=== PATIENT | male | born 1955 | race Caucasian/White ===

== ENCOUNTER → 2016-10-25 | Outpatient (CLI) | payer OTHER ==
[~2016-10-25] MED LIST: OPTIRAY 320 IV PRN
--- NOTE | 2016-10-25 09:15 | DIAGNOSTIC IMAGING REPORT ---
CHEST CT WITH CONTRAST CT DOSE: 410.48 mGy.cm HISTORY: Short of breath. COPD, MODERATE TECHNIQUE: Multiaxial CT images of the chest were performed following the intravenous administration of contrast. A dose lowering technique was utilized adhering to the principles of ALARA. COMPARISON: None. FINDINGS: A 5 mm groundglass nodule within the superior segment of the left lower lobe on image 103. A 4 mm nodular density along the left major fissure on image 146. This is likely benign. Mild apical predominant emphysematous changes. The right lung is clear. No pneumothorax. No pleural effusions. The central airways are patent. No suspicious lytic or blastic osseous lesions. No mediastinal or hilar lymphadenopathy. The heart is normal in size. Normal caliber thoracic aorta. The central pulmonary arteries are patent. The visualized liver and spleen are unremarkable. IMPRESSION: 1. Mild emphysema. 2. A 5 mm groundglass nodule within the left lower lobe. Please refer to the chart below for recommended follow-up. Please refer to below summary of Fleischner criteria recommendations for follow-up of incidental CT nodules (Leroy Escalante, Guidelines for management of small pulmonary nodules detected on CT scans: A statement from the Fleischner Society, Radiology 237: [phone].) SOLID NODULES Solitary nodule size: <6 mm * Low risk patients: no follow-up needed * high risk patients: optional CT at 12 months Solitary nodule size: 6-8 mm * Low risk patients: follow-up at 6-12 months, then consider further follow-up at 18-24 months * high risk patients: initial follow-up CT at 6-12 months and then at 18-24 months if no change Solitary nodule size: >8 mm * either low or high risk patients - consider follow-up CT at 3 months, and/or CT-PET, and/or biopsy Multiple nodules size: <6 mm * Low risk patients: no routine follow-up * high risk patients: optional CT at 12 months Multiple nodules size: 6-8 mm * Low risk patients: follow-up at 3-6 months, then consider further follow-up at 18-24 months * high risk patients: follow-up at 3-6 months, then at 18-24 months if no change Multiple nodules size: >8 mm * Low risk patients: follow-up at 3-6 months, then consider further follow-up at 18-24 months * high risk patients: follow-up at 3-6 months, then at 18-24 months if no change Note: newly detected indeterminate nodule in persons 35 years of age or older. * Low risk patients: minimal or absent history of smoking and/or other known risk factors * high risk patients: history of smoking or of other known risk factors (e.g. first degree relative with lung cancer, or exposure to asbestos, radon, uranium) * if a nodule up to 8 mm is partly solid or is ground glass further follow-up is required after 24 months to exclude possible slow growing adenocarcinoma (CALVIN) SUBSOLID NODULES Solitary pure ground-glass nodule * nodule size <6 mm - no CT follow-up required * nodule size >=6 mm - follow-up CT at 6-12 months, then every 2 years until 5 years Solitary part-solid nodule * nodule size <6 mm - no CT follow-up required * nodule size >=6 mm - follow-up CT at 3-6 months. If unchanged, and solid component remains <6 mm, then annual follow-up for 5 years Multiple subsolid nodules * nodule size <6 mm - follow-up CT at 3-6 months, consider further follow-up at 2 and 4 years if stable * nodule size >=6 mm - follow-up CT at 3-6 months, subsequent management based on the most suspicious nodule(s) Electronically signed by: Tan Martínez M.D. 10/25/2016 9:14 AM Dictated Date/Time: 10/25/2016 9:06 AM
== END | disposition home or self-care (01) ==
LOC: C.CTS 08:30
PROVIDERS: ATTEND Physician Assistant
DX: J44.9 Chronic obstructive pulmonary disease, unspecified (principal); R91.1 Solitary pulmonary nodule

== ENCOUNTER → 2017-04-26 | Outpatient (CLI) | payer OTHER ==
--- NOTE | 2017-04-26 10:53 | DIAGNOSTIC IMAGING REPORT ---
CT OF THE CHEST WITH IV CONTRAST CLINICAL HISTORY: Moderate chronic obstructive pulmonary disease. Pulmonary nodule. COMPARISON STUDY: Chest CT October 25, 2016. TECHNIQUE: Following IV administration of 116 mL of Optiray-320, helical axial images of the chest were obtained. Sagittal and coronal reconstructions were viewed as well as maximal intensity projections on an independent 3-D workstation. A dose lowering technique was utilized adhering to the principles of ALARA. CT DOSE: 405.49 mGy.cm FINDINGS: A 5 mm groundglass nodule within the left lower lobe shown on image 83 of 296 is better depicted on prior exam due to motion artifact on this exam. However, this is unchanged. A 6 mm perifissural nodule within the left lower lobe shown on image 119 is unchanged. No new nodules are identified. There is mild bronchial wall thickening and minimal secretions within the airway, including the distal trachea. Mild emphysema is noted. Central airways are patent. There is no pneumothorax or pleural effusion. There is no consolidation to suggest pneumonia. Size of the heart is normal. There is no pericardial effusion. No enlarged axillary, mediastinal or hilar lymph nodes are present. Upper abdomen is unremarkable. IMPRESSION: 1. No change in a 5 mm ground glass nodule within the left lower lobe since CT of October 25, 2016. Please refer to the chart below for recommended follow-up. 2. Mild emphysema. 3. Mild bronchial wall thickening and mild secretions within the airways. Please refer to below summary of Fleischner criteria recommendations for follow-up of incidental CT nodules (Leroy Escalante, Guidelines for management of small pulmonary nodules detected on CT scans: A statement from the Fleischner Society, Radiology 237: [phone].) SOLID NODULES Solitary nodule size: <6 mm * low risk patients: no follow-up needed * high risk patients: optional CT at 12 months Solitary nodule size: 6-8 mm * low risk patients: follow-up at 6-12 months, then consider further follow-up at 18-24 months * high risk patients: initial follow-up CT at 6-12 months and then at 18-24 months if no change Solitary nodule size: >8 mm * either low or high risk patients - consider follow-up CT at 3 months, and/or CT-PET, and/or biopsy Multiple nodules size: <6 mm * low risk patients: no routine follow-up * high risk patients: optional CT at 12 months Multiple nodules size: 6-8 mm * low risk patients: follow-up at 3-6 months, then consider further follow-up at 18-24 months * high risk patients: follow-up at 3-6 months, then at 18-24 months if no change Multiple nodules size: >8 mm * low risk patients: follow-up at 3-6 months, then consider further follow-up at 18-24 months * high risk patients: follow-up at 3-6 months, then at 18-24 months if no change Note: newly detected indeterminate nodule in persons 35 years of age or older. * low risk patients: minimal or absent history of smoking and/or other known risk factors * high risk patients: history of smoking or of other known risk factors (e.g. first degree relative with lung cancer, or exposure to asbestos, radon, uranium) * if a nodule up to 8 mm is partly solid or is ground glass further follow-up is required after 24 months to exclude possible slow growing adenocarcinoma (CALVIN) SUBSOLID NODULES Solitary pure ground-glass nodule * nodule size <6 mm - no CT follow-up required * nodule size >=6 mm - follow-up CT at 6-12 months, then every 2 years until 5 years Solitary part-solid nodule * nodule size <6 mm - no CT follow-up required * nodule size >=6 mm - follow-up CT at 3-6 months. If unchanged, and solid component remains <6 mm, then annual follow-up for 5 years Multiple subsolid nodules * nodule size <6 mm - follow-up CT at 3-6 months, consider further follow-up at 2 and 4 years if stable * nodule size >=6 mm - follow-up CT at 3-6 months, subsequent management based on the most suspicious nodule(s) Electronically signed by: Mesfin Dutton M.D. 04/26/2017 10:51 AM Dictated Date/Time: 04/26/2017 10:16 AM
== END | disposition home or self-care (01) ==
LOC: C.CTS 08:31
PROVIDERS: ATTEND Physician Assistant
DX: R91.1 Solitary pulmonary nodule (principal); J44.9 Chronic obstructive pulmonary disease, unspecified

== ENCOUNTER 2017-05-21 12:08 | Emergency (ER) | payer OTHER ==
[~2017-05-21] VITALS: Ht 175.3 cm; Wt 83.6 kg
[2017-05-21 12:10] VITALS: TEMP 36.3; Ht 175.3 cm; Wt 83.6 kg
[2017-05-21] MEDS ORDERED: XYLOCAINE 1%/SOD BICARB 20 ML VIAL INFIL ONE (13:15)
[2017-05-21] MEDS ORDERED: CEFAZOLIN SOD 1 GM VIAL IV ONE (13:15)
[2017-05-21] MEDS ORDERED: DIPHTHERIA/TETANUS/PERTUSSIS 0.5 ML SYR/VIAL IM. ONE (13:15)
[2017-05-21 13:25] LABS: HEMATOCRIT 41.4 % (42-52); HEMOGLOBIN 14.5 g/dL (14.0-18.0); MEAN CELL VOLUME 93.7 fL (80-100); MEAN CORPUSCULAR HEMOGLOBIN 32.8 pg (25-34); MEAN PLATELET VOLUME 9.7 fL (7.4-10.4); PLATELET COUNT 191 K/uL (130-400); RED CELL DISTRIBUTION WIDTH SD 44.5 fL (36.4-46.3); WHITE BLOOD COUNT 9.39 K/uL (4.8-10.8)
[2017-05-21] MEDS ORDERED: CEFAZOLIN IV 3,000 MG in SYRINGE 0 ML IV SCH (13:30)
[2017-05-21 13:47] LABS: CALCIUM 8.8 mg/dl (8.5-10.1); CREATININE 0.83 mg/dl (0.60-1.40); POTASSIUM 4.5 mmol/L (3.5-5.1)
[2017-05-21] MEDS ORDERED: ASPI-232 PO (14:12)
[2017-05-21] MEDS ORDERED: PARO1TAB27 PO (14:12)
[2017-05-21] MEDS ORDERED: PRAV80TA PO (14:12)
[2017-05-21] MEDS ORDERED: LISI-789 PO (14:12)
[2017-05-21] MEDS ORDERED: ASPI81CH2 PO (14:12)
[2017-05-21] MEDS ORDERED: FLUT1INH7 INH (14:12)
[2017-05-21] MEDS ORDERED: BUSP-8 PO (14:12)
[2017-05-21] MEDS ORDERED: HYDR25CA PO (14:12)
[2017-05-21] MEDS ORDERED: MELO-84 PO (14:12)
[2017-05-21] MEDS ORDERED: METF-384 PO (14:12)
[2017-05-21] MEDS ORDERED: DIVA500T59 PO (14:12)
[2017-05-21] MEDS ORDERED: LINA1TAB PO (14:12)
[2017-05-21] MEDS ORDERED: RISP2TAB22 PO (14:12)
[2017-05-21] MEDS ORDERED: EMPA1TAB3 PO (14:12)
[2017-05-21] MEDS ORDERED: CEPH500C PO (14:37)
--- NOTE | 2017-05-21 14:38 | EMERGENCY ROOM VISIT NOTE ---
History Report prepared by Dahlia: Alec Chavez Under the Supervision of: Dr. Minesh Rogel D.O. First contact with patient: 12:52 Chief Complaint: INFECTION Stated Complaint: INFECTED RIGHT HAND Nursing Triage Summary: Patient had hang nail on end of right middle finger. Pulled the Hang nail off on Monday. Since that time finger has been painful and redness going down the finger. No drainage noted. Finger warm to touch. Patient type 2 DM. History of Present Illness The patient is a 61 year old male with a history of diabetes who presents to the Emergency Room with complaints of a worsening right hand infection that started 2 days ago. He states that he pulled a hang nail on the end of his right middle finger off 2 days ago, and ever since then, the finger and now the surrounding area on his hand has looked more infected, with redness, sensitivity , and pain. The patient notes that there is some pus. He states that he has not had a tetanus shot "in a while". He adds that he takes 3 medications for his diabetes, including Metformin. He says that his blood sugars were pretty good today (around 118). Source of History: patient Onset: 2 days ago Position: finger(s) (right middle finger) Symptom Intensity: infection moving up hand Quality: other (redness) Timing: worsening Note: Associated symptoms: Right middle finger sensitivity and pain. Review of Systems See HPI for pertinent positives & negatives. A total of 10 systems reviewed and were otherwise negative. Past Medical & Surgical Medical Problems: (1) Diabetes Family History No pertinent family history Social History Smoking Status: Current Every Day Smoker Drug Use: none Marital Status: single Occupation Status: disabled Current/Historical Medications Scheduled Aspirin (Aspir-81), 1 TAB PO DAILY Aspirin (Aspirin), 1 TAB PO DAILY Buspirone Hcl (Buspirone Hcl), 10 MG PO TID Cephalexin Monohydrate (Keflex), 500 MG PO QID Divalproex Sodium (Depakote), 1 TAB PO BID Empagliflozin (Jardiance), 25 MG PO DAILY Fluticasone Furoate-Vilanterol (Breo Ellipta 200-25 Mcg/INH), 1 PUFF INH DAILY Linagliptin (Tradjenta), 1 TAB PO DAILY Lisinopril (Zestril), 2.5 MG PO DAILY Meloxicam (Mobic), 15 MG PO DAILY Metformin Hcl (Glucophage), 1,000 MG PO BIDM Pravastatin Sodium (Pravachol), 1 TAB PO DAILY Risperidone (Risperdal), 2 MG PO DAILY Scheduled PRN Hydroxyzine Pamoate (Vistaril), 1 CAP PO TID PRN for Anxiety Miscellaneous Medications Paroxetine (Paxil), 30 MG PO Physical Exam Vital Signs Date Time Temp Pulse Resp B/P (MAP) Pulse Ox O2 Delivery O2 Flow Rate FiO2 05/21/17 12:10 36.3 84 20 138/77 97 Room Air Physical Exam CONSTITUTIONAL/VITAL SIGNS: Reviewed / noted above. GENERAL: Non-toxic in appearance. INTEGUMENTARY: Erythema to the right middle finger and dorsal right hand overlying the 3rd metatarsal region. Paronychia of the radial right distal finger. HEAD: Normocephalic. EYES: without scleral icterus or trauma. ENT/OROPHARYNX: clear and moist. LYMPHADENOPATHY/NECK: Is supple without lymphadenopathy or meningismus. RESPIRATORY: Lungs clear and equal. CARDIOVASCULAR: Regular rate and rhythm. GI/ABDOMEN: Soft and nontender. No organomegaly or pulsatile mass. No rebound or guarding. Normal bowel sounds. EXTREMITIES: Warm and well perfused. BACK: No CVA tenderness. NEUROLOGICAL: Intact without focal deficits. PSYCHIATRIC: normal affect. MUSCULOSKELETAL: Normally developed with good muscle tone. Medical Decision & Procedures Laboratory Results 05/21/17 13:18 05/21/17 13:18 Test 05/21/17 13:18 Red Blood Count 4.42 M/uL (4.7-6.1) Mean Corpuscular Volume 93.7 fL (80-100) Mean Corpuscular Hemoglobin 32.8 pg (25-34) Mean Corpuscular Hemoglobin Concent 35.0 g/dl (32-36) RDW Standard Deviation 44.5 fL (36.4-46.3) RDW Coefficient of Variation 13.0 % (11.5-14.5) Mean Platelet Volume 9.7 fL (7.4-10.4) Anion Gap 10.0 mmol/L (3-11) Est Creatinine Clear Calc Drug Dose 94.7 ml/min Estimated GFR () 110.8 Estimated GFR (Non- 95.6 BUN/Creatinine Ratio 31.4 (10-20) Calcium Level 8.8 mg/dl (8.5-10.1) Laboratory results as stated above per my review. Medications Administered Medications (Trade) Dose Ordered Sig/Chrissie Route Start Time Stop Time Status Last Admin Dose Admin Diphtheria/ Pertussis/Tetanus Vacc (Adacel Inj) 0.5 ml ONCE ONCE IM. 05/21/17 13:15 05/21/17 13:16 DC 05/21/17 13:44 0.5 ML Lidocaine HCl (Buffered Lidocaine 1% Inj) 20 ml NOW ONCE INFIL 05/21/17 13:15 05/21/17 13:16 DC 05/21/17 13:44 20 ML Cefazolin Sodium 3000 mg/Syringe 22.5 ml @ 4.5 mls/min 1330 IV 05/21/17 13:30 05/21/17 14:00 DC 05/21/17 13:44 4.5 MLS/MIN Procedure Paronychia drainage: After 2% lidocaine was used to anesthetize the finger with a digital block, a 18-gauge needle was used to push back the radial aspect of the skin overlying the nail on the right middle finger to a point where purulent drainage was obtained. The finger was massaged and all of the purulent drainage was removed. ED Course 1258: Previous medical records were reviewed. The patient was evaluated in room C9. A complete history and physical examination was performed. 1315: Ordered Buffered Lidocaine 1% Inj 20 ml INFIL, Adacel Inj 0.5 ml IM. 1430: On reevaluation, the patient is resting comfortably. I discussed the results and findings with the patient. He verbalized agreement of the treatment plan. He was discharged home. Medical Decision Differential diagnosis: Etiologies such as cellulitis, abscess, MRSA infection, DVT, necrotizing fasciitis, dermatitis, drug eruption, as well as others were entertained.. This is a 61-year-old male who presents to the ED with a chief complaint of a right hand infection. The patient states that he bit his fingernail on his right middle finger a few days ago and developed an infection there. For this reason came to the emergency department today. He reports a history of diabetes. The patient reports increasing discomfort and swelling in his right distal finger as well as some redness of the dorsal aspect of his right hand. His exam as noted above. His exam findings are consistent with paronychia as well as some cellulitis of the right middle finger and dorsal right hand. He was given IV Ancef and his blood work was performed. He has some mild hyperglycemia with a glucose of 153. He is taking oral medication for this. The patient's CBC was normal. The apparently he was drained. There was a small amount of pus that was removed from the radial aspect of the right index finger distally. This was removed from the area of the nail. A small portion of the skin was pushed back from the nail to allow this to heal. The patient was felt to be stable for discharge. Medication Reconcilliation Current Medication List: was personally reviewed by me Blood Pressure Screening Patient's blood pressure: Elevated blood pressure Blood pressure disposition: Elevated BP felt to be situational Impression Primary Impression: Paronychia Additional Impression: Cellulitis of hand Scribe Attestation The scribe's documentation has been prepared under my direction and personally reviewed by me in its entirety. I confirm that the note above accurately reflects all work, treatment, procedures, and medical decision making performed by me. Departure Information Dispostion Home / Self-Care Prescriptions Cephalexin Monohydrate (Keflex) 500 Mg Cap 500 MG PO QID, #40 CAP Prov: Minesh Rogel D.O. 05/21/17 Referrals Isaias Medina M.D. (MEDICAL) (PCP) Patient Instructions Cellulitis Dc, [facility] Additional Instructions Keflex as prescribed. Follow-up with your doctor this week for recheck. Return for any worsening or new symptoms. Problem Qualifiers
[2017-05-21 15:10] VITALS: BP 136/78; PULSE 76; O2SAT 94
== END 2017-05-21 15:13 | disposition home or self-care (01) ==
LOC: C.EDB 12:10 → C.EDC 15:13
DX: L03.011 Cellulitis of right finger (principal); L03.113 Cellulitis of right upper limb; E11.9 Type 2 diabetes mellitus without complications; Z79.82 Long term (current) use of aspirin; Z79.84 Long term (current) use of oral hypoglycemic drugs; Z23 Encounter for immunization

== ENCOUNTER → 2017-11-06 | Outpatient (CLI) | payer OTHER ==
[~2017-11-06] MED LIST changes: +ASPI-232 PO; +ASPI81CH2 PO; +BUSP-8 PO; +CEPH500C PO; +DIVA500T59 PO; +EMPA1TAB3 PO; +FLUT1INH7 INH; +HYDR25CA PO; +LINA1TAB PO; +LISI-789 PO; +MELO-84 PO; +METF-384 PO; -OPTIRAY 320 IV PRN; +PARO1TAB27 PO; +PRAV80TA PO; +RISP2TAB22 PO
--- NOTE | 2017-11-06 10:06 | DIAGNOSTIC IMAGING REPORT ---
(CHEST) THORAX WITHOUT CT DOSE: 371.64 mGy.cm HISTORY: Nodule R91.1 Pulmonary nodule TECHNIQUE: Multiaxial CT images of the chest were performed without contrast. A dose lowering technique was utilized adhering to the principles of ALARA. COMPARISON: None. FINDINGS: The lungs are clear. The mediastinal vascular structures are within normal limits. No mediastinal or hilar lymphadenopathy. No pleural effusion or pneumothorax. Limited views of the upper abdomen demonstrate a normal liver and spleen.. 5 mm nodule immediately adjacent to the left major fissure is unchanged. There are no new or interval findings. There are no focal infiltrative changes. IMPRESSION: 5 mm nodule left midlung considered unchanged compared to several prior studies. No new or additional findings. 1 year follow-up is recommended. The above report was generated using voice recognition software. It may contain grammatical, syntax or spelling errors. Electronically signed by: Cm Cortes M.D. 11/06/2017 10:04 AM Dictated Date/Time: 11/06/2017 10:02 AM
== END | disposition home or self-care (01) ==
LOC: C.CTS 09:27
PROVIDERS: ATTEND Physician Assistant
DX: R91.1 Solitary pulmonary nodule (principal)

== ENCOUNTER 2022-05-08 03:00 | Inpatient (IN) ==
--- NOTE | 2022-05-08 03:29 | Emergency Department Note ---
History of Present Illness General Chief complaint: Back Injury/Pain Stated complaint: back pain Time Seen by Provider: 05/08/22 03:08 History of Present Illness Maximum Pain Intensity: 8 66-year-old male presents emergency department had a twist and fall 2 days ago states he called EMS tonight because he could not get out of bed. Patient complains of low states that he has had a wet cough and has a history of COPD. Patient denies bowel or bladder dysfunction. Patient tried to get up this evening and just had generalized weakness and was able to do so. There were no other complaints from the patient at this time Home Medications Medication Instructions Recorded Confirmed Type aspirin 81 mg tablet,delayed 81 mg PO DAILY 04/13/22 04/13/22 History release atorvastatin 80 mg tablet 80 mg PO DAILY 04/13/22 04/13/22 History buspirone 10 mg tablet 10 mg PO BID 04/13/22 04/13/22 History cyclobenzaprine 10 mg tablet 5 - 10 mg PO TID PRN .muscle spasms 04/13/22 04/13/22 History divalproex 500 mg tablet,delayed 500 mg PO BID 04/13/22 04/13/22 History release (Depakote) empagliflozin 25 mg tablet 25 mg PO DAILY 04/13/22 04/13/22 History (Jardiance) fluticasone fur. 200 mcg-umeclid 1 inh inhalation DAILY 04/13/22 04/13/22 History 62.5 mcg-vilant 25 mcg inhalat.powder (Trelegy Ellipta) hydroxyzine HCl 25 mg tablet 25 mg PO TID PRN Anxiety 04/13/22 04/13/22 History lisinopril 2.5 mg tablet 2.5 mg PO DAILY 04/13/22 04/13/22 History meclizine 12.5 mg tablet 12.5 mg PO TID PRN dizziness #20 04/13/22 Rx tabs meloxicam 15 mg tablet 15 mg PO DAILY 04/13/22 04/13/22 History metformin 1,000 mg tablet 1,000 mg PO BID 04/13/22 04/13/22 History paroxetine HCl 30 mg tablet (Paxil) 30 mg PO BID 04/13/22 04/13/22 History risperidone 2 mg tablet 0 mg PO HS 01/18/23 01/18/23 History semaglutide 1 mg/dose (4 mg/3 mL) 1 mg subcut WK 04/13/22 04/13/22 History subcutaneous pen injector (Ozempic) Allergies Allergy/AdvReac Type Severity Reaction Status Date / Time No Known Allergies Allergy Verified 04/13/22 21:22 Past Med/Surg History Medical History Anxiety Bipolar 1 disorder Chronic pain syndrome COPD, moderate Current tobacco use Depression Depression with anxiety Diabetes DM type 2, goal HbA1c < 7% Dyslipidemia, goal LDL below 70 Essential hypertension with goal blood pressure less than 150/90 Former smoker Paranoia Paronychia Primary osteoarthritis involving multiple joints Pulmonary nodule Surgical History History of appendectomy History of hemorrhoidectomy History of umbilical hernia repair Family History Other Family history non-contributory Social History Smoking Status: Current every day smoker Tobacco Type: Cigarettes Cigarettes Per Day: 20; Second Hand Exposure: No; Preferred Language: Mongolian Feels Safe at Home: Yes Review of Systems A total of 10 systems reviewed and were otherwise negative Respiratory: + cough Cardiovascular: no chest pain Genitourinary (Male): + flank pain Musculoskeletal: + back pain Physical Exam Vital Signs Vital Signs - 24 hr 05/08/22 03:05 05/08/22 03:18 05/08/22 03:30 Temperature 36.9 C Temperature Source Oral Pulse Rate 93 H 91 H Pulse Rate [Right Finger] 93 H Pulse Rhythm [Right Finger] Regular Respiratory Rate 20 22 18 Respiratory Depth Normal Normal Blood Pressure 135/68 Blood Pressure Mean 90 Pulse Oximetry 92 94 92 Oxygen Delivery Method Room Air Room Air Room Air Sepsis Recent Fever Within 48 Hours No Sepsis New/Unexplained Change in Mental Status N/A Sepsis Action Taken by Nursing No Action Required GENERAL: Patient is awake alert in no acute distress patient is resting comfortably and showing no signs of anxiety EYES: The conjunctivae are clear. The pupils are round and reactive. EARS, NOSE, MOUTH AND THROAT: The nose is without any evidence of any deformity. Mucous membranes are moist. Tongue is midline. NECK: The neck is nontender and supple. RESPIRATORY: Normal respiratory effort is noted there is no evidence of wheezing rhonchi or rales CARDIOVASCULAR: Regular rate and rhythm noted there no murmurs rubs or gallops normal S1 normal S2. Patient's chest wall is nontender GASTROINTESTINAL: The abdomen is soft. Abdomen is nontender. PELVIS: The Pelvis is stable. No tenderness to palpation is noted. BACK: No midline tenderness or or step-off noted range of motion in flexion extension as well as rotation no signs of muscle spasm noted; patient has no midline tenderness in the lumbar region there are no obvious step-offs MUSCULOSKELETAL/EXTREMITIES: There is no evidence of gross deformity full range of motion is noted in the hips and shoulders. Patient has bilateral lower extremity pitting edema SKIN: There is no obvious evidence of any rash. There are no petechiae, pallor or cyanosis noted. NEUROLOGIC: Patient is awake alert and oriented x3 strength is symmetric Course Reevaluation(s) Reevaluation #1: Patient is resting in no distress on repeat examination. Patient is able to move his legs without any difficulty. Patient is generally weak. Time: 04:25 Consultations Consultation #1: [facility], COVID, COPD Time: 04:26 Medical Decision Making Medical Records Attestation: I reviewed the patient's medical records. Home Medications Current Medication List: was personally reviewed by me Laboratory Data Attestation: I reviewed the patient's lab results. Patient is COVID-positive 05/08/22 03:22 05/08/22 03:22 Lab Results 05/08/22 05/08/22 05/08/22 Range/Units 03:22 03:22 03:22 WBC 6.34 (4.8-10.8) K/ul RBC 4.15 L (4.70-6.10) M/uL Hgb 13.4 L (14.0-18.0) g/dl Hct 39.6 L (42.0-52.0) % MCV 95.4 (80.0-100.0) fL MCH 32.3 (25.0-34.0) pg MCHC 33.8 (32.0-36.0) g/dL RDW Std Deviation 46.4 H (36.4-46.3) fL RDW Coeff of Keila 13.2 (11.5-14.5) % Plt Count 157 (130-400) K/uL MPV 10.2 (9.4-12.4) fL Immature Gran % (Auto) 0.2 % Neut % (Auto) 78.6 % Lymph % (Auto) 10.9 % Hudspeth % (Auto) 9.8 % Eos % (Auto) 0.2 % Baso % (Auto) 0.3 % Neut # (Auto) 4.99 (1.40-6.50) K/uL Lymph # (Auto) 0.69 L (1.2-3.4) K/uL Hudspeth # (Auto) 0.62 H (0.11-0.59) K/uL Eos # (Auto) 0.01 (0-0.50) K/uL Baso # (Auto) 0.02 (0-0.2) K/uL Immature Gran # (Auto) 0.01 (0.01-0.20) K/uL PT 10.7 (9.0-12.0) Seconds INR 1.0 (0.9-1.1) APTT 26.9 (21.0-31.0) Seconds PTT Ratio 1.0 Sodium 137 (136-145) mmol/L Potassium 4.3 (3.5-5.1) mmol/L Chloride 104 (98-107) mmol/L Carbon Dioxide 26 (21-32) mmol/L Anion Gap 7 (3-11) BUN 15 (6-23) mg/dl Creatinine 1.10 (0.6-1.4) mg/dl Est Cr Clr Drug Dosing 67.0 ml/min Est GFR ( Amer) 81.2 ml/min Est GFR (Non-Af Amer) 70.1 ml/min BUN/Creatinine Ratio 13.6 (10-20) Glucose 155 H (70-99(Fasting)) mg/dl Calcium 9.1 (8.5-10.1) mg/dl Total Bilirubin 0.3 (0.2-1.0) mg/dl AST 14 (13-39) U/L ALT 11 (7-52) U/L Alkaline Phosphatase 78 (34-104) U/L Troponin I High Sens 15.0 (0-20) pg/ml Total Protein 6.8 (6.0-8.3) gm/dl Albumin 3.9 (3.4-5.0) gm/dl Globulin 2.9 (2.5-4.0) gm/dl Albumin/Globulin Ratio 1.3 (0.9-2) SARS-CoV-2, RNA, NAAT (NEGATIVE) 05/08/22 Range/Units 03:22 WBC (4.8-10.8) K/ul RBC (4.70-6.10) M/uL Hgb (14.0-18.0) g/dl Hct (42.0-52.0) % MCV (80.0-100.0) fL MCH (25.0-34.0) pg MCHC (32.0-36.0) g/dL RDW Std Deviation (36.4-46.3) fL RDW Coeff of Keila (11.5-14.5) % Plt Count (130-400) K/uL MPV (9.4-12.4) fL Immature Gran % (Auto) % Neut % (Auto) % Lymph % (Auto) % Hudspeth % (Auto) % Eos % (Auto) % Baso % (Auto) % Neut # (Auto) (1.40-6.50) K/uL Lymph # (Auto) (1.2-3.4) K/uL [place]speth # (Auto) (0.11-0.59) K/uL Eos # (Auto) (0-0.50) K/uL Baso # (Auto) (0-0.2) K/uL Immature Gran # (Auto) (0.01-0.20) K/uL PT (9.0-12.0) Seconds INR (0.9-1.1) APTT (21.0-31.0) Seconds PTT Ratio Sodium (136-145) mmol/L Potassium (3.5-5.1) mmol/L Chloride (98-107) mmol/L Carbon Dioxide (21-32) mmol/L Anion Gap (3-11) BUN (6-23) mg/dl Creatinine (0.6-1.4) mg/dl Est Cr Clr Drug Dosing ml/min Est GFR ( Amer) ml/min Est GFR (Non-Af Amer) ml/min BUN/Creatinine Ratio (10-20) Glucose (70-99(Fasting)) mg/dl Calcium (8.5-10.1) mg/dl Total Bilirubin (0.2-1.0) mg/dl AST (13-39) U/L ALT (7-52) U/L Alkaline Phosphatase (34-104) U/L Troponin I High Sens (0-20) pg/ml Total Protein (6.0-8.3) gm/dl Albumin (3.4-5.0) gm/dl Globulin (2.5-4.0) gm/dl Albumin/Globulin Ratio (0.9-2) SARS-CoV-2, RNA, NAAT POSITIVE A* (NEGATIVE) Imaging Data Attestation: I personally reviewed and interpreted this imaging study as follows: My Impression: Chest x-ray interpreted by me COPD changes ECG Data Attestation: I personally reviewed and interpreted this ECG as follows: Additional Comments: EKG interpreted by me sinus rhythm rate of [address] segment elevation or depression normal axis incomplete left bundle branch block is present MDM Narrative Medical decision making differential diagnosis includes musculoskeletal back spasm sprain strain contusion fracture weakness metabolic derangement dehydration electrolyte abnormality conditioning COPD exacerbation Plan is to check labs, EKG, x-rays EMS medical records for this patient's history were provided to me and reviewed Nursing notes were reviewed by me and appreciated Patient is COVID-positive patient is generally weak, [facility] high risk for falls and deterioration due to generalized weakness with COVID Impression & Plan Weakness, COVID, Lumbar back sprain Discharge Plan Visit Data Chief Complaint: Back Injury/Pain Stated Complaint: back pain ED Provider: Greg Nicole Discharge Problem: Weakness, COVID, Lumbar back sprain Patient Disposition: Admitted As Inpatient Forms Stand Alone Forms: [facility] Prescriptions Prescriptions: No Action cyclobenzaprine 10 mg Tablet 5 - 10 mg PO TID PRN (Reason: .muscle spasms) Rx Instructions: Am, noon, pm prn atorvastatin 80 mg Tablet 80 mg PO DAILY meloxicam [Mobic] 15 mg Tablet 15 mg PO DAILY divalproex [Depakote] 500 mg Tablet,Delayed Release (Dr/Ec) 500 mg PO BID aspirin [Aspir-Low] 81 mg Tablet,Delayed Release (Dr/Ec) 81 mg PO DAILY risperidone 2 mg Tablet 0 mg PO HS paroxetine HCl [Paxil] 30 mg Tablet 30 mg PO BID metformin 1,000 mg Tablet 1,000 mg PO BID buspirone [BuSpar] 10 mg Tablet 10 mg PO BID hydroxyzine HCl 25 mg Tablet 25 mg PO TID PRN (Reason: Anxiety) lisinopril 2.5 mg Tablet 2.5 mg PO DAILY Jardiance 25 mg Tablet 25 mg PO DAILY Trelegy Ellipta 200-62.5-25 mcg Blister With Device 1 inh INHALATION DAILY Ozempic 1 mg/dose (4 mg/3 mL) Pen Injector 1 mg SUBCUT WK meclizine 12.5 mg tablet 12.5 mg PO TID PRN (Reason: dizziness) Qty: 20 0RF Referrals Referrals: Cm Roberto MD [Primary Care Provider] -
[2022-05-08 03:36] LABS: Basophils # (auto) 0.02 K/uL (0-0.2); Basophils % (auto) 0.3 %; Eosinophils # (auto) 0.01 K/uL (0-0.50); Eosinophils % (auto) 0.2 %; Hematocrit (blood only) 39.6 % (42.0-52.0); Hemoglobin 13.4 g/dl (14.0-18.0); Immature Granulocytes # (auto) 0.01 K/uL (0.01-0.20); Immature Granulocytes % (auto) 0.2 %; Lymphocytes # (auto) 0.69 K/uL (1.2-3.4); Lymphocytes % (auto) 10.9 %; Mean Corpuscular Hemoglobin 32.3 pg (25.0-34.0); Mean Corpuscular Hgb Conc 33.8 g/dL (32.0-36.0); Mean Corpuscular Volume 95.4 fL (80.0-100.0); Mean Platelet Volume 10.2 fL (9.4-12.4); Monocytes # (auto) 0.62 K/uL (0.11-0.59); Monocytes % (auto) 9.8 %; Neutrophils # (auto) 4.99 K/uL (1.40-6.50); Neutrophils % (auto) 78.6 %; Platelet Count 157 K/uL (130-400); RDW Coefficient of Variation 13.2 % (11.5-14.5); RDW Standard Deviation 46.4 fL (36.4-46.3); Red Blood Count 4.15 M/uL (4.70-6.10); White Blood Count 6.34 K/ul (4.8-10.8)
[2022-05-08 04:07] LABS: Albumin Globulin Ratio 1.3 (0.9-2); Albumin Level 3.9 gm/dl (3.4-5.0); BUN Creatinine Ratio 13.6 (10-20); Bilirubin,Total 0.3 mg/dl (0.2-1.0); Calcium 9.1 mg/dl (8.5-10.1); Est GFR (African American) 81.2 ml/min; Est GFR (Non-African American) 70.1 ml/min; Globulin 2.9 gm/dl (2.5-4.0); Potassium 4.3 mmol/L (3.5-5.1); Total Protein 6.8 gm/dl (6.0-8.3)
[2022-05-08 04:22] LABS: Partial Thromboplastin Time 26.9 Seconds (21.0-31.0); Prothrombin Time 10.7 Seconds (9.0-12.0)
[2022-05-08] MEDS ORDERED: SODIUM CHLORIDE 0.9% 1000ML 1,000 ML IV STA (04:23)
[2022-05-08 04:32] LABS: Magnesium 1.8 mg/dl (1.7-2.4)
--- NOTE | 2022-05-08 04:53 | History & Physical Report ---
Date of Service May 08, 2022 Assessment & Plan (1) Weakness: Plan: Secondary to COVID-19 illness Patient with chronic COPD symptoms. Patient nontoxic. Back pain post fall from 2 days ago hypertension, stable DM 2 on oral medications, well-controlled as of recent hemoglobin A1c of 6.6 last February 2022 anxiety/mood disorder, at baseline chronic anemia, hemoglobin at baseline past tobacco abuse GMF Supportive management for COVID-19 illness. Analgesia PT OT eval Basal bolus insulin, ISS BG goal 1 10-1 40, carb count coverage DVT prophylaxis. Lovenox subcu DNR as per patient's prior directives. Patient requests for family to be given periodic updates. Mr. Guero Gomez (son), contact number [phone]. Ms. Cecilia Aaron (former girlfriend), contact #[phone]. Text document was generated using [employer] voice recognition software. It may contain grammatical or spelling errors. Kindly contact undersigned for clarification of any documentation item in question. History of Present Illness Chief Complaint: Back pain, unable to get up Primary Care Provider: Cm Roberto MD History obtained from patient, family, and records. Medical history significant for hypertension, hyperlipidemia, COPD, DM 2 on oral medications, anxiety/mood disorder, chronic back pain status post surgery, chronic anemia (baseline hemoglobin of 13 ), past tobacco abuse. Patient twisted his back and fell 2 days ago from generalized weakness. No syncope, no head trauma, no chest pain. No unusual shortness of breath or cough symptoms. Not sure about sick contacts. Patient has received COVID-19 vaccination. Worsening of chronic back pain without radiation to legs. No incontinence symptoms. Patient needed help from neighbors getting up. Patient brought to ER for evaluation because of increased weakness. Medical History as above Surgical History : Appendectomy, umbilical hernia repair, back surgery Family History : Heart disease Personal/Social history : Past tobacco abuse, occasional EtOH intake, lives alone with former girlfriend acting as caregiver Allergies Allergy/AdvReac Type Severity Reaction Status Date / Time No Known Allergies Allergy Verified 04/13/22 21:22 Home Medications Medication Instructions Recorded Confirmed Type aspirin 81 mg tablet,delayed 81 mg PO DAILY 04/13/22 05/08/22 History release atorvastatin 80 mg tablet 80 mg PO DAILY 04/13/22 05/08/22 History buspirone 10 mg tablet 10 mg PO BID 04/13/22 05/08/22 History cyclobenzaprine 10 mg tablet 5 - 10 mg PO TID PRN .muscle spasms 04/13/22 05/08/22 History divalproex 500 mg tablet,delayed 500 mg PO BID 04/13/22 05/08/22 History release (Depakote) empagliflozin 25 mg tablet 25 mg PO DAILY 04/13/22 05/08/22 History (Jardiance) fluticasone fur. 200 mcg-umeclid 1 inh inhalation DAILY 04/13/22 05/08/22 History 62.5 mcg-vilant 25 mcg inhalat.powder (Trelegy Ellipta) hydroxyzine HCl 25 mg tablet 25 mg PO TID PRN Anxiety 04/13/22 05/08/22 History lisinopril 2.5 mg tablet 2.5 mg PO DAILY 04/13/22 05/08/22 History meloxicam 15 mg tablet 15 mg PO DAILY 04/13/22 05/08/22 History metformin 1,000 mg tablet 1,000 mg PO BID 04/13/22 05/08/22 History paroxetine HCl 30 mg tablet (Paxil) 30 mg PO BID 04/13/22 05/08/22 History risperidone 2 mg tablet 2 mg PO HS 04/13/22 05/08/22 History semaglutide 1 mg/dose (4 mg/3 mL) 1 mg subcut WK 04/13/22 05/08/22 History subcutaneous pen injector (Ozempic) Past Med/Surg History Medical History Anxiety Bipolar 1 disorder Chronic pain syndrome COPD, moderate Current tobacco use Depression Depression with anxiety Diabetes DM type 2, goal HbA1c < 7% Dyslipidemia, goal LDL below 70 Essential hypertension with goal blood pressure less than 150/90 Former smoker Paranoia Paronychia Primary osteoarthritis involving multiple joints Pulmonary nodule Surgical History History of appendectomy History of hemorrhoidectomy History of umbilical hernia repair Family History Other Family history non-contributory Social History Smoking Status: Current every day smoker Tobacco Type: Cigarettes Cigarettes Per Day: 20; Second Hand Exposure: No; Preferred Language: Kazakh Feels Safe at Home: Yes Review of Systems Review of Systems: As per HPI, all other systems reviewed and negative Physical Exam Physical Exam: GENERAL: Slightly uncomfortable, pleasant, no respiratory distress SKIN: Pallor, warm HEENT: Alopecia, pale palpebral conjunctivae, no ptosis, dry buccal mucosa NECK : Supple, no tenderness CHEST : Decreased breath sounds, occasional expiratory wheezes, no tenderness HEART : RRR, no obvious murmurs ABDOMEN: Some distention, nontender BACK : Low back tenderness with limited straight leg raise test EXTREMITIES : No LE swelling/tenderness, no other conspicuous deformities noted NEUROLOGIC : Coherent, no facial asymmetry, no other gross focality Results & Data Results & Data ([facility]) Vital Signs (Past 12 Hours) Vital Signs Temp Pulse Pulse Resp BP Pulse Ox O2 Del Method 05/08/22 04:32 86 25 H 108/52 L 95 05/08/22 04:01 88 20 123/46 L 93 05/08/22 03:30 91 H 18 92 Room Air 05/08/22 03:18 93 H 22 94 Room Air 05/08/22 03:05 36.9 C 93 H 20 135/68 92 Room Air Laboratory Results Laboratory Results WBC 6.34 K/ul (4.8-10.8) 05/08/22 03:22 RBC 4.15 M/uL (4.70-6.10) L 05/08/22 03:22 Hgb 13.4 g/dl (14.0-18.0) L 05/08/22 03:22 Hct 39.6 % (42.0-52.0) L 05/08/22 03:22 MCV 95.4 fL (80.0-100.0) 05/08/22 03:22 MCH 32.3 pg (25.0-34.0) 05/08/22 03:22 MCHC 33.8 g/dL (32.0-36.0) 05/08/22 03:22 RDW Std Deviation 46.4 fL (36.4-46.3) H 05/08/22 03:22 RDW Coeff of Keila 13.2 % (11.5-14.5) 05/08/22 03:22 Plt Count 157 K/uL (130-400) 05/08/22 03:22 MPV 10.2 fL (9.4-12.4) 05/08/22 03:22 Immature Gran % (Auto) 0.2 % 05/08/22 03:22 Neut % (Auto) 78.6 % 05/08/22 03:22 Lymph % (Auto) 10.9 % 05/08/22 03:22 Castro % (Auto) 9.8 % 05/08/22 03:22 Eos % (Auto) 0.2 % 05/08/22 03:22 Baso % (Auto) 0.3 % 05/08/22 03:22 Neut # (Auto) 4.99 K/uL (1.40-6.50) 05/08/22 03:22 Lymph # (Auto) 0.69 K/uL (1.2-3.4) L 05/08/22 03:22 Castro # (Auto) 0.62 K/uL (0.11-0.59) H 05/08/22 03:22 Eos # (Auto) 0.01 K/uL (0-0.50) 05/08/22 03:22 Baso # (Auto) 0.02 K/uL (0-0.2) 05/08/22 03:22 Immature Gran # (Auto) 0.01 K/uL (0.01-0.20) 05/08/22 03:22 PT 10.7 Seconds (9.0-12.0) 05/08/22 03:22 INR 1.0 (0.9-1.1) 05/08/22 03:22 APTT 26.9 Seconds (21.0-31.0) 05/08/22 03:22 PTT Ratio 1.0 05/08/22 03:22 Sodium 137 mmol/L (136-145) 05/08/22 03:22 Potassium 4.3 mmol/L (3.5-5.1) 05/08/22 03:22 Chloride 104 mmol/L (98-107) 05/08/22 03:22 Carbon Dioxide 26 mmol/L (21-32) 05/08/22 03:22 Anion Gap 7 (3-11) 05/08/22 03:22 BUN 15 mg/dl (6-23) 05/08/22 03:22 Creatinine 1.10 mg/dl (0.6-1.4) 05/08/22 03:22 Est Cr Clr Drug Dosing 67.0 ml/min 05/08/22 03:22 Est GFR ( Amer) 81.2 ml/min 05/08/22 03:22 Est GFR (Non-Af Amer) 70.1 ml/min 05/08/22 03:22 BUN/Creatinine Ratio 13.6 (10-20) 05/08/22 03:22 Glucose 155 mg/dl (70-99(Fasting)) H 05/08/22 03:22 Calcium 9.1 mg/dl (8.5-10.1) 05/08/22 03:22 Magnesium 1.8 mg/dl (1.7-2.4) 05/08/22 03:22 Total Bilirubin 0.3 mg/dl (0.2-1.0) 05/08/22 03:22 AST 14 U/L (13-39) 05/08/22 03:22 ALT 11 U/L (7-52) 05/08/22 03:22 Alkaline Phosphatase 78 U/L (34-104) 05/08/22 03:22 Total Creatine Kinase 43 U/L (30-223) 05/08/22 03:22 Troponin I High Sens 15.0 pg/ml (0-20) 05/08/22 03:22 Total Protein 6.8 gm/dl (6.0-8.3) 05/08/22 03:22 Albumin 3.9 gm/dl (3.4-5.0) 05/08/22 03:22 Globulin 2.9 gm/dl (2.5-4.0) 05/08/22 03:22 Albumin/Globulin Ratio 1.3 (0.9-2) 05/08/22 03:22 SARS-CoV-2, RNA, NAAT POSITIVE (NEGATIVE) A* 05/08/22 03:22 Diagnostic Findings Lumbar spine x-ray read pending Chest x-ray as per my interpretation hyperinflation EKG as per my interpretation : Rate 100, NSR, normal axis, no ischemia, PVCs
[2022-05-08] MEDS ORDERED: LEVALBUTEROL TARTRATE 15 GM HFA.AER.AD INH STA (04:56)
--- NOTE | 2022-05-08 07:04 | XRay Report ---
XR chest 1V portable HISTORY: Chest pain, nonspecific COMPARISON: Chest 04/13/2022. FINDINGS: No pneumothorax. No pleural effusions. The lungs are clear. The heart is normal in size. Em physema again noted. IMPRESSION: Emphysema. Otherwise, no acute process within the chest. ACT 112: Negative or not required by law. Electronically signed by: Tan Martínez M.D. 05/08/2022 7:03 AM
--- NOTE | 2022-05-08 07:15 | XRay Report ---
LUMBAR SPINE 5 VIEWS HISTORY: Low back pain COMPARISON: None. FINDINGS: There is no fracture. No subluxation. The visualized sacrum appears intact. Mild disc spac e narrowing at L5-S1. Mild facet degenerative changes within the lower lumbar spine. IMPRESSION: No fracture or subluxation within the lumbar spine. ACT 112: Negative or not required by law. Electronically signed by: Tan Martínez M.D. 05/08/2022 7:14 AM
[2022-05-08] MEDS ORDERED: GLUCOSE 40% GEL 15 GM TUBE PO PRN (10:25)
[2022-05-08] MEDS ORDERED: PROMETHAZINE HCL 12.5 MG in SODIUM CHLORIDE 0.9% 50 ML IV PRN (10:25)
[2022-05-08] MEDS ORDERED: ACETAMINOPHEN 325 MG TAB PO PRN (10:25)
[2022-05-08] MEDS ORDERED: DEXTROSE 50% 50 ML SYRINGE IV PRN (10:25)
[2022-05-08] MEDS ORDERED: hydrOXYzine HCl 25 MG TAB PO PRN (10:25)
[2022-05-08] MEDS ORDERED: LANTUS PER UNIT CHARGE SQ SCH (10:25)
[2022-05-08] MEDS ORDERED: CARBOHYDRATES FOR HYPOGLYCEMIA PO PRN (10:25)
[2022-05-08] MEDS ORDERED: GLUCOSE 10 TAB/TUBE PO PRN (10:25)
[2022-05-08] MEDS ORDERED: oxyCODONE HCL IR 5 MG TAB (IMMEDIATE RELEASE) PO PRN (10:25)
[2022-05-08] MEDS ORDERED: CYCLOBENZAPRINE HCL 5 MG TAB PO PRN (10:25)
[2022-05-08] MEDS ORDERED: GLUCAGON FOR INJ 1 MG VIAL SQ PRN (10:25)
[2022-05-08] MEDS: DIVALPROEX DELAY RELEASE 500 MG TAB PO SCH ×2 (11:39→21:23)
[2022-05-08] MEDS: busPIRone 5 MG TAB PO SCH ×2 (11:39→21:22)
[2022-05-08] MEDS: lisinopril 2.5 MG TAB PO SCH (11:39)
[2022-05-08] MEDS: PARoxetine HCL 10 MG TAB PO SCH ×2 (11:40→21:24)
[2022-05-08] MEDS: FLUTICASONE FUROATE 100MCG 14 PUFFS/INHALER INH SCH (11:40)
[2022-05-08] MEDS: MELOXICAM 7.5 MG TAB PO SCH (11:40)
[2022-05-08] MEDS: UMECLIDINIUM/VILANTEROL 62.5/25MCG 7 PUFFS/INHALER INH SCH (11:40)
[2022-05-08] MEDS: ATORVASTATIN 40 MG TAB PO SCH (11:40)
[2022-05-08] MEDS: ENOXAPARIN INJ 40 MG/0.4 ML SYR SQ SCH (11:41)
[2022-05-08] MEDS: INSULIN ASPART PER UNIT SC SCH ×3 (12:53→21:24)
--- NOTE | 2022-05-08 14:25 | Hospitalist Progress Note ---
Date of Service May 08, 2022 Assessment & Plan (1) Weakness: Plan: Secondary to COVID-19 illness Patient with chronic COPD symptoms. No indication for covid treatment. Back pain post fall from 2 days ago-likely a sprain, CT lumbar spine without evidence of fracture. As this was an unwitnessed fall and he is having intermittent confusion per nurses, will obtain head CT and c-cpine CT to ensure no fracture from trauma. Will cont with scheduled tylenol and Mobic daily. Will use diazepam PRN severe spasms. PT/OT evaluations. hypertension, stable DM 2 on oral medications, well-controlled as of recent hemoglobin A1c of 6.6 last February 2022 anxiety/mood disorder, at baseline chronic anemia, hemoglobin at baseline past tobacco abuse Lovenox for DVT prophylaxis DNR/DNI Dispo-uncertain at this time. Lanie Alejandro DO [facility] Hospitalist (2) COVID: (3) Lumbar back sprain: (4) Current smoker: (5) Bipolar 1 disorder: (6) DM type 2, goal HbA1c < 7%: Plan: A1C ordered. BSG trending down. Pt typically on metformin at home. Will stop glargine, and allow correction factor novolog only as needed. Stop carb coverage for now to avoid hypoglycemia. (7) Depression with anxiety: Admission and Anticipated Discharge Date Admission Date: May 08, 2022 Subjective Mr. Santos is a 66-year-old man who presented for acute back pain and inability to ambulate. He reports a fall 2 days ago while trying to step into his pants. He felt his back twisted at that time and had pain. He was able to ambulate after that but subsequently went to bed on night 2 and was not able to move secondary to pain and swelling. He reports using Advil at home which helped. He reports being unable to get out of bed at this time but is able to move his legs without much difficulty. He does have some tenderness to his lower back more so on the left than the right. He denies any other neurologic issues at this time. He has a history of chronic incontinence and was appearing confused when he arrived onto the floor this afternoon. A condom cath was sam lied for incontinence. Review of Systems Review of Systems: All systems reviewed negative except as indicated above. Physical Exam Physical Exam: CONSTITUTIONAL: WNWD, vitals as above, generally well- appearing, NAD, lying supine and able to move around the bed with ease. EYES: normal conjunctivae, no scleral icterus ENT: external ear and nose normal, MMM NECK: trachea midline RESPIRATORY: clear to auscultation bilaterally, no crackles, rales or wheezes, normal respiratory effort CARDIOVASCULAR: regular rate and rhythm, S1 and 2 heard without murmurs, gallops or rubs, no JVD, no peripheral edema CHEST: inspection of chest was normal GASTROINTESTINAL: soft, nontender, ND, no guarding MUSCULOSKELETAL: strength 5/5 throughout, head is normocephalic and atraumatic, L>R lower back parapinal tenderness to palpation. SKIN: warm and dry NEUROLOGIC: CN 2-12 grossly intact, no sensory deficit, normal cognition, normal speech, no tremor, 2+patellar DTRs bilaterally. PSYCHIATRIC: alert cooperative and oriented to person, place and time. Euthymic mood, makes good eye contact, language grossly intact, recent and remote memory grossly intact. Results & Data Results & Data ([facility]) Vital Signs (Past 12 Hours) Vital Signs Temp Pulse Pulse Resp BP BP BP 05/08/22 13:43 05/08/22 12:35 36.4 C L 100 H 18 176/83 H 05/08/22 12:02 91 H 18 158/95 H 05/08/22 11:00 36.8 C 91 H 19 05/08/22 09:40 20 05/08/22 09:30 83 24 144/73 H 05/08/22 09:31 36.5 C 05/08/22 09:00 86 21 166/90 H 05/08/22 08:30 85 24 144/67 H 05/08/22 08:14 84 28 H 145/69 H 05/08/22 07:30 101 H 21 162/116 H 05/08/22 07:00 81 23 152/83 H 05/08/22 07:00 99 H 20 152/83 H 05/08/22 06:30 86 20 149/105 H 05/08/22 05:31 87 20 131/59 L 05/08/22 05:18 90 22 05/08/22 05:01 96 H 20 151/91 H 05/08/22 04:32 86 25 H 108/52 L 05/08/22 04:01 88 20 123/46 L 05/08/22 03:30 91 H 18 05/08/22 03:18 93 H 22 05/08/22 03:05 36.9 C 93 H 20 135/68 Pulse Ox O2 Del Method 05/08/22 13:43 Room Air 05/08/22 12:35 93 Room Air 05/08/22 12:02 96 Room Air 05/08/22 11:00 97 Room Air 05/08/22 09:40 94 Room Air 05/08/22 09:30 94 Room Air 05/08/22 09:31 05/08/22 09:00 93 Room Air 05/08/22 08:30 95 Room Air 05/08/22 08:14 94 Room Air 05/08/22 07:30 92 Room Air 05/08/22 07:00 93 Room Air 05/08/22 07:00 95 Room Air 05/08/22 06:30 95 05/08/22 05:31 95 05/08/22 05:18 95 Room Air 05/08/22 05:01 95 05/08/22 04:32 95 05/08/22 04:01 93 05/08/22 03:30 92 Room Air 05/08/22 03:18 94 Room Air 05/08/22 03:05 92 Room Air Laboratory Results Short CBC 05/08/22 Range/Units 03:22 WBC 6.34 (4.8-10.8) K/ul Hgb 13.4 L (14.0-18.0) g/dl Hct 39.6 L (42.0-52.0) % Plt Count 157 (130-400) K/uL BMP 05/08/22 03:22 Sodium 137 Potassium 4.3 Chloride 104 Carbon Dioxide 26 BUN 15 Creatinine 1.10 Glucose 155 H Calcium 9.1 Cardiac Enzymes 05/08/22 Range/Units 03:22 Total Creatine Kinase 43 (30-223) U/L Liver Function 05/08/22 Range/Units 03:22 Total Bilirubin 0.3 (0.2-1.0) mg/dl AST 14 (13-39) U/L ALT 11 (7-52) U/L Alkaline Phosphatase 78 (34-104) U/L Albumin 3.9 (3.4-5.0) gm/dl Diagnostic Findings Chest X-Ray 05/08/22 03:18 XR chest 1V portable HISTORY: Chest pain, nonspecific COMPARISON: Chest 04/13/2022. FINDINGS: No pneumothorax. No pleural effusions. The lungs are clear. The heart is normal in size. Emphysema again noted. IMPRESSION: Emphysema. Otherwise, no acute process within the chest. ACT 112: Negative or not required by law. Electronically signed by: Tan Martínez M.D. 05/08/2022 7:03 AM Lumbar Spine X-Ray 05/08/22 03:18 LUMBAR SPINE 5 VIEWS HISTORY: Low back pain COMPARISON: None. FINDINGS: There is no fracture. No subluxation. The visualized sacrum appears intact. Mild disc space narrowing at L5-S1. Mild facet degenerative changes within the lower lumbar spine. IMPRESSION: No fracture or subluxation within the lumbar spine. ACT 112: Negative or not required by law. Electronically signed by: Tan Martínez M.D. 05/08/2022 7:14 AM Medications Administered Current Inpatient Medications Acetaminophen (Acetaminophen 325 Mg Tab) 650 mg PO Q4H PRN PRN Reason: pain/fever Stop: 06/07/22 10:24 Atorvastatin Calcium (Atorvastatin 40 Mg Tab) 80 mg PO DAILY BOB Stop: 06/07/22 10:24 Last Admin: 05/08/22 11:40 Dose: 80 mg Buspirone HCl (Buspirone 5 Mg Tab) 10 mg PO BID BOB Stop: 06/07/22 10:24 Last Admin: 05/08/22 11:39 Dose: 10 mg Cyclobenzaprine HCl (Cyclobenzaprine Hcl 5 Mg Tab) 5 mg PO TID PRN PRN Reason: .muscle spasms Stop: 06/07/22 10:24 Dextrose (Dextrose 50% 50 Ml Syringe) 25 - 50 ml IV UD PRN; Protocol PRN Reason: Hypoglycemia Protocol Stop: 06/07/22 10:24 Divalproex Sodium (Divalproex Delay Release 500 Mg Tab) 500 mg PO BID BOB Stop: 06/07/22 10:24 Last Admin: 05/08/22 11:39 Dose: 500 mg Enoxaparin Sodium (Enoxaparin Inj 40 Mg/0.4 Ml Syr) 40 mg SQ QAM BOB Stop: 06/07/22 10:59 Last Admin: 05/08/22 11:41 Dose: 40 mg Fluticasone Furoate (Fluticasone Furoate 100mcg 14 Puffs/Inhaler) 1 puffs INH DAILY BOB Stop: 06/07/22 10:59 Last Admin: 05/08/22 11:40 Dose: 1 puffs Glucagon (Glucagon For Inj 1 Mg Vial) 1 mg SQ UD PRN; Protocol PRN Reason: Hypoglycemia Protocol Stop: 06/07/22 10:24 Glucose (Glucose 40% Gel 15 Gm Tube) 15 - 30 gm PO UD PRN; Protocol PRN Reason: Hypoglycemia Protocol Stop: 06/07/22 10:24 Glucose (Glucose 10 Tab/Tube) 4 - 8 tab PO UD PRN; Protocol PRN Reason: Hypoglycemia Treatment Stop: 06/07/22 10:24 Hydroxyzine HCl (Hydroxyzine Hcl 25 Mg Tab) 25 mg PO TID PRN PRN Reason: Anxiety Stop: 06/07/22 10:24 Sodium Chloride (Nss 1000ml) 1,000 mls @ 60 mls/hr IV .[id number] STA Stop: 05/08/22 21:02 Last Admin: 05/08/22 04:32 Dose: 60 mls/hr Promethazine HCl 12.5 mg/ (Sodium Chloride) 50.5 mls @ 202 mls/hr IV Q6H PRN PRN Reason: Nausea And Vomiting Stop: 06/07/22 10:24 Insulin Aspart (Insulin Aspart Per Unit) 0 units SC ACHS BOB Stop: 06/07/22 10:24 Last Admin: 05/08/22 12:53 Dose: Not Given Insulin Glargine (Lantus Per Unit Charge) 5 units SQ DAILY BOB Stop: 06/07/22 10:24 Last Admin: 05/08/22 12:56 Dose: 5 units Lisinopril (Lisinopril 2.5 Mg Tab) 2.5 mg PO DAILY BOB Stop: 06/07/22 10:24 Last Admin: 05/08/22 11:39 Dose: 2.5 mg Meloxicam (Meloxicam 7.5 Mg Tab) 15 mg PO DAILY BOB Stop: 06/07/22 10:24 Last Admin: 05/08/22 11:40 Dose: 15 mg Miscellaneous (Carbohydrates For Hypoglycemia ) 15 - 30 gm PO UD PRN PRN Reason: Hypoglycemia Protocol Stop: 06/07/22 10:24 Oxycodone HCl (Oxycodone Hcl Ir 5 Mg Tab (Immediate Release)) 5 mg PO Q4H PRN PRN Reason: Pain Stop: 05/22/22 10:24 Paroxetine HCl (Paroxetine Hcl 10 Mg Tab) 30 mg PO BID BOB Stop: 06/07/22 10:59 Last Admin: 05/08/22 11:40 Dose: 30 mg Risperidone (Risperidone 2 Mg Tablet) 2 mg PO HS BOB Stop: 06/07/22 20:59 Umeclidinium/Vilanterol (Umeclidinium/Vilanterol 62.5/25mcg 7 Puffs/Inhaler) 1 puffs INH DAILY BOB Stop: 06/07/22 10:59 Last Admin: 05/08/22 11:40 Dose: 1 puffs
[2022-05-08] MEDS ORDERED: diazePAM 2 MG TABLET PO PRN (17:40)
[2022-05-08] MEDS: ACETAMINOPHEN 500 MG TAB PO SCH (18:21)
[2022-05-08] MEDS: risperiDONE 2 MG TABLET PO SCH (21:25)
[2022-05-09] MEDS: ACETAMINOPHEN 500 MG TAB PO SCH ×3 (02:23→18:22)
--- NOTE | 2022-05-09 06:05 | Electrocardiogram Report ---
Test Reason : Blood Pressure : / mmHG Vent. Rate : 100 BPM Atrial Rate : 100 BPM P-R Int : 154 ms QRS Dur : 098 ms QT Int : 362 ms P-R-T Axes : 078 050 044 degrees QTc Int : 466 ms Poor data quality, interpretation may be adversely affected Sinus rhythm with frequent , and consecutive Premature ventricular complexes Abnormal ECG When compared with ECG of 13-APR-2022 19:11, Questionable change in QRS axis Confirmed by Nato Cano ([id number]) on 05/09/2022 6:05:12 AM Referred By: REFERRED SELF Confirmed By:Nato Cano
[2022-05-09 06:38] LABS: Basophils # (auto) 0.02 K/uL (0-0.2); Basophils % (auto) 0.4 %; Hematocrit (blood only) 36.2 % (42.0-52.0); Hemoglobin 12.2 g/dl (14.0-18.0); Immature Granulocytes # (auto) 0.01 K/uL (0.01-0.20); Immature Granulocytes % (auto) 0.2 %; Lymphocytes # (auto) 1.21 K/uL (1.2-3.4); Lymphocytes % (auto) 21.9 %; Mean Corpuscular Hemoglobin 31.9 pg (25.0-34.0); Mean Corpuscular Hgb Conc 33.7 g/dL (32.0-36.0); Mean Corpuscular Volume 94.8 fL (80.0-100.0); Mean Platelet Volume 10.2 fL (9.4-12.4); Monocytes # (auto) 0.37 K/uL (0.11-0.59); Monocytes % (auto) 6.7 %; Neutrophils # (auto) 3.91 K/uL (1.40-6.50); Neutrophils % (auto) 70.8 %; Platelet Count 143 K/uL (130-400); RDW Coefficient of Variation 13.2 % (11.5-14.5); RDW Standard Deviation 46.3 fL (36.4-46.3); Red Blood Count 3.82 M/uL (4.70-6.10); White Blood Count 5.52 K/ul (4.8-10.8)
[2022-05-09 06:55] LABS: BUN Creatinine Ratio 12.3 (10-20); Calcium 8.4 mg/dl (8.5-10.1); Creatinine Clr Calc Pharmacy 69.5 ml/min; Est GFR (African American) 84.9 ml/min; Est GFR (Non-African American) 73.3 ml/min; Potassium 4.5 mmol/L (3.5-5.1)
--- NOTE | 2022-05-09 07:01 | CT Scan Report ---
CT cervical spine wo con CT DOSE: 1302.03 mGy.cm CLINICAL HISTORY: 66 years-old Male with h/o unwitnessed fall. Acute neck pain status post fall COMPARISON: Head CT of same day, CTA neck 04/13/2022 TECHNIQUE: Multiple axial CT images of the cervical spine were obtained without contrast. A dose low ering technique was utilized adhering to the principles of ALARA. FINDINGS: Multilevel degenerative changes. Unchanged mild chronic appearing C7 wedge deformity. No ac jitendra fracture or subluxation identified. The cervical soft tissues appear unremarkable. Partially imaged with moderate mucosal thickening of t he right sphenoid sinus. The visualized lung apices appear clear. IMPRESSION: No acute fracture or subluxation. ACT 112: Negative or not required by law. The above report was generated using voice recognition software. It may contain grammatical, syntax o r spelling errors. Electronically signed by: Shashi Avitia M.D. 05/09/2022 6:59 AM
--- NOTE | 2022-05-09 07:28 | CT Scan Report ---
CT head/brain wo con CLINICAL HISTORY: h/o fall unwitnessed, intermittent confusion Technique: Contiguous axial CT images of the head were acquired from the base of the skull to the bernarda aide without intravenous contrast administration. Images were viewed in brain, subdural and bone windo ws. Automated dose lowering techniques and/or adjustment according to patient size were utilized for this exam. Comparison: Comparison is made to CTA head and neck 04/13/2022 Findings: Areas of decreased attenuation are present in the periventricular and subcortical white matter bilate rally consistent with small vessel ischemic disease. Generalized cerebral atrophy with commensurate e nlargement of the ventricles, sulci, and cisterns is also present. There is no acute intracranial hem orrhage or evidence of acute territorial infarction. No shift of the midline structures, mass effect, or extra-axial abnormalities are shown. Atherosclerotic calcifications are present in the intracran ial segments of the internal carotid arteries. Sinus disease is seen most prominently in the ethmoid and sphenoid sinuses. The orbits appear normal. There are no acute fractures of the calvaria or scalp swelling. Impression: No acute intracranial hemorrhage, no evidence of acute territorial infarction or other acute intracra nial disease process. ACT 112: Negative or not required by law. Electronically signed by: Rayo Bergeron M.D. 05/09/2022 7:25 AM
[2022-05-09 07:37] LABS: Estimated Average Glucose 154 mg/dl
[2022-05-09] MEDS: INSULIN ASPART PER UNIT SC SCH ×4 (08:57→20:54)
[2022-05-09] MEDS: ENOXAPARIN INJ 40 MG/0.4 ML SYR SQ SCH (09:24)
[2022-05-09] MEDS: busPIRone 5 MG TAB PO SCH ×2 (09:26→20:43)
[2022-05-09] MEDS: DIVALPROEX DELAY RELEASE 500 MG TAB PO SCH ×2 (09:26→20:42)
[2022-05-09] MEDS: UMECLIDINIUM/VILANTEROL 62.5/25MCG 7 PUFFS/INHALER INH SCH (09:26)
[2022-05-09] MEDS: ATORVASTATIN 40 MG TAB PO SCH (09:26)
[2022-05-09] MEDS: lisinopril 2.5 MG TAB PO SCH (09:26)
[2022-05-09] MEDS: MELOXICAM 7.5 MG TAB PO SCH (09:26)
[2022-05-09] MEDS: FLUTICASONE FUROATE 100MCG 14 PUFFS/INHALER INH SCH (09:27)
[2022-05-09] MEDS: PARoxetine HCL 10 MG TAB PO SCH ×2 (09:27→20:44)
[2022-05-09] MEDS: DOCUSATE SODIUM 100 MG CAP PO SCH ×2 (09:50→20:45)
[2022-05-09] MEDS: POLYETHYLENE (MIRALAX) 17 GM PACK PO SCH (09:50)
--- NOTE | 2022-05-09 15:00 | Hospitalist Progress Note ---
Date of Service May 09, 2022 Assessment & Plan (1) Weakness: (2) COVID: (3) Lumbar back sprain: (4) Current smoker: (5) Bipolar 1 disorder: (6) Depression with anxiety: (7) Hypertension: (8) DM type 2, goal HbA1c < 7%: Plan: Generalized weakness, ambulatory dysfunction Lumbar back sprain Secondary to COVID-19 illness Back pain post fall from 2 days ago-likely a sprain, CT lumbar spine without evidence of fracture. Head CT negative for acute intracranial findings Pain controlled with scheduled Tylenol and daily meloxicam. Patient has not required PRN oxycodone, Flexeril, diazepam. PT/OT recommending rehab COVID-19 Patient with chronic COPD symptoms No indication for COVID-19 directed therapies at this time Hypertension BP controlled, continue lisinopril DM Type 2 On oral medications, well-controlled as of recent hemoglobin A1c of 6.6 last February 2022 NovoLog with correction factor only, blood sugars controlled Bipolar disorder Anxiety/Mood disorder Stable, continue home meds DVT PROPHYLAXIS SQ Lovenox Dispo -PT/OT recommending rehab, case management following Admission and Anticipated Discharge Date Admission Date: May 08, 2022 Supervising Physician Co-Signing Physician Notes I have seen and examined the patient and have discussed the case with the provider above. I agree with the assessment and plan as stated. 66 yo M admitted for fall with lower back pain and difficulty moving. Working with PT. Reports no pain today. He is eating dinner at this time. No distress. Sitting up in bed and easily leans forward in sitting position. Abdomen benign. Lungs clear to auscultation. No TTP on the lower back. Reviewed CT head and CT c spine after fall which are unremarkable. cont efforts for placement into rehab. Appreciate case management assistance with the case, including coordination with family to understand accurately the resources available to him in the home. Javon, DO Subjective Follow-up for generalized weakness, back pain, COVID-19. Patient seen and examined. Reports back pain is improving. Offers no other complaints at this time. Denies chest pain or shortness of breath. Minimal cough. Reports a good appetite, no abdominal pain or nausea. Review of Systems Review of Systems: ROS per HPI, all other systems reviewed and negative Physical Exam Constitutional: WD/WN, vitals as above no acute distress Respiratory: normal respiratory effort, lungs clear to auscultation Cardiovascular: Rate/Rhythm: regular rate and regular rhythm Vessels: normal peripheral pulses Extremities: no edema Gastrointestinal (Abdomen): Percussion/Palpation: abdomen soft; abdomen nontender Musculoskeletal: paraspinal tenderness over lumbar spine Skin: no rashes, warm and dry Neurologic: no focal motor deficits Psychiatric: A+Ox3, euthymic affect Results & Data Results & Data ([facility]) Vital Signs (Past 12 Hours) Vital Signs Temp Pulse Resp BP Pulse Ox Pulse Ox O2 Del Method 05/09/22 12:20 Room Air 05/09/22 12:10 94 05/09/22 08:09 36.5 C 71 18 132/78 94 Room Air O2 Flow Rate 05/09/22 12:20 05/09/22 12:10 0 05/09/22 08:09 Laboratory Results Short CBC 05/09/22 Range/Units 06:17 WBC 5.52 (4.8-10.8) K/ul Hgb 12.2 L (14.0-18.0) g/dl Hct 36.2 L (42.0-52.0) % Plt Count 143 (130-400) K/uL BMP 05/09/22 06:17 Sodium 139 Potassium 4.5 Chloride 105 Carbon Dioxide 31 BUN 13 Creatinine 1.06 Glucose 110 H Calcium 8.4 L
[2022-05-09] MEDS: risperiDONE 2 MG TABLET PO SCH (20:44)
[2022-05-10] MEDS: ACETAMINOPHEN 500 MG TAB PO SCH ×3 (01:41→18:29)
[2022-05-10] MEDS: ATORVASTATIN 40 MG TAB PO SCH (08:38)
[2022-05-10] MEDS: busPIRone 5 MG TAB PO SCH ×2 (08:38→20:19)
[2022-05-10] MEDS: DIVALPROEX DELAY RELEASE 500 MG TAB PO SCH ×2 (08:39→20:20)
[2022-05-10] MEDS: DOCUSATE SODIUM 100 MG CAP PO SCH ×2 (08:39→20:21)
[2022-05-10] MEDS: ENOXAPARIN INJ 40 MG/0.4 ML SYR SQ SCH (08:39)
[2022-05-10] MEDS: UMECLIDINIUM/VILANTEROL 62.5/25MCG 7 PUFFS/INHALER INH SCH (08:39)
[2022-05-10] MEDS: lisinopril 2.5 MG TAB PO SCH (08:40)
[2022-05-10] MEDS: FLUTICASONE FUROATE 100MCG 14 PUFFS/INHALER INH SCH (08:40)
[2022-05-10] MEDS: PARoxetine HCL 10 MG TAB PO SCH ×2 (08:41→20:21)
[2022-05-10] MEDS: POLYETHYLENE (MIRALAX) 17 GM PACK PO SCH (08:41)
[2022-05-10] MEDS: MELOXICAM 7.5 MG TAB PO SCH (08:41)
[2022-05-10] MEDS: INSULIN ASPART PER UNIT SC SCH ×4 (09:27→21:13)
--- NOTE | 2022-05-10 12:06 | Hospitalist Progress Note ---
Date of Service May 10, 2022 Assessment & Plan (1) Weakness: (2) COVID: (3) Lumbar back sprain: (4) Current smoker: (5) Bipolar 1 disorder: (6) Depression with anxiety: (7) Hypertension: (8) DM type 2, goal HbA1c < 7%: Plan: Generalized weakness, ambulatory dysfunction Lumbar back sprain Secondary to COVID-19 illness Back pain post fall from 2 days prior to admission-likely a sprain, CT lumbar spine without evidence of fracture. Head CT negative for acute intracranial findings Pain controlled with scheduled Tylenol and daily meloxicam. Patient has not required PRN oxycodone, Flexeril, diazepam. PT/OT recommending rehab, awaiting placement, CM following COVID-19 Patient with chronic COPD symptoms No indication for COVID-19 directed therapies at this time Hypertension BP controlled, continue lisinopril DM Type 2 hgb a1c 7.0 On oral medications, holding while hospitalized NovoLog with correction factor only, blood sugars at goal Bipolar disorder Anxiety/Mood disorder Stable, continue home meds DVT PROPHYLAXIS SQ Lovenox Dispo - awaiting placement for rehab, CM following Admission and Anticipated Discharge Date Admission Date: May 08, 2022 Supervising Physician Co-Signing Physician Notes I have seen and examined the patient and have discussed the case with the provider above. I agree with the assessment and plan as stated. 66 yo M admitted for difficulty moving around after a lumbar back sprain from fall at home. He has been pain free for 48 hours and there has been no confusion. He still requires ques to move around and at times appears overwhelmed. I spoke with his son today outside of the patient's room and explained all the studies and assessments to date as well as future directions for care. All questions were answered to his satisfaction. The patient is in NAD today and denies any issues. He is having more difficulty today turning over in the bed and more reported pain with bending his left knee. SLR test bilaterally is negative and there is no gross focal neurologic deficit present. Cont current treatment plan as outlined above. Javon, DO Subjective Follow up for ambulatory dysfunction, back pain, COVID-19. Patient seen and examined. Reports back pain continues to improve. Denies chest pain and shortness of breath. No abdominal pain or nausea. Awaiting placement. Review of Systems Review of Systems: ROS per HPI, all other systems reviewed and negative Physical Exam Constitutional: WD/WN, vitals as above no acute distress Respiratory: normal respiratory effort, lungs clear to auscultation Cardiovascular: Rate/Rhythm: regular rate and regular rhythm Vessels: normal peripheral pulses Extremities: no edema Gastrointestinal (Abdomen): Percussion/Palpation: abdomen soft; abdomen nontender Skin: no rashes, warm and dry Neurologic: no focal motor deficits Psychiatric: A+Ox3, euthymic affect Results & Data Results & Data ([facility]) Vital Signs (Past 12 Hours) Vital Signs Temp Pulse Resp BP Pulse Ox O2 Del Method 05/10/22 08:24 36.6 C 74 18 155/80 H 94 Room Air Medications Administered Current Inpatient Medications Acetaminophen (Acetaminophen 500 Mg Tab) 1,000 mg PO Q8H [facility] Stop: 06/07/22 17:59 Last Admin: 05/10/22 18:29 Dose: 1,000 mg Atorvastatin Calcium (Atorvastatin 40 Mg Tab) 80 mg PO DAILY BOB Stop: 06/07/22 10:24 Last Admin: 05/10/22 08:38 Dose: 80 mg Buspirone HCl (Buspirone 5 Mg Tab) 10 mg PO BID [facility] Stop: 06/07/22 10:24 Last Admin: 05/10/22 08:38 Dose: 10 mg Cyclobenzaprine HCl (Cyclobenzaprine Hcl 5 Mg Tab) 5 mg PO TID PRN PRN Reason: .muscle spasms Stop: 06/07/22 10:24 Dextrose (Dextrose 50% 50 Ml Syringe) 25 - 50 ml IV UD PRN; Protocol PRN Reason: Hypoglycemia Protocol Stop: 06/07/22 10:24 Diazepam (Diazepam 2 Mg Tablet) 2 mg PO Q8H PRN PRN Reason: back spasms Stop: 06/07/22 17:39 Divalproex Sodium (Divalproex Delay Release 500 Mg Tab) 500 mg PO BID [facility] Stop: 06/07/22 10:24 Last Admin: 05/10/22 08:39 Dose: 500 mg Docusate Sodium (Docusate Sodium 100 Mg Cap) 100 mg PO BID [facility] Stop: 06/08/22 09:14 Last Admin: 05/10/22 08:39 Dose: 100 mg Enoxaparin Sodium (Enoxaparin Inj 40 Mg/0.4 Ml Syr) 40 mg SQ QAM [facility] Stop: 06/07/22 10:59 Last Admin: 05/10/22 08:39 Dose: 40 mg Fluticasone Furoate (Fluticasone Furoate 100mcg 14 Puffs/Inhaler) 1 puffs INH DAILY BOB Stop: 06/07/22 10:59 Last Admin: 05/10/22 08:40 Dose: 1 puffs Glucagon (Glucagon For Inj 1 Mg Vial) 1 mg SQ UD PRN; Protocol PRN Reason: Hypoglycemia Protocol Stop: 06/07/22 10:24 Glucose (Glucose 40% Gel 15 Gm Tube) 15 - 30 gm PO UD PRN; Protocol PRN Reason: Hypoglycemia Protocol Stop: 06/07/22 10:24 Glucose (Glucose 10 Tab/Tube) 4 - 8 tab PO UD PRN; Protocol PRN Reason: Hypoglycemia Treatment Stop: 06/07/22 10:24 Hydroxyzine HCl (Hydroxyzine Hcl 25 Mg Tab) 25 mg PO TID PRN PRN Reason: Anxiety Stop: 06/07/22 10:24 Promethazine HCl 12.5 mg/ (Sodium Chloride) 50.5 mls @ 202 mls/hr IV Q6H PRN PRN Reason: Nausea And Vomiting Stop: 06/07/22 10:24 Insulin Aspart (Insulin Aspart Per Unit) 0 units SC ACHS BOB Stop: 06/07/22 10:24 Last Admin: 05/10/22 17:59 Dose: Not Given Lisinopril (Lisinopril 2.5 Mg Tab) 2.5 mg PO DAILY OBB Stop: 06/07/22 10:24 Last Admin: 05/10/22 08:40 Dose: 2.5 mg Meloxicam (Meloxicam 7.5 Mg Tab) 15 mg PO DAILY BOB Stop: 06/07/22 10:24 Last Admin: 05/10/22 08:41 Dose: 15 mg Miscellaneous (Carbohydrates For Hypoglycemia ) 15 - 30 gm PO UD PRN PRN Reason: Hypoglycemia Protocol Stop: 06/07/22 10:24 Oxycodone HCl (Oxycodone Hcl Ir 5 Mg Tab (Immediate Release)) 5 mg PO Q4H PRN PRN Reason: Pain Stop: 05/22/22 10:24 Paroxetine HCl (Paroxetine Hcl 10 Mg Tab) 30 mg PO BID BOB Stop: 06/07/22 10:59 Last Admin: 05/10/22 08:41 Dose: 30 mg Polyethylene Glycol (Polyethylene (Miralax) 17 Gm Pack) 17 gm PO DAILY BOB Stop: 06/08/22 09:14 Last Admin: 05/10/22 08:41 Dose: 17 gm Risperidone (Risperidone 2 Mg Tablet) 2 mg PO HS BOB Stop: 06/07/22 20:59 Last Admin: 05/09/22 20:44 Dose: 2 mg Umeclidinium/Vilanterol (Umeclidinium/Vilanterol 62.5/25mcg 7 Puffs/Inhaler) 1 puffs INH DAILY BOB Stop: 06/07/22 10:59 Last Admin: 05/10/22 08:39 Dose: 1 puffs
[2022-05-10] MEDS: risperiDONE 2 MG TABLET PO SCH (20:22)
[2022-05-11] MEDS: ACETAMINOPHEN 500 MG TAB PO SCH ×3 (01:39→17:29)
[2022-05-11 02:07] LABS: Appearance Urine Clear (Clear); Bilirubin Urine Negative (Negative); Blood Urine Negative (Negative); Color Urine Yellow; Glucose Urine UA Trace (Negative); Ketones Urine Trace (Negative); Leukocyte Esterase Urine Negative (Negative); Nitrite Urine Negative (Negative); Protein Urine Negative (Negative); Specific Gravity Urine 1.011 (1.000-1.030); Urobilinogen Urine Negative (Negative)
[2022-05-11] MEDS: MELOXICAM 7.5 MG TAB PO SCH (09:00)
[2022-05-11] MEDS: busPIRone 5 MG TAB PO SCH ×2 (09:00→20:17)
[2022-05-11] MEDS: ENOXAPARIN INJ 40 MG/0.4 ML SYR SQ SCH (09:00)
[2022-05-11] MEDS: PARoxetine HCL 10 MG TAB PO SCH ×2 (09:00→20:20)
[2022-05-11] MEDS: lisinopril 2.5 MG TAB PO SCH (09:00)
[2022-05-11] MEDS: DIVALPROEX DELAY RELEASE 500 MG TAB PO SCH ×2 (09:00→20:18)
[2022-05-11] MEDS: DOCUSATE SODIUM 100 MG CAP PO SCH ×2 (09:00→20:19)
[2022-05-11] MEDS: UMECLIDINIUM/VILANTEROL 62.5/25MCG 7 PUFFS/INHALER INH SCH (09:00)
[2022-05-11] MEDS: ATORVASTATIN 40 MG TAB PO SCH (09:00)
[2022-05-11] MEDS: FLUTICASONE FUROATE 100MCG 14 PUFFS/INHALER INH SCH (09:00)
[2022-05-11] MEDS: POLYETHYLENE (MIRALAX) 17 GM PACK PO SCH (09:01)
[2022-05-11] MEDS: INSULIN ASPART PER UNIT SC SCH ×4 (09:02→20:38)
--- NOTE | 2022-05-11 13:29 | Hospitalist Progress Note ---
Date of Service May 11, 2022 Assessment & Plan (1) Weakness: (2) COVID: (3) Lumbar back sprain: (4) Current smoker: (5) Bipolar 1 disorder: (6) Depression with anxiety: (7) Hypertension: (8) DM type 2, goal HbA1c < 7%: Plan: Generalized weakness, ambulatory dysfunction Lumbar back sprain Secondary to COVID-19 illness Back pain post fall from 2 days prior to admission-likely a sprain, CT lumbar spine without evidence of fracture. Head CT negative for acute intracranial findings Pain controlled with scheduled Tylenol and daily meloxicam. Patient has not required PRN oxycodone, Flexeril, diazepam. PT/OT recommending rehab, awaiting placement, CM following. Auth for [facility] pending. COVID-19 Patient with chronic COPD symptoms No indication for COVID-19 directed therapies at this time Hypertension BP controlled, continue lisinopril DM Type 2 hgb a1c 7.0 On oral medications, holding while hospitalized NovoLog with correction factor only, blood sugars at goal Bipolar disorder Anxiety/Mood disorder Stable, continue home meds DVT PROPHYLAXIS SQ Lovenox Dispo - Auth for [facility] pending. Admission and Anticipated Discharge Date Admission Date: May 08, 2022 Supervising Physician Co-Signing Physician Notes Pt seen and examined by me, care coordinated w/ Goyo LOBO, please refer to her note above for further detail. Patient admitted with back sprain, found to be COVID-positive. Currently breathing comfortably on room air. He is alert oriented answering questions appropriately. Denies any chest pain palpitations or shortness of breath. On lung exam, minimal rhonchi noted, no wheezing. Heart sounds regular. Abdomen soft nontender nondistended. No lower extremity edema noted. Skin warm dry. Encouraged to use parameter. Patient not using any pain meds. Continue to monitor, plan to discharge to rehab. MD Kaelyn Subjective Follow up for ambulatory dysfunction, back pain, COVID-19. Patient seen and examined. Reports minimal back pain. No chest pain, shortness of breath, cough. Reports a fair appetite. No abdominal pain or nausea. Awaiting placement Review of Systems Review of Systems: ROS per HPI, all other systems reviewed and negative Physical Exam Constitutional: WD/WN, vitals as above Respiratory: normal respiratory effort, lungs clear to auscultation Cardiovascular: Rate/Rhythm: regular rate and regular rhythm Vessels: normal peripheral pulses Extremities: no edema Gastrointestinal (Abdomen): Percussion/Palpation: abdomen soft; abdomen nontender Skin: no rashes, warm and dry Neurologic: no focal motor deficits Psychiatric: A+Ox3, euthymic affect Results & Data Results & Data ([facility]) Vital Signs (Past 12 Hours) Vital Signs Temp Pulse Resp BP Pulse Ox O2 Del Method 05/11/22 10:18 Room Air 05/11/22 08:24 36.4 C L 70 16 156/94 H 94 Room Air Medications Administered Current Inpatient Medications Acetaminophen (Acetaminophen 500 Mg Tab) 1,000 mg PO Q8H BOB Stop: 06/07/22 17:59 Last Admin: 05/11/22 17:29 Dose: 1,000 mg Atorvastatin Calcium (Atorvastatin 40 Mg Tab) 80 mg PO DAILY [facility]OB Stop: 06/07/22 10:24 Last Admin: 05/11/22 09:00 Dose: 80 mg Buspirone HCl (Buspirone 5 Mg Tab) 10 mg PO BID BOB Stop: 06/07/22 10:24 Last Admin: 05/11/22 09:00 Dose: 10 mg Cyclobenzaprine HCl (Cyclobenzaprine Hcl 5 Mg Tab) 5 mg PO TID PRN PRN Reason: .muscle spasms Stop: 06/07/22 10:24 Dextrose (Dextrose 50% 50 Ml Syringe) 25 - 50 ml IV UD PRN; Protocol PRN Reason: Hypoglycemia Protocol Stop: 06/07/22 10:24 Diazepam (Diazepam 2 Mg Tablet) 2 mg PO Q8H PRN PRN Reason: back spasms Stop: 06/07/22 17:39 Divalproex Sodium (Divalproex Delay Release 500 Mg Tab) 500 mg PO BID BOB Stop: 06/07/22 10:24 Last Admin: 05/11/22 09:00 Dose: 500 mg Docusate Sodium (Docusate Sodium 100 Mg Cap) 100 mg PO BID BOB Stop: 06/08/22 09:14 Last Admin: 05/11/22 09:00 Dose: Not Given Enoxaparin Sodium (Enoxaparin Inj 40 Mg/0.4 Ml Syr) 40 mg SQ QAM BOB Stop: 06/07/22 10:59 Last Admin: 05/11/22 09:00 Dose: 40 mg Fluticasone Furoate (Fluticasone Furoate 100mcg 14 Puffs/Inhaler) 1 puffs INH DAILY BOB Stop: 06/07/22 10:59 Last Admin: 05/11/22 09:00 Dose: 1 puffs Glucagon (Glucagon For Inj 1 Mg Vial) 1 mg SQ UD PRN; Protocol PRN Reason: Hypoglycemia Protocol Stop: 06/07/22 10:24 Glucose (Glucose 40% Gel 15 Gm Tube) 15 - 30 gm PO UD PRN; Protocol PRN Reason: Hypoglycemia Protocol Stop: 06/07/22 10:24 Glucose (Glucose 10 Tab/Tube) 4 - 8 tab PO UD PRN; Protocol PRN Reason: Hypoglycemia Treatment Stop: 06/07/22 10:24 Hydroxyzine HCl (Hydroxyzine Hcl 25 Mg Tab) 25 mg PO TID PRN PRN Reason: Anxiety Stop: 06/07/22 10:24 Promethazine HCl 12.5 mg/ (Sodium Chloride) 50.5 mls @ 202 mls/hr IV Q6H PRN PRN Reason: Nausea And Vomiting Stop: 06/07/22 10:24 Insulin Aspart (Insulin Aspart Per Unit) 0 units SC ACHS BOB Stop: 06/07/22 10:24 Last Admin: 05/11/22 17:22 Dose: 1 units Lisinopril (Lisinopril 2.5 Mg Tab) 2.5 mg PO DAILY BOB Stop: 06/07/22 10:24 Last Admin: 05/11/22 09:00 Dose: 2.5 mg Meloxicam (Meloxicam 7.5 Mg Tab) 15 mg PO DAILY BOB Stop: 06/07/22 10:24 Last Admin: 05/11/22 09:00 Dose: 15 mg Miscellaneous (Carbohydrates For Hypoglycemia ) 15 - 30 gm PO UD PRN PRN Reason: Hypoglycemia Protocol Stop: 06/07/22 10:24 Oxycodone HCl (Oxycodone Hcl Ir 5 Mg Tab (Immediate Release)) 5 mg PO Q4H PRN PRN Reason: Pain Stop: 05/22/22 10:24 Paroxetine HCl (Paroxetine Hcl 10 Mg Tab) 30 mg PO BID BOB Stop: 06/07/22 10:59 Last Admin: 05/11/22 09:00 Dose: 30 mg Polyethylene Glycol (Polyethylene (Miralax) 17 Gm Pack) 17 gm PO DAILY BOB Stop: 06/08/22 09:14 Last Admin: 05/11/22 09:01 Dose: Not Given Risperidone (Risperidone 2 Mg Tablet) 2 mg PO HS [facility] Stop: 06/07/22 20:59 Last Admin: 05/10/22 20:22 Dose: 2 mg Umeclidinium/Vilanterol (Umeclidinium/Vilanterol 62.5/25mcg 7 Puffs/Inhaler) 1 puffs INH DAILY [facility]OB Stop: 06/07/22 10:59 Last Admin: 05/11/22 09:00 Dose: 1 puffs
[2022-05-11] MEDS: risperiDONE 2 MG TABLET PO SCH (20:21)
[2022-05-12] MEDS: ACETAMINOPHEN 500 MG TAB PO SCH ×3 (02:04→18:29)
[2022-05-12 07:47] LABS: Hematocrit (blood only) 34.2 % (42.0-52.0); Hemoglobin 11.8 g/dl (14.0-18.0); Mean Corpuscular Hemoglobin 32.3 pg (25.0-34.0); Mean Corpuscular Hgb Conc 34.5 g/dL (32.0-36.0); Mean Corpuscular Volume 93.7 fL (80.0-100.0); Mean Platelet Volume 10.6 fL (9.4-12.4); Platelet Count 139 K/uL (130-400); RDW Coefficient of Variation 13.1 % (11.5-14.5); RDW Standard Deviation 45.1 fL (36.4-46.3); Red Blood Count 3.65 M/uL (4.70-6.10); White Blood Count 4.86 K/ul (4.8-10.8)
[2022-05-12 07:50] LABS: BUN Creatinine Ratio 21.1 (10-20); Calcium 8.6 mg/dl (8.5-10.1); Creatinine Clr Calc Pharmacy 67.6 ml/min; Est GFR (African American) 82.1 ml/min; Est GFR (Non-African American) 70.9 ml/min; Magnesium 1.8 mg/dl (1.7-2.4); Phosphorus 2.6 mg/dl (2.5-4.9); Potassium 3.8 mmol/L (3.5-5.1)
[2022-05-12] MEDS: INSULIN ASPART PER UNIT SC SCH ×4 (08:21→21:55)
[2022-05-12] MEDS: MELOXICAM 7.5 MG TAB PO SCH (08:38)
[2022-05-12] MEDS: PARoxetine HCL 10 MG TAB PO SCH ×2 (08:38→21:14)
[2022-05-12] MEDS: lisinopril 2.5 MG TAB PO SCH (08:39)
[2022-05-12] MEDS: FLUTICASONE FUROATE 100MCG 14 PUFFS/INHALER INH SCH (08:39)
[2022-05-12] MEDS: busPIRone 5 MG TAB PO SCH ×2 (08:39→21:12)
[2022-05-12] MEDS: DIVALPROEX DELAY RELEASE 500 MG TAB PO SCH ×2 (08:39→21:13)
[2022-05-12] MEDS: ENOXAPARIN INJ 40 MG/0.4 ML SYR SQ SCH (08:39)
[2022-05-12] MEDS: DOCUSATE SODIUM 100 MG CAP PO SCH ×2 (08:40→21:13)
[2022-05-12] MEDS: UMECLIDINIUM/VILANTEROL 62.5/25MCG 7 PUFFS/INHALER INH SCH (08:40)
[2022-05-12] MEDS: POLYETHYLENE (MIRALAX) 17 GM PACK PO SCH (08:40)
[2022-05-12] MEDS: ATORVASTATIN 40 MG TAB PO SCH (11:12)
--- NOTE | 2022-05-12 16:33 | Hospitalist Progress Note ---
Date of Service May 12, 2022 Assessment & Plan (1) Weakness: (2) COVID: (3) Lumbar back sprain: (4) Current smoker: (5) Bipolar 1 disorder: (6) Depression with anxiety: (7) Hypertension: (8) DM type 2, goal HbA1c < 7%: Plan: Generalized weakness, ambulatory dysfunction Lumbar back sprain Secondary to COVID-19 illness Back pain post fall from 2 days prior to admission-likely a sprain, CT lumbar spine without evidence of fracture. Head CT negative for acute intracranial findings Pain controlled with scheduled Tylenol and daily meloxicam. Patient has not required PRN oxycodone, Flexeril, diazepam. PT/OT recommending rehab, awaiting placement, CM following. Auth for [facility] pending. COVID-19 Patient with chronic COPD symptoms No indication for COVID-19 directed therapies at this time Cough medicine PRN Hypertension BP controlled, continue lisinopril DM Type 2 hgb a1c 7.0 On oral medications, holding while hospitalized NovoLog with correction factor only, blood sugars at goal Bipolar disorder Anxiety/Mood disorder Stable, continue home meds Chronic gait disturbance, concern for confusion Family expressed concern for confusion during admission. Patient A&O x4 for me at bedside today. On admission, patient had head CT without acute intracranial abnormalities. Had a urinalysis yesterday that was within normal limits. Per chart review, patient was to be evaluated by neurology in September 2021 due to concern for gait disturbance but did not go to appointment. No clear indication for inpatient neurological evaluation at this time as patient is A&O x4, but encourage outpatient follow-up for ongoing issues with tremor, gait disturbance and family's concern for possible underlying Parkinson's. DVT PROPHYLAXIS SQ Lovenox Dispo - Auth for [facility] pending. A total of 40 minutes were spent with greater than 50% of that time face to face with the patient, personally reviewing all current laboratories, imaging studies, past medication reconciliation, outpatient chart review, and discussion with specialists to collaborate care for the patient with attending and utilization of translation services. Please see attending documentation for corrections and/or additions. Admission and Anticipated Discharge Date Admission Date: May 08, 2022 Supervising Physician Co-Signing Physician Notes Pt seen and examined by me, care coordinated w/ Pratik Briones PA-C, please refer to her note above for further detail. Patient admitted with back sprain, found to be COVID-positive. Currently breathing comfortably on room air. He is alert oriented answering questions appropriately. Specifically he can tell me his name, his son's name, where he is, appropriate year. Denies any chest pain palpitations or shortness of breath. On lung exam, minimal rhonchi noted, no wheezing. Heart sounds regular. Abdomen soft nontender nondistended. No lower extremity edema noted. Skin warm dry. Reports back pain is controlled. Discussed smoking cessation, and patient determined to quit smoking. Offered nicotine patch. Also updated patient's son in person, in the hospital. Patient's son mentioned outpatient neurology appointment, will double check on that and if needed would ask for referral. MD Kaelyn Subjective Seen in follow up for ambulatory dysfunction, back pain, COVID-19 in 300-1. Feeling better today with minimal back pain. Cough is unchanged. Denies any chest pain, shortness of breath, fever, chills, nausea, vomiting, abdominal pain, dysuria, diarrhea or constipation. group supervisor yard /friend at bedside as well. States that his ambulatory baseline waxes and wanes and is always somewhat tremulous and with a shuffling gait. Unclear whether or not patient has had a formal Parkinson's diagnosis in the past. Also feels that patient is more confused than he is at baseline. Review of Systems Review of Systems: ROS per HPI, all other systems reviewed and negative Physical Exam Physical Exam: Gen: WD/WN, NAD, sitting up in bed, A&Ox4 HEENT: Normocephalic, atraumatic, conjunctivae moist, sclerae anicteric, mucous membranes moist Lung: Clear to Auscultation bilaterally except for scattered rhonchi. No increased work of breathing. Heart: Regular rate, regular rhythm, no murmurs, rubs, or gallops Abdomen: Soft, NT, ND +BS x 4 Extremities: no edema Skin: Warm, no rash Results & Data Results & Data ([facility]) Vital Signs (Past 12 Hours) Vital Signs Temp Pulse Resp BP Pulse Ox O2 Del Method 05/12/22 14:34 36.4 C L 69 16 125/81 94 Room Air 05/12/22 08:00 Room Air 05/12/22 07:57 36.7 C 67 16 126/80 94 Room Air Laboratory Results Short CBC 05/12/22 Range/Units 07:16 WBC 4.86 (4.8-10.8) K/ul Hgb 11.8 L (14.0-18.0) g/dl Hct 34.2 L (42.0-52.0) % Plt Count 139 (130-400) K/uL BMP 05/12/22 07:16 Sodium 136 Potassium 3.8 Chloride 103 Carbon Dioxide 27 BUN 23 Creatinine 1.09 Glucose 135 H Calcium 8.6 Diagnostic Findings Chest X-Ray 05/08/22 03:18 XR chest 1V portable HISTORY: Chest pain, nonspecific COMPARISON: Chest 04/13/2022. FINDINGS: No pneumothorax. No pleural effusions. The lungs are clear. The heart is normal in size. Emphysema again noted. IMPRESSION: Emphysema. Otherwise, no acute process within the chest. ACT 112: Negative or not required by law. Electronically signed by: Tan Martínez M.D. 05/08/2022 7:03 AM Lumbar Spine X-Ray 05/08/22 03:18 LUMBAR SPINE 5 VIEWS HISTORY: Low back pain COMPARISON: None. FINDINGS: There is no fracture. No subluxation. The visualized sacrum appears intact. Mild disc space narrowing at L5-S1. Mild facet degenerative changes within the lower lumbar spine. IMPRESSION: No fracture or subluxation within the lumbar spine. ACT 112: Negative or not required by law. Electronically signed by: Tan Martínez M.D. 05/08/2022 7:[address] 05/08/22 17:36 CT cervical spine wo con CT DOSE: 1302.03 mGy.cm CLINICAL HISTORY: 66 years-old Male with h/o unwitnessed fall. Acute neck pain status post fall COMPARISON: Head CT of same day, CTA neck 04/13/2022 TECHNIQUE: Multiple axial CT images of the cervical spine were obtained without contrast. A dose lowering technique was utilized adhering to the principles of ALARA. FINDINGS: Multilevel degenerative changes. Unchanged mild chronic appearing C7 wedge deformity. No acute fracture or subluxation identified. The cervical soft tissues appear unremarkable. Partially imaged with moderate mucosal thickening of the right sphenoid sinus. The visualized lung apices appear clear. IMPRESSION: No acute fracture or subluxation. ACT 112: Negative or not required by law. The above report was generated using voice recognition software. It may contain grammatical, syntax or spelling errors. Electronically signed by: Shashi Avitia M.D. 05/09/2022 6:[address] 05/08/22 17:36 CT head/brain wo con CLINICAL HISTORY: h/o fall unwitnessed, intermittent confusion Technique: Contiguous axial CT images of the head were acquired from the base of the skull to the vertex without intravenous contrast administration. Images were viewed in brain, subdural and bone windows. Automated dose lowering techniques and/or adjustment according to patient size were utilized for this exam. Comparison: Comparison is made to CTA head and neck 04/13/2022 Findings: Areas of decreased attenuation are present in the periventricular and subcortical white matter bilaterally consistent with small vessel ischemic disease. Generalized cerebral atrophy with commensurate enlargement of the ventricles, sulci, and cisterns is also present. There is no acute intracranial hemorrhage or evidence of acute territorial infarction. No shift of the midline structures, mass effect, or extra-axial abnormalities are shown. Atherosclerotic calcifications are present in the intracranial segments of the internal carotid arteries. Sinus disease is seen most prominently in the ethmoid and sphenoid sinuses. The orbits appear normal. There are no acute fractures of the calvaria or scalp swelling. Impression: No acute intracranial hemorrhage, no evidence of acute territorial infarction or other acute intracranial disease process. ACT 112: Negative or not required by law. Electronically signed by: Rayo Bergeron M.D. 05/09/2022 7:25 AM
[2022-05-12] MEDS ORDERED: BENZONATATE 100 MG CAPSULE PO PRN (20:39)
[2022-05-12] MEDS: NICOTINE 7 MG/24 HR TDSY TD SCH (21:11)
[2022-05-12] MEDS: risperiDONE 2 MG TABLET PO SCH (21:14)
[2022-05-13] MEDS: ACETAMINOPHEN 500 MG TAB PO SCH ×3 (02:04→17:51)
[2022-05-13 06:35] LABS: Hematocrit (blood only) 35.5 % (42.0-52.0); Mean Corpuscular Hemoglobin 31.7 pg (25.0-34.0); Mean Corpuscular Hgb Conc 33.8 g/dL (32.0-36.0); Mean Corpuscular Volume 93.7 fL (80.0-100.0); Mean Platelet Volume 10.7 fL (9.4-12.4); Platelet Count 164 K/uL (130-400); RDW Coefficient of Variation 12.7 % (11.5-14.5); RDW Standard Deviation 43.7 fL (36.4-46.3); Red Blood Count 3.79 M/uL (4.70-6.10)
[2022-05-13 06:44] LABS: BUN Creatinine Ratio 24.7 (10-20); Calcium 8.9 mg/dl (8.5-10.1); Creatinine Clr Calc Pharmacy 75.9 ml/min; Est GFR (African American) 94.6 ml/min; Est GFR (Non-African American) 81.6 ml/min; Phosphorus 3.2 mg/dl (2.5-4.9); Potassium 3.6 mmol/L (3.5-5.1)
[2022-05-13] MEDS: ATORVASTATIN 40 MG TAB PO SCH (08:18)
[2022-05-13] MEDS: DOCUSATE SODIUM 100 MG CAP PO SCH ×2 (08:18→21:14)
[2022-05-13] MEDS: lisinopril 2.5 MG TAB PO SCH (08:18)
[2022-05-13] MEDS: DIVALPROEX DELAY RELEASE 500 MG TAB PO SCH ×2 (08:19→21:13)
[2022-05-13] MEDS: PARoxetine HCL 10 MG TAB PO SCH ×2 (08:19→21:13)
[2022-05-13] MEDS: FLUTICASONE FUROATE 100MCG 14 PUFFS/INHALER INH SCH (08:20)
[2022-05-13] MEDS: POLYETHYLENE (MIRALAX) 17 GM PACK PO SCH (08:20)
[2022-05-13] MEDS: UMECLIDINIUM/VILANTEROL 62.5/25MCG 7 PUFFS/INHALER INH SCH (08:20)
[2022-05-13] MEDS: busPIRone 5 MG TAB PO SCH ×2 (08:20→21:09)
[2022-05-13] MEDS: MELOXICAM 7.5 MG TAB PO SCH (08:20)
[2022-05-13] MEDS: NICOTINE 7 MG/24 HR TDSY TD SCH (08:20)
[2022-05-13] MEDS: ENOXAPARIN INJ 40 MG/0.4 ML SYR SQ SCH (08:21)
--- NOTE | 2022-05-13 08:29 | Hospitalist Progress Note ---
Date of Service May 13, 2022 Assessment & Plan (1) Weakness: (2) COVID: (3) Lumbar back sprain: (4) Current smoker: (5) Bipolar 1 disorder: (6) Depression with anxiety: (7) Hypertension: (8) DM type 2, goal HbA1c < 7%: Plan: Generalized weakness, ambulatory dysfunction Lumbar back sprain Secondary to COVID-19 illness Back pain post fall from 2 days prior to admission-likely a sprain, CT lumbar spine without evidence of fracture. Head CT negative for acute intracranial findings Pain controlled with scheduled Tylenol and daily meloxicam. Patient has not required PRN oxycodone, Flexeril, diazepam. PT/OT recommending rehab, awaiting placement, CM following. Auth for [facility] pending. COVID-19 Patient with chronic COPD symptoms No indication for COVID-19 directed therapies at this time Cough medicine PRN + Tobacco user - declines nicotine patch and determined to quit smoking Hypertension BP controlled, continue lisinopril DM Type 2 hgb a1c 7.0 On oral medications, holding while hospitalized NovoLog with correction factor only, blood sugars at goal Bipolar disorder Anxiety/Mood disorder Stable, continue home meds Chronic gait disturbance, concern for confusion Family expressed concern for confusion during admission. Patient A&O x4 On admission, patient had head CT without acute intracranial abnormalities. UA - normal Per chart review, patient was to be evaluated by neurology in September 2021 due to concern for gait disturbance /tremor but appointment was canceled. Encouraged outpatient follow-up and evaluation for ongoing issues with tremor, gait disturbance and family's concern for possible underlying Parkinson's. DVT PROPHYLAXIS SQ Lovenox Dispo - Auth for [facility] pending. Admission and Anticipated Discharge Date Admission Date: May 08, 2022 Subjective Pt seen in follow up for ambulatory dysfunction, back pain, + COVID-19 Sitting up in chair, in NAD Denies any chest pain, shortness of breath, fever, chills, nausea, vomiting, abdominal pain, dysuria, diarrhea or constipation. Reports cough is better and is determined to quit smoking. Offered nicotine patch and pt declined. Reports back pain is about 30% better since he came in. Awaiting placement. Review of Systems Review of Systems: All systems reviewed & are unremarkable except as noted in Subjective Physical Exam Physical Exam: GENERAL: elderly M pleasant, in no r espiratory distres s HEENT: NC/AT, E NICK. Alopecia NEC K : Supple CHEST : CTAB HEART : RR R, no obvious murm urs ABDOMEN: soft , nontender, + bow el sounds EXTREMI TIES : No LE swell ing/tenderness, mo ves extremities S KIN: Pallor, warm, dry NEUROLOGIC : awake alert and o riented, answering questions appropr iately and followi ng simple commands , no facial asymme try, speech fluent , moves extremitie s Results & Data Results & Data ([facility]) Vital Signs (Past 12 Hours) Vital Signs Temp Pulse Resp BP Pulse Ox O2 Del Method 05/12/22 21:10 Room Air 05/12/22 21:08 36.4 C L 65 16 129/71 95 Room Air Laboratory Results 05/13/22 05/13/22 05/13/22 Range/Units 08:16 05:25 05:25 WBC 3.60 L (4.8-10.8) K/ul RBC 3.79 L (4.70-6.10) M/uL Hgb 12.0 L (14.0-18.0) g/dl Hct 35.5 L (42.0-52.0) % MCV 93.7 (80.0-100.0) fL MCH 31.7 (25.0-34.0) pg MCHC 33.8 (32.0-36.0) g/dL RDW Std Deviation 43.7 (36.4-46.3) fL RDW Coeff of Keila 12.7 (11.5-14.5) % Plt Count 164 (130-400) K/uL MPV 10.7 (9.4-12.4) fL Sodium 138 (136-145) mmol/L Potassium 3.6 (3.5-5.1) mmol/L Chloride 105 (98-107) mmol/L Carbon Dioxide 27 (21-32) mmol/L Anion Gap 6 (3-11) BUN 24 H (6-23) mg/dl Creatinine 0.97 (0.6-1.4) mg/dl Est Cr Clr Drug Dosing 75.9 ml/min Est GFR ( Amer) 94.6 ml/min Est GFR (Non-Af Amer) 81.6 ml/min BUN/Creatinine Ratio 24.7 H (10-20) Glucose 129 H (70-99(Fasting)) mg/dl POC Glucose 146 H (70-99) mg/dl Calcium 8.9 (8.5-10.1) mg/dl Phosphorus 3.2 (2.5-4.9) mg/dl Magnesium 2.0 (1.7-2.4) mg/dl Stl C. diff Tox B Gene (Neg) 05/12/22 05/12/22 05/12/22 Range/Units 21:22 17:04 13:10 WBC (4.8-10.8) K/ul RBC (4.70-6.10) M/uL Hgb (14.0-18.0) g/dl Hct (42.0-52.0) % MCV (80.0-100.0) fL MCH (25.0-34.0) pg MCHC (32.0-36.0) g/dL RDW Std Deviation (36.4-46.3) fL RDW Coeff of Keila (11.5-14.5) % Plt Count (130-400) K/uL MPV (9.4-12.4) fL Sodium (136-145) mmol/L Potassium (3.5-5.1) mmol/L Chloride (98-107) mmol/L Carbon Dioxide (21-32) mmol/L Anion Gap (3-11) BUN (6-23) mg/dl Creatinine (0.6-1.4) mg/dl Est Cr Clr Drug Dosing ml/min Est GFR ( Amer) ml/min Est GFR (Non-Af Amer) ml/min BUN/Creatinine Ratio (10-20) Glucose (70-99(Fasting)) mg/dl POC Glucose 160 H 127 H (70-99) mg/dl Calcium (8.5-10.1) mg/dl Phosphorus (2.5-4.9) mg/dl Magnesium (1.7-2.4) mg/dl Stl C. diff Tox B Gene Negative Cdiff Gene (Neg) 05/12/22 Range/Units 12:12 WBC (4.8-10.8) K/ul RBC (4.70-6.10) M/uL Hgb (14.0-18.0) g/dl Hct (42.0-52.0) % MCV (80.0-100.0) fL MCH (25.0-34.0) pg MCHC (32.0-36.0) g/dL RDW Std Deviation (36.4-46.3) fL RDW Coeff of Keila (11.5-14.5) % Plt Count (130-400) K/uL MPV (9.4-12.4) fL Sodium (136-145) mmol/L Potassium (3.5-5.1) mmol/L Chloride (98-107) mmol/L Carbon Dioxide (21-32) mmol/L Anion Gap (3-11) BUN (6-23) mg/dl Creatinine (0.6-1.4) mg/dl Est Cr Clr Drug Dosing ml/min Est GFR ( Amer) ml/min Est GFR (Non-Af Amer) ml/min BUN/Creatinine Ratio (10-20) Glucose (70-99(Fasting)) mg/dl POC Glucose 154 H (70-99) mg/dl Calcium (8.5-10.1) mg/dl Phosphorus (2.5-4.9) mg/dl Magnesium (1.7-2.4) mg/dl Stl C. diff Tox B Gene (Neg) Medications Administered Current Inpatient Medications Acetaminophen (Acetaminophen 500 Mg Tab) 1,000 mg PO Q8H COUNTS INCLUDE 234 BEDS AT THE [facility] Stop: 06/07/22 17:59 Last Admin: 05/13/22 02:04 Dose: 1,000 mg Atorvastatin Calcium (Atorvastatin 40 Mg Tab) 80 mg PO DAILY BOB Stop: 06/07/22 10:24 Last Admin: 05/13/22 08:18 Dose: 80 mg Benzonatate (Benzonatate 100 Mg Capsule) 200 mg PO TID PRN PRN Reason: Cough Stop: 06/11/22 20:38 Last Admin: 05/12/22 21:15 Dose: 200 mg Buspirone HCl (Buspirone 5 Mg Tab) 10 mg PO BID [facility] Stop: 06/07/22 10:24 Last Admin: 05/13/22 08:20 Dose: 10 mg Cyclobenzaprine HCl (Cyclobenzaprine Hcl 5 Mg Tab) 5 mg PO TID PRN PRN Reason: .muscle spasms Stop: 06/07/22 10:24 Dextrose (Dextrose 50% 50 Ml Syringe) 25 - 50 ml IV UD PRN; Protocol PRN Reason: Hypoglycemia Protocol Stop: 06/07/22 10:24 Diazepam (Diazepam 2 Mg Tablet) 2 mg PO Q8H PRN PRN Reason: back spasms Stop: 06/07/22 17:39 Divalproex Sodium (Divalproex Delay Release 500 Mg Tab) 500 mg PO BID [facility]OB Stop: 06/07/22 10:24 Last Admin: 05/13/22 08:19 Dose: 500 mg Docusate Sodium (Docusate Sodium 100 Mg Cap) 100 mg PO BID [facility]OB Stop: 06/08/22 09:14 Last Admin: 05/13/22 08:18 Dose: Not Given Enoxaparin Sodium (Enoxaparin Inj 40 Mg/0.4 Ml Syr) 40 mg SQ QAM COUNTS INCLUDE 234 BEDS AT THE [facility] Stop: 06/07/22 10:59 Last Admin: 05/13/22 08:21 Dose: 40 mg Fluticasone Furoate (Fluticasone Furoate 100mcg 14 Puffs/Inhaler) 1 puffs INH DAILY COUNTS INCLUDE 234 BEDS AT THE [facility] Stop: 06/07/22 10:59 Last Admin: 05/13/22 08:20 Dose: 1 puffs Glucagon (Glucagon For Inj 1 Mg Vial) 1 mg SQ UD PRN; Protocol PRN Reason: Hypoglycemia Protocol Stop: 06/07/22 10:24 Glucose (Glucose 40% Gel 15 Gm Tube) 15 - 30 gm PO UD PRN; Protocol PRN Reason: Hypoglycemia Protocol Stop: 06/07/22 10:24 Glucose (Glucose 10 Tab/Tube) 4 - 8 tab PO UD PRN; Protocol PRN Reason: Hypoglycemia Treatment Stop: 06/07/22 10:24 Hydroxyzine HCl (Hydroxyzine Hcl 25 Mg Tab) 25 mg PO TID PRN PRN Reason: Anxiety Stop: 06/07/22 10:24 Promethazine HCl 12.5 mg/ (Sodium Chloride) 50.5 mls @ 202 mls/hr IV Q6H PRN PRN Reason: Nausea And Vomiting Stop: 06/07/22 10:24 Insulin Aspart (Insulin Aspart Per Unit) 0 units SC ACHS COUNTS INCLUDE 234 BEDS AT THE [facility] Stop: 06/07/22 10:24 Last Admin: 05/12/22 21:55 Dose: 1 units Lisinopril (Lisinopril 2.5 Mg Tab) 2.5 mg PO DAILY COUNTS INCLUDE 234 BEDS AT THE [facility] Stop: 06/07/22 10:24 Last Admin: 05/13/22 08:18 Dose: 2.5 mg Meloxicam (Meloxicam 7.5 Mg Tab) 15 mg PO DAILY [facility] Stop: 06/07/22 10:24 Last Admin: 05/13/22 08:20 Dose: 15 mg Miscellaneous (Carbohydrates For Hypoglycemia ) 15 - 30 gm PO UD PRN PRN Reason: Hypoglycemia Protocol Stop: 06/07/22 10:24 Miscellaneous (Remove Nicoderm Patch) 1 each N/A DAILY@0859 BOB Stop: 06/12/22 08:58 Last Admin: 05/13/22 08:17 Dose: 1 each Nicotine (Nicotine 7 Mg/24 Hr Tdsy) 7 mg TD QAM [facility] Stop: 06/11/22 18:59 Last Admin: 05/13/22 08:20 Dose: Not Given Oxycodone HCl (Oxycodone Hcl Ir 5 Mg Tab (Immediate Release)) 5 mg PO Q4H PRN PRN Reason: Pain Stop: 05/22/22 10:24 Last Admin: 05/11/22 20:39 Dose: 5 mg Paroxetine HCl (Paroxetine Hcl 10 Mg Tab) 30 mg PO BID [facility] Stop: 06/07/22 10:59 Last Admin: 05/13/22 08:19 Dose: 30 mg Polyethylene Glycol (Polyethylene (Miralax) 17 Gm Pack) 17 gm PO DAILY [facility] Stop: 06/08/22 09:14 Last Admin: 05/13/22 08:20 Dose: Not Given Risperidone (Risperidone 2 Mg Tablet) 2 mg PO HS [facility] Stop: 06/07/22 20:59 Last Admin: 05/12/22 21:14 Dose: 2 mg Umeclidinium/Vilanterol (Umeclidinium/Vilanterol 62.5/25mcg 7 Puffs/Inhaler) 1 puffs INH DAILY [facility] Stop: 06/07/22 10:59 Last Admin: 05/13/22 08:20 Dose: 1 puffs
[2022-05-13] MEDS: INSULIN ASPART PER UNIT SC SCH ×4 (08:34→21:10)
[2022-05-13] MEDS: risperiDONE 2 MG TABLET PO SCH (21:14)
[2022-05-14] MEDS: ACETAMINOPHEN 500 MG TAB PO SCH ×3 (02:02→17:38)
[2022-05-14] MEDS: INSULIN ASPART PER UNIT SC SCH ×4 (08:22→21:14)
[2022-05-14] MEDS: DOCUSATE SODIUM 100 MG CAP PO SCH (08:34)
[2022-05-14] MEDS: ATORVASTATIN 40 MG TAB PO SCH (08:34)
[2022-05-14] MEDS: lisinopril 2.5 MG TAB PO SCH (08:35)
[2022-05-14] MEDS: MELOXICAM 7.5 MG TAB PO SCH (08:35)
[2022-05-14] MEDS: busPIRone 5 MG TAB PO SCH ×2 (08:35→21:14)
[2022-05-14] MEDS: PARoxetine HCL 10 MG TAB PO SCH ×2 (08:35→21:13)
[2022-05-14] MEDS: FLUTICASONE FUROATE 100MCG 14 PUFFS/INHALER INH SCH (08:36)
[2022-05-14] MEDS: POLYETHYLENE (MIRALAX) 17 GM PACK PO SCH (08:36)
[2022-05-14] MEDS: NICOTINE 7 MG/24 HR TDSY TD SCH (08:36)
[2022-05-14] MEDS: DIVALPROEX DELAY RELEASE 500 MG TAB PO SCH ×2 (08:36→21:15)
[2022-05-14] MEDS: UMECLIDINIUM/VILANTEROL 62.5/25MCG 7 PUFFS/INHALER INH SCH (08:36)
[2022-05-14] MEDS: ENOXAPARIN INJ 40 MG/0.4 ML SYR SQ SCH (08:36)
--- NOTE | 2022-05-14 15:29 | Hospitalist Progress Note ---
Date of Service May 14, 2022 Assessment & Plan (1) Weakness: (2) COVID: (3) Lumbar back sprain: (4) Current smoker: (5) Bipolar 1 disorder: (6) Depression with anxiety: (7) Hypertension: (8) DM type 2, goal HbA1c < 7%: Plan: Generalized weakness, ambulatory dysfunction Lumbar back sprain Secondary to COVID-19 illness Back pain post fall from 2 days prior to admission-likely a sprain, CT lumbar spine without evidence of fracture. Head CT negative for acute intracranial findings Pain controlled with scheduled Tylenol and daily meloxicam. Patient has not required PRN oxycodone, Flexeril, diazepam. PT/OT recommending rehab, awaiting placement, CM following. Rehab auth declined, plan for snf. COVID-19 Patient with chronic COPD symptoms No indication for COVID-19 directed therapies at this time Cough medicine PRN + Tobacco user - declines nicotine patch and determined to quit smoking Hypertension BP controlled, continue lisinopril DM Type 2 hgb a1c 7.0 On oral medications, holding while hospitalized NovoLog with correction factor only, blood sugars at goal Bipolar disorder Anxiety/Mood disorder Stable, continue home meds Chronic gait disturbance, concern for confusion Family expressed concern for confusion during admission. Patient A&O x4 On admission, patient had head CT without acute intracranial abnormalities. UA - normal Per chart review, patient was to be evaluated by neurology in September 2021 due to concern for gait disturbance /tremor but appointment was canceled. Encouraged outpatient follow-up and evaluation for ongoing issues with tremor, gait disturbance and family's concern for possible underlying Parkinson's. DVT PROPHYLAXIS SQ Lovenox Dispo - plan for [facility] next week Admission and Anticipated Discharge Date Admission Date: May 08, 2022 Subjective Pt seen in follow up for ambulatory dysfunction, back pain, + COVID-19 Laying in bed in NAD Denies any chest pain, shortness of breath, fever, chills, nausea, vomiting, abdominal pain, dysuria, diarrhea or constipation. Reports cough is better and is determined to quit smoking. Offered nicotine patch and pt declined. Reports back pain is about 30% better since he came in. Discussed with RN and the pt , will try heating pad for back pain. Pt is not inclined to take pain medications. Awaiting placement for rehab/snf Review of Systems Review of Systems: All systems reviewed & are unremarkable except as noted in Subjective Physical Exam Physical Exam: GENERAL: elderly M pleasant, in no r espiratory distres s HEENT: NC/AT, E NICK. Alopecia NEC K : Supple CHEST : CTAB HEART : RR R, no obvious murm urs ABDOMEN: soft , nontender, + bow el sounds EXTREMI TIES : No LE swell ing/tenderness, mo ves extremities S KIN: Pallor, warm, dry NEUROLOGIC : awake alert and o riented, answering questions appropr iately and followi ng simple commands , no facial asymme try, speech fluent , moves extremitie s Results & Data Results & Data ([facility]) Vital Signs (Past 12 Hours) Vital Signs Temp Pulse Resp BP Pulse Ox O2 Del Method 05/14/22 08:00 Room Air 05/14/22 08:11 36.5 C 63 18 132/82 95 Room Air Medications Administered Current Inpatient Medications Acetaminophen (Acetaminophen 500 Mg Tab) 1,000 mg PO Q8H [facility] Stop: 06/07/22 17:59 Last Admin: 05/14/22 09:38 Dose: 1,000 mg Atorvastatin Calcium (Atorvastatin 40 Mg Tab) 80 mg PO DAILY [facility] Stop: 06/07/22 10:24 Last Admin: 05/14/22 08:34 Dose: 80 mg Benzonatate (Benzonatate 100 Mg Capsule) 200 mg PO TID PRN PRN Reason: Cough Stop: 06/11/22 20:38 Last Admin: 05/12/22 21:15 Dose: 200 mg Buspirone HCl (Buspirone 5 Mg Tab) 10 mg PO BID [facility] Stop: 06/07/22 10:24 Last Admin: 05/14/22 08:35 Dose: 10 mg Cyclobenzaprine HCl (Cyclobenzaprine Hcl 5 Mg Tab) 5 mg PO TID PRN PRN Reason: .muscle spasms Stop: 06/07/22 10:24 Dextrose (Dextrose 50% 50 Ml Syringe) 25 - 50 ml IV UD PRN; Protocol PRN Reason: Hypoglycemia Protocol Stop: 06/07/22 10:24 Diazepam (Diazepam 2 Mg Tablet) 2 mg PO Q8H PRN PRN Reason: back spasms Stop: 06/07/22 17:39 Divalproex Sodium (Divalproex Delay Release 500 Mg Tab) 500 mg PO BID [facility] Stop: 06/07/22 10:24 Last Admin: 02/18/23 08:36 Dose: 500 mg Enoxaparin Sodium (Enoxaparin Inj 40 Mg/0.4 Ml Syr) 40 mg SQ QAM [facility] Stop: 06/07/22 10:59 Last Admin: 05/14/22 08:36 Dose: 40 mg Fluticasone Furoate (Fluticasone Furoate 100mcg 14 Puffs/Inhaler) 1 puffs INH DAILY [facility] Stop: 06/07/22 10:59 Last Admin: 05/14/22 08:36 Dose: 1 puffs Glucagon (Glucagon For Inj 1 Mg Vial) 1 mg SQ UD PRN; Protocol PRN Reason: Hypoglycemia Protocol Stop: 06/07/22 10:24 Glucose (Glucose 40% Gel 15 Gm Tube) 15 - 30 gm PO UD PRN; Protocol PRN Reason: Hypoglycemia Protocol Stop: 06/07/22 10:24 Glucose (Glucose 10 Tab/Tube) 4 - 8 tab PO UD PRN; Protocol PRN Reason: Hypoglycemia Treatment Stop: 06/07/22 10:24 Hydroxyzine HCl (Hydroxyzine Hcl 25 Mg Tab) 25 mg PO TID PRN PRN Reason: Anxiety Stop: 06/07/22 10:24 Promethazine HCl 12.5 mg/ (Sodium Chloride) 50.5 mls @ 202 mls/hr IV Q6H PRN PRN Reason: Nausea And Vomiting Stop: 06/07/22 10:24 Insulin Aspart (Insulin Aspart Per Unit) 0 units SC ACHS [facility] Stop: 06/07/22 10:24 Last Admin: 05/14/22 12:25 Dose: 1 units Lisinopril (Lisinopril 2.5 Mg Tab) 2.5 mg PO DAILY [facility] Stop: 06/07/22 10:24 Last Admin: 05/14/22 08:35 Dose: 2.5 mg Meloxicam (Meloxicam 7.5 Mg Tab) 15 mg PO DAILY [facility] Stop: 06/07/22 10:24 Last Admin: 05/14/22 08:35 Dose: 15 mg Miscellaneous (Carbohydrates For Hypoglycemia ) 15 - 30 gm PO UD PRN PRN Reason: Hypoglycemia Protocol Stop: 06/07/22 10:24 Miscellaneous (Remove Nicoderm Patch) 1 each N/A DAILY@0859 [facility] Stop: 06/12/22 08:58 Last Admin: 05/14/22 08:34 Dose: Not Given Nicotine (Nicotine 7 Mg/24 Hr Tdsy) 7 mg TD QAM [facility] Stop: 06/11/22 18:59 Last Admin: 05/14/22 08:36 Dose: Not Given Oxycodone HCl (Oxycodone Hcl Ir 5 Mg Tab (Immediate Release)) 5 mg PO Q4H PRN PRN Reason: Pain Stop: 05/22/22 10:24 Last Admin: 05/11/22 20:39 Dose: 5 mg Paroxetine HCl (Paroxetine Hcl 10 Mg Tab) 30 mg PO BID [facility] Stop: 06/07/22 10:59 Last Admin: 05/14/22 08:35 Dose: 30 mg Polyethylene Glycol (Polyethylene (Miralax) 17 Gm Pack) 17 gm PO DAILY [facility] Stop: 06/08/22 09:14 Last Admin: 05/14/22 08:36 Dose: Not Given Risperidone (Risperidone 2 Mg Tablet) 2 mg PO HS [facility] Stop: 06/07/22 20:59 Last Admin: 05/13/22 21:14 Dose: 2 mg Umeclidinium/Vilanterol (Umeclidinium/Vilanterol 62.5/25mcg 7 Puffs/Inhaler) 1 puffs INH DAILY [facility] Stop: 06/07/22 10:59 Last Admin: 05/14/22 08:36 Dose: 1 puffs
[2022-05-14] MEDS: risperiDONE 2 MG TABLET PO SCH (21:14)
[2022-05-15] MEDS: ACETAMINOPHEN 500 MG TAB PO SCH ×3 (01:02→17:41)
[2022-05-15] MEDS: INSULIN ASPART PER UNIT SC SCH ×4 (08:22→21:19)
[2022-05-15] MEDS: PARoxetine HCL 10 MG TAB PO SCH ×2 (08:30→21:25)
[2022-05-15] MEDS: DIVALPROEX DELAY RELEASE 500 MG TAB PO SCH ×2 (08:30→21:25)
[2022-05-15] MEDS: busPIRone 5 MG TAB PO SCH ×2 (08:30→21:25)
[2022-05-15] MEDS: MELOXICAM 7.5 MG TAB PO SCH (08:30)
[2022-05-15] MEDS: ATORVASTATIN 40 MG TAB PO SCH (08:30)
[2022-05-15] MEDS: UMECLIDINIUM/VILANTEROL 62.5/25MCG 7 PUFFS/INHALER INH SCH (08:32)
[2022-05-15] MEDS: FLUTICASONE FUROATE 100MCG 14 PUFFS/INHALER INH SCH (08:32)
[2022-05-15] MEDS: lisinopril 2.5 MG TAB PO SCH (08:32)
[2022-05-15] MEDS: NICOTINE 7 MG/24 HR TDSY TD SCH (08:32)
[2022-05-15] MEDS: ENOXAPARIN INJ 40 MG/0.4 ML SYR SQ SCH (08:32)
--- NOTE | 2022-05-15 14:52 | Hospitalist Progress Note ---
Date of Service May 15, 2022 Assessment & Plan (1) Weakness: (2) COVID: (3) Lumbar back sprain: (4) Current smoker: (5) Bipolar 1 disorder: (6) Depression with anxiety: (7) Hypertension: (8) DM type 2, goal HbA1c < 7%: Plan: Generalized weakness, ambulatory dysfunction Lumbar back sprain Secondary to COVID-19 illness Back pain post fall from 2 days prior to admission-likely a sprain, CT lumbar spine without evidence of fracture. Head CT negative for acute intracranial findings Pain controlled with scheduled Tylenol and daily meloxicam. Patient has not required PRN oxycodone, Flexeril, diazepam. Feels improvement with heating pad. PT/OT recommending rehab, awaiting placement, CM following. Rehab auth declined, plan for snf. COVID-19 Patient with chronic COPD symptoms No indication for COVID-19 directed therapies at this time Cough medicine PRN + Tobacco user - declines nicotine patch and determined to quit smoking Hypertension BP controlled, continue lisinopril DM Type 2 hgb a1c 7.0 On oral medications, holding while hospitalized NovoLog with correction factor only, blood sugars at goal Bipolar disorder Anxiety/Mood disorder Stable, continue home meds Chronic gait disturbance, concern for confusion Family expressed concern for confusion during admission. Patient A&O x4 On admission, patient had head CT without acute intracranial abnormalities. UA - normal Per chart review, patient was to be evaluated by neurology in September 2021 due to concern for gait disturbance /tremor but appointment was canceled. Encouraged outpatient follow-up and evaluation for ongoing issues with tremor, gait disturbance and family's concern for possible underlying Parkinson's. DVT PROPHYLAXIS SQ Lovenox Dispo - plan for [facility] next week Admission and Anticipated Discharge Date Admission Date: May 08, 2022 Subjective Pt seen in follow up for ambulatory dysfunction, back pain, + COVID-19 Applied heating pad yesterday, and patient reports great improvement, feels more comfortable Currently sitting up in bed in NAD Denies any chest pain, shortness of breath, fever, chills, nausea, vomiting, abdominal pain, dysuria, diarrhea or constipation. Reports cough is better and he is not interested in nicotine patch. Awaiting placement for rehab/snf Review of Systems Review of Systems: All systems reviewed & are unremarkable except as noted in Subjective Physical Exam Physical Exam: GENERAL: elderly M pleasant, in no r espiratory distres s HEENT: NC/AT, E NICK. Alopecia NEC K : Supple CHEST : CTAB HEART : RR R, no obvious murm urs ABDOMEN: soft , nontender, + bow el sounds EXTREMI TIES : No LE swell ing/tenderness, mo ves extremities S KIN: Pallor, warm, dry NEUROLOGIC : awake alert and o riented, answering questions appropr iately and followi ng simple commands , no facial asymme try, speech fluent , moves extremitie s Results & Data Results & Data ([facility]) Vital Signs (Past 12 Hours) Vital Signs Temp Pulse Resp BP Pulse Ox O2 Del Method 05/15/22 08:20 36.5 C 66 16 136/74 94 Room Air 05/15/22 07:30 Room Air Medications Administered Current Inpatient Medications Acetaminophen (Acetaminophen 500 Mg Tab) 1,000 mg PO Q8H [facility] Stop: 06/07/22 17:59 Last Admin: 05/15/22 09:44 Dose: 1,000 mg Atorvastatin Calcium (Atorvastatin 40 Mg Tab) 80 mg PO DAILY [facility] Stop: 06/07/22 10:24 Last Admin: 05/15/22 08:30 Dose: 80 mg Benzonatate (Benzonatate 100 Mg Capsule) 200 mg PO TID PRN PRN Reason: Cough Stop: 06/11/22 20:38 Last Admin: 05/12/22 21:15 Dose: 200 mg Buspirone HCl (Buspirone 5 Mg Tab) 10 mg PO BID [facility] Stop: 06/07/22 10:24 Last Admin: 05/15/22 08:30 Dose: 10 mg Cyclobenzaprine HCl (Cyclobenzaprine Hcl 5 Mg Tab) 5 mg PO TID PRN PRN Reason: .muscle spasms Stop: 06/07/22 10:24 Dextrose (Dextrose 50% 50 Ml Syringe) 25 - 50 ml IV UD PRN; Protocol PRN Reason: Hypoglycemia Protocol Stop: 06/07/22 10:24 Diazepam (Diazepam 2 Mg Tablet) 2 mg PO Q8H PRN PRN Reason: back spasms Stop: 06/07/22 17:39 Divalproex Sodium (Divalproex Delay Release 500 Mg Tab) 500 mg PO BID [facility] Stop: 06/07/22 10:24 Last Admin: 05/15/22 08:30 Dose: 500 mg Enoxaparin Sodium (Enoxaparin Inj 40 Mg/0.4 Ml Syr) 40 mg SQ QAM [facility] Stop: 06/07/22 10:59 Last Admin: 05/15/22 08:32 Dose: 40 mg Fluticasone Furoate (Fluticasone Furoate 100mcg 14 Puffs/Inhaler) 1 puffs INH DAILY [facility] Stop: 06/07/22 10:59 Last Admin: 05/15/22 08:32 Dose: 1 puffs Glucagon (Glucagon For Inj 1 Mg Vial) 1 mg SQ UD PRN; Protocol PRN Reason: Hypoglycemia Protocol Stop: 06/07/22 10:24 Glucose (Glucose 40% Gel 15 Gm Tube) 15 - 30 gm PO UD PRN; Protocol PRN Reason: Hypoglycemia Protocol Stop: 06/07/22 10:24 Glucose (Glucose 10 Tab/Tube) 4 - 8 tab PO UD PRN; Protocol PRN Reason: Hypoglycemia Treatment Stop: 06/07/22 10:24 Hydroxyzine HCl (Hydroxyzine Hcl 25 Mg Tab) 25 mg PO TID PRN PRN Reason: Anxiety Stop: 06/07/22 10:24 Promethazine HCl 12.5 mg/ (Sodium Chloride) 50.5 mls @ 202 mls/hr IV Q6H PRN PRN Reason: Nausea And Vomiting Stop: 06/07/22 10:24 Insulin Aspart (Insulin Aspart Per Unit) 0 units SC ACHS [facility] Stop: 06/07/22 10:24 Last Admin: 05/15/22 12:46 Dose: 1 units Lisinopril (Lisinopril 2.5 Mg Tab) 2.5 mg PO DAILY [facility] Stop: 06/07/22 10:24 Last Admin: 05/15/22 08:32 Dose: 2.5 mg Meloxicam (Meloxicam 7.5 Mg Tab) 15 mg PO DAILY [facility] Stop: 06/07/22 10:24 Last Admin: 05/15/22 08:30 Dose: 15 mg Miscellaneous (Carbohydrates For Hypoglycemia ) 15 - 30 gm PO UD PRN PRN Reason: Hypoglycemia Protocol Stop: 06/07/22 10:24 Miscellaneous (Remove Nicoderm Patch) 1 each N/A DAILY@0859 [facility] Stop: 06/12/22 08:58 Last Admin: 05/15/22 08:31 Dose: Not Given Nicotine (Nicotine 7 Mg/24 Hr Tdsy) 7 mg TD QAM [facility] Stop: 06/11/22 18:59 Last Admin: 05/15/22 08:32 Dose: Not Given Oxycodone HCl (Oxycodone Hcl Ir 5 Mg Tab (Immediate Release)) 5 mg PO Q4H PRN PRN Reason: Pain Stop: 05/22/22 10:24 Last Admin: 05/11/22 20:39 Dose: 5 mg Paroxetine HCl (Paroxetine Hcl 10 Mg Tab) 30 mg PO BID [facility] Stop: 06/07/22 10:59 Last Admin: 05/15/22 08:30 Dose: 30 mg Polyethylene Glycol (Polyethylene (Miralax) 17 Gm Pack) 17 gm PO DAILY [facility] Stop: 06/08/22 09:14 Last Admin: 05/14/22 08:36 Dose: Not Given Risperidone (Risperidone 2 Mg Tablet) 2 mg PO HS [facility] Stop: 06/07/22 20:59 Last Admin: 05/14/22 21:14 Dose: 2 mg Umeclidinium/Vilanterol (Umeclidinium/Vilanterol 62.5/25mcg 7 Puffs/Inhaler) 1 puffs INH DAILY [facility] Stop: 06/07/22 10:59 Last Admin: 05/15/22 08:32 Dose: 1 puffs
[2022-05-15] MEDS: risperiDONE 2 MG TABLET PO SCH (21:25)
[2022-05-16] MEDS: ACETAMINOPHEN 500 MG TAB PO SCH ×3 (01:40→17:44)
[2022-05-16] MEDS: DIVALPROEX DELAY RELEASE 500 MG TAB PO SCH ×2 (09:06→21:39)
[2022-05-16] MEDS: ENOXAPARIN INJ 40 MG/0.4 ML SYR SQ SCH (09:06)
[2022-05-16] MEDS: busPIRone 5 MG TAB PO SCH ×2 (09:07→21:39)
[2022-05-16] MEDS: PARoxetine HCL 10 MG TAB PO SCH ×2 (09:07→21:39)
[2022-05-16] MEDS: MELOXICAM 7.5 MG TAB PO SCH (09:07)
[2022-05-16] MEDS: lisinopril 2.5 MG TAB PO SCH (09:08)
[2022-05-16] MEDS: ATORVASTATIN 40 MG TAB PO SCH (09:08)
[2022-05-16] MEDS: NICOTINE 7 MG/24 HR TDSY TD SCH (09:09)
[2022-05-16] MEDS: UMECLIDINIUM/VILANTEROL 62.5/25MCG 7 PUFFS/INHALER INH SCH (09:09)
[2022-05-16] MEDS: FLUTICASONE FUROATE 100MCG 14 PUFFS/INHALER INH SCH (09:09)
[2022-05-16] MEDS: INSULIN ASPART PER UNIT SC SCH ×4 (09:17→21:20)
--- NOTE | 2022-05-16 18:33 | Hospitalist Progress Note ---
Date of Service May 16, 2022 Assessment & Plan (1) Weakness: (2) COVID: (3) Lumbar back sprain: (4) Current smoker: (5) Bipolar 1 disorder: (6) Depression with anxiety: (7) Hypertension: (8) DM type 2, goal HbA1c < 7%: Plan: Generalized weakness, ambulatory dysfunction Lumbar back sprain Secondary to COVID-19 illness Back pain post fall from 2 days prior to admission-likely a sprain, CT lumbar spine without evidence of fracture. Head CT negative for acute intracranial findings Pain controlled with scheduled Tylenol and daily meloxicam. Patient has not required PRN oxycodone, Flexeril, diazepam. Feels improvement with heating pad. PT/OT recommending rehab, awaiting placement, CM following. Rehab auth declined, plan for snf. COVID-19 Patient with chronic COPD symptoms No indication for COVID-19 directed therapies at this time Cough medicine PRN + Tobacco user - declines nicotine patch and determined to quit smoking Hypertension BP controlled, continue lisinopril DM Type 2 hgb a1c 7.0 On oral medications, holding while hospitalized NovoLog with correction factor only, blood sugars at goal Bipolar disorder Anxiety/Mood disorder Stable, continue home meds Chronic gait disturbance, concern for confusion Family expressed concern for confusion during admission. Patient A&O x4 On admission, patient had head CT without acute intracranial abnormalities. UA - normal Per chart review, patient was to be evaluated by neurology in September 2021 due to concern for gait disturbance /tremor but appointment was canceled. Encouraged outpatient follow-up and evaluation for ongoing issues with tremor, gait disturbance and family's concern for possible underlying Parkinson's. DVT PROPHYLAXIS SQ Lovenox Dispo - plan for snf Admission and Anticipated Discharge Date Admission Date: May 08, 2022 Subjective Pt seen in follow up for ambulatory dysfunction, back pain, + COVID-19 Currently pt is standing up and exercising. Working with PT. Denies any chest pain, shortness of breath, fever, chills, nausea, vomiting, abdominal pain, dysuria, diarrhea or constipation. Reports feeling better overall Awaiting placement for snf Review of Systems Review of Systems: All systems reviewed & are unremarkable except as noted in Subjective Physical Exam Physical Exam: GENERAL: elderly M pleasant, in no r espiratory distres s HEENT: NC/AT, E NICK. Alopecia NEC K : Supple CHEST : CTAB HEART : RR R, no obvious murm urs ABDOMEN: soft , nontender, + bow el sounds EXTREMI TIES : No LE swell ing/tenderness, mo ves extremities S KIN: Pallor, warm, dry NEUROLOGIC : awake alert and o riented, answering questions appropr iately and followi ng simple commands , no facial asymme try, speech fluent , moves extremitie s Results & Data Results & Data ([facility]) Vital Signs (Past 12 Hours) Vital Signs Temp Pulse Resp BP BP Pulse Ox O2 Del Method 05/16/22 14:57 36.6 C 62 16 121/76 94 Room Air 05/16/22 08:11 36.5 C 61 18 152/97 H 94 Room Air 05/16/22 07:58 Room Air Medications Administered Current Inpatient Medications Acetaminophen (Acetaminophen 500 Mg Tab) 1,000 mg PO Q8H [facility] Stop: 06/07/22 17:59 Last Admin: 05/16/22 17:44 Dose: 1,000 mg Atorvastatin Calcium (Atorvastatin 40 Mg Tab) 80 mg PO DAILY [facility] Stop: 06/07/22 10:24 Last Admin: 05/16/22 09:08 Dose: 80 mg Benzonatate (Benzonatate 100 Mg Capsule) 200 mg PO TID PRN PRN Reason: Cough Stop: 06/11/22 20:38 Last Admin: 05/12/22 21:15 Dose: 200 mg Buspirone HCl (Buspirone 5 Mg Tab) 10 mg PO BID [facility] Stop: 06/07/22 10:24 Last Admin: 05/16/22 09:07 Dose: 10 mg Cyclobenzaprine HCl (Cyclobenzaprine Hcl 5 Mg Tab) 5 mg PO TID PRN PRN Reason: .muscle spasms Stop: 06/07/22 10:24 Dextrose (Dextrose 50% 50 Ml Syringe) 25 - 50 ml IV UD PRN; Protocol PRN Reason: Hypoglycemia Protocol Stop: 06/07/22 10:24 Diazepam (Diazepam 2 Mg Tablet) 2 mg PO Q8H PRN PRN Reason: back spasms Stop: 06/07/22 17:39 Divalproex Sodium (Divalproex Delay Release 500 Mg Tab) 500 mg PO BID [facility] Stop: 06/07/22 10:24 Last Admin: 05/16/22 09:06 Dose: 500 mg Enoxaparin Sodium (Enoxaparin Inj 40 Mg/0.4 Ml Syr) 40 mg SQ QAM [facility] Stop: 06/07/22 10:59 Last Admin: 05/16/22 09:06 Dose: 40 mg Fluticasone Furoate (Fluticasone Furoate 100mcg 14 Puffs/Inhaler) 1 puffs INH DAILY [facility] Stop: 06/07/22 10:59 Last Admin: 05/16/22 09:09 Dose: 1 puffs Glucagon (Glucagon For Inj 1 Mg Vial) 1 mg SQ UD PRN; Protocol PRN Reason: Hypoglycemia Protocol Stop: 06/07/22 10:24 Glucose (Glucose 40% Gel 15 Gm Tube) 15 - 30 gm PO UD PRN; Protocol PRN Reason: Hypoglycemia Protocol Stop: 06/07/22 10:24 Glucose (Glucose 10 Tab/Tube) 4 - 8 tab PO UD PRN; Protocol PRN Reason: Hypoglycemia Treatment Stop: 06/07/22 10:24 Hydroxyzine HCl (Hydroxyzine Hcl 25 Mg Tab) 25 mg PO TID PRN PRN Reason: Anxiety Stop: 06/07/22 10:24 Promethazine HCl 12.5 mg/ (Sodium Chloride) 50.5 mls @ 202 mls/hr IV Q6H PRN PRN Reason: Nausea And Vomiting Stop: 06/07/22 10:24 Insulin Aspart (Insulin Aspart Per Unit) 0 units SC ACHS [facility] Stop: 06/07/22 10:24 Last Admin: 05/16/22 17:43 Dose: 1 units Lisinopril (Lisinopril 2.5 Mg Tab) 2.5 mg PO DAILY [facility] Stop: 06/07/22 10:24 Last Admin: 05/16/22 09:08 Dose: 2.5 mg Meloxicam (Meloxicam 7.5 Mg Tab) 15 mg PO DAILY [facility] Stop: 06/07/22 10:24 Last Admin: 05/16/22 09:07 Dose: 15 mg Miscellaneous (Carbohydrates For Hypoglycemia ) 15 - 30 gm PO UD PRN PRN Reason: Hypoglycemia Protocol Stop: 06/07/22 10:24 Miscellaneous (Remove Nicoderm Patch) 1 each N/A DAILY@0859 [facility] Stop: 06/12/22 08:58 Last Admin: 05/16/22 09:05 Dose: Not Given Nicotine (Nicotine 7 Mg/24 Hr Tdsy) 7 mg TD QAM [facility] Stop: 06/11/22 18:59 Last Admin: 05/16/22 09:09 Dose: Not Given Oxycodone HCl (Oxycodone Hcl Ir 5 Mg Tab (Immediate Release)) 5 mg PO Q4H PRN PRN Reason: Pain Stop: 05/22/22 10:24 Last Admin: 05/11/22 20:39 Dose: 5 mg Paroxetine HCl (Paroxetine Hcl 10 Mg Tab) 30 mg PO BID [facility] Stop: 06/07/22 10:59 Last Admin: 05/16/22 09:07 Dose: 30 mg Polyethylene Glycol (Polyethylene (Miralax) 17 Gm Pack) 17 gm PO DAILY [facility] Stop: 06/08/22 09:14 Last Admin: 05/14/22 08:36 Dose: Not Given Risperidone (Risperidone 2 Mg Tablet) 2 mg PO HS [facility] Stop: 06/07/22 20:59 Last Admin: 05/15/22 21:25 Dose: 2 mg Umeclidinium/Vilanterol (Umeclidinium/Vilanterol 62.5/25mcg 7 Puffs/Inhaler) 1 puffs INH DAILY [facility] Stop: 06/07/22 10:59 Last Admin: 05/16/22 09:09 Dose: 1 puffs
[2022-05-16] MEDS: risperiDONE 2 MG TABLET PO SCH (21:40)
[2022-05-17] MEDS: ACETAMINOPHEN 500 MG TAB PO SCH ×2 (01:01→09:12)
[2022-05-17] MEDS: INSULIN ASPART PER UNIT SC SCH ×2 (08:31→12:30)
[2022-05-17] MEDS: NICOTINE 7 MG/24 HR TDSY TD SCH (08:33)
[2022-05-17] MEDS: UMECLIDINIUM/VILANTEROL 62.5/25MCG 7 PUFFS/INHALER INH SCH (08:33)
[2022-05-17] MEDS: FLUTICASONE FUROATE 100MCG 14 PUFFS/INHALER INH SCH (08:33)
[2022-05-17] MEDS: PARoxetine HCL 10 MG TAB PO SCH (08:34)
[2022-05-17] MEDS: busPIRone 5 MG TAB PO SCH (08:37)
[2022-05-17] MEDS: ATORVASTATIN 40 MG TAB PO SCH (08:37)
[2022-05-17] MEDS: MELOXICAM 7.5 MG TAB PO SCH (08:37)
[2022-05-17] MEDS: lisinopril 2.5 MG TAB PO SCH (08:38)
[2022-05-17] MEDS: DIVALPROEX DELAY RELEASE 500 MG TAB PO SCH (08:38)
[2022-05-17] MEDS: ENOXAPARIN INJ 40 MG/0.4 ML SYR SQ SCH (08:38)
--- NOTE | 2022-05-17 13:05 | Discharge Summary ---
Date of Service May 17, 2022 Admission HPI Per Admitting Provider History obtained from patient, family, and records. Medical history significant for hypertension, hyperlipidemia, COPD, DM 2 on oral medications, anxiety/mood disorder, chronic back pain status post surgery, chronic anemia (baseline hemoglobin of 13 ), past tobacco abuse. Patient twisted his back and fell 2 days ago from generalized weakness. No syncope, no head trauma, no chest pain. No unusual shortness of breath or cough symptoms. Not sure about sick contacts. Patient has received COVID-19 vaccination. Worsening of chronic back pain without radiation to legs. No incontinence symptoms. Patient needed help from neighbors getting up. Patient brought to ER for evaluation because of increased weakness. Medical History as above Surgical History : Appendectomy, umbilical hernia repair, back surgery Family History : Heart disease Personal/Social history : Past tobacco abuse, occasional EtOH intake, lives alone with former girlfriend acting as caregiver Admission Exam Per Admitting Provider GENERAL: Slightly uncomfortable, pleasant, no respiratory distress SKIN: Pallor, warm HEENT: Alopecia, pale palpebral conjunctivae, no ptosis, dry buccal mucosa NECK : Supple, no tenderness CHEST : Decreased breath sounds, occasional expiratory wheezes, no tenderness HEART : RRR, no obvious murmurs ABDOMEN: Some distention, nontender BACK : Low back tenderness with limited straight leg raise test EXTREMITIES : No LE swelling/tenderness, no other conspicuous deformities noted NEUROLOGIC : Coherent, no facial asymmetry, no other gross focality Principal Diagnosis Ambulatory dysfunction + covid 19 positive back pain/ back sprain Discharge Exam GENERAL: elderly M pleasant, in no respiratory distress HEENT: NC/AT, EOMI. Alopecia NECK : Supple CHEST : CTAB HEART : RRR, no obvious murmurs ABDOMEN: soft, nontender, + bowel sounds EXTREMITIES : No LE swelling/tenderness, moves extremities SKIN: Pallor, warm, dry NEUROLOGIC : awake alert and oriented, answering questions appropriately and following simple commands, no facial asymmetry, speech fluent, moves extremities Discharge Data Allergies Allergy/AdvReac Type Severity Reaction Status Date / Time No Known Allergies Allergy Verified 04/13/22 21:22 Consultations 05/08/22 04:14 ED Decision to Admit Stat Ordered Studies 05/08/22 17:36 CT cervical spine wo con Routine FINDINGS: Multilevel degenerative changes. Unchanged mild chronic appearing C7 wedge deformity. No acute fracture or subluxation identified. The cervical soft tissues appear unremarkable. Partially imaged with moderate mucosal thickening of the right sphenoid sinus. The visualized lung apices appear clear. IMPRESSION: No acute fracture or subluxation. CT head/brain wo con Routine Findings: Areas of decreased attenuation are present in the periventricular and subcortical white matter bilaterally consistent with small vessel ischemic disease. Generalized cerebral atrophy with commensurate enlargement of the ventricles, sulci, and cisterns is also present. There is no acute intracranial hemorrhage or evidence of acute territorial infarction. No shift of the midline structures, mass effect, or extra-axial abnormalities are shown. Atherosclerotic calcifications are present in the intracranial segments of the internal carotid arteries. Sinus disease is seen most prominently in the ethmoid and sphenoid sinuses. The orbits appear normal. There are no acute fractures of the calvaria or scalp swelling. Impression: No acute intracranial hemorrhage, no evidence of acute territorial infarction or other acute intracranial disease process. Hospital Course (1) Weakness: (2) COVID: (3) Lumbar back sprain: (4) Current smoker: (5) Bipolar 1 disorder: (6) Depression with anxiety: (7) Hypertension: (8) DM type 2, goal HbA1c < 7%: Generalized weakness, ambulatory dysfunction Lumbar back sprain Secondary to COVID-19 illness Back pain post fall from 2 days prior to admission-likely a sprain, CT lumbar spine without evidence of fracture. Head CT negative for acute intracranial findings Pain controlled with scheduled Tylenol and daily meloxicam. Patient has not required PRN oxycodone, Flexeril, diazepam. Feels improvement with heating pad. PT/OT recommending rehab, awaiting placement, CM following. Rehab auth declined, plan for snf. COVID-19 Patient with chronic COPD symptoms No indication for COVID-19 directed therapies at this time Cough medicine PRN + Tobacco user - declines nicotine patch and determined to quit smoking Hypertension BP controlled, continue lisinopril DM Type 2 hgb a1c 7.0 On oral medications, holding while hospitalized NovoLog with correction factor only, blood sugars at goal Bipolar disorder Anxiety/Mood disorder Stable, continue home meds Chronic gait disturbance, concern for confusion Family expressed concern for confusion during admission. Patient A&O x4 On admission, patient had head CT without acute intracranial abnormalities. UA - normal Per chart review, patient was to be evaluated by neurology in September 2021 due to concern for gait disturbance /tremor but appointment was canceled. Encouraged outpatient follow-up and evaluation for ongoing issues with tremor, gait disturbance and family's concern for possible underlying Parkinson's. The appointment scheduled with [facility] neurology, on June 08. Total Time Total Time Spent Total Time Spent (In Minutes): 40 Discharge Plan Discharge Items Patient Disposition: Transfer [facility] Reason For Visit: back pain,COVID Discharge Diagnosis: Ambulatory dysfunction + covid 19 positive back pain/ back sprain Activity: Per Instructions section Non-emergency contact: Primary Care Provider Call non-emergency contact if: you have any medication questions and your symptoms worsen Follow-up/Referrals: Amelia Weinstein PA-C [Physician [employer]] - (Date & Time 06/08/2022 11:20 AM Provider Amelia Weinstein PA-C Department Neurology [facility] ) Cm Roberto MD [Primary Care Provider] - Diet: Regular Addtl Attending Provider Instructions: Follow-up with primary care physician within 1 to 2 weeks. For back pain, continue using Tylenol, meloxicam, heating pad. Recommend outpatient neurology follow-up. Neurology visit was scheduled for you for June 08. Pending Studies at Discharge: No Stand-Alone Forms: My [facility] [place] [employer] Skilled Items Patient informed of condition?: Yes DNR: Yes Discharge Level of Care: Skilled Communicable Disease: Yes Discharge Prognosis: Stable Lines: None Urinary Catheter: No Medications and DC Order Prescriptions: New acetaminophen [Tylenol Extra Strength] 500 mg Tablet 1,000 mg PO Q8H 3 Days Qty: 18 0RF Continued cyclobenzaprine 10 mg Tablet 5 - 10 mg PO TID PRN (Reason: .muscle spasms) Rx Instructions: Am, noon, pm prn atorvastatin 80 mg Tablet 80 mg PO DAILY meloxicam 15 mg Tablet 15 mg PO DAILY divalproex [Depakote] 500 mg Tablet,Delayed Release (Dr/Ec) 500 mg PO BID aspirin 81 mg Tablet,Delayed Release (Dr/Ec) 81 mg PO DAILY risperidone 2 mg Tablet 2 mg PO HS paroxetine HCl [Paxil] 30 mg Tablet 30 mg PO BID metformin 1,000 mg Tablet 1,000 mg PO BID buspirone 10 mg Tablet 10 mg PO BID hydroxyzine HCl 25 mg Tablet 25 mg PO TID PRN (Reason: Anxiety) lisinopril 2.5 mg Tablet 2.5 mg PO DAILY Jardiance 25 mg Tablet 25 mg PO DAILY Trelegy Ellipta 200-62.5-25 mcg Blister With Device 1 inh INHALATION DAILY Ozempic 1 mg/dose (4 mg/3 mL) Pen Injector 1 mg SUBCUT WK Discharge Orders: Discharge Order (Routine); Ordered 05/17/22 Ordered By: Mat Mercado/Other Patient Handouts: Managing Type 2 Diabetes Admission Data Admit Date/Time: 05/08/22 04:58 Attending Provider: Mat Art Admit Provider: Juancho Young Primary Care Provider: Cm Roberto Other Providers: Juancho Young ; [facility] ; [place] ; Lanie Alejandro ; Polina Briones Other Interventions: Discharge Summary Assessment (RN) Last Done: 05/17/22 11:16
== END 2022-05-17 16:04 | DRG 551 ==
LOC: ED 03:00 → EDINP 04:58 → SUATTDRO 04:58 → 3E 10:24

== ENCOUNTER 2022-08-24 17:59 | Inpatient (IN) ==
[2022-08-24 18:32] LABS: Basophils # (auto) 0.02 K/uL (0-0.2); Basophils % (auto) 0.3 %; Eosinophils # (auto) 0.08 K/uL (0-0.50); Eosinophils % (auto) 1.3 %; Hematocrit (blood only) 34.2 % (42.0-52.0); Hemoglobin 11.6 g/dl (14.0-18.0); Immature Granulocytes # (auto) 0.01 K/uL (0.01-0.20); Immature Granulocytes % (auto) 0.2 %; Lymphocytes # (auto) 1.76 K/uL (1.2-3.4); Lymphocytes % (auto) 28.2 %; Mean Corpuscular Hemoglobin 32.7 pg (25.0-34.0); Mean Corpuscular Hgb Conc 33.9 g/dL (32.0-36.0); Mean Corpuscular Volume 96.3 fL (80.0-100.0); Mean Platelet Volume 10.8 fL (9.4-12.4); Monocytes # (auto) 0.38 K/uL (0.11-0.59); Monocytes % (auto) 6.1 %; Neutrophils # (auto) 3.99 K/uL (1.40-6.50); Neutrophils % (auto) 63.9 %; Platelet Count 151 K/uL (130-400); RDW Standard Deviation 46.4 fL (36.4-46.3); Red Blood Count 3.55 M/uL (4.70-6.10); White Blood Count 6.24 K/ul (4.8-10.8)
[2022-08-24 18:42] LABS: Alanine Aminotransferase 5 U/L (7-52); Albumin Globulin Ratio 1.1 (0.9-2); Albumin Level 3.1 gm/dl (3.4-5.0); Alkaline Phosphatase 69 U/L (34-104); Anion Gap 8 (3-11); Aspartate Aminotransferase 8 U/L (13-39); Bilirubin,Total 0.3 mg/dl (0.2-1.0); Blood Urea Nitrogen 11 mg/dl (6-23); Calcium 8.8 mg/dl (8.6-10.3); Carbon Dioxide 27 mmol/L (21-32); Chloride 104 mmol/L (98-107); Est GFR (African American) 91.1 ml/min; Est GFR (Non-African American) 78.6 ml/min; Globulin 2.8 gm/dl (2.5-4.0); Glucose 163 mg/dl (70-99(Fasting)); Magnesium 1.6 mg/dl (1.7-2.4); Potassium 2.9 mmol/L (3.5-5.1); Sodium 139 mmol/L (136-145); Total Protein 5.9 gm/dl (6.0-8.3)
[2022-08-24 18:48] LABS: Troponin I High Sensitivity 13.1 pg/ml (0-20)
[2022-08-24 18:51] LABS: Partial Thromboplastin Ratio 0.8; Partial Thromboplastin Time 23.9 Seconds (21.0-31.0); Prothrombin Time 11.1 Seconds (9.0-12.0)
--- NOTE | 2022-08-24 19:21 | Emergency Department Note ---
Impression & Plan Weakness, Anemia, Dehydration, Electrolyte abnormality ED Provider Note NAME: PARAMJIT MELARA AGE: 66 SEX: M : 1955 ARRIVES VIA: Walk-In INFORMANT: Patient, ED PROVIDER(S): Andrew Barrios MD CHIEF COMPLAINT: Weakness MEDICAL DECISION MAKING: Patient presented due to concern for worsening weakness. Given the patient's inability to care and desire for rehab patient did have an IV established and blood was obtained. IV fluids given. The patient's blood work shows a normal white count mild anemia hemoglobin of 11 with a normal platelet count. Kidney function is grossly unremarkable. Patient does have mild hypokalemia at 2.9. Mild hypomagnesemia at 1.6. These were ordered for replacement. TSH is normal. COVID-negative. Speak with the case worker stated they would not be able to place the patient today. I did speak the on-call hospitalist service and the patient was admitted by Dr. Young. Prior /Outside records reviewed: Did review discharge summary from Dr. Art which is the patient has no history of hypertension hyperlipidemia COPD type 2 diabetes anxiety mood disorder chronic back pain and chronic anemia. Patient was admitted for COVID-19 and generalized weakness and associated ambulatory dysfunction at that time. Differential diagnosis: Infection, dehydration, metabolic abnormality, hypo/hyperglycemia, electrolyte disturbance, anemia, hypoxia, cardiac sources, intracerebral event, toxicologic, neurologic, as well as other pathologies. Diagnostics, as interpreted by me: ECG: Normal sinus rhythm, rate of 67, normal intervals, normal axis possible T wave version V2 no obvious ST elevations. Cardiac monitoring: An order was placed for continuous cardiac monitoring. The monitor shows a rate of 69 with sinus rhythm. Patient was placed on pulse oximetry Medical decision rules: none Imaging studies: See below HPI: Patient presents due to concern for worsening weakness. The patient does live by himself and the son noted that the patient has had significant diffic ulty with just getting up from a sitting position to the restroom to where he has had bouts of incontinence. The patient knows that he does need to use the restroom but is too weak and is unable to quickly moved to the restroom. Patient denies any chest pains or shortness of breath no nausea vomiting. Does believe that his appetite is okay with some believes maybe it is decreasing the may have had some associated weight loss. No reported recent falls or trauma. Patient does have some occasional dizziness. Patient does use a cane and a walker. PAST MEDICAL HISTORY: See Below PAST SURGICAL HISTORY: See Below SOCIAL HISTORY: See Below HOME MEDICATIONS: See Below ALLERGIES: See Below VITALS: See Below PHYSICAL EXAMINATION: GENERAL: NAD, wearing a mask, non-toxic. EYE EXAM: Normal conjunctiva. PERRL, no anisocoria and EOM's grossly intact w/o pain. NECK: Supple, no nuchal rigidity, no adenopathy, non-tender. No signs of meningismus. FROM of the neck with good chin to chest and neck extension. No stridor. LUNGS: Clear to auscultation. Normal chest wall mechanics. HEART: NSR, no MRG. ABDOMEN: Abdomen soft, non-tender, no masses, no rebound or guarding. BACK: No CVA TTP. SKIN: No rashes and no bruising. UPPER EXTREMITIES: Upper extremities are grossly normal. LOWER EXTREMITIES: Grossly normal, no edema. NEURO EXAM: A&O x3, cranial nerves II-XII grossly intact, normal speech, moves all 4 extremities. Past Med/Surg History Medical History Anxiety Bipolar 1 disorder Chronic pain syndrome COPD, moderate Current tobacco use Depression Depression with anxiety Diabetes DM type 2, goal HbA1c < 7% Dyslipidemia, goal LDL below 70 Essential hypertension with goal blood pressure less than 150/90 Former smoker Paranoia Paronychia Primary osteoarthritis involving multiple joints Pulmonary nodule Surgical History History of appendectomy History of hemorrhoidectomy History of umbilical hernia repair Family History Other Family history non-contributory Social History Smoking Status: Former smoker Tobacco Type: Cigarettes Cigarettes Per Day: 20; Second Hand Exposure: No; Do You Dip or Chew Tobacco: No; Hx Alcohol Use: No Hx Substance Use: No Preferred Language: Croatian Communication Ability: Effective Material Preparation Worker Required: No Beliefs That Will Affect Care: None Current Living Situation: Alone Current Living Situation Comment: lives alone - friend Cecilia helps Feels Safe at Home: Yes Safety Concerns: Feels Safe At This Time Assistive Devices: Cane and Walker Allergies Allergies Allergy/AdvReac Type Severity Reaction Status Date / Time No Known Allergies Allergy Verified 04/13/22 21:22 Home Meds Home Medications Medication Instructions Recorded Confirmed aspirin 81 mg tablet,delayed 81 mg PO DAILY 04/13/22 08/24/22 release atorvastatin 80 mg tablet 80 mg PO DAILY 04/13/22 08/24/22 buspirone 10 mg tablet 10 mg PO BID 04/13/22 08/24/22 cyclobenzaprine 10 mg tablet 5 - 10 mg PO TID PRN .muscle spasms 04/13/22 08/24/22 divalproex 500 mg tablet,delayed 500 mg PO BID 04/13/22 08/24/22 release (Depakote) empagliflozin 25 mg tablet 25 mg PO DAILY 04/13/22 08/24/22 (Jardiance) fluticasone fur. 200 mcg-umeclid 1 inh inhalation DAILY 04/13/22 08/24/22 62.5 mcg-vilant 25 mcg inhalat.powder (Trelegy Ellipta) lisinopril 2.5 mg tablet 2.5 mg PO DAILY 04/13/22 08/24/22 paroxetine HCl 30 mg tablet (Paxil) 30 mg PO BID 04/13/22 08/24/22 risperidone 2 mg tablet 2 mg PO HS 04/13/22 08/24/22 metformin 500 mg tablet,extended 500 mg PO BIDM 08/24/22 08/24/22 release 24 hr Results & Data (ED) Vital Signs Vital Signs - 24 hr 08/24/22 23:55 08/25/22 03:00 08/25/22 07:57 Temperature 36.4 C L 36.3 C L 36.4 C L Temperature Source Oral Oral Oral Pulse Rate [Apical] 72 60 62 Respiratory Rate 18 16 18 Blood Pressure [Right Arm] 174/75 H 151/87 H 155/73 H Blood Pressure Mean [Right Arm] 108 108 100 Blood Pressure Position [Right Arm] Lying Lying Pulse Oximetry 99 95 94 Oxygen Delivery Method Room Air Room Air Room Air 08/25/22 11:55 08/25/22 16:05 Temperature 36.3 C L 36.6 C Temperature Source Oral Axillary Pulse Rate [Apical] 66 66 Respiratory Rate 20 18 Blood Pressure [Right Arm] 144/83 H 146/95 H Blood Pressure Mean [Right Arm] 103 112 Blood Pressure Position [Right Arm] Lying Lying Pulse Oximetry 94 95 Oxygen Delivery Method Room Air Room Air Home Medications Current Medication List: was personally reviewed by me Laboratory Data Attestation: I reviewed the patient's lab results. 08/24/22 18:08 08/24/22 18:08 Lab Results 08/24/22 08/24/22 08/24/22 Range/Units 18:04 18:08 18:08 WBC 6.24 (4.8-10.8) K/ul RBC 3.55 L (4.70-6.10) M/uL Hgb 11.6 L (14.0-18.0) g/dl Hct 34.2 L (42.0-52.0) % MCV 96.3 (80.0-100.0) fL MCH 32.7 (25.0-34.0) pg MCHC 33.9 (32.0-36.0) g/dL RDW Std Deviation 46.4 H (36.4-46.3) fL RDW Coeff of Keila 13.0 (11.5-14.5) % Plt Count 151 (130-400) K/uL MPV 10.8 (9.4-12.4) fL Immature Gran % (Auto) 0.2 % Neut % (Auto) 63.9 % Lymph % (Auto) 28.2 % [place] % (Auto) 6.1 % Eos % (Auto) 1.3 % Baso % (Auto) 0.3 % Neut # (Auto) 3.99 (1.40-6.50) K/uL Lymph # (Auto) 1.76 (1.2-3.4) K/uL [place] # (Auto) 0.38 (0.11-0.59) K/uL Eos # (Auto) 0.08 (0-0.50) K/uL Baso # (Auto) 0.02 (0-0.2) K/uL Immature Gran # (Auto) 0.01 (0.01-0.20) K/uL PT 11.1 (9.0-12.0) Seconds INR 1.0 (0.9-1.1) APTT 23.9 (21.0-31.0) Seconds PTT Ratio 0.8 Sodium (136-145) mmol/L Potassium (3.5-5.1) mmol/L Chloride (98-107) mmol/L Carbon Dioxide (21-32) mmol/L Anion Gap (3-11) BUN (6-23) mg/dl Creatinine (0.6-1.4) mg/dl Est Cr Clr Drug Dosing Est GFR ( Amer) ml/min Est GFR (Non-Af Amer) ml/min BUN/Creatinine Ratio (10-20) Glucose (70-99(Fasting)) mg/dl POC Glucose 162 H (70-99) mg/dl Calcium (8.6-10.3) mg/dl Magnesium (1.7-2.4) mg/dl Total Bilirubin (0.2-1.0) mg/dl AST (13-39) U/L ALT (7-52) U/L Alkaline Phosphatase (34-104) U/L Troponin I High Sens (0-20) pg/ml Total Protein (6.0-8.3) gm/dl Albumin (3.4-5.0) gm/dl Globulin (2.5-4.0) gm/dl Albumin/Globulin Ratio (0.9-2) TSH (0.300-4.500) uIu/ml Urine Color Urine Appearance (Clear) Urine pH (4.5-7.5) Ur Specific [place] (1.000-1.030) Urine Protein (Negative) Urine Glucose (UA) (Negative) Urine Ketones (Negative) Urine Blood (Negative) Urine Nitrite (Negative) Urine Bilirubin (Negative) Urine Urobilinogen (Negative) Ur Leukocyte Esterase (Negative) Valproic Acid (50-100) mcg/ml SARS-CoV-2, RNA, NAAT (NEGATIVE) 08/24/22 08/24/22 08/24/22 Range/Units 18:08 18:08 20:00 WBC (4.8-10.8) K/ul RBC (4.70-6.10) M/uL Hgb (14.0-18.0) g/dl Hct (42.0-52.0) % MCV (80.0-100.0) fL MCH (25.0-34.0) pg MCHC (32.0-36.0) g/dL RDW Std Deviation (36.4-46.3) fL RDW Coeff of Keila (11.5-14.5) % Plt Count (130-400) K/uL MPV (9.4-12.4) fL Immature Gran % (Auto) % Neut % (Auto) % Lymph % (Auto) % [place] % (Auto) % Eos % (Auto) % Baso % (Auto) % Neut # (Auto) (1.40-6.50) K/uL Lymph # (Auto) (1.2-3.4) K/uL [place] # (Auto) (0.11-0.59) K/uL Eos # (Auto) (0-0.50) K/uL Baso # (Auto) (0-0.2) K/uL Immature Gran # (Auto) (0.01-0.20) K/uL PT (9.0-12.0) Seconds INR (0.9-1.1) APTT (21.0-31.0) Seconds PTT Ratio Sodium 139 (136-145) mmol/L Potassium 2.9 L (3.5-5.1) mmol/L Chloride 104 (98-107) mmol/L Carbon Dioxide 27 (21-32) mmol/L Anion Gap 8 (3-11) BUN 11 (6-23) mg/dl Creatinine 1.00 (0.6-1.4) mg/dl Est Cr Clr Drug Dosing Not Reportable Est GFR ( Amer) 91.1 ml/min Est GFR (Non-Af Amer) 78.6 ml/min BUN/Creatinine Ratio 11.0 (10-20) Glucose 163 H (70-99(Fasting)) mg/dl POC Glucose (70-99) mg/dl Calcium 8.8 (8.6-10.3) mg/dl Magnesium 1.6 L (1.7-2.4) mg/dl Total Bilirubin 0.3 (0.2-1.0) mg/dl AST 8 L (13-39) U/L ALT 5 L (7-52) U/L Alkaline Phosphatase 69 (34-104) U/L Troponin I High Sens 13.1 (0-20) pg/ml Total Protein 5.9 L (6.0-8.3) gm/dl Albumin 3.1 L (3.4-5.0) gm/dl Globulin 2.8 (2.5-4.0) gm/dl Albumin/Globulin Ratio 1.1 (0.9-2) TSH 1.062 (0.300-4.500) uIu/ml Urine Color Urine Appearance (Clear) Urine pH (4.5-7.5) Ur Specific [place] (1.000-1.030) Urine Protein (Negative) Urine Glucose (UA) (Negative) Urine Ketones (Negative) Urine Blood (Negative) Urine Nitrite (Negative) Urine Bilirubin (Negative) Urine Urobilinogen (Negative) Ur Leukocyte Esterase (Negative) Valproic Acid (50-100) mcg/ml SARS-CoV-2, RNA, NAAT NEGATIVE (NEGATIVE) 08/24/22 08/25/22 08/25/22 Range/Units 21:00 00:14 00:31 WBC (4.8-10.8) K/ul RBC (4.70-6.10) M/uL Hgb (14.0-18.0) g/dl Hct (42.0-52.0) % MCV (80.0-100.0) fL MCH (25.0-34.0) pg MCHC (32.0-36.0) g/dL RDW Std Deviation (36.4-46.3) fL RDW Coeff of Keila (11.5-14.5) % Plt Count (130-400) K/uL MPV (9.4-12.4) fL Immature Gran % (Auto) % Neut % (Auto) % Lymph % (Auto) % [place] % (Auto) % Eos % (Auto) % Baso % (Auto) % Neut # (Auto) (1.40-6.50) K/uL Lymph # (Auto) (1.2-3.4) K/uL [place] # (Auto) (0.11-0.59) K/uL Eos # (Auto) (0-0.50) K/uL Baso # (Auto) (0-0.2) K/uL Immature Gran # (Auto) (0.01-0.20) K/uL PT (9.0-12.0) Seconds INR (0.9-1.1) APTT (21.0-31.0) Seconds PTT Ratio Sodium (136-145) mmol/L Potassium (3.5-5.1) mmol/L Chloride (98-107) mmol/L Carbon Dioxide (21-32) mmol/L Anion Gap (3-11) BUN (6-23) mg/dl Creatinine (0.6-1.4) mg/dl Est Cr Clr Drug Dosing Est GFR ( Amer) ml/min Est GFR (Non-Af Amer) ml/min BUN/Creatinine Ratio (10-20) Glucose (70-99(Fasting)) mg/dl POC Glucose 136 H (70-99) mg/dl Calcium (8.6-10.3) mg/dl Magnesium (1.7-2.4) mg/dl Total Bilirubin (0.2-1.0) mg/dl AST (13-39) U/L ALT (7-52) U/L Alkaline Phosphatase (34-104) U/L Troponin I High Sens (0-20) pg/ml Total Protein (6.0-8.3) gm/dl Albumin (3.4-5.0) gm/dl Globulin (2.5-4.0) gm/dl Albumin/Globulin Ratio (0.9-2) TSH (0.300-4.500) uIu/ml Urine Color Yellow Urine Appearance Clear (Clear) Urine pH 6.5 (4.5-7.5) Ur Specific [place] 1.015 (1.000-1.030) Urine Protein Negative (Negative) Urine Glucose (UA) 2+ H (Negative) Urine Ketones Negative (Negative) Urine Blood Negative (Negative) Urine Nitrite Negative (Negative) Urine Bilirubin Negative (Negative) Urine Urobilinogen Negative (Negative) Ur Leukocyte Esterase Negative (Negative) Valproic Acid 130 H (50-100) mcg/ml SARS-CoV-2, RNA, NAAT (NEGATIVE) 08/25/22 08/25/22 08/25/22 Range/Units 05:42 05:42 05:42 WBC 5.20 (4.8-10.8) K/ul RBC 3.51 L (4.70-6.10) M/uL Hgb 11.3 L (14.0-18.0) g/dl Hct 33.9 L (42.0-52.0) % MCV 96.6 (80.0-100.0) fL MCH 32.2 (25.0-34.0) pg MCHC 33.3 (32.0-36.0) g/dL RDW Std Deviation 46.2 (36.4-46.3) fL RDW Coeff of Keila 13.0 (11.5-14.5) % Plt Count 134 (130-400) K/uL MPV 10.4 (9.4-12.4) fL Immature Gran % (Auto) 0.2 % Neut % (Auto) 55.8 % Lymph % (Auto) 35.6 % [place] % (Auto) 6.9 % Eos % (Auto) 1.3 % Baso % (Auto) 0.2 % Neut # (Auto) 2.90 (1.40-6.50) K/uL Lymph # (Auto) 1.85 (1.2-3.4) K/uL [place] # (Auto) 0.36 (0.11-0.59) K/uL Eos # (Auto) 0.07 (0-0.50) K/uL Baso # (Auto) 0.01 (0-0.2) K/uL Immature Gran # (Auto) 0.01 (0.01-0.20) K/uL PT (9.0-12.0) Seconds INR (0.9-1.1) APTT (21.0-31.0) Seconds PTT Ratio Sodium 143 (136-145) mmol/L Potassium 2.9 L (3.5-5.1) mmol/L Chloride 107 (98-107) mmol/L Carbon Dioxide 29 (21-32) mmol/L Anion Gap 7 (3-11) BUN 12 (6-23) mg/dl Creatinine 0.90 (0.6-1.4) mg/dl Est Cr Clr Drug Dosing 83.7 Est GFR ( Amer) 103.5 ml/min Est GFR (Non-Af Amer) 89.3 ml/min BUN/Creatinine Ratio 13.3 (10-20) Glucose 98 (70-99(Fasting)) mg/dl POC Glucose (70-99) mg/dl Calcium 8.5 L (8.6-10.3) mg/dl Magnesium 1.7 (1.7-2.4) mg/dl Total Bilirubin (0.2-1.0) mg/dl AST (13-39) U/L ALT (7-52) U/L Alkaline Phosphatase (34-104) U/L Troponin I High Sens (0-20) pg/ml Total Protein (6.0-8.3) gm/dl Albumin (3.4-5.0) gm/dl Globulin (2.5-4.0) gm/dl Albumin/Globulin Ratio (0.9-2) TSH (0.300-4.500) uIu/ml Urine Color Urine Appearance (Clear) Urine pH (4.5-7.5) Ur Specific [place] (1.000-1.030) Urine Protein (Negative) Urine Glucose (UA) (Negative) Urine Ketones (Negative) Urine Blood (Negative) Urine Nitrite (Negative) Urine Bilirubin (Negative) Urine Urobilinogen (Negative) Ur Leukocyte Esterase (Negative) Valproic Acid 113 H (50-100) mcg/ml SARS-CoV-2, RNA, NAAT (NEGATIVE) 08/25/22 08/25/22 Range/Units 07:43 11:16 WBC (4.8-10.8) K/ul RBC (4.70-6.10) M/uL Hgb (14.0-18.0) g/dl Hct (42.0-52.0) % MCV (80.0-100.0) fL MCH (25.0-34.0) pg MCHC (32.0-36.0) g/dL RDW Std Deviation (36.4-46.3) fL RDW Coeff of Keila (11.5-14.5) % Plt Count (130-400) K/uL MPV (9.4-12.4) fL Immature Gran % (Auto) % Neut % (Auto) % Lymph % (Auto) % [place] % (Auto) % Eos % (Auto) % Baso % (Auto) % Neut # (Auto) (1.40-6.50) K/uL Lymph # (Auto) (1.2-3.4) K/uL [place] # (Auto) (0.11-0.59) K/uL Eos # (Auto) (0-0.50) K/uL Baso # (Auto) (0-0.2) K/uL Immature Gran # (Auto) (0.01-0.20) K/uL PT (9.0-12.0) Seconds INR (0.9-1.1) APTT (21.0-31.0) Seconds PTT Ratio Sodium (136-145) mmol/L Potassium (3.5-5.1) mmol/L Chloride (98-107) mmol/L Carbon Dioxide (21-32) mmol/L Anion Gap (3-11) BUN (6-23) mg/dl Creatinine (0.6-1.4) mg/dl Est Cr Clr Drug Dosing Est GFR ( Amer) ml/min Est GFR (Non-Af Amer) ml/min BUN/Creatinine Ratio (10-20) Glucose (70-99(Fasting)) mg/dl POC Glucose 107 H 154 H (70-99) mg/dl Calcium (8.6-10.3) mg/dl Magnesium (1.7-2.4) mg/dl Total Bilirubin (0.2-1.0) mg/dl AST (13-39) U/L ALT (7-52) U/L Alkaline Phosphatase (34-104) U/L Troponin I High Sens (0-20) pg/ml Total Protein (6.0-8.3) gm/dl Albumin (3.4-5.0) gm/dl Globulin (2.5-4.0) gm/dl Albumin/Globulin Ratio (0.9-2) TSH (0.300-4.500) uIu/ml Urine Color Urine Appearance (Clear) Urine pH (4.5-7.5) Ur Specific [place] (1.000-1.030) Urine Protein (Negative) Urine Glucose (UA) (Negative) Urine Ketones (Negative) Urine Blood (Negative) Urine Nitrite (Negative) Urine Bilirubin (Negative) Urine Urobilinogen (Negative) Ur Leukocyte Esterase (Negative) Valproic Acid (50-100) mcg/ml SARS-CoV-2, RNA, NAAT (NEGATIVE) Administered Medications Aspirin (Aspirin 81 Mg Ectab) 81 mg PO DAILY BOB Stop: 09/24/22 08:59 Last Admin: 08/25/22 08:56 Dose: 81 mg Documented By: BART Atorvastatin Calcium (Atorvastatin 40 Mg Tab) 80 mg PO DAILY [facility] Stop: 09/24/22 08:59 Last Admin: 08/25/22 08:57 Dose: 80 mg Documented By: BART Buspirone HCl (Buspirone 5 Mg Tab) 10 mg PO BID BOB Stop: 09/23/22 23:52 Last Admin: 08/25/22 20:43 Dose: 10 mg Documented By: Admin: 08/25/22 08:56 Dose: 10 mg Documented By: Admin: 08/25/22 00:38 Dose: 10 mg Documented By: RENETTA Enoxaparin Sodium (Enoxaparin Inj 30 Mg/0.3 Ml Syr) 30 mg SQ QAM BOB Stop: 09/24/22 08:59 Last Admin: 08/25/22 08:58 Dose: 30 mg Documented By: BART Fluticasone Furoate (Fluticasone Furoate 200mcg 14 Puffs/Inhaler) 1 puffs INH DAILY [facility]OB Stop: 09/24/22 08:59 Last Admin: 08/25/22 08:58 Dose: 1 puffs Documented By: BART Insulin Aspart (Insulin Aspart Per Unit Charge) 0 units SC ACHS BOB Stop: 09/23/22 23:52 Last Admin: 08/25/22 20:45 Dose: 3 units Documented By: RENETTA Co-signed By: ALEXANDR Admin: 08/25/22 17:13 Dose: Not Given Documented By: Admin: 08/25/22 12:25 Dose: 4 units Documented By: BART Co-signed By: MARTHA Admin: 08/25/22 08:54 Dose: 2 units Documented By: BART Co-signed By: SANAZ Admin: 08/25/22 00:34 Dose: Not Given Documented By: RENETTA Insulin Glargine (Lantus Per Unit Charge) 5 units SQ DAILY [facility] Stop: 09/24/22 08:59 Last Admin: 08/25/22 08:54 Dose: 5 units Documented By: BART Co-signed By: SANAZ Lisinopril (Lisinopril 5 Mg Tab) 5 mg PO DAILY BOB Stop: 09/24/22 08:59 Last Admin: 08/25/22 08:57 Dose: 5 mg Documented By: BART Paroxetine HCl (Paroxetine Hcl 20 Mg Tab) 30 mg PO BID BOB Stop: 09/24/22 08:59 Last Admin: 08/25/22 20:42 Dose: 30 mg Documented By: Admin: 08/25/22 08:57 Dose: 30 mg Documented By: BART Potassium Chloride (Potassium Chloride Crtab 20 Meq Tabcr) 40 meq PO BID BOB Stop: 08/27/22 08:59 Last Admin: 08/25/22 20:42 Dose: 40 meq Documented By: Admin: 08/25/22 08:55 Dose: 40 meq Documented By: BART Risperidone (Risperidone 2 Mg Tablet) 2 mg PO HS BOB Stop: 09/23/22 23:52 Last Admin: 08/25/22 20:42 Dose: 2 mg Documented By: Admin: 08/25/22 00:38 Dose: 2 mg Documented By: RENETTA Umeclidinium/Vilanterol (Umeclidinium/Vilanterol 62.5/25mcg 7 Puffs/Inhaler) 1 puffs INH DAILY [facility]OB Stop: 09/24/22 08:59 Last Admin: 08/25/22 08:58 Dose: 1 puffs Documented By: BART Discontinued Medications Potassium Chloride/Sodium Chloride (Normal Saline W/20 Meq Kcl) 20 meq in 1,000 mls @ 50 mls/hr IV .Q20H ONE; Protocol Stop: 08/25/22 16:01 Last Infusion: 08/25/22 17:00 Dose: 0 mls/hr Documented By: Admin: 08/24/22 22:51 Dose: 50 mls/hr Documented By: LINCOLN Magnesium Sulfate/Dextrose (Magnesium Sulfate / D5w) 1 gm in 100 mls @ 50 mls/hr IV ONE ONE Stop: 08/25/22 10:17 Last Infusion: 08/25/22 11:04 Dose: 0 mls/hr Documented By: Admin: 08/25/22 08:55 Dose: 50 mls/hr Documented By: BART Potassium Chloride (K Dao / Wtr) 10 meq in 100 mls @ 100 mls/hr IV Q1H BOB Stop: 08/25/22 10:29 Last Infusion: 08/25/22 11:28 Dose: 0 mls/hr Documented By: Admin: 08/25/22 10:29 Dose: 100 mls/hr Documented By: Infusion: 08/25/22 09:55 Dose: 100 mls/hr Documented By: Admin: 08/25/22 08:55 Dose: 100 mls/hr Documented By: BART Lisinopril (Lisinopril 2.5 Mg Tab) 2.5 mg PO ONE ONE Stop: 08/24/22 20:01 Last Admin: 08/24/22 20:41 Dose: 2.5 mg Documented By: LINCOLN Magnesium Oxide (Magnesium Oxide 400 Mg Tab) 800 mg PO NOW STA Stop: 08/24/22 19:23 Last Admin: 08/24/22 19:32 Dose: 800 mg Documented By: LINCOLN Miscellaneous (Pending Order) 1 each N/A TODAY@1030 ONE Stop: 08/25/22 10:31 Last Admin: 08/25/22 12:17 Dose: 1 each Documented By: Admin: 08/25/22 11:49 Dose: 1 each Documented By: BART Potassium Chloride (Potassium Chloride Crtab 20 Meq Tabcr) 40 meq PO NOW STA Stop: 08/24/22 19:23 Last Admin: 08/24/22 19:32 Dose: 40 meq Documented By: LINCOLN Discharge Plan Visit Data Chief Complaint: Weakness Stated Complaint: WEAKNESS ED Provider: Andrew Barrios Discharge Problem: Weakness, Anemia, Dehydration, Electrolyte abnormality Patient Disposition: Admitted As Inpatient Discharge Instructions Interventions: ED Discharge Assessment Last Done: 08/24/22 23:10
[2022-08-24] MEDS ORDERED: MAGNESIUM OXIDE 400 MG TAB PO STA (19:22)
[2022-08-24] MEDS ORDERED: POTASSIUM CHLORIDE CRTAB 20 MEQ TABCR PO STA (19:22)
[2022-08-24] MEDS ORDERED: lisinopril 2.5 MG TAB PO ONE (20:00)
[2022-08-24] MEDS ORDERED: NSS + 20MEQ KCL 20 MEQ/1,000 ML BAG IV ONE (20:02)
--- NOTE | 2022-08-24 20:06 | History & Physical Report ---
Date of Service August 24, 2022 Assessment & Plan (1) Weakness: (2) Ambulatory dysfunction: (3) Hypokalemia: (4) Diarrhea: (5) Hypomagnesemia: (6) DM type 2, goal HbA1c < 7%: (7) Hypertension: (8) Dyslipidemia, goal LDL below 70: (9) Depression with anxiety: (10) Bipolar 1 disorder: (11) COPD, moderate: (12) Anemia: Plan: Assessment and plan per Dr Young. See addendum. History of Present Illness Chief Complaint: Weakness Primary Care Provider: Cm Roberto MD Patient is 66-year-old male with PMH HTN, HLD DM II, anxiety, depression, bipolar disorder, COPD, presented to ER with complaint of weakness x 1 week. Patient with history of hospitalization 04/2022 for weakness and was COVID-p ositive. He states he went to rehab at [facility] and felt like he was regaining his strength. Patient states for the past week he has had increased weakness. He feels generally weak. States has some dizziness with walking. He describes the dizziness as feeling off balance and leaning to the left. He has been using cane and walker. Denies any falls. He has been too weak to complete his ADLs including bathing/showering. He states that he had been having decreased appetite with decreased oral intake. Also reports has been having at least 3 episodes of loose watery stools daily. Patient reports has fecal incontinence. He states that he has been having urinary incontinence for the past month. Saw PCP on 08/03/2022. His metformin was decreased from 1000 mg twice daily to 500 mg twice daily in regards to the loose stools. He states that he discontinued Ozempic on 08/04/2022. Since discontinuing Ozempic he feels his appetite has increased. Patient states he drinks 64 ounces of Pepsi daily. Drinks very minimal water. He also reports has had nonproductive cough for the past 4 weeks. States 2 weeks ago had some rhinorrhea which resolved. Patient's son states last week had noted bilateral lower extremity edema. States used compression hose and elevated legs with resolution. Denies dysuria, hematuria, abdominal pain. Denies fever/chills, diaphoresis, N/V, melena, hematochezia MONTERROSO, syncope, vision changes, neck pain, CP, SOB, palpitations, sore throat, choking, otalgia, paresthesias, rashes. Allergies Allergy/AdvReac Type Severity Reaction Status Date / Time No Known Allergies Allergy Verified 04/13/22 21:22 Home Medications Medication Instructions Recorded Confirmed Type aspirin 81 mg tablet,delayed 81 mg PO DAILY 04/13/22 08/24/22 History release atorvastatin 80 mg tablet 80 mg PO DAILY 04/13/22 08/24/22 History buspirone 10 mg tablet 10 mg PO BID 04/13/22 08/24/22 History cyclobenzaprine 10 mg tablet 5 - 10 mg PO TID PRN .muscle spasms 04/13/22 08/24/22 History divalproex 500 mg tablet,delayed 500 mg PO BID 04/13/22 08/24/22 History release (Depakote) empagliflozin 25 mg tablet 25 mg PO DAILY 04/13/22 08/24/22 History (Jardiance) fluticasone fur. 200 mcg-umeclid 1 inh inhalation DAILY 04/13/22 08/24/22 History 62.5 mcg-vilant 25 mcg inhalat.powder (Trelegy Ellipta) lisinopril 2.5 mg tablet 2.5 mg PO DAILY 04/13/22 08/24/22 History paroxetine HCl 30 mg tablet (Paxil) 30 mg PO BID 04/13/22 08/24/22 History risperidone 2 mg tablet 2 mg PO HS 04/13/22 08/24/22 History metformin 500 mg tablet,extended 500 mg PO BIDM 08/24/22 08/24/22 History release 24 hr Past Med/Surg History Medical History Anxiety Bipolar 1 disorder Chronic pain syndrome COPD, moderate Current tobacco use Depression Depression with anxiety Diabetes DM type 2, goal HbA1c < 7% Dyslipidemia, goal LDL below 70 Essential hypertension with goal blood pressure less than 150/90 Former smoker Paranoia Paronychia Primary osteoarthritis involving multiple joints Pulmonary nodule Surgical History History of appendectomy History of hemorrhoidectomy History of umbilical hernia repair Family History Other Family history non-contributory Social History Smoking Status: Former smoker Tobacco Type: Cigarettes Cigarettes Per Day: 20; Second Hand Exposure: No; Do You Dip or Chew Tobacco: No; Hx Alcohol Use: No Hx Substance Use: No Preferred Language: Swedish Communication Ability: Effective Child Care Coordinator Required: No Beliefs That Will Affect Care: None Current Living Situation: Alone Current Living Situation Comment: lives alone - friend Cecilia briseno Feels Safe at Home: Yes Safety Concerns: Feels Safe At This Time Assistive Devices: Cane and Walker Review of Systems Review of Systems: All systems reviewed & are unremarkable except as noted in HPI & below Physical Exam Physical Exam: General: no distress, WDWN, chronic ill-appearing elderly male Head: normocephalic, atraumatic Eyes: PERRL, EOM's intact, conjunctiva non-injected, anicteric ENT: normal inspection external ears, nose, mucous membranes dry Neck: supple, trachea midline Lungs: clear, no respiratory distress, no wheezing/rhonchi/rales CV: RRR, no murmur, no pretibial edema Abd: normal BS, soft, non-tender Ext: no cyanosis, no calf tenderness Neuro: A&O x 3, + diffuse weakness, no other focal deficits noted, normal affect Skin: warm, dry Results & Data Results & Data Vital Signs (Past 12 Hours) Vital Signs Temp Pulse Pulse Resp BP BP Pulse Ox 08/24/22 19:35 73 08/24/22 19:39 70 18 167/104 H 97 08/24/22 18:01 36.8 C 69 22 149/89 H 95 O2 Del Method 08/24/22 19:35 08/24/22 19:39 Room Air 08/24/22 18:01 Room Air Laboratory Results Short CBC 08/24/22 Range/Units 18:08 WBC 6.24 (4.8-10.8) K/ul Hgb 11.6 L (14.0-18.0) g/dl Hct 34.2 L (42.0-52.0) % Plt Count 151 (130-400) K/uL BMP 08/24/22 18:08 Sodium 139 Potassium 2.9 L Chloride 104 Carbon Dioxide 27 BUN 11 Creatinine 1.00 Glucose 163 H Calcium 8.8 Liver Function 08/24/22 Range/Units 18:08 Total Bilirubin 0.3 (0.2-1.0) mg/dl AST 8 L (13-39) U/L ALT 5 L (7-52) U/L Alkaline Phosphatase 69 (34-104) U/L Albumin 3.1 L (3.4-5.0) gm/dl Supervising Physician Co-Signing Physician Notes IM ATTENDING : Patient seen and examined. History obtained from patient, family, and records. Preceding documentation by Ms. Mima Esquivel PA-C reviewed. FINAL ASSESSMENT AND PLAN as follows : Hypertensive urgency Generalized weakness, deconditioning secondary to diarrheal illness rule out C. difficile Supratherapeutic valproic acid level History COPD, lung status at baseline DM 2 on oral medications, well-controlled as of outpatient hemoglobin A1c of 6.5 last this month History mild hyperprolactinemia likely secondary to neuropsychotropic medications anxiety/mood disorder, at baseline chronic anemia, hemoglobin at baseline Chronic tremors, outpatient work-up negative for Parkinson disease as per family Hypokalemia secondary to diarrheal illness past tobacco abuse Medical telemetry Titrate lisinopril Stool C. difficile Hold Depakote for now, recheck level in a.m. Replace electrolytes Basal bolus insulin, ISS BG goal 1 10-1 40, carb count coverage PT OT eval DVT prophylaxis. Lovenox subcu DNR as per patient's prior directives. Patient family requesting for periodic updates. Mr. Guero Gomez (son), contact number [phone]. Ms. Cecilia Aaron (former girlfriend), contact #[phone]. Text document was generated using [employer] voice recognition software. It may contain grammatical or spelling errors. Kindly contact undersigned for clarification of any documentation item in question.
[2022-08-24 21:42] LABS: Appearance Urine Clear (Clear); Bilirubin Urine Negative (Negative); Blood Urine Negative (Negative); Color Urine Yellow; Glucose Urine UA 2+ (Negative); Ketones Urine Negative (Negative); Leukocyte Esterase Urine Negative (Negative); Nitrite Urine Negative (Negative); Protein Urine Negative (Negative); Specific Gravity Urine 1.015 (1.000-1.030); Urobilinogen Urine Negative (Negative); pH Urine 6.5 (4.5-7.5)
[2022-08-24] MEDS ORDERED: CARBOHYDRATES FOR HYPOGLYCEMIA PO PRN (23:53)
[2022-08-24] MEDS ORDERED: PROMETHAZINE HCL 6.25 MG in SODIUM CHLORIDE 0.9% 50 ML IV PRN (23:53)
[2022-08-24] MEDS ORDERED: ACETAMINOPHEN 325 MG TAB PO PRN (23:53)
[2022-08-24] MEDS ORDERED: DEXTROSE 50% 50 ML SYRINGE IV PRN (23:53)
[2022-08-24] MEDS ORDERED: GLUCOSE 40% GEL 15 GM TUBE PO PRN (23:53)
[2022-08-24] MEDS ORDERED: GLUCAGON FOR INJ 1 MG VIAL SQ PRN (23:53)
[2022-08-24] MEDS ORDERED: GLUCOSE 10 TAB/TUBE PO PRN (23:53)
[2022-08-25] MEDS: INSULIN ASPART PER UNIT CHARGE SC SCH ×5 (00:34→20:45)
[2022-08-25] MEDS: busPIRone 5 MG TAB PO SCH ×3 (00:38→20:43)
[2022-08-25] MEDS: risperiDONE 2 MG TABLET PO SCH ×2 (00:38→20:42)
[2022-08-25 02:04] LABS: Adenovirus F 40/41 PCR Not Detected (NotDetected); Astrovirus PCR Not Detected (NotDetected); Campylobacter PCR Not Detected (NotDetected); Cryptosporidium PCR Not Detected (NotDetected); Cyclospora cayetanensis PCR Not Detected (NotDetected); Entamoeba histolytica PCR Not Detected (NotDetected); Enteroaggregative E.coli(EAEC) Not Detected (NotDetected); Enteropathogenic E.coli (EPEC) Not Detected (NotDetected); Enterotoxigenic E.coli (ETEC) Not Detected (NotDetected); Giardia lamblia PCR Not Detected (NotDetected); Norovirus GI/GII PCR Not Detected (NotDetected); Plesiomonas shigelloides PCR Not Detected (NotDetected); Rotavirus A PCR Not Detected (NotDetected); Salmonella PCR Not Detected (NotDetected); Sapovirus PCR Not Detected (NotDetected); Shiga-like Toxin E.coli (STEC) Not Detected (NotDetected); Shigella/Enteroinvasive E.coli Not Detected (NotDetected); Vibrio cholerae PCR Not Detected (NotDetected); Vibrio species PCR Not Detected (NotDetected); Yersinia enterocolitica PCR Not Detected (NotDetected)
[2022-08-25 06:50] LABS: Basophils # (auto) 0.01 K/uL (0-0.2); Basophils % (auto) 0.2 %; Eosinophils # (auto) 0.07 K/uL (0-0.50); Eosinophils % (auto) 1.3 %; Hematocrit (blood only) 33.9 % (42.0-52.0); Hemoglobin 11.3 g/dl (14.0-18.0); Immature Granulocytes # (auto) 0.01 K/uL (0.01-0.20); Immature Granulocytes % (auto) 0.2 %; Lymphocytes # (auto) 1.85 K/uL (1.2-3.4); Lymphocytes % (auto) 35.6 %; Mean Corpuscular Hemoglobin 32.2 pg (25.0-34.0); Mean Corpuscular Hgb Conc 33.3 g/dL (32.0-36.0); Mean Corpuscular Volume 96.6 fL (80.0-100.0); Mean Platelet Volume 10.4 fL (9.4-12.4); Monocytes # (auto) 0.36 K/uL (0.11-0.59); Monocytes % (auto) 6.9 %; Neutrophils % (auto) 55.8 %; Platelet Count 134 K/uL (130-400); RDW Standard Deviation 46.2 fL (36.4-46.3); Red Blood Count 3.51 M/uL (4.70-6.10)
[2022-08-25 06:54] LABS: BUN Creatinine Ratio 13.3 (10-20); Calcium 8.5 mg/dl (8.6-10.3); Creatinine Clr Calc Pharmacy 83.7 ml/min; Est GFR (African American) 103.5 ml/min; Est GFR (Non-African American) 89.3 ml/min; Magnesium 1.7 mg/dl (1.7-2.4); Potassium 2.9 mmol/L (3.5-5.1)
--- NOTE | 2022-08-25 07:13 | XRay Report ---
SINGLE VIEW CHEST CLINICAL HISTORY: Lower extremity edema FINDINGS: An AP, portable, upright chest radiograph is compared to study dated 05/08/2022 and correlat ed with chest CT dated 05/20/2022. The examination is degraded by portable technique and patient rotat ion. The cardiomediastinal silhouette is top normal for projection noting atherosclerotic calcificat ion of the thoracic aorta. Emphysema and chronic interstitial thickening is somewhat previous. There is mild bibasilar scarring/atelectasis. No airspace consolidation or large pleural effusion is identi fied. No pneumothorax is seen. The skeletal structures are osteopenic. The bony thorax is grossly int act. IMPRESSION: Emphysematous change with no acute cardiopulmonary abnormality. ACT 112: Negative or not required by law. Electronically signed by: Allen Chavez M.D. 08/25/2022 7:12 AM
[2022-08-25] MEDS ORDERED: MAGNESIUM SULFATE / D5W 1 GM/100 ML BAG IV ONE (08:18)
--- NOTE | 2022-08-25 08:48 | Electrocardiogram Report ---
Test Reason : Blood Pressure : / mmHG Vent. Rate : 067 BPM Atrial Rate : 067 BPM P-R Int : 130 ms QRS Dur : 102 ms QT Int : 404 ms P-R-T Axes : -25 -35 022 degrees QTc Int : 426 ms Normal sinus rhythm Left axis deviation Abnormal ECG When compared with ECG of 08-MAY-2022 03:11, Premature ventricular complexes are no longer Present Vent. rate has decreased BY 33 BPM Confirmed by Dayo Cruz ([id number]) on 08/25/2022 8:47:41 AM Referred By: REFERRED SELF Confirmed By:Dayo Cruz
[2022-08-25] MEDS: LANTUS PER UNIT CHARGE SQ SCH (08:54)
[2022-08-25] MEDS: POTASSIUM CHLORIDE CRTAB 20 MEQ TABCR PO SCH ×2 (08:55→20:42)
[2022-08-25] MEDS: POTASSIUM CHLORIDE / WTR 10 MEQ/100 ML PLCT IV SCH ×2 (08:55→10:29)
[2022-08-25] MEDS: ASPIRIN 81 MG ECTAB PO SCH (08:56)
[2022-08-25] MEDS: lisinopril 5 MG TAB PO SCH (08:57)
[2022-08-25] MEDS: ATORVASTATIN 40 MG TAB PO SCH (08:57)
[2022-08-25] MEDS: PARoxetine HCL 20 MG TAB PO SCH ×2 (08:57→20:42)
[2022-08-25] MEDS: ENOXAPARIN INJ 30 MG/0.3 ML SYR SQ SCH (08:58)
[2022-08-25] MEDS: UMECLIDINIUM/VILANTEROL 62.5/25MCG 7 PUFFS/INHALER INH SCH (08:58)
[2022-08-25] MEDS: FLUTICASONE FUROATE 200MCG 14 PUFFS/INHALER INH SCH (08:58)
[2022-08-25] MEDS ORDERED: DIVALPROEX DELAY RELEASE 500 MG TAB PO SCH (09:00)
[2022-08-25] MEDS ORDERED: NON-FORMULARY MEDICATION (Fluticasone-Umeclidin-Vilanter [Trelegy Ellipta] 200-62.5-25 mcg INH SCH (09:00)
--- NOTE | 2022-08-25 14:04 | Hospitalist Progress Note ---
Date of Service August 25, 2022 Assessment & Plan (1) Weakness: (2) Ambulatory dysfunction: (3) Hypokalemia: (4) Diarrhea: (5) Hypomagnesemia: (6) DM type 2, goal HbA1c < 7%: (7) Hypertension: (8) Dyslipidemia, goal LDL below 70: (9) Depression with anxiety: (10) Bipolar 1 disorder: (11) COPD, moderate: (12) Anemia: Plan: Assessment and plan per Dr Young. See addendum. Plan Hypertensive urgency Likely situational BP better today Increase lisinopril to 5 mg daily Monitor BP Generalized weakness Deconditioning secondary to diarrheal illness and comorbidities Ongoing diarrhea Stool C. difficile negative, stool PCR negative Outpatient metformin could have contributed as well Metformin on hold Continue gentle IV fluids Monitor volume status PT OT Fall precautions Supratherapeutic valproic acid level Was previously on 1000 mg twice daily. Currently on 500 mg twice daily. Valproic acid 13>113 Divalproex on hold Discussed with neurologist utilization coordinator Dr. Portillo: Can restart once levels normalized No plan to recheck levels once normalized unless patient have symptoms like tremor, altered mental status, gait difficulty vertigo/nystagmus Check ammonia level as increased ammonia level can have similar symptoms Will recheck valproic acid levels and ammonia level tomorrow Hypokalemia Hypomagnesemia Secondary to GI losses Replete electrolytes as needed COPD No signs of exacerbation Continue home inhalers DM II Hold oral medications HbA1C 6.5 recently Continue insulin per protocol Monitor BGs H/O mild hyperprolactinemia likely secondary to neuropsychotropic medications As per records Anxiety/mood disorder Mood at baseline Continue home medications Chronic anemia Hb at baseline Chronic tremors/Gait Issues Outpatient work-up negative for Parkinson disease as per family ? Secondary to Depakote Past tobacco abuse Monitor DVT Px: Lovenox SQ Code Status DNI/DNR Admission and Anticipated Discharge Date Admission Date: August 24, 2022 Subjective Patient is seen and examined at bedside Continues to have diarrhea Also reports generalized weakness Denies any nausea, vomiting, abdominal pain, chest pain, dyspnea No other complaints Review of Systems Review of Systems: All systems reviewed & are unremarkable except as noted in Subjective Physical Exam Physical Exam: Physical Exam: Vitals signs as noted above General Appearance:Moderately built and nourished, Chronic ill appearing, no apparent distress Head: normocephalic, Atraumatic Eyes: normal inspection, EOMI Neck: supple, Trachea midline Respiratory/Chest: Normal breath sounds, CTA, No accessory muscle use Cardiovascular: S1, S2, No murmur Abdomen/GI:Soft, Non tender, Bowel sounds present Extremities/Musculoskeletal:normal inspection, no edema Neurologic/Psych:AAOX3, grossly no focal neurological deficits Skin: normal color, warm Results & Data Results & Data Vital Signs (Past 12 Hours) Vital Signs Temp Pulse Resp BP Pulse Ox O2 Del Method 08/25/22 11:55 36.3 C L 66 20 144/83 H 94 Room Air 08/25/22 07:57 36.4 C L 62 18 155/73 H 94 Room Air 08/25/22 03:00 36.3 C L 60 16 151/87 H 95 Room Air Laboratory Results Short CBC 08/24/22 08/25/22 Range/Units 18:08 05:42 WBC 6.24 5.20 (4.8-10.8) K/ul Hgb 11.6 L 11.3 L (14.0-18.0) g/dl Hct 34.2 L 33.9 L (42.0-52.0) % Plt Count 151 134 (130-400) K/uL BMP 08/24/22 08/25/22 18:08 05:42 Sodium 139 143 Potassium 2.9 L 2.9 L Chloride 104 107 Carbon Dioxide 27 29 BUN 11 12 Creatinine 1.00 0.90 Glucose 163 H 98 Calcium 8.8 8.5 L Liver Function 08/24/22 Range/Units 18:08 Total Bilirubin 0.3 (0.2-1.0) mg/dl AST 8 L (13-39) U/L ALT 5 L (7-52) U/L Alkaline Phosphatase 69 (34-104) U/L Albumin 3.1 L (3.4-5.0) gm/dl Urine 08/24/22 Range/Units 21:00 Urine Color Yellow Urine Appearance Clear (Clear) Urine pH 6.5 (4.5-7.5) Ur Specific [place] 1.015 (1.000-1.030) Urine Protein Negative (Negative) Urine Glucose (UA) 2+ H (Negative)
[2022-08-26 05:57] LABS: BUN Creatinine Ratio 17.2 (10-20); Calcium 8.5 mg/dl (8.6-10.3); Creatinine Clr Calc Pharmacy 81.7 ml/min; Est GFR (African American) 99.5 ml/min; Est GFR (Non-African American) 85.8 ml/min; Magnesium 1.8 mg/dl (1.7-2.4); Potassium 3.8 mmol/L (3.5-5.1)
[2022-08-26] MEDS: busPIRone 5 MG TAB PO SCH ×2 (08:22→20:02)
[2022-08-26] MEDS: PARoxetine HCL 20 MG TAB PO SCH ×2 (08:22→20:02)
[2022-08-26] MEDS: POTASSIUM CHLORIDE CRTAB 20 MEQ TABCR PO SCH (08:23)
[2022-08-26] MEDS: ATORVASTATIN 40 MG TAB PO SCH (08:23)
[2022-08-26] MEDS: ASPIRIN 81 MG ECTAB PO SCH (08:23)
[2022-08-26] MEDS: lisinopril 5 MG TAB PO SCH (08:23)
[2022-08-26] MEDS: ENOXAPARIN INJ 30 MG/0.3 ML SYR SQ SCH (08:24)
[2022-08-26] MEDS: FLUTICASONE FUROATE 200MCG 14 PUFFS/INHALER INH SCH (08:24)
[2022-08-26] MEDS: UMECLIDINIUM/VILANTEROL 62.5/25MCG 7 PUFFS/INHALER INH SCH (08:25)
[2022-08-26] MEDS: LANTUS PER UNIT CHARGE SQ SCH (09:01)
[2022-08-26] MEDS: INSULIN ASPART PER UNIT CHARGE SC SCH ×4 (09:02→20:32)
[2022-08-26] MEDS: DIVALPROEX EXTENDED RELEASE 500 MG TAB PO SCH ×2 (11:19→20:02)
--- NOTE | 2022-08-26 15:45 | Hospitalist Progress Note ---
Date of Service August 26, 2022 Assessment & Plan (1) Weakness: (2) Ambulatory dysfunction: (3) Hypokalemia: (4) Diarrhea: (5) Hypomagnesemia: (6) DM type 2, goal HbA1c < 7%: (7) Hypertension: (8) Dyslipidemia, goal LDL below 70: (9) Depression with anxiety: (10) Bipolar 1 disorder: (11) COPD, moderate: (12) Anemia: Plan: Assessment and plan per Dr Young. See addendum. Plan Hypertensive urgency Likely situational Increase lisinopril to 5 mg daily BP Variable Will consider to increase lisinopril to 10 mg tomorrow if BP remains elevated Generalized weakness Deconditioning secondary to diarrheal illness and comorbidities Diarrhea Likely viral gastroenteritis, ? Secondary to Depakote, Metformin Stool C. difficile negative, stool PCR negative Metformin on hold Continue gentle IV fluids as needed Monitor volume status PT OT Fall precautions Check TSH, B12 Supratherapeutic valproic acid level Was previously on 1000 mg twice daily. Currently on 500 mg twice daily. Valproic acid 130>113>>60 No typical signs of Depakote toxicity Discussed with neurologist radioisotope production operator Dr. Portillo: Can restart once levels normalized No plan to recheck levels once normalized unless patient have symptoms like tremor, altered mental status, gait difficulty vertigo/nystagmus Check ammonia level as increased ammonia level can have similar symptoms Normal ammonia level Restarted Divalproex 500 mg twice daily Hypokalemia Hypomagnesemia Secondary to GI losses Replete electrolytes as needed COPD No signs of exacerbation Continue home inhalers DM II Hold oral medications HbA1C 6.5 recently Continue insulin per protocol Monitor BGs H/O mild hyperprolactinemia likely secondary to neuropsychotropic medications As per records Anxiety/mood disorder Mood at baseline Continue home medications Chronic anemia Hb at baseline Chronic tremors/Gait Issues Outpatient work-up negative for Parkinson disease as per family ? Secondary to Depakote Past tobacco abuse Monitor DVT Px: Lovenox SQ Code Status DNI/DNR Disposition PT OT prior to discharge Admission and Anticipated Discharge Date Admission Date: August 25, 2022 Subjective Patient is seen and examined at bedside States feeling significantly weak attributing to ambulatory dysfunction No diarrhea today Reports chronic tremor No other complaints Denies any nausea, vomiting, abdominal pain, chest pain, dyspnea Review of Systems Review of Systems: All systems reviewed & are unremarkable except as noted in Subjective Physical Exam Physical Exam: Physical Exam: Vitals signs as noted above General Appearance:Moderately built and nourished, Chronic ill appearing, no apparent distress Head: normocephalic, Atraumatic Eyes: normal inspection, EOMI Neck: supple, Trachea midline Respiratory/Chest: Normal breath sounds, CTA, No accessory muscle use Cardiovascular: S1, S2, No murmur Abdomen/GI:Soft, Non tender, Bowel sounds present Extremities/Musculoskeletal:normal inspection, no edema Neurologic/Psych:AAOX3, grossly no focal neurological deficits, +Chronic resting tremor Skin: normal color, warm Results & Data Results & Data Vital Signs (Past 12 Hours) Vital Signs Temp Pulse Pulse Resp BP Pulse Ox O2 Del Method 08/26/22 15:27 36.6 C 64 18 142/94 H 94 Room Air 08/26/22 14:25 69 08/26/22 11:56 36.4 C L 68 20 119/81 95 Room Air 08/26/22 07:00 67 08/26/22 07:30 Room Air 08/26/22 07:37 35.0 C L 67 20 169/92 H 93 Room Air Laboratory Results [facility] 08/26/22 04:37 Sodium 140 Potassium 3.8 D Chloride 109 H Carbon Dioxide 26 BUN 16 Creatinine 0.93 Glucose 99 Calcium 8.5 L
[2022-08-26] MEDS: risperiDONE 2 MG TABLET PO SCH (20:02)
[2022-08-26] MEDS ORDERED: lisinopril 5 MG TAB PO ONE (22:59)
[2022-08-27 04:45] LABS: Hematocrit (blood only) 32.8 % (42.0-52.0); Mean Corpuscular Hemoglobin 32.4 pg (25.0-34.0); Mean Corpuscular Hgb Conc 33.5 g/dL (32.0-36.0); Mean Corpuscular Volume 96.5 fL (80.0-100.0); Mean Platelet Volume 10.7 fL (9.4-12.4); Platelet Count 125 K/uL (130-400); RDW Coefficient of Variation 13.2 % (11.5-14.5); White Blood Count 5.94 K/ul (4.8-10.8)
[2022-08-27 04:59] LABS: BUN Creatinine Ratio 16.2 (10-20); Calcium 8.7 mg/dl (8.6-10.3); Creatinine Clr Calc Pharmacy 76.7 ml/min; Est GFR (African American) 92.2 ml/min; Est GFR (Non-African American) 79.6 ml/min; Magnesium 1.7 mg/dl (1.7-2.4); Potassium 4.3 mmol/L (3.5-5.1)
[2022-08-27] MEDS: busPIRone 5 MG TAB PO SCH ×2 (07:57→20:23)
[2022-08-27] MEDS: ATORVASTATIN 40 MG TAB PO SCH (07:57)
[2022-08-27] MEDS: PARoxetine HCL 20 MG TAB PO SCH ×2 (07:57→20:22)
[2022-08-27] MEDS: POTASSIUM CHLORIDE CRTAB 20 MEQ TABCR PO SCH (07:57)
[2022-08-27] MEDS: lisinopril 10 MG TAB PO SCH (07:58)
[2022-08-27] MEDS: DIVALPROEX EXTENDED RELEASE 500 MG TAB PO SCH ×2 (07:58→20:23)
[2022-08-27] MEDS: FLUTICASONE FUROATE 200MCG 14 PUFFS/INHALER INH SCH (07:59)
[2022-08-27] MEDS: UMECLIDINIUM/VILANTEROL 62.5/25MCG 7 PUFFS/INHALER INH SCH (07:59)
[2022-08-27] MEDS: LANTUS PER UNIT CHARGE SQ SCH (08:57)
[2022-08-27] MEDS: INSULIN ASPART PER UNIT CHARGE SC SCH ×4 (08:57→20:19)
[2022-08-27] MEDS: ENOXAPARIN INJ 30 MG/0.3 ML SYR SQ SCH (10:54)
[2022-08-27] MEDS: ASPIRIN 81 MG ECTAB PO SCH (10:54)
--- NOTE | 2022-08-27 15:33 | Hospitalist Progress Note ---
Date of Service August 27, 2022 Assessment & Plan (1) Weakness: (2) Ambulatory dysfunction: (3) Hypokalemia: (4) Diarrhea: (5) Hypomagnesemia: (6) DM type 2, goal HbA1c < 7%: (7) Hypertension: (8) Dyslipidemia, goal LDL below 70: (9) Depression with anxiety: (10) Bipolar 1 disorder: (11) COPD, moderate: (12) Anemia: Plan: Assessment and plan per Dr Young. See addendum. Plan Hypertensive urgency Likely situational Increase lisinopril to 10 mg daily BP Monitor Generalized weakness Deconditioning secondary to diarrheal illness and comorbidities Diarrhea Likely viral gastroenteritis, ? Secondary to Depakote, Metformin Stool C. difficile negative, stool PCR negative Metformin on hold Normal TSH, B12 Continue gentle IV fluids as needed Monitor volume status PT OT: Recommends SNF Fall precautions Plan to discharge to rehab facility when accepted Supratherapeutic valproic acid level Was previously on 1000 mg twice daily. Currently on 500 mg twice daily. Valproic acid 130>113>>60 No typical signs of Depakote toxicity Discussed with neurologist general road production manager Dr. Portillo: Can restart once levels normalized No plan to recheck levels once normalized unless patient have symptoms like tremor, altered mental status, gait difficulty vertigo/nystagmus Check ammonia level as increased ammonia level can have similar symptoms Normal ammonia level Restarted Divalproex 500 mg twice daily on 08/26/22 Hypokalemia Hypomagnesemia Secondary to GI losses Replete electrolytes as needed COPD No signs of exacerbation Continue home inhalers DM II Hold oral medications HbA1C 6.5 recently Continue insulin per protocol Monitor BGs H/O mild hyperprolactinemia likely secondary to neuropsychotropic medications As per records Anxiety/mood disorder Mood at baseline Continue home medications Chronic anemia Hb at baseline Chronic tremors/Gait Issues Outpatient work-up negative for Parkinson disease as per family ? Secondary to Depakote Past tobacco abuse Monitor DVT Px: Lovenox SQ Code Status DNI/DNR Disposition SNF Case management to help with discharge planning Admission and Anticipated Discharge Date Admission Date: August 25, 2022 Subjective Patient is seen and examined at bedside Subjectively feels weakness is better today Reports being able to ambulate help of walker No new complaints Denies any nausea, vomiting, abdominal pain, chest pain, dyspnea Review of Systems Review of Systems: All systems reviewed & are unremarkable except as noted in Subjective Physical Exam Physical Exam: Physical Exam: Vitals signs as noted above General Appearance:Moderately built and nourished, Chronic ill appearing, no apparent distress Head: normocephalic, Atraumatic Eyes: normal inspection, EOMI Neck: supple, Trachea midline Respiratory/Chest: Normal breath sounds, CTA, No accessory muscle use Cardiovascular: S1, S2, No murmur Abdomen/GI:Soft, Non tender, Bowel sounds present Extremities/Musculoskeletal:normal inspection, no edema Neurologic/Psych:AAOX3, grossly no focal neurological deficits, +Chronic resting tremor Skin: normal color, warm Results & Data Results & Data Vital Signs (Past 12 Hours) Vital Signs Temp Pulse Pulse Resp BP Pulse Ox O2 Del Method 08/27/22 12:11 36.3 C L 65 20 141/85 H 94 Room Air 08/27/22 08:00 63 08/27/22 07:47 36.6 C 66 18 145/84 H 95 Room Air Laboratory Results Short CBC 08/27/22 Range/Units 04:15 WBC 5.94 (4.8-10.8) K/ul Hgb 11.0 L (14.0-18.0) g/dl Hct 32.8 L (42.0-52.0) % Plt Count 125 L (130-400) K/uL BMP 08/27/22 04:15 Sodium 140 Potassium 4.3 Chloride 110 H Carbon Dioxide 25 BUN 16 Creatinine 0.99 Glucose 106 H Calcium 8.7
[2022-08-27] MEDS: risperiDONE 2 MG TABLET PO SCH (20:22)
[2022-08-28 05:43] LABS: BUN Creatinine Ratio 15.7 (10-20); Calcium 8.5 mg/dl (8.6-10.3); Creatinine Clr Calc Pharmacy 76.1 ml/min; Est GFR (Non-African American) 76.8 ml/min; Magnesium 1.7 mg/dl (1.7-2.4); Potassium 4.2 mmol/L (3.5-5.1)
[2022-08-28] MEDS: busPIRone 5 MG TAB PO SCH ×2 (08:42→20:21)
[2022-08-28] MEDS: DIVALPROEX EXTENDED RELEASE 500 MG TAB PO SCH ×2 (08:42→20:20)
[2022-08-28] MEDS: PARoxetine HCL 20 MG TAB PO SCH ×2 (08:42→20:20)
[2022-08-28] MEDS: ATORVASTATIN 40 MG TAB PO SCH (08:42)
[2022-08-28] MEDS: ASPIRIN 81 MG ECTAB PO SCH (08:42)
[2022-08-28] MEDS: POTASSIUM CHLORIDE CRTAB 20 MEQ TABCR PO SCH (08:42)
[2022-08-28] MEDS: ENOXAPARIN INJ 40 MG/0.4 ML SYR SQ SCH (08:43)
[2022-08-28] MEDS: FLUTICASONE FUROATE 200MCG 14 PUFFS/INHALER INH SCH (08:43)
[2022-08-28] MEDS: lisinopril 10 MG TAB PO SCH (08:43)
[2022-08-28] MEDS: UMECLIDINIUM/VILANTEROL 62.5/25MCG 7 PUFFS/INHALER INH SCH (08:43)
[2022-08-28] MEDS: INSULIN ASPART PER UNIT CHARGE SC SCH ×4 (08:49→20:23)
[2022-08-28] MEDS: LANTUS PER UNIT CHARGE SQ SCH (08:49)
--- NOTE | 2022-08-28 15:39 | Hospitalist Progress Note ---
Date of Service August 28, 2022 Assessment & Plan (1) Weakness: (2) Ambulatory dysfunction: (3) Hypokalemia: (4) Diarrhea: (5) Hypomagnesemia: (6) DM type 2, goal HbA1c < 7%: (7) Hypertension: (8) Dyslipidemia, goal LDL below 70: (9) Depression with anxiety: (10) Bipolar 1 disorder: (11) COPD, moderate: (12) Anemia: Plan: Assessment and plan per Dr Young. See addendum. Plan Hypertensive urgency Likely situational Increase lisinopril to 10 mg daily BP Better, Monitor and adjust meds as needed Generalized weakness Deconditioning secondary to diarrheal illness and comorbidities Diarrhea Likely viral gastroenteritis, ? Secondary to Depakote, Metformin Stool C. difficile negative, stool PCR negative Metformin on hold Normal TSH, B12 Continue gentle IV fluids as needed Monitor volume status PT OT: Recommends SNF Fall precautions Plan to discharge to rehab facility when accepted Supratherapeutic valproic acid level Was previously on 1000 mg twice daily. Currently on 500 mg twice daily. Valproic acid 130>113>>60 No typical signs of Depakote toxicity Discussed with neurologist artist relationship manager Dr. Portillo: Can restart once levels normalized No plan to recheck levels once normalized unless patient have symptoms like tremor, altered mental status, gait difficulty vertigo/nystagmus Check ammonia level as increased ammonia level can have similar symptoms Normal ammonia level Restarted Divalproex 500 mg twice daily on 08/26/22 Hypokalemia Hypomagnesemia Secondary to GI losses Replete electrolytes as needed COPD No signs of exacerbation Continue home inhalers DM II Hold oral medications HbA1C 6.5 recently Continue insulin per protocol Monitor BGs H/O mild hyperprolactinemia likely secondary to neuropsychotropic medications As per records Anxiety/mood disorder Mood at baseline Continue home medications Chronic anemia Hb at baseline Chronic tremors/Gait Issues Outpatient work-up negative for Parkinson disease as per family ? Secondary to Depakote Past tobacco abuse Monitor DVT Px: Lovenox SQ Code Status DNI/DNR Disposition SNF when accepted Case management to help with discharge planning Admission and Anticipated Discharge Date Admission Date: August 25, 2022 Subjective Patient is seen and examined at bedside No new complaints Waiting for rehab placement Weakness continues to improve Denies any nausea, vomiting, abdominal pain, chest pain, dyspnea Review of Systems Review of Systems: All systems reviewed & are unremarkable except as noted in Subjective Physical Exam Physical Exam: Physical Exam: Vitals signs as noted above General Appearance:Moderately built and nourished, Chronic ill appearing, no apparent distress Head: normocephalic, Atraumatic Eyes: normal inspection, EOMI Neck: supple, Trachea midline Respiratory/Chest: Normal breath sounds, CTA, No accessory muscle use Cardiovascular: S1, S2, No murmur Abdomen/GI:Soft, Non tender, Bowel sounds present Extremities/Musculoskeletal:normal inspection, no edema Neurologic/Psych:AAOX3, grossly no focal neurological deficits, +Chronic resting tremor Skin: normal color, warm Results & Data Results & Data Vital Signs (Past 12 Hours) Vital Signs Temp Pulse Pulse Pulse Resp BP Pulse Ox 08/28/22 12:03 36.4 C L 68 16 108/74 95 08/28/22 11:40 65 08/28/22 11:40 08/28/22 07:48 36.6 C 64 18 128/78 93 08/28/22 04:22 36.7 C 73 20 140/81 95 O2 Del Method 08/28/22 12:03 Room Air 08/28/22 11:40 08/28/22 11:40 Room Air 08/28/22 07:48 Room Air 08/28/22 04:22 Room Air Laboratory Results BMP 08/28/22 04:55 Sodium 138 Potassium 4.2 Chloride 109 H Carbon Dioxide 25 BUN 16 Creatinine 1.02 Glucose 137 H Calcium 8.5 L
[2022-08-28] MEDS: risperiDONE 2 MG TABLET PO SCH (20:21)
[2022-08-29 06:07] LABS: Hematocrit (blood only) 35.4 % (42.0-52.0); Hemoglobin 11.9 g/dl (14.0-18.0); Mean Corpuscular Hemoglobin 32.8 pg (25.0-34.0); Mean Corpuscular Hgb Conc 33.6 g/dL (32.0-36.0); Mean Corpuscular Volume 97.5 fL (80.0-100.0); Mean Platelet Volume 10.7 fL (9.4-12.4); Platelet Count 148 K/uL (130-400); RDW Coefficient of Variation 13.3 % (11.5-14.5); RDW Standard Deviation 47.9 fL (36.4-46.3); Red Blood Count 3.63 M/uL (4.70-6.10); White Blood Count 7.14 K/ul (4.8-10.8)
[2022-08-29] MEDS: ASPIRIN 81 MG ECTAB PO SCH (07:54)
[2022-08-29] MEDS: PARoxetine HCL 20 MG TAB PO SCH ×2 (07:54→21:00)
[2022-08-29] MEDS: ATORVASTATIN 40 MG TAB PO SCH (07:54)
[2022-08-29] MEDS: lisinopril 10 MG TAB PO SCH (07:55)
[2022-08-29] MEDS: busPIRone 5 MG TAB PO SCH ×2 (07:55→21:00)
[2022-08-29] MEDS: ENOXAPARIN INJ 40 MG/0.4 ML SYR SQ SCH (07:55)
[2022-08-29] MEDS: DIVALPROEX EXTENDED RELEASE 500 MG TAB PO SCH ×2 (07:55→21:00)
[2022-08-29] MEDS: UMECLIDINIUM/VILANTEROL 62.5/25MCG 7 PUFFS/INHALER INH SCH (07:56)
[2022-08-29] MEDS: FLUTICASONE FUROATE 200MCG 14 PUFFS/INHALER INH SCH (07:56)
[2022-08-29] MEDS: INSULIN ASPART PER UNIT CHARGE SC SCH ×4 (08:29→21:02)
[2022-08-29] MEDS: LANTUS PER UNIT CHARGE SQ SCH (08:30)
--- NOTE | 2022-08-29 17:27 | Hospitalist Progress Note ---
Date of Service August 29, 2022 Assessment & Plan (1) Weakness: (2) Ambulatory dysfunction: (3) Hypokalemia: (4) Diarrhea: (5) Hypomagnesemia: (6) DM type 2, goal HbA1c < 7%: (7) Hypertension: (8) Dyslipidemia, goal LDL below 70: (9) Depression with anxiety: (10) Bipolar 1 disorder: (11) COPD, moderate: (12) Anemia: Plan: Assessment and plan per Dr Young. See addendum. Plan Hypertensive urgency Likely situational BP low today Hold lisinopril Monitor BP Generalized weakness Deconditioning secondary to diarrheal illness and comorbidities Diarrhea Likely viral gastroenteritis, ? Secondary to Depakote, Metformin Stool C. difficile negative, stool PCR negative Metformin on hold Normal TSH, B12 Continue gentle IV fluids as needed Monitor volume status PT OT: Recommends SNF Fall precautions Plan to discharge to rehab facility as able Recurrence of diarrhea--recheck stool for C. difficile We will discuss with neurology regarding possible alternatives to Depakote likely contributing to diarrhea Supratherapeutic valproic acid level Was previously on 1000 mg twice daily. Currently on 500 mg twice daily. Valproic acid 130>113>>73 No typical signs of Depakote toxicity Discussed with neurologist production intern Dr. Portillo: Can restart once levels normalized No plan to recheck levels once normalized unless patient have symptoms like tremor, altered mental status, gait difficulty vertigo/nystagmus Check ammonia level as increased ammonia level can have similar symptoms Normal ammonia level Restarted Divalproex 500 mg twice daily on 08/26/22 Hypokalemia Hypomagnesemia Secondary to GI losses Replete electrolytes as needed COPD No signs of exacerbation Continue home inhalers DM II Hold oral medications HbA1C 6.5 recently Continue insulin per protocol Monitor BGs H/O mild hyperprolactinemia likely secondary to neuropsychotropic medications As per records Anxiety/mood disorder Mood at baseline Continue home medications Chronic anemia Hb at baseline Chronic tremors/Gait Issues Outpatient work-up negative for Parkinson disease as per family ? Secondary to Depakote Past tobacco abuse Monitor DVT Px: Lovenox SQ Code Status DNI/DNR Disposition SNF as able Case management to help with discharge planning Admission and Anticipated Discharge Date Admission Date: August 25, 2022 Subjective Patient is seen and examined at bedside Reports having diarrhea overnight Also reports balance issues, trauma Denies any nausea, vomiting, abdominal pain, chest pain, dyspnea Review of Systems Review of Systems: All systems reviewed & are unremarkable except as noted in Subjective Physical Exam Physical Exam: Physical Exam: Vitals signs as noted above General Appearance:Moderately built and nourished, Chronic ill appearing, no apparent distress Head: normocephalic, Atraumatic Eyes: normal inspection, EOMI Neck: supple, Trachea midline Respiratory/Chest: Normal breath sounds, CTA, No accessory muscle use Cardiovascular: S1, S2, No murmur Abdomen/GI:Soft, Non tender, Bowel sounds present Extremities/Musculoskeletal:normal inspection, no edema Neurologic/Psych:AAOX3, grossly no focal neurological deficits, +Chronic resting tremor Skin: normal color, warm Results & Data Results & Data Vital Signs (Past 12 Hours) Vital Signs Temp Pulse Pulse Resp BP Pulse Ox O2 Del Method 08/29/22 15:31 85 08/29/22 15:06 36.9 C 73 19 104/68 95 Room Air 08/29/22 11:13 36.8 C 80 20 131/76 96 Room Air 08/29/22 08:00 81 08/29/22 08:00 Room Air 08/29/22 07:30 36.4 C L 60 18 139/79 95 Room Air Laboratory Results Short CBC 08/29/22 Range/Units 05:33 WBC 7.14 (4.8-10.8) K/ul Hgb 11.9 L (14.0-18.0) g/dl Hct 35.4 L (42.0-52.0) % Plt Count 148 (130-400) K/uL
[2022-08-29] MEDS: SODIUM CHLORIDE 0.9% 1000ML 1,000 ML IV SCH (17:49)
[2022-08-29] MEDS: risperiDONE 2 MG TABLET PO SCH (21:01)
[2022-08-30] MEDS: SODIUM CHLORIDE 0.9% 1000ML 1,000 ML IV SCH (05:49)
[2022-08-30] MEDS: INSULIN ASPART PER UNIT CHARGE SC SCH ×4 (08:51→20:58)
[2022-08-30] MEDS: LANTUS PER UNIT CHARGE SQ SCH (08:51)
[2022-08-30] MEDS: ASPIRIN 81 MG ECTAB PO SCH (08:52)
[2022-08-30] MEDS: FLUTICASONE FUROATE 200MCG 14 PUFFS/INHALER INH SCH (08:52)
[2022-08-30] MEDS: UMECLIDINIUM/VILANTEROL 62.5/25MCG 7 PUFFS/INHALER INH SCH (08:52)
[2022-08-30] MEDS: ATORVASTATIN 40 MG TAB PO SCH (08:53)
[2022-08-30] MEDS: PARoxetine HCL 20 MG TAB PO SCH ×2 (08:53→20:59)
[2022-08-30] MEDS: busPIRone 5 MG TAB PO SCH ×2 (08:53→20:59)
[2022-08-30] MEDS: DIVALPROEX EXTENDED RELEASE 500 MG TAB PO SCH ×2 (08:53→21:00)
[2022-08-30] MEDS: ENOXAPARIN INJ 40 MG/0.4 ML SYR SQ SCH (08:54)
--- NOTE | 2022-08-30 10:56 | CT Scan Report ---
CT head/brain wo con CLINICAL HISTORY: 66 years-old Male with ? Facial droop. Acute stroke like symptoms TECHNIQUE: Multiple axial CT images of the head were obtained without contrast. A dose lowering tech nique was utilized adhering to the principles of ALARA. CT DOSE: 625.80 mGy.cm COMPARISON: 05/08/2022 FINDINGS: No acute intracranial hemorrhage, midline shift, intracranial mass, hydrocephalus, territorial ischem ia or abnormal extra-axial collection. Involutional changes with chronic microvascular ischemic disea se. Chronic left cerebellar lacunar infarct. The calvarium is intact. The paranasal sinuses, mastoid air cells, and middle ear cavities are clear . IMPRESSION: No acute intracranial abnormality. ACT 112: Negative or not required by law. The above report was generated using voice recognition software. It may contain grammatical, syntax o r spelling errors. Electronically signed by: Shashi Avitia M.D. 08/30/2022 10:53 AM
[2022-08-30 11:47] LABS: BUN Creatinine Ratio 16.4 (10-20); Calcium 9.1 mg/dl (8.6-10.3); Creatinine Clr Calc Pharmacy 62.9 ml/min; Est GFR (African American) 76.2 ml/min; Est GFR (Non-African American) 65.7 ml/min; Potassium 4.2 mmol/L (3.5-5.1)
--- NOTE | 2022-08-30 16:08 | Hospitalist Progress Note ---
Date of Service August 30, 2022 Assessment & Plan (1) Weakness: (2) Ambulatory dysfunction: (3) Hypokalemia: (4) Diarrhea: (5) Hypomagnesemia: (6) DM type 2, goal HbA1c < 7%: (7) Hypertension: (8) Dyslipidemia, goal LDL below 70: (9) Depression with anxiety: (10) Bipolar 1 disorder: (11) COPD, moderate: (12) Anemia: Plan: Assessment and plan per Dr Young. See addendum. Plan Hypertensive urgency Likely situational BP low today Hold lisinopril Monitor BP Diarrhea/Tremor Likely secondary to Depakote Metformin likely contributing to diarrhea as well Patient takes Depakote for bipolar disorder Consulted psychiatry for input Stool studies negative for infectious cause Generalized weakness Deconditioning secondary to diarrheal illness and comorbidities Diarrhea Likely viral gastroenteritis, ? Secondary to Depakote, Metformin Stool C. difficile negative, stool PCR negative Metformin on hold Normal TSH, B12 Continue gentle IV fluids as needed Monitor volume status PT OT: Recommends SNF Fall precautions Plan to discharge to rehab facility as able Supratherapeutic valproic acid level Was previously on 1000 mg twice daily. Currently on 500 mg twice daily. Valproic acid 130>113>>73 No typical signs of Depakote toxicity Discussed with neurologist litigation docket manager Dr. Portillo: Can restart once levels normalized No plan to recheck levels once normalized unless patient have symptoms like tremor, altered mental status, gait difficulty vertigo/nystagmus Check ammonia level as increased ammonia level can have similar symptoms Normal ammonia level Restarted Divalproex 500 mg twice daily on 08/26/22 But given divalproex given side effects, consulted psychiatry for further input Hypokalemia Hypomagnesemia Secondary to GI losses Replete electrolytes as needed COPD No signs of exacerbation Continue home inhalers DM II Hold oral medications HbA1C 6.5 recently Continue insulin per protocol Monitor BGs H/O mild hyperprolactinemia likely secondary to neuropsychotropic medications As per records Anxiety/mood disorder Mood at baseline Continue home medications Chronic anemia Hb at baseline Chronic tremors/Gait Issues Outpatient work-up negative for Parkinson disease as per family ? Secondary to Depakote Past tobacco abuse Monitor DVT Px: Lovenox SQ Code Status DNI/DNR Disposition SNF as able Case management to help with discharge planning Admission and Anticipated Discharge Date Admission Date: August 25, 2022 Subjective Patient is seen and examined at bedside 3 loose bowel movements yesterday No diarrhea today States having generalized weakness Discussed with patient's son over the phone Also discussed with psychiatry Denies any nausea, vomiting, abdominal pain, chest pain, dyspnea Review of Systems Review of Systems: All systems reviewed & are unremarkable except as noted in Subjective Physical Exam Physical Exam: Physical Exam: Vitals signs as noted above General Appearance:Moderately built and nourished, Chronic ill appearing, no apparent distress Head: normocephalic, Atraumatic Eyes: normal inspection, EOMI Neck: supple, Trachea midline Respiratory/Chest: Normal breath sounds, CTA, No accessory muscle use Cardiovascular: S1, S2, No murmur Abdomen/GI:Soft, Non tender, Bowel sounds present Extremities/Musculoskeletal:normal inspection, no edema Neurologic/Psych:AAOX3, grossly no focal neurological deficits, +Chronic resting tremor Skin: normal color, warm Results & Data Results & Data Vital Signs (Past 12 Hours) Vital Signs Temp Pulse Pulse Resp BP Pulse Ox O2 Del Method 08/30/22 15:36 36.7 C 74 18 108/66 96 Room Air 08/30/22 12:15 36.6 C 61 19 114/71 95 Room Air 08/30/22 08:00 60 08/30/22 07:18 36.6 C 64 18 130/73 92 Room Air Laboratory Results [facility] 08/30/22 11:10 Sodium 137 Potassium 4.2 Chloride 108 H Carbon Dioxide 23 BUN 19 Creatinine 1.16 Glucose 188 H Calcium 9.1
--- NOTE | 2022-08-30 17:40 | Psychiatric Consultation ---
Date of Consultation August 30, 2022 Impression / Recommendations Impression 66 y/o M with history of bipolar disorder and recent weakness and falls who is in multiple medications. The valproate level of 73 ug/mL is a bit below the target range when used for bipolar disorder of 80-120 ug/mL. (1) Bipolar 1 disorder: Plan I see no good reason to adjust the divalproex in pursuit of a "more therapeutic" blood level. Suggest stopping buspirone to reduce overall medication load. Either stop cycolobenzaprine or encourage infrequent use. Consider alternatives to meloxicam, or at least trying to get pt to use it less frequently. Continue paroxetine and risperidone unchanged. Spoke with pt and son at some length about complementary pain-management modalities including acupuncture. Psych History Identifying Data PARAMJIT MELARA is a 66-year-old M with a history of bipolar disorder, admitted on 08/24/2022 for progressive weakness. Consult is by the hospitalist service for "bipolar". Chief Complaint "I think I'm getting a little better". History of Present Illness Pleasant 66 y/o man seen in the company of his son. Pt reports he's been being treated for bipolar disorder "since '" and "couldn't begin to tell you" what treatments he's tried over the years. In looking through his records available in various portals (with the help of his son) it doesn't appear that he's on any new psychiatric medications or that any doses have been changed much recently. Pt appears to have been having several falls per day over the past couple of months and has been increasingly weak and unable to meet his daily care needs. Very recently he's been having diarrhea. Pt reports that his mood has been "fine" apart from "some understandable frustration" with his weakness and mobility limitations. Of note is that shortly after admission his valproate level was excessive but has now dropped to 73 ug/mL. I reviewed pt's meds with him and his son at length. He's on buspirone at a low dose that seems unlikely to be of benefit and has been taking cyclobenzaprine and meloxicam twice a day every day. Other psychiatric medications besides buspirone and the previously-mentioned divalproex include paroxetine and risperidone, both at reasonable-seeming doses. Past Psychiatric History Current Psychiatric Diagnosis: bipolar i disorder Previous Psych Admissions: reports 2 previous admissions, most recently ca. 10 yr ago Allergies Allergy/AdvReac Type Severity Reaction Status Date / Time No Known Allergies Allergy Verified 04/13/22 21:22 Home Medications Medication Instructions Recorded Confirmed Type aspirin 81 mg tablet,delayed 81 mg PO DAILY 04/13/22 08/24/22 History release atorvastatin 80 mg tablet 80 mg PO DAILY 04/13/22 08/24/22 History buspirone 10 mg tablet 10 mg PO BID 04/13/22 08/24/22 History cyclobenzaprine 10 mg tablet 5 - 10 mg PO TID PRN .muscle spasms 04/13/22 08/24/22 History divalproex 500 mg tablet,delayed 500 mg PO BID 04/13/22 08/24/22 History release (Depakote) empagliflozin 25 mg tablet 25 mg PO DAILY 04/13/22 08/24/22 History (Jardiance) fluticasone fur. 200 mcg-umeclid 1 inh inhalation DAILY 04/13/22 08/24/22 History 62.5 mcg-vilant 25 mcg inhalat.powder (Trelegy Ellipta) lisinopril 2.5 mg tablet 2.5 mg PO DAILY 04/13/22 08/24/22 History paroxetine HCl 30 mg tablet (Paxil) 30 mg PO BID 04/13/22 08/24/22 History risperidone 2 mg tablet 2 mg PO HS 04/13/22 08/24/22 History metformin 500 mg tablet,extended 500 mg PO BIDM 08/24/22 08/24/22 History release 24 hr Patient History Medical History Anxiety Bipolar 1 disorder Chronic pain syndrome COPD, moderate Current tobacco use Depression Depression with anxiety Diabetes DM type 2, goal HbA1c < 7% Dyslipidemia, goal LDL below 70 Essential hypertension with goal blood pressure less than 150/90 Former smoker Paranoia Paronychia Primary osteoarthritis involving multiple joints Pulmonary nodule Surgical History History of appendectomy History of hemorrhoidectomy History of umbilical hernia repair Family History Other Family history non-contributory Social History Smoking Status: Former smoker Tobacco Type: Cigarettes Cigarettes Per Day: 20; Second Hand Exposure: No; Do You Dip or Chew Tobacco: No; Hx Alcohol Use: No Hx Substance Use: No Preferred Language: Portuguese Communication Ability: Effective Correctional Maintenance Technician Required: No Beliefs That Will Affect Care: None Current Living Situation: Alone Current Living Situation Comment: lives alone - friend Cecilia helps Feels Safe at Home: Yes Safety Concerns: Feels Safe At This Time Assistive Devices: Cane and Walker Physical Exam Psychiatric: Orientation: alert, oriented to person, oriented to place, oriented to time and cooperative Apperance: appropriately dressed and appropriately groomed Eye Contact: good eye contact Motor Behavior: no abnormal motor movements gait not observed Speech: normal rate/rhythm/volume of speech Affect: + constricted affect Mood: + dysphoric mood Thought Process: goal directed thought process, linear/logical thought process and clear/coherent thought process Thought Content: reality based without delusions Suicidal Thoughts: denies suicidal thoughts, denies suicidal plan and denies suicidal intent Homicidal Thoughts: denies homicidal thoughts Hallucinations: no auditory hallucinations and no visual hallucinations Cognition: recent memory grossly intact, remote memory grossly intact, attention grossly intact and language grossly intact Estimated Intelligence: average estimated intelligence Insight: good insight Judgment: good judgement Vital Signs (Past 24 Hours): Last Vital Signs Temp 36.7 C 08/30/22 15:36 Pulse 74 08/30/22 15:36 Resp 18 08/30/22 15:36 BP 108/66 08/30/22 15:36 Pulse Ox 96 08/30/22 15:36 O2 Del Method Room Air 08/30/22 15:36 Exam Statement: I've reviewed the ED note and hospitalist's H&P Review of Systems Psychiatric: + abnormal sleep pattern (middle insomnia after ca. 4 hr) and + change in appetite (variable) Results & Data (PSY) Medications Administered Aspirin (Aspirin 81 Mg Ectab) 81 mg PO DAILY BOB Stop: 09/24/22 08:59 Last Admin: 08/30/22 08:52 Dose: 81 mg Documented By: Admin: 08/29/22 07:54 Dose: 81 mg Documented By: Admin: 08/28/22 08:42 Dose: 81 mg Documented By: Admin: 08/27/22 10:54 Dose: 81 mg Documented By: Admin: 08/26/22 08:23 Dose: 81 mg Documented By: Admin: 08/25/22 08:56 Dose: 81 mg Documented By: BART Atorvastatin Calcium (Atorvastatin 40 Mg Tab) 80 mg PO DAILY BOB Stop: 09/24/22 08:59 Last Admin: 08/30/22 08:53 Dose: 80 mg Documented By: Admin: 08/29/22 07:54 Dose: 80 mg Documented By: Admin: 08/28/22 08:42 Dose: 80 mg Documented By: Admin: 08/27/22 07:57 Dose: 80 mg Documented By: Admin: 08/26/22 08:23 Dose: 80 mg Documented By: Admin: 08/25/22 08:57 Dose: 80 mg Documented By: BART Buspirone HCl (Buspirone 5 Mg Tab) 10 mg PO BID BOB Stop: 09/23/22 23:52 Last Admin: 08/30/22 08:53 Dose: 10 mg Documented By: Admin: 08/29/22 21:00 Dose: 10 mg Documented By: Admin: 08/29/22 07:55 Dose: 10 mg Documented By: Admin: 08/28/22 20:21 Dose: Not Given Documented By: Admin: 08/28/22 08:42 Dose: 10 mg Documented By: Admin: 08/27/22 20:23 Dose: 10 mg Documented By: Admin: 08/27/22 07:57 Dose: 10 mg Documented By: Admin: 08/26/22 20:02 Dose: 10 mg Documented By: Admin: 08/26/22 08:22 Dose: 10 mg Documented By: Admin: 08/25/22 20:43 Dose: 10 mg Documented By: Admin: 08/25/22 08:56 Dose: 10 mg Documented By: Admin: 08/25/22 00:38 Dose: 10 mg Documented By: RENETTA Divalproex Sodium (Divalproex Extended Release 500 Mg Tab) 500 mg PO BID BOB Stop: 09/25/22 09:29 Last Admin: 08/30/22 08:53 Dose: 500 mg Documented By: Admin: 08/29/22 21:00 Dose: 500 mg Documented By: Admin: 08/29/22 07:55 Dose: 500 mg Documented By: Admin: 08/28/22 20:20 Dose: 500 mg Documented By: Admin: 08/28/22 08:42 Dose: 500 mg Documented By: Admin: 08/27/22 20:23 Dose: 500 mg Documented By: Admin: 08/27/22 07:58 Dose: 500 mg Documented By: Admin: 08/26/22 20:02 Dose: 500 mg Documented By: Admin: 08/26/22 11:19 Dose: 500 mg Documented By: BHAVIN Enoxaparin Sodium (Enoxaparin Inj 40 Mg/0.4 Ml Syr) 40 mg SQ QAM BOB Stop: 09/27/22 08:59 Last Admin: 08/30/22 08:54 Dose: 40 mg Documented By: Admin: 08/29/22 07:55 Dose: 40 mg Documented By: Admin: 08/28/22 08:43 Dose: 40 mg Documented By: GABRIELLA Fluticasone Furoate (Fluticasone Furoate 200mcg 14 Puffs/Inhaler) 1 puffs INH DAILY BOB Stop: 09/24/22 08:59 Last Admin: 08/30/22 08:52 Dose: 1 puffs Documented By: Admin: 08/29/22 07:56 Dose: 1 puffs Documented By: Admin: 08/28/22 08:43 Dose: 1 puffs Documented By: Admin: 08/27/22 07:59 Dose: 1 puffs Documented By: Admin: 08/26/22 08:24 Dose: 1 puffs Documented By: Admin: 08/25/22 08:58 Dose: 1 puffs Documented By: BART Sodium Chloride (Nss 1000ml) 1,000 mls @ 80 mls/hr IV .[id number] BOB Stop: 08/30/22 18:29 Last Admin: 08/30/22 05:49 Dose: 80 mls/hr Documented By: Infusion: 08/30/22 05:49 Dose: 80 mls/hr Documented By: Admin: 08/29/22 17:49 Dose: 80 mls/hr Documented By: YAHIR Insulin Aspart (Insulin Aspart Per Unit Charge) 0 units SC ACHS BOB Stop: 09/23/22 23:52 Last Admin: 08/30/22 12:26 Dose: 5 units Documented By: YAHIR Co-signed By: SAROJ Admin: 08/30/22 08:51 Dose: 4 units Documented By: YAHIR Co-signed By: SAROJ Admin: 08/29/22 21:02 Dose: Not Given Documented By: Admin: 08/29/22 17:19 Dose: 7 units Documented By: YAHIR Co-signed By: SAROJ Admin: 08/29/22 12:10 Dose: 3 units Documented By: YAHIR Co-signed By: SAROJ Admin: 08/29/22 08:29 Dose: 4 units Documented By: YAHIR Co-signed By: SAROJ Admin: 08/28/22 20:23 Dose: 5 units Documented By: AMANDA Co-signed By: ALEXANDR Admin: 08/28/22 17:00 Dose: Not Given Documented By: Admin: 08/28/22 12:41 Dose: 5 units Documented By: GABRIELLA Co-signed By: SANZA Admin: 08/28/22 08:49 Dose: 4 units Documented By: GABRIELLA Co-signed By: SAROJ Admin: 08/27/22 20:19 Dose: 1,000 units Documented By: AMANDA Co-signed By: LEO Admin: 08/27/22 17:10 Dose: 6 units Documented By: CRISTINA Co-signed By: KIKO Admin: 08/27/22 12:19 Dose: 3 units Documented By: CRISTINA Co-signed By: KIKO Admin: 08/27/22 08:57 Dose: 2 units Documented By: CRISTINA Co-signed By: KIKO Admin: 08/26/22 20:32 Dose: Not Given Documented By: AMBrayden Admin: 08/26/22 17:50 Dose: 5 units Documented By: BHAVIN Co-signed By: TOM Admin: 08/26/22 12:57 Dose: 3 units Documented By: BHAVIN Co-signed By: ARNAUD Admin: 08/26/22 09:02 Dose: 3 units Documented By: BHAVIN Co-signed By: TOM Admin: 08/25/22 20:45 Dose: 3 units Documented By: RENETTA Co-signed By: ALEXANDR Admin: 08/25/22 17:13 Dose: Not Given Documented By: Admin: 08/25/22 12:25 Dose: 4 units Documented By: BART Co-signed By: MARTHA Admin: 08/25/22 08:54 Dose: 2 units Documented By: BART Co-signed By: SANAZ Admin: 08/25/22 00:34 Dose: Not Given Documented By: RENETTA Insulin Glargine (Lantus Per Unit Charge) 5 units SQ DAILY BOB Stop: 09/24/22 08:59 Last Admin: 08/30/22 08:51 Dose: 5 units Documented By: AYHIR Co-signed By: SAROJ Admin: 08/29/22 08:30 Dose: 5 units Documented By: YAHIR Co-signed By: SAROJ Admin: 08/28/22 08:49 Dose: 5 units Documented By: GABRIELLA Co-signed By: SAROJ Admin: 08/27/22 08:57 Dose: 5 units Documented By: CRISTINA Co-signed By: KIKO Admin: 08/26/22 09:01 Dose: 5 units Documented By: BHAVIN Co-signed By: TOM Admin: 08/25/22 08:54 Dose: 5 units Documented By: BART Co-signed By: SANAZ Lisinopril (Lisinopril 10 Mg Tab) 10 mg PO DAILY BOB Stop: 09/26/22 08:59 Last Admin: 08/29/22 07:55 Dose: 10 mg Documented By: Admin: 08/28/22 08:43 Dose: 10 mg Documented By: Admin: 08/27/22 07:58 Dose: 10 mg Documented By: CRISTINA Paroxetine HCl (Paroxetine Hcl 20 Mg Tab) 30 mg PO BID BOB Stop: 09/24/22 08:59 Last Admin: 08/30/22 08:53 Dose: 30 mg Documented By: Admin: 08/29/22 21:00 Dose: 30 mg Documented By: Admin: 08/29/22 07:54 Dose: 30 mg Documented By: Admin: 08/28/22 20:20 Dose: 30 mg Documented By: Admin: 08/28/22 08:42 Dose: 30 mg Documented By: Admin: 08/27/22 20:22 Dose: 30 mg Documented By: Admin: 08/27/22 07:57 Dose: 30 mg Documented By: Admin: 08/26/22 20:02 Dose: 30 mg Documented By: Admin: 08/26/22 08:22 Dose: 30 mg Documented By: Admin: 08/25/22 20:42 Dose: 30 mg Documented By: Admin: 08/25/22 08:57 Dose: 30 mg Documented By: BART Risperidone (Risperidone 2 Mg Tablet) 2 mg PO HS BOB Stop: 09/23/22 23:52 Last Admin: 08/29/22 21:01 Dose: 2 mg Documented By: Admin: 08/28/22 20:21 Dose: 2 mg Documented By: Admin: 08/27/22 20:22 Dose: 2 mg Documented By: Admin: 08/26/22 20:02 Dose: 2 mg Documented By: Admin: 08/25/22 20:42 Dose: 2 mg Documented By: Admin: 08/25/22 00:38 Dose: 2 mg Documented By: RENETTA Umeclidinium/Vilanterol (Umeclidinium/Vilanterol 62.5/25mcg 7 Puffs/Inhaler) 1 puffs INH DAILY BOB Stop: 09/24/22 08:59 Last Admin: 08/30/22 08:52 Dose: 1 puffs Documented By: Admin: 08/29/22 07:56 Dose: 1 puffs Documented By: Admin: 08/28/22 08:43 Dose: 1 puffs Documented By: Admin: 08/27/22 07:59 Dose: 1 puffs Documented By: Admin: 08/26/22 08:25 Dose: 1 puffs Documented By: Admin: 08/25/22 08:58 Dose: 1 puffs Documented By: BART Coding Level of Care Code 14058 IN/OBS CONSULT LVL 5,80M Diagnoses Bipolar 1 disorder F31.9 Time Spent (min) 84
[2022-08-30] MEDS: risperiDONE 2 MG TABLET PO SCH (20:59)
[2022-08-31 06:15] LABS: Hematocrit (blood only) 31.7 % (42.0-52.0); Hemoglobin 10.4 g/dl (14.0-18.0); Mean Corpuscular Hemoglobin 32.7 pg (25.0-34.0); Mean Corpuscular Hgb Conc 32.8 g/dL (32.0-36.0); Mean Corpuscular Volume 99.7 fL (80.0-100.0); Mean Platelet Volume 10.7 fL (9.4-12.4); Platelet Count 163 K/uL (130-400); RDW Coefficient of Variation 13.1 % (11.5-14.5); RDW Standard Deviation 47.2 fL (36.4-46.3); Red Blood Count 3.18 M/uL (4.70-6.10); White Blood Count 5.84 K/ul (4.8-10.8)
[2022-08-31 06:34] LABS: BUN Creatinine Ratio 21.1 (10-20); Calcium 8.6 mg/dl (8.6-10.3); Creatinine Clr Calc Pharmacy 60.9 ml/min; Est GFR (Non-African American) 61.2 ml/min; Magnesium 1.8 mg/dl (1.7-2.4); Potassium 4.7 mmol/L (3.5-5.1)
[2022-08-31] MEDS: INSULIN ASPART PER UNIT CHARGE SC SCH ×4 (08:58→20:50)
[2022-08-31] MEDS: LANTUS PER UNIT CHARGE SQ SCH (09:01)
[2022-08-31] MEDS: ENOXAPARIN INJ 40 MG/0.4 ML SYR SQ SCH (09:02)
[2022-08-31] MEDS: PARoxetine HCL 20 MG TAB PO SCH ×2 (09:02→20:51)
[2022-08-31] MEDS: ASPIRIN 81 MG ECTAB PO SCH (09:02)
[2022-08-31] MEDS: ATORVASTATIN 40 MG TAB PO SCH (09:02)
[2022-08-31] MEDS: UMECLIDINIUM/VILANTEROL 62.5/25MCG 7 PUFFS/INHALER INH SCH (09:03)
[2022-08-31] MEDS: DIVALPROEX EXTENDED RELEASE 500 MG TAB PO SCH ×2 (09:03→20:52)
[2022-08-31] MEDS: busPIRone 5 MG TAB PO SCH (09:03)
[2022-08-31] MEDS: FLUTICASONE FUROATE 200MCG 14 PUFFS/INHALER INH SCH (09:03)
--- NOTE | 2022-08-31 16:13 | Hospitalist Progress Note ---
Date of Service August 31, 2022 Assessment & Plan (1) Weakness: (2) Ambulatory dysfunction: (3) Hypokalemia: (4) Diarrhea: (5) Hypomagnesemia: (6) DM type 2, goal HbA1c < 7%: (7) Hypertension: (8) Dyslipidemia, goal LDL below 70: (9) Depression with anxiety: (10) Bipolar 1 disorder: (11) COPD, moderate: (12) Anemia: Plan: Assessment and plan per Dr Young. See addendum. Plan Hypertensive urgency Likely situational BP noted to be low following admission Hold lisinopril Has been stable as of 08/31/2022 at 118/76 Tremor Chronic tremors/Gait Issues Outpatient work-up negative for Parkinson disease as per family Likely secondary to Depakote and the Depakote doses have been decreased Patient takes Depakote for bipolar disorder Appreciate psychiatric input and recommendation: Buspirone has been discontinued and the patient is not getting any more meloxicam. We will continue paroxetine and risperidone as per psychiatrist Depakote is likely not the cause for the tremor Tremors have been improving Diarrhea Metformin likely contributing to diarrhea as well Diarrhea Likely viral gastroenteritis, ? Secondary to Depakote, Metformin Stool C. difficile negative, stool PCR negative Metformin on hold Generalized weakness Deconditioning secondary to diarrheal illness and comorbidities Normal TSH, B12 Continue gentle IV fluids as needed Monitor volume status PT OT: Recommends SNF Fall precautions Plan to discharge to rehab facility as able Supratherapeutic valproic acid level Was previously on 1000 mg twice daily. Currently on 500 mg twice daily. Valproic acid 130>113>>73 No typical signs of Depakote toxicity Discussed with neurologist animal taxonomist Dr. Portillo: Can restart once levels normalized No plan to recheck levels once normalized unless patient have symptoms like tremor, altered mental status, gait difficulty vertigo/nystagmus Check ammonia level as increased ammonia level can have similar symptoms Normal ammonia level Restarted Divalproex 500 mg twice daily on 08/26/22 Appreciate psychiatric input and valproic acid is not considered to be the cause for tremors since the dose has been decreased Hypokalemia Hypomagnesemia Secondary to GI losses Replete electrolytes as needed After lites have been normalized COPD No signs of exacerbation Continue home inhalers DM II Hold oral medications HbA1C 6.5 recently Continue insulin per protocol Monitor BGs H/O mild hyperprolactinemia likely secondary to neuropsychotropic medications As per records Anxiety/mood disorder Mood at baseline Continue home medications Chronic anemia Hb at baseline Past tobacco abuse Monitor DVT Px: Lovenox SQ Code Status DNI/DNR Disposition SNF as able Case management to help with discharge planning Admission and Anticipated Discharge Date Admission Date: August 25, 2022 Subjective 08/31/2022 The patient was seen and examined in telemetry unit He has been feeling much better Tremors has been reasonably controlled and he is getting physical therapy Denies any significant symptoms Review of Systems Review of Systems: All systems reviewed and are unremarkable except as noted below Physical Exam Physical Exam: Sitting on a chair without any acute distress Constitutional: + ill appearing and average body habitus Eyes: PERRL, conjunctivae normal, anicteric sclerae ENMT: external ear and nose normal, oropharynx normal Neck: trachea midline, no thyromegaly Respiratory: no respiratory distress Auscultation: lungs clear to auscultation bilaterally Cardiovascular: Rate/Rhythm: regular rate and regular rhythm; not tachycardic Heart Sounds: normal S1 and normal S2; no murmur Extremities: no edema Gastrointestinal (Abdomen): Inspection/Auscultation: normal bowel sounds; abdomen not distended Percussion/Palpation: abdomen soft; abdomen nontender Musculoskeletal: No acute arthritis involving any of the joint Neurologic: normal touch/pain/proprioception and moves all extremities; no focal motor deficits Lymphatic: no cervical or axillary lymphadenopathy Results & Data Results & Data Vital Signs (Past 12 Hours) Vital Signs Temp Pulse Pulse Resp BP Pulse Ox O2 Del Method 08/31/22 15:50 76 08/31/22 12:10 36.8 C 63 18 118/76 93 Room Air 08/31/22 08:16 36.5 C 63 20 131/88 94 Room Air 08/31/22 07:22 61 08/31/22 05:25 36.8 C 66 18 176/89 H 95 Room Air Laboratory Results Short CBC 08/31/22 Range/Units 05:39 WBC 5.84 (4.8-10.8) K/ul Hgb 10.4 L (14.0-18.0) g/dl Hct 31.7 L (42.0-52.0) % Plt Count 163 (130-400) K/uL BMP 08/31/22 05:39 Sodium 141 Potassium 4.7 Chloride 111 H Carbon Dioxide 26 BUN 26 H Creatinine 1.23 Glucose 124 H Calcium 8.6 Medications Administered Current Inpatient Medications Acetaminophen (Acetaminophen 325 Mg Tab) 650 mg PO Q4H PRN PRN Reason: Pain or Fever Stop: 09/23/22 23:52 Aspirin (Aspirin 81 Mg Ectab) 81 mg PO DAILY [facility] Stop: 09/24/22 08:59 Last Admin: 08/31/22 09:02 Dose: 81 mg Atorvastatin Calcium (Atorvastatin 40 Mg Tab) 80 mg PO DAILY [facility] Stop: 09/24/22 08:59 Last Admin: 08/31/22 09:02 Dose: 80 mg Buspirone HCl (Buspirone 5 Mg Tab) 10 mg PO BID [facility] Stop: 09/23/22 23:52 Last Admin: 08/31/22 09:03 Dose: 10 mg Dextrose (Dextrose 50% 50 Ml Syringe) 25 - 50 ml IV UD PRN; Protocol PRN Reason: Hypoglycemia Protocol Stop: 09/23/22 23:52 Divalproex Sodium (Divalproex Extended Release 500 Mg Tab) 500 mg PO BID [facility] Stop: 09/25/22 09:29 Last Admin: 08/31/22 09:03 Dose: 500 mg Enoxaparin Sodium (Enoxaparin Inj 40 Mg/0.4 Ml Syr) 40 mg SQ QAM [facility] Stop: 09/27/22 08:59 Last Admin: 08/31/22 09:02 Dose: 40 mg Fluticasone Furoate (Fluticasone Furoate 200mcg 14 Puffs/Inhaler) 1 puffs INH DAILY [facility] Stop: 09/24/22 08:59 Last Admin: 08/31/22 09:03 Dose: 1 puffs Glucagon (Glucagon For Inj 1 Mg Vial) 1 mg SQ UD PRN; Protocol PRN Reason: Hypoglycemia Protocol Stop: 09/23/22 23:52 Glucose (Glucose 10 Tab/Tube) 4 - 8 tab PO UD PRN; Protocol PRN Reason: Hypoglycemia Treatment Stop: 09/23/22 23:52 Glucose (Glucose 40% Gel 15 Gm Tube) 15 - 30 gm PO UD PRN; Protocol PRN Reason: Hypoglycemia Protocol Stop: 09/23/22 23:52 Promethazine HCl 6.25 mg/ (Sodium Chloride) 50.25 mls @ 201 mls/hr IV Q6H PRN PRN Reason: Nausea And Vomiting Stop: 09/23/22 23:52 Insulin Aspart (Insulin Aspart Per Unit Charge) 0 units SC ACHS [facility] Stop: 09/23/22 23:52 Last Admin: 08/31/22 12:27 Dose: 2 units Insulin Glargine (Lantus Per Unit Charge) 5 units SQ DAILY [facility] Stop: 09/24/22 08:59 Last Admin: 08/31/22 09:01 Dose: 5 units Lisinopril (Lisinopril 10 Mg Tab) 10 mg PO DAILY [facility] Stop: 09/26/22 08:59 Last Admin: 08/29/22 07:55 Dose: 10 mg Miscellaneous (Carbohydrates For Hypoglycemia ) 15 - 30 gm PO UD PRN PRN Reason: Hypoglycemia Protocol Stop: 09/23/22 23:52 Paroxetine HCl (Paroxetine Hcl 20 Mg Tab) 30 mg PO BID [facility] Stop: 09/24/22 08:59 Last Admin: 08/31/22 09:02 Dose: 30 mg Risperidone (Risperidone 2 Mg Tablet) 2 mg PO HS [facility] Stop: 09/23/22 23:52 Last Admin: 08/30/22 20:59 Dose: 2 mg Umeclidinium/Vilanterol (Umeclidinium/Vilanterol 62.5/25mcg 7 Puffs/Inhaler) 1 puffs INH DAILY [facility] Stop: 09/24/22 08:59 Last Admin: 08/31/22 09:03 Dose: 1 puffs
[2022-08-31] MEDS: risperiDONE 2 MG TABLET PO SCH (20:51)
[2022-09-01] MEDS: LANTUS PER UNIT CHARGE SQ SCH (08:15)
[2022-09-01] MEDS: ENOXAPARIN INJ 40 MG/0.4 ML SYR SQ SCH (08:16)
[2022-09-01] MEDS: PARoxetine HCL 20 MG TAB PO SCH ×2 (08:16→20:51)
[2022-09-01] MEDS: INSULIN ASPART PER UNIT CHARGE SC SCH ×4 (08:16→21:03)
[2022-09-01] MEDS: DIVALPROEX EXTENDED RELEASE 500 MG TAB PO SCH ×2 (08:16→20:52)
[2022-09-01] MEDS: UMECLIDINIUM/VILANTEROL 62.5/25MCG 7 PUFFS/INHALER INH SCH (08:17)
[2022-09-01] MEDS: ASPIRIN 81 MG ECTAB PO SCH (08:17)
[2022-09-01] MEDS: FLUTICASONE FUROATE 200MCG 14 PUFFS/INHALER INH SCH (08:17)
[2022-09-01] MEDS: ATORVASTATIN 40 MG TAB PO SCH (08:17)
[2022-09-01] MEDS ORDERED: POLYETHYLENE (MIRALAX) 17 GM PACK PO SCH (14:45)
--- NOTE | 2022-09-01 16:24 | Hospitalist Progress Note ---
Date of Service September 01, 2022 Assessment & Plan (1) Weakness: (2) Ambulatory dysfunction: (3) Hypokalemia: (4) Diarrhea: (5) Hypomagnesemia: (6) DM type 2, goal HbA1c < 7%: (7) Hypertension: (8) Dyslipidemia, goal LDL below 70: (9) Depression with anxiety: (10) Bipolar 1 disorder: (11) COPD, moderate: (12) Anemia: Plan: Assessment and plan per Dr Young. See addendum. Plan Hypertensive urgency Likely situational BP noted to be low following admission Hold lisinopril Has been stable as of 08/31/2022 at 118/76 blood pressure remains stable Tremor Chronic tremors/Gait Issues Outpatient work-up negative for Parkinson disease as per family Likely secondary to Depakote and the Depakote doses have been decreased Patient takes Depakote for bipolar disorder Appreciate psychiatric input and recommendation: Buspirone has been discontinued and the patient is not getting any more meloxicam. We will continue paroxetine and risperidone as per psychiatrist Depakote is likely not the cause for the tremor Tremors have been improving and is much better today Diarrhea Metformin likely contributing to diarrhea as well Diarrhea Likely viral gastroenteritis, ? Secondary to Depakote, Metformin Stool C. difficile negative, stool PCR negative Metformin on hold We will restart metformin on discharge Generalized weakness Deconditioning secondary to diarrheal illness and comorbidities Normal TSH, B12 Continue gentle IV fluids as needed Monitor volume status PT OT: Recommends SNF Fall precautions Plan to discharge to rehab facility as able Has been accepted to rehab Supratherapeutic valproic acid level Was previously on 1000 mg twice daily. Currently on 500 mg twice daily. Valproic acid 130>113>>73 No typical signs of Depakote toxicity Discussed with neurologist assistant front desk manager Dr. Portillo: Can restart once levels normalized No plan to recheck levels once normalized unless patient have symptoms like tremor, altered mental status, gait difficulty vertigo/nystagmus Check ammonia level as increased ammonia level can have similar symptoms Normal ammonia level Restarted Divalproex 500 mg twice daily on 08/26/22 Appreciate psychiatric input and valproic acid is not considered to be the cause for tremors since the dose has been decreased Continue the current dose of medications discharge Hypokalemia Hypomagnesemia Secondary to GI losses Replete electrolytes as needed After lites have been normalized We will recheck tomorrow COPD No signs of exacerbation Continue home inhalers DM II Hold oral medications HbA1C 6.5 recently Continue insulin per protocol Monitor BGs H/O mild hyperprolactinemia likely secondary to neuropsychotropic medications As per records Anxiety/mood disorder Mood at baseline Continue home medications Chronic anemia Hb at baseline Past tobacco abuse Monitor DVT Px: Lovenox SQ Code Status DNI/DNR Disposition SNF as able Will be discharged tomorrow to SNF Admission and Anticipated Discharge Date Admission Date: August 25, 2022 Subjective 08/31/2022 The patient was seen and examined in telemetry unit He has been feeling much better Tremors has been reasonably controlled and he is getting physical therapy Denies any significant symptoms 09/01/2022 Patient was seen and examined in telemetry unit Has been stable for the last 2 days Bilateral hand tremors are better Denies any significant symptoms Review of Systems Review of Systems: All systems reviewed and are unremarkable except as noted below Physical Exam Physical Exam: Sitting on a chair without any acute distress Constitutional: + ill appearing and average body habitus Eyes: PERRL, conjunctivae normal, anicteric sclerae ENMT: external ear and nose normal, oropharynx normal Neck: trachea midline, no thyromegaly Respiratory: no respiratory distress Auscultation: lungs clear to auscultation bilaterally Cardiovascular: Rate/Rhythm: regular rate and regular rhythm; not tachycardic Heart Sounds: normal S1 and normal S2; no murmur Extremities: no edema Gastrointestinal (Abdomen): Inspection/Auscultation: normal bowel sounds; a bdomen not distended Percussion/Palpation: abdomen soft; abdomen nontender Musculoskeletal: No acute arthritis involving any joint Neurologic: normal touch/pain/proprioception and moves all extremities; no focal motor deficits Lymphatic: no cervical or axillary lymphadenopathy Results & Data Results & Data Vital Signs (Past 12 Hours) Vital Signs Temp Pulse Pulse Resp BP Pulse Ox O2 Del Method 09/01/22 16:13 36.6 C 84 19 126/65 94 Room Air 09/01/22 15:05 77 09/01/22 11:50 36.6 C 85 18 105/74 96 Room Air 09/01/22 08:21 36.5 C 68 20 138/89 95 Room Air 09/01/22 07:55 56 L 09/01/22 04:48 36.7 C 65 20 151/74 H 94 Room Air Medications Administered Current Inpatient Medications Acetaminophen (Acetaminophen 325 Mg Tab) 650 mg PO Q4H PRN PRN Reason: Pain or Fever Stop: 09/23/22 23:52 Aspirin (Aspirin 81 Mg Ectab) 81 mg PO DAILY [facility] Stop: 09/24/22 08:59 Last Admin: 09/01/22 08:17 Dose: 81 mg Atorvastatin Calcium (Atorvastatin 40 Mg Tab) 80 mg PO DAILY [facility] Stop: 09/24/22 08:59 Last Admin: 09/01/22 08:17 Dose: 80 mg Dextrose (Dextrose 50% 50 Ml Syringe) 25 - 50 ml IV UD PRN; Protocol PRN Reason: Hypoglycemia Protocol Stop: 09/23/22 23:52 Divalproex Sodium (Divalproex Extended Release 500 Mg Tab) 500 mg PO BID [facility] Stop: 09/25/22 09:29 Last Admin: 09/01/22 08:16 Dose: 500 mg Enoxaparin Sodium (Enoxaparin Inj 40 Mg/0.4 Ml Syr) 40 mg SQ QAM [facility] Stop: 09/27/22 08:59 Last Admin: 09/01/22 08:16 Dose: 40 mg Fluticasone Furoate (Fluticasone Furoate 200mcg 14 Puffs/Inhaler) 1 puffs INH DAILY [facility] Stop: 09/24/22 08:59 Last Admin: 09/01/22 08:17 Dose: 1 puffs Glucagon (Glucagon For Inj 1 Mg Vial) 1 mg SQ UD PRN; Protocol PRN Reason: Hypoglycemia Protocol Stop: 09/23/22 23:52 Glucose (Glucose 10 Tab/Tube) 4 - 8 tab PO UD PRN; Protocol PRN Reason: Hypoglycemia Treatment Stop: 09/23/22 23:52 Glucose (Glucose 40% Gel 15 Gm Tube) 15 - 30 gm PO UD PRN; Protocol PRN Reason: Hypoglycemia Protocol Stop: 09/23/22 23:52 Promethazine HCl 6.25 mg/ (Sodium Chloride) 50.25 mls @ 201 mls/hr IV Q6H PRN PRN Reason: Nausea And Vomiting Stop: 09/23/22 23:52 Insulin Aspart (Insulin Aspart Per Unit Charge) 0 units SC ACHS [facility] Stop: 09/23/22 23:52 Last Admin: 09/01/22 12:06 Dose: 6 units Insulin Glargine (Lantus Per Unit Charge) 5 units SQ DAILY [facility] Stop: 09/24/22 08:59 Last Admin: 09/01/22 08:15 Dose: 5 units Lisinopril (Lisinopril 10 Mg Tab) 10 mg PO DAILY [facility] Stop: 09/26/22 08:59 Last Admin: 08/29/22 07:55 Dose: 10 mg Miscellaneous (Carbohydrates For Hypoglycemia ) 15 - 30 gm PO UD PRN PRN Reason: Hypoglycemia Protocol Stop: 09/23/22 23:52 Paroxetine HCl (Paroxetine Hcl 20 Mg Tab) 30 mg PO BID [facility] Stop: 09/24/22 08:59 Last Admin: 09/01/22 08:16 Dose: 30 mg Risperidone (Risperidone 2 Mg Tablet) 2 mg PO HS [facility] Stop: 09/23/22 23:52 Last Admin: 08/31/22 20:51 Dose: 2 mg Umeclidinium/Vilanterol (Umeclidinium/Vilanterol 62.5/25mcg 7 Puffs/Inhaler) 1 puffs INH DAILY [facility] Stop: 09/24/22 08:59 Last Admin: 09/01/22 08:17 Dose: 1 puffs
[2022-09-01] MEDS: risperiDONE 2 MG TABLET PO SCH (20:51)
[2022-09-02 06:41] LABS: Basophils # (auto) 0.02 K/uL (0-0.2); Basophils % (auto) 0.3 %; Eosinophils # (auto) 0.13 K/uL (0-0.50); Hematocrit (blood only) 32.7 % (42.0-52.0); Hemoglobin 10.9 g/dl (14.0-18.0); Immature Granulocytes # (auto) 0.03 K/uL (0.01-0.20); Immature Granulocytes % (auto) 0.5 %; Lymphocytes # (auto) 1.72 K/uL (1.2-3.4); Lymphocytes % (auto) 26.8 %; Mean Corpuscular Hgb Conc 33.3 g/dL (32.0-36.0); Mean Corpuscular Volume 95.9 fL (80.0-100.0); Mean Platelet Volume 10.5 fL (9.4-12.4); Monocytes # (auto) 0.79 K/uL (0.11-0.59); Monocytes % (auto) 12.3 %; Neutrophils # (auto) 3.73 K/uL (1.40-6.50); Neutrophils % (auto) 58.1 %; Platelet Count 211 K/uL (130-400); RDW Coefficient of Variation 13.2 % (11.5-14.5); RDW Standard Deviation 46.2 fL (36.4-46.3); Red Blood Count 3.41 M/uL (4.70-6.10); White Blood Count 6.42 K/ul (4.8-10.8)
[2022-09-02 06:51] LABS: Calcium 8.9 mg/dl (8.6-10.3); Creatinine Clr Calc Pharmacy 67.4 ml/min; Est GFR (African American) 81.2 ml/min; Est GFR (Non-African American) 70.1 ml/min; Potassium 4.5 mmol/L (3.5-5.1)
[2022-09-02] MEDS: INSULIN ASPART PER UNIT CHARGE SC SCH ×2 (08:49→12:58)
[2022-09-02] MEDS: LANTUS PER UNIT CHARGE SQ SCH (08:49)
[2022-09-02] MEDS: UMECLIDINIUM/VILANTEROL 62.5/25MCG 7 PUFFS/INHALER INH SCH (08:50)
[2022-09-02] MEDS: ASPIRIN 81 MG ECTAB PO SCH (08:50)
[2022-09-02] MEDS: PARoxetine HCL 20 MG TAB PO SCH (08:50)
[2022-09-02] MEDS: FLUTICASONE FUROATE 200MCG 14 PUFFS/INHALER INH SCH (08:50)
[2022-09-02] MEDS: ATORVASTATIN 40 MG TAB PO SCH (08:51)
[2022-09-02] MEDS: ENOXAPARIN INJ 40 MG/0.4 ML SYR SQ SCH (08:51)
[2022-09-02] MEDS: DIVALPROEX EXTENDED RELEASE 500 MG TAB PO SCH (08:52)
--- NOTE | 2022-09-02 11:14 | Hospitalist Progress Note ---
Date of Service September 02, 2022 Assessment & Plan (1) Weakness: (2) Ambulatory dysfunction: (3) Hypokalemia: (4) Diarrhea: (5) Hypomagnesemia: (6) DM type 2, goal HbA1c < 7%: (7) Hypertension: (8) Dyslipidemia, goal LDL below 70: (9) Depression with anxiety: (10) Bipolar 1 disorder: (11) COPD, moderate: (12) Anemia: Plan: Assessment and plan per Dr Young. See addendum. Plan Hypertensive urgency Likely situational BP noted to be low following admission Hold lisinopril Has been stable as of 08/31/2022 at 118/76 blood pressure remains stable Blood pressure remains on the upper side and will restart lisinopril Tremor Chronic tremors/Gait Issues Outpatient work-up negative for Parkinson disease as per family Likely secondary to Depakote and the Depakote doses have been decreased Patient takes Depakote for bipolar disorder Appreciate psychiatric input and recommendation: Buspirone has been discontinued and the patient is not getting any more meloxicam. We will continue paroxetine and risperidone as per psychiatrist Depakote is likely not the cause for the tremor Tremors have been improving and is much better today Diarrhea Metformin likely contributing to diarrhea as well Diarrhea Likely viral gastroenteritis, ? Secondary to Depakote, Metformin Stool C. difficile negative, stool PCR negative Metformin on hold We will restart metformin on discharge No more diarrhea Generalized weakness Deconditioning secondary to diarrheal illness and comorbidities Normal TSH, B12 Continue gentle IV fluids as needed Monitor volume status PT OT: Recommends SNF Fall precautions Plan to discharge to rehab facility as able Has been accepted to rehab-Will be discharged this afternoon Supratherapeutic valproic acid level Was previously on 1000 mg twice daily. Currently on 500 mg twice daily. Valproic acid 130>113>>73 No typical signs of Depakote toxicity Discussed with neurologist employee relations manager Dr. Portillo: Can restart once levels normalized No plan to recheck levels once normalized unless patient have symptoms like tremor, altered mental status, gait difficulty vertigo/nystagmus Check ammonia level as increased ammonia level can have similar symptoms Normal ammonia level Restarted Divalproex 500 mg twice daily on 08/26/22 Appreciate psychiatric input and valproic acid is not considered to be the cause for tremors since the dose has been decreased Continue the current dose of medications discharge Hypokalemia Hypomagnesemia Secondary to GI losses Replete electrolytes as needed After lites have been normalized We will recheck tomorrow COPD No signs of exacerbation Continue home inhalers DM II Hold oral medications HbA1C 6.5 recently Continue insulin per protocol Monitor BGs H/O mild hyperprolactinemia likely secondary to neuropsychotropic medications As per records Anxiety/mood disorder Mood at baseline Continue home medications Chronic anemia Hb at baseline Past tobacco abuse Monitor DVT Px: Lovenox SQ Code Status DNI/DNR Disposition SNF as able Will be discharged tomorrow to [facility] stable to be discharged Admission and Anticipated Discharge Date Admission Date: August 25, 2022 Subjective 08/31/2022 The patient was seen and examined in telemetry unit He has been feeling much better Tremors has been reasonably controlled and he is getting physical therapy Denies any significant symptoms 09/01/2022 Patient was seen and examined in telemetry unit Has been stable for the last 2 days Bilateral hand tremors are better Denies any significant symptoms 09/02/2022 The patient was seen and examined in telemetry unit He has been feeling much better and has had bowel movement Besides minimal tremor which is worse with activity he denies any other symptoms He will be discharged this afternoon Review of Systems Review of Systems: All systems reviewed and are unremarkable except as noted below Physical Exam Physical Exam: Sitting on a chair without any acute distress Constitutional: + ill appearing and average body habitus Eyes: PERRL, conjunctivae normal, anicteric sclerae ENMT: external ear and nose normal, oropharynx normal Neck: trachea midline, no thyromegaly Respiratory: no respiratory distress Auscultation: lungs clear to auscultation bilaterally Cardiovascular: Rate/Rhythm: regular rate and regular rhythm; not tachycardic Heart Sounds: normal S1 and normal S2; no murmur Extremities: no edema Gastrointestinal (Abdomen): Inspection/Auscultation: normal bowel sounds; abdomen not distended Percussion/Palpation: abdomen soft; abdomen nontender Musculoskeletal: No acute arthritis involving any of the joint Neurologic: normal touch/pain/proprioception and moves all extremities; no focal motor deficits Lymphatic: no cervical or axillary lymphadenopathy Results & Data Results & Data Vital Signs (Past 12 Hours) Vital Signs Temp Pulse Pulse Resp BP BP Pulse Ox 09/02/22 08:00 73 09/02/22 08:17 36.6 C 70 18 156/85 H 92 09/02/22 04:33 36.6 C 65 18 143/68 H 94 09/02/22 00:53 65 O2 Del Method 09/02/22 08:00 09/02/22 08:17 Room Air 09/02/22 04:33 Room Air 09/02/22 00:53 Laboratory Results Short CBC 09/02/22 Range/Units 05:48 WBC 6.42 (4.8-10.8) K/ul Hgb 10.9 L (14.0-18.0) g/dl Hct 32.7 L (42.0-52.0) % Plt Count 211 (130-400) K/uL BMP 09/02/22 05:48 Sodium 138 Potassium 4.5 Chloride 109 H Carbon Dioxide 24 BUN 22 Creatinine 1.10 Glucose 119 H Calcium 8.9 Medications Administered Current Inpatient Medications Acetaminophen (Acetaminophen 325 Mg Tab) 650 mg PO Q4H PRN PRN Reason: Pain or Fever Stop: 09/23/22 23:52 Aspirin (Aspirin 81 Mg Ectab) 81 mg PO DAILY [facility] Stop: 09/24/22 08:59 Last Admin: 09/02/22 08:50 Dose: 81 mg Atorvastatin Calcium (Atorvastatin 40 Mg Tab) 80 mg PO DAILY [facility] Stop: 09/24/22 08:59 Last Admin: 09/02/22 08:51 Dose: 80 mg Dextrose (Dextrose 50% 50 Ml Syringe) 25 - 50 ml IV UD PRN; Protocol PRN Reason: Hypoglycemia Protocol Stop: 09/23/22 23:52 Divalproex Sodium (Divalproex Extended Release 500 Mg Tab) 500 mg PO BID [facility] Stop: 09/25/22 09:29 Last Admin: 09/02/22 08:52 Dose: 500 mg Enoxaparin Sodium (Enoxaparin Inj 40 Mg/0.4 Ml Syr) 40 mg SQ QAM [facility] Stop: 09/27/22 08:59 Last Admin: 09/02/22 08:51 Dose: 40 mg Fluticasone Furoate (Fluticasone Furoate 200mcg 14 Puffs/Inhaler) 1 puffs INH DAILY [facility] Stop: 09/24/22 08:59 Last Admin: 09/02/22 08:50 Dose: 1 puffs Glucagon (Glucagon For Inj 1 Mg Vial) 1 mg SQ UD PRN; Protocol PRN Reason: Hypoglycemia Protocol Stop: 09/23/22 23:52 Glucose (Glucose 10 Tab/Tube) 4 - 8 tab PO UD PRN; Protocol PRN Reason: Hypoglycemia Treatment Stop: 09/23/22 23:52 Glucose (Glucose 40% Gel 15 Gm Tube) 15 - 30 gm PO UD PRN; Protocol PRN Reason: Hypoglycemia Protocol Stop: 09/23/22 23:52 Promethazine HCl 6.25 mg/ (Sodium Chloride) 50.25 mls @ 201 mls/hr IV Q6H PRN PRN Reason: Nausea And Vomiting Stop: 09/23/22 23:52 Insulin Aspart (Insulin Aspart Per Unit Charge) 0 units SC ACHS [facility] Stop: 09/23/22 23:52 Last Admin: 09/02/22 08:49 Dose: 5 units Insulin Glargine (Lantus Per Unit Charge) 5 units SQ DAILY [facility] Stop: 09/24/22 08:59 Last Admin: 09/02/22 08:49 Dose: 5 units Lisinopril (Lisinopril 10 Mg Tab) 10 mg PO DAILY [facility] Stop: 09/26/22 08:59 Last Admin: 08/29/22 07:55 Dose: 10 mg Miscellaneous (Carbohydrates For Hypoglycemia ) 15 - 30 gm PO UD PRN PRN Reason: Hypoglycemia Protocol Stop: 09/23/22 23:52 Paroxetine HCl (Paroxetine Hcl 20 Mg Tab) 30 mg PO BID [facility] Stop: 09/24/22 08:59 Last Admin: 09/02/22 08:50 Dose: 30 mg Risperidone (Risperidone 2 Mg Tablet) 2 mg PO HS [facility] Stop: 09/23/22 23:52 Last Admin: 09/01/22 20:51 Dose: 2 mg Umeclidinium/Vilanterol (Umeclidinium/Vilanterol 62.5/25mcg 7 Puffs/Inhaler) 1 puffs INH DAILY [facility] Stop: 09/24/22 08:59 Last Admin: 09/02/22 08:50 Dose: 1 puffs
[2022-09-02] MEDS ORDERED: lisinopril 10 MG TAB PO ONE (12:00)
--- NOTE | 2022-09-02 16:37 | Discharge Summary ---
Date of Service September 02, 2022 Admission HPI Per Admitting Provider Patient is 66-year-old male with PMH HTN, HLD DM II, anxiety, depression, bipolar disorder, COPD, presented to ER with complaint of weakness x 1 week. Patient with history of hospitalization 04/2022 for weakness and was COVID- positive. He states he went to rehab at [facility] and felt like he was regaining his strength. Patient states for the past week he has had increased weakness. He feels generally weak. States has some dizziness with walking. He describes the dizziness as feeling off balance and leaning to the left. He has been using cane and walker. Denies any falls. He has been too weak to complete his ADLs including bathing/showering. He states that he had been having decreased appetite with decreased oral intake. Also reports has been having at least 3 episodes of loose watery stools daily. Patient reports has fecal incontinence. He states that he has been having urinary incontinence for the past month. Saw PCP on 08/03/2022. His metformin was decreased from 1000 mg twice daily to 500 mg twice daily in regards to the loose stools. He states that he discontinued Ozempic on 08/04/2022. Since discontinuing Ozempic he feels his appetite has increased. Patient states he drinks 64 ounces of Pepsi daily. Drinks very minimal water. He also reports has had nonproductive cough for the past 4 weeks. States 2 weeks ago had some rhinorrhea which resolved. Patient's son states last week had noted bilateral lower extremity edema. States used compression hose and elevated legs with resolution. Denies dysuria, hematuria, abdominal pain. Denies fever/chills, diaphoresis, N/V, melena, hematochezia MONTERROSO, syncope, vision changes, neck pain, CP, SOB, palpitations, sore throat, choking, otalgia, paresthesias, rashes. Admission Exam Per Admitting Provider Physical Exam: General: no distress, WDWN, chronic ill-appearing elderly male Head: normocephalic, atraumatic Eyes: PERRL, EOM's intact, conjunctiva non-injected, anicteric ENT: normal inspection external ears, nose, mucous membranes dry Neck: supple, trachea midline Lungs: clear, no respiratory distress, no wheezing/rhonchi/rales CV: RRR, no murmur, no pretibial edema Abd: normal BS, soft, non-tender Ext: no cyanosis, no calf tenderness Neuro: A&O x 3, + diffuse weakness, no other focal deficits noted, normal affect Skin: warm, dry Principal Diagnosis Hypertensive urgency, generalized weakness, bipolar 1 disorder, worsening chronic tremors, increased valproic acid level, stable COPD Discharge Exam Sitting on a chair without any acute distress Constitutional + ill appearing and average body habitus Eyes PERRL, conjunctivae normal, anicteric sclerae ENMT external ear and nose normal, oropharynx normal Neck trachea midline, no thyromegaly Respiratory no respiratory distress Auscultation: lungs clear to auscultation bilaterally Cardiovascular Rate/Rhythm: regular rate and regular rhythm; not tachycardic Heart Sounds: normal S1 and normal S2; no murmur Extremities: no edema Gastrointestinal (Abdomen) Inspection/Auscultation: normal bowel sounds; abdomen not distended Percussion/Palpation: abdomen soft; abdomen nontender Neurologic normal touch/pain/proprioception and moves all extremities; no focal motor deficits Lymphatic no cervical or axillary lymphadenopathy Discharge Data Allergies Allergy/AdvReac Type Severity Reaction Status Date / Time No Known Allergies Allergy Verified 04/13/22 21:22 Consultations 08/24/22 19:49 ED Decision to Admit Stat 08/30/22 09:42 Consult Psychiatry Routine Ordered Studies 08/30/22 09:47 CT head/brain wo con Urgent Hospital Course (1) Weakness: (2) Ambulatory dysfunction: (3) Hypokalemia: (4) Diarrhea: (5) Hypomagnesemia: (6) DM type 2, goal HbA1c < 7%: (7) Hypertension: (8) Dyslipidemia, goal LDL below 70: (9) Depression with anxiety: (10) Bipolar 1 disorder: (11) COPD, moderate: (12) Anemia: Assessment and plan per Dr Young. See addendum. Plan Hypertensive urgency Likely situational BP noted to be low following admission Hold lisinopril Has been stable as of 08/31/2022 at 118/76 blood pressure remains stable Blood pressure remains on the upper side and will restart lisinopril Tremor Chronic tremors/Gait Issues Outpatient work-up negative for Parkinson disease as per family Likely secondary to Depakote and the Depakote doses have been decreased Patient takes Depakote for bipolar disorder Appreciate psychiatric input and recommendation: Buspirone has been discontinued and the patient is not getting any more meloxicam. We will continue paroxetine and risperidone as per psychiatrist Depakote is likely not the cause for the tremor Tremors have been improving and is much better today Diarrhea Metformin likely contributing to diarrhea as well Diarrhea Likely viral gastroenteritis, ? Secondary to Depakote, Metformin Stool C. difficile negative, stool PCR negative Metformin on hold We will restart metformin on discharge No more diarrhea Generalized weakness Deconditioning secondary to diarrheal illness and comorbidities Normal TSH, B12 Continue gentle IV fluids as needed Monitor volume status PT OT: Recommends SNF Fall precautions Plan to discharge to rehab facility as able Has been accepted to rehab-Will be discharged this afternoon Supratherapeutic valproic acid level Was previously on 1000 mg twice daily. Currently on 500 mg twice daily. Valproic acid 130>113>>73 No typical signs of Depakote toxicity Discussed with neurologist [employer] Dr. Portillo: Can restart once levels normalized No plan to recheck levels once normalized unless patient have symptoms like tremor, altered mental status, gait difficulty vertigo/nystagmus Check ammonia level as increased ammonia level can have similar symptoms Normal ammonia level Restarted Divalproex 500 mg twice daily on 08/26/22 Appreciate psychiatric input and valproic acid is not considered to be the cause for tremors since the dose has been decreased Continue the current dose of medications discharge Hypokalemia Hypomagnesemia Secondary to GI losses Replete electrolytes as needed After lites have been normalized We will recheck tomorrow COPD No signs of exacerbation Continue home inhalers DM II Hold oral medications HbA1C 6.5 recently Continue insulin per protocol Monitor BGs H/O mild hyperprolactinemia likely secondary to neuropsychotropic medications As per records Anxiety/mood disorder Mood at baseline Continue home medications Chronic anemia Hb at baseline Past tobacco abuse Monitor DVT Px: Lovenox SQ Code Status DNI/DNR Disposition SNF as able Will be discharged tomorrow to SNF [facility] stable to be discharged Total Time Total Time Spent Total Time Spent (In Minutes): 35 minutes Discharge Plan Discharge Items Patient Disposition: Transfer Assisted Fac Reason For Visit: HTN URG, WEAKNESS Discharge Diagnosis: Hypertensive urgency, generalized weakness, bipolar 1 disorder, worsening chronic tremors, increased valproic acid level, stable COPD Condition on Discharge: Fair Activity: Resume your previous activity Non-emergency contact: Primary Care Provider Call non-emergency contact if: you have any medication questions and your symptoms worsen Follow-up/Referrals: Cm Roberto MD [Primary Care Provider] - (Please make an appointment with your primary care provider within 7 days following discharge from the facility) Diet: Carb Consistent or DM2 Addtl Attending Provider Instructions: Please take precautions to avoid any falls Your medications have been adjusted and please take the medicines as advised Continue to have physical therapy Please keep appointment with your healthcare providers Pending Studies at Discharge: No Stand-Alone Forms: My [facility] Skilled Items Patient informed of condition?: Yes DNR: Yes Discharge Level of Care: Skilled Communicable Disease: No Discharge Prognosis: Stable Lines: None Urinary Catheter: No Medications and DC Order Prescriptions: Continued atorvastatin 80 mg Tablet 80 mg PO DAILY divalproex [Depakote] 500 mg Tablet,Delayed Release (Dr/Ec) 500 mg PO BID aspirin 81 mg Tablet,Delayed Release (Dr/Ec) 81 mg PO DAILY risperidone 2 mg Tablet 2 mg PO HS paroxetine HCl [Paxil] 30 mg Tablet 30 mg PO BID buspirone 10 mg Tablet 10 mg PO BID lisinopril 2.5 mg Tablet 2.5 mg PO DAILY Jardiance 25 mg Tablet 25 mg PO DAILY Trelegy Ellipta 200-62.5-25 mcg Blister With Device 1 inh INHALATION DAILY metformin 500 mg tablet extended release 24 hr 500 mg PO BIDM Discontinued cyclobenzaprine 10 mg Tablet 5 - 10 mg PO TID PRN (Reason: .muscle spasms) Rx Instructions: Am, noon, pm prn Discharge Orders: Discharge Order (Routine); Ordered 09/02/22 Ordered By: Johnson Katz Admission Data Admit Date/Time: 08/25/22 16:26 Attending Provider: Johnson Katz Admit Provider: Juancho Young Primary Care Provider: Cm Roberto Other Providers: Juancho Young ; [facility] ; Madison Lvoe ; Tania Barfield ; Cm Johnson ; Lan Li Other Interventions: Discharge Summary Assessment (RN) Last Done: 09/02/22 12:31
== END 2022-09-02 14:10 | DRG 392 ==
LOC: 4W 17:59 → ED 17:59 → 4W 23:10 → SUATTDRO 08-25 16:26

== ENCOUNTER 2023-01-24 20:25 | Observation (INO) ==
[2023-01-24 21:18] LABS: Appearance Urine Clear (Clear); Bilirubin Urine Negative (Negative); Blood Urine Negative (Negative); Color Urine Yellow; Glucose Urine UA 3+ (Negative); Ketones Urine Trace (Negative); Leukocyte Esterase Urine Negative (Negative); Nitrite Urine Negative (Negative); Protein Urine Negative (Negative); Specific Gravity Urine 1.027 (1.000-1.030); Urobilinogen Urine Negative (Negative); pH Urine 5.5 (4.5-7.5)
[2023-01-24 21:19] LABS: Basophils # (auto) 0.04 K/uL (0.00-0.20); Basophils % (auto) 0.3 %; Eosinophils # (auto) 0.01 K/uL (0.00-0.50); Eosinophils % (auto) 0.1 %; Hematocrit (blood only) 33.5 % (42.0-52.0); Hemoglobin 11.6 g/dl (14.0-18.0); Immature Granulocytes # (auto) 0.11 K/uL (0.01-0.20); Immature Granulocytes % (auto) 0.8 %; Lymphocytes # (auto) 0.79 K/uL (1.20-3.40); Lymphocytes % (auto) 5.6 %; Mean Corpuscular Hemoglobin 30.9 pg (25.0-34.0); Mean Corpuscular Hgb Conc 34.6 g/dL (32.0-36.0); Mean Corpuscular Volume 89.3 fL (80.0-100.0); Mean Platelet Volume 9.8 fL (9.4-12.4); Monocytes # (auto) 0.94 K/uL (0.11-0.59); Monocytes % (auto) 6.7 %; Neutrophils # (auto) 12.19 K/uL (1.40-6.50); Neutrophils % (auto) 86.5 %; Platelet Count 288 K/uL (130-400); RDW Coefficient of Variation 12.7 % (11.5-14.5); RDW Standard Deviation 41.4 fL (36.4-46.3); Red Blood Count 3.75 M/uL (4.70-6.10); White Blood Count 14.08 K/ul (4.8-10.8)
[2023-01-24 21:37] LABS: Albumin Level 3.6 gm/dl (3.4-5.0); BUN Creatinine Ratio 21.2 (10-20); Bilirubin,Total 0.4 mg/dl (0.2-1.0); Calcium 9.4 mg/dl (8.6-10.3); Creatinine Clr Calc Pharmacy 65.6 ml/min; Est GFR (African American) 74.1 ml/min; Est GFR (Non-African American) 63.9 ml/min; Globulin 3.6 gm/dl (2.5-4.0); Potassium 4.2 mmol/L (3.5-5.1); Total Protein 7.2 gm/dl (6.0-8.3)
[2023-01-24 21:43] LABS: Base Excess VBG -3.9 mEq/L; HCO3 VBG 19 mmol/L; Oxygen Saturation VBG 89.6 %; PCO2 VBG 29 mmHg (38-50); PO2 VBG 57 mmHg; pH VBG 7.43 (7.36-7.41)
--- NOTE | 2023-01-24 21:43 | XRay Report ---
SINGLE VIEW CHEST CLINICAL HISTORY: Cough. FINDINGS: 2 AP, portable, upright chest radiographs are compared to study dated 08/24/2022 and correla sven with chest CT dated 05/20/2022. The examination is degraded by portable technique and patient rota tion. The cardiomediastinal silhouette is top normal for projection. Emphysema and chronic interstit ial thickening is similar to previous. There is left basilar consolidation from pneumonia. No large p leural effusion or pneumothorax is seen. The bony thorax is grossly intact. IMPRESSION: Left basilar consolidation is typical for pneumonia. Clinical correlation will be require d and radiographic follow-up to resolution is recommended. ACT 112: Negative or not required by law. Electronically signed by: Allen Chavez M.D. 01/24/2023 9:42 PM
[2023-01-24] MEDS ORDERED: SODIUM CHLORIDE 0.9% 500 ML IV ONE (21:57)
[2023-01-24] MEDS ORDERED: DOXYCYCLINE HYCLATE 100 MG CAP PO STA (21:57)
[2023-01-24] MEDS ORDERED: cefTRIAXone SODIUM 2,000 MG/50 ML BAG IV STA (21:57)
[2023-01-24 22:04] LABS: Adenovirus PCR Not Detected (NotDetected); Bordetella parapertussis PCR Not Detected (NotDetected); Bordetella pertussis PCR Not Detected (NotDetected); Chlamydia pneumoniae PCR Not Detected (NotDetected); Coronavirus 229E PCR Not Detected (NotDetected); Coronavirus CoV-2 (COVID19)PCR Not Detected (NotDetected); Coronavirus HKU1 PCR Not Detected (NotDetected); Coronavirus NL63 PCR Not Detected (NotDetected); Coronavirus OC43PCR Not Detected (NotDetected); Human Metapneumovirus PCR Not Detected (NotDetected); Influenza A PCR Not Detected (NotDetected); Influenza B PCR Not Detected (NotDetected); Mycoplasma pneumoniae PCR Not Detected (NotDetected); Parainfluenza Virus 1 PCR Not Detected (NotDetected); Parainfluenza Virus 2 PCR Not Detected (NotDetected); Parainfluenza Virus 3 PCR Not Detected (NotDetected); Parainfluenza Virus 4 PCR Not Detected (NotDetected); Respiratory Syncytial VirusPCR Not Detected (NotDetected); Rhinovirus/Enterovirus PCR Not Detected (NotDetected)
--- NOTE | 2023-01-24 22:07 | Emergency Department Note ---
Impression & Plan LLL pneumonia, COPD (chronic obstructive pulmonary disease), Weakness, Acute hyponatremia, Hyperglycemia due to type 2 diabetes mellitus ED Provider Note Provider: Ever Santamaria MD DATE OF SERVICE: 01/24/2023 CHIEF COMPLAINT: Weak, dizzy, shortness of breath HISTORY OF PRESENT ILLNESS: Patient is a 67-year-old gentleman history of COPD, type 2 diabetes on insulin, bipolar, and hypertension presenting here today complaining about 2 days of some respiratory symptoms and feeling somewhat weak. Bit of dizziness but no syncope or falls today. States a little bit of nausea this morning but none now. Denies any diarrhea or abdominal pain. Denies significant chest pain. States he has not been short of breath. Blood sugars been a little bit high and felt more weak. Has been home for several weeks from [place] care after several month stay. Son states he was doing pretty well over the weekend but seemed more weak and fatigued this evening. Brought him here for evaluation. No sick contacts reported. Denies significant leg swelling. PAST MEDICAL HISTORY: As noted above MEDICATIONS: Reviewed home medication list took insulin just before coming in SOCIAL HISTORY: Former smoker PHYSICAL EXAM: GENERAL: alert and oriented in no acute distress on stretcher somewhat fatigued and appears Head: normocephalic and atraumatic EYES: No injection, discharge or icterus. NECK: Trachea midline. Supple. ENT: Mucous membranes pink and moist. LUNGS: Airway patent. No retractions. Breath sounds clear without significant wheezing HEART: Regular rate and rhythm. No chest wall tenderness ABDOMEN: Soft and non-tender, without guarding or rebound. SKIN: Acyanotic, warm, dry, without rashes EXTREMITIES: Without swelling, tenderness or deformity NEUROLOGICAL: No focal deficits. No aphasia. No facial droop or slurred speech. EK bpm normal sinus rhythm sinus arrhythmia. Some respiratory artifact. No clear acute ST segment elevation with a QTc of 413. CONTINUOUS CARDIAC MONITORING: was ordered and showed a heart rate of 70s to 90s bpm in normal sinus rhythm occasional sinus arrhythmia Patient's laboratory studies and imaging reviewed. Differential includes Reactive airway disease, pneumonia, pneumothorax, COPD, CHF, infections, cardiac ischemia, pulmonary embolism, musculoskeletal, gastrointestinal, as well as other pathologies. IMPRESSION/MEDICAL DECISION MAKING: Patient underlying history of COPD. Noted some high blood sugars today and feeling weak and a bit dizzy. No focal numbness or weakness or neurological deficit I doubt CVA. No falls. Not hypoxic here. Respiratory viral panel sent. X-ray appears to have findings of left lower lobe pneumonia. Slight leukocytosis. We will treat with ceftriaxone and doxycycline. Does not sound significantly wheezy and lower suspicion for big COPD component. Will defer any steroids or breathing treatments to hospitalist team at this time. Give a small mount of IV fluids as he has some hyponatremia even accounting for the mildly elevated blood glucose. Benign abdomen doubt acute intra-abdominal pathology. Troponin sent but I doubt this is cardiac in relation. Discussed with the patient and his son and believe given his age and comorbidities with these abnormalities further observation overnight is warranted and he is in agreement. Hospitalist was contacted. DIAGNOSIS: Left lower lobe pneumonia, COPD, hyponatremia, hyperglycemia secondary to type 2 diabetes, weakness DISPOSITION: Hospitalist will evaluate Patient was agreeable with this plan. Past Med/Surg History Medical History Anxiety Bipolar 1 disorder Chronic pain syndrome COPD, moderate Current tobacco use Depression Depression with anxiety Diabetes DM type 2, goal HbA1c < 7% Dyslipidemia, goal LDL below 70 Essential hypertension with goal blood pressure less than 150/90 Former smoker Paranoia Paronychia Primary osteoarthritis involving multiple joints Pulmonary nodule Surgical History History of appendectomy History of hemorrhoidectomy History of umbilical hernia repair Family History Other Family history non-contributory Social History Smoking Status: Former smoker Tobacco Type: Cigarettes Cigarettes Per Day: 20; Second Hand Exposure: No; Do You Dip or Chew Tobacco: No; Hx Alcohol Use: No Hx Substance Use: No Preferred Language: Tongan Communication Ability: Effective Phlebotomy Supervisor Required: No Beliefs That Will Affect Care: None Current Living Situation: Alone Current Living Situation Comment: lives alone - friend Cecilia helps Feels Safe at Home: Yes Assistive Devices: Cane and Walker Allergies Allergies Allergy/AdvReac Type Severity Reaction Status Date / Time No Known Allergies Allergy Verified 01/24/23 22:24 Home Meds Home Medications Medication Instructions Recorded Confirmed aspirin 81 mg tablet,delayed 81 mg PO QAM 04/13/22 01/24/23 release atorvastatin 80 mg tablet 80 mg PO QPM 04/13/22 01/24/23 buspirone 10 mg tablet 10 mg PO BID 04/13/22 01/24/23 empagliflozin 25 mg tablet 25 mg PO DAILY 04/13/22 01/24/23 (Jardiance) lisinopril 2.5 mg tablet 2.5 mg PO DAILY 04/13/22 01/24/23 paroxetine HCl 30 mg tablet (Paxil) 30 mg PO BID 04/13/22 01/24/23 risperidone 2 mg tablet 2 mg PO HS 04/13/22 01/24/23 metformin 500 mg tablet,extended 1,000 mg PO BIDM 08/24/22 01/24/23 release 24 hr dulaglutide 0.75 mg/0.5 mL 0.75 mg subcut WK 12/01/22 01/24/23 subcutaneous pen injector insulin aspart U-100 100 unit/mL 1 sliding scale dose subcut 12/01/22 01/24/23 subcutaneous solution (Novolog USEASDIRECTD U-100 Insulin aspart) acetaminophen 325 mg tablet 650 mg PO Q6H PRN Pain 01/24/23 01/24/23 (Tylenol) cyclobenzaprine 5 mg tablet 0 mg PO DIRECTED PRN MUSCLE 01/24/23 01/24/23 SPASMS ipratropium 0.5 mg-albuterol 3 mg 3 ml inhalation Q2H PRN shortness 01/24/23 01/24/23 (2.5 mg base)/3 mL nebulization of breath or wheezing soln loperamide 2 mg tablet (Imodium 2 mg PO DIRECTED PRN Diarrhea 01/24/23 01/24/23 A-D) meloxicam 15 mg tablet 15 mg PO DAILY PRN Pain 01/24/23 01/24/23 Previous Rx's Medication Instructions Recorded albuterol sulfate 90 mcg/actuation 2 puff inhalation Q6H PRN 12/01/22 aerosol inhaler Shortness Of Breath Or Wheezing #18 grams fluticasone fur. 200 mcg-umeclid 1 inh inhalation DAILY #60 ea 12/01/22 62.5 mcg-vilant 25 mcg inhalat.powder (Trelegy Ellipta) Results & Data (ED) Vital Signs Vital Signs - 24 hr 01/24/23 20:17 01/24/23 20:40 01/24/23 22:05 Temperature 36.4 C L Temperature Source Oral Pulse Rate 90 91 H Pulse Rate [Apical] 85 Respiratory Rate 29 H 25 H Blood Pressure 134/86 Blood Pressure [Left Arm] 139/75 Blood Pressure Mean 102 Blood Pressure Mean [Left Arm] 96 Pulse Oximetry 94 94 Oxygen Delivery Method Room Air Sepsis Recent Fever Within 48 Hours No Sepsis New/Unexplained Change in Mental Status No Sepsis Action Taken by Nursing No Action Required Laboratory Data 01/24/23 20:56 01/24/23 20:56 Lab Results 01/24/23 01/24/23 01/24/23 Range/Units 20:35 20:56 20:56 WBC 14.08 H (4.8-10.8) K/ul RBC 3.75 L (4.70-6.10) M/uL Hgb 11.6 L (14.0-18.0) g/dl Hct 33.5 L (42.0-52.0) % MCV 89.3 (80.0-100.0) fL MCH 30.9 (25.0-34.0) pg MCHC 34.6 (32.0-36.0) g/dL RDW Std Deviation 41.4 (36.4-46.3) fL RDW Coeff of Keila 12.7 (11.5-14.5) % Plt Count 288 (130-400) K/uL MPV 9.8 (9.4-12.4) fL Immature Gran % (Auto) 0.8 % Neut % (Auto) 86.5 % Lymph % (Auto) 5.6 % [place] % (Auto) 6.7 % Eos % (Auto) 0.1 % Baso % (Auto) 0.3 % Neut # (Auto) 12.19 H (1.40-6.50) K/uL Lymph # (Auto) 0.79 L (1.20-3.40) K/uL [place] # (Auto) 0.94 H (0.11-0.59) K/uL Eos # (Auto) 0.01 (0.00-0.50) K/uL Baso # (Auto) 0.04 (0.00-0.20) K/uL Immature Gran # (Auto) 0.11 (0.01-0.20) K/uL VBG pH (7.36-7.41) VBG pCO2 (38-50) mmHg VBG pO2 mmHg VBG HCO3 mmol/L VBG O2 Saturation % VBG Base Excess mEq/L Sodium 126 L (136-145) mmol/L Potassium 4.2 (3.5-5.1) mmol/L Chloride 99 (98-107) mmol/L Carbon Dioxide 19 L (21-32) mmol/L Anion Gap 8 (3-11) BUN 25 H (6-23) mg/dl Creatinine 1.18 (0.6-1.4) mg/dl Est Cr Clr Drug Dosing 65.6 ml/min Est GFR ( Amer) 74.1 ml/min Est GFR (Non-Af Amer) 63.9 ml/min BUN/Creatinine Ratio 21.2 H (10-20) Glucose 277 H (70-99(Fasting)) mg/dl POC Glucose 295 H (70-99) mg/dl Calcium 9.4 (8.6-10.3) mg/dl Total Bilirubin 0.4 (0.2-1.0) mg/dl AST 9 L (13-39) U/L ALT 11 (7-52) U/L Alkaline Phosphatase 109 H (34-104) U/L Troponin I High Sens 11.0 (0-20) pg/ml Total Protein 7.2 (6.0-8.3) gm/dl Albumin 3.6 (3.4-5.0) gm/dl Globulin 3.6 (2.5-4.0) gm/dl Albumin/Globulin Ratio 1.0 (0.9-2) Urine Color Urine Appearance (Clear) Urine pH (4.5-7.5) Ur Specific [place] (1.000-1.030) Urine Protein (Negative) Urine Glucose (UA) (Negative) Urine Ketones (Negative) Urine Blood (Negative) Urine Nitrite (Negative) Urine Bilirubin (Negative) Urine Urobilinogen (Negative) Ur Leukocyte Esterase (Negative) Adenovirus (PCR) (NotDetected) B. pertussis DNA (PCR) (NotDetected) B.parapertussis DNA PCR (NotDetected) C. pneumoniae DNA (PCR) (NotDetected) Coronavirus OC43 (PCR) (NotDetected) Coronavirus HKU1 (PCR) (NotDetected) Coronavirus 229E (PCR) (NotDetected) SARS-CoV-2 (PCR) (NotDetected) Coronavirus NL63 (PCR) (NotDetected) Human Metapneumovir PCR (NotDetected) Influenza Type A (PCR) (NotDetected) Influenza Type B (PCR) (NotDetected) M. pneumoniae (PCR) (NotDetected) Parainfluenza 1 (PCR) (NotDetected) Parainfluenza 2 (PCR) (NotDetected) Parainfluenza 3 (PCR) (NotDetected) Parainfluenza 4 (PCR) (NotDetected) RSV (PCR) (NotDetected) Entero/Rhino (PCR) (NotDetected) 01/24/23 01/24/23 01/24/23 Range/Units 20:56 20:56 21:36 WBC (4.8-10.8) K/ul RBC (4.70-6.10) M/uL Hgb (14.0-18.0) g/dl Hct (42.0-52.0) % MCV (80.0-100.0) fL MCH (25.0-34.0) pg MCHC (32.0-36.0) g/dL RDW Std Deviation (36.4-46.3) fL RDW Coeff of Keila (11.5-14.5) % Plt Count (130-400) K/uL MPV (9.4-12.4) fL Immature Gran % (Auto) % Neut % (Auto) % Lymph % (Auto) % [place] % (Auto) % Eos % (Auto) % Baso % (Auto) % Neut # (Auto) (1.40-6.50) K/uL Lymph # (Auto) (1.20-3.40) K/uL [place] # (Auto) (0.11-0.59) K/uL Eos # (Auto) (0.00-0.50) K/uL Baso # (Auto) (0.00-0.20) K/uL Immature Gran # (Auto) (0.01-0.20) K/uL VBG pH 7.43 H (7.36-7.41) VBG pCO2 29 L (38-50) mmHg VBG pO2 57 mmHg VBG HCO3 19 mmol/L VBG O2 Saturation 89.6 % VBG Base Excess -3.9 mEq/L Sodium (136-145) mmol/L Potassium (3.5-5.1) mmol/L Chloride (98-107) mmol/L Carbon Dioxide (21-32) mmol/L Anion Gap (3-11) BUN (6-23) mg/dl Creatinine (0.6-1.4) mg/dl Est Cr Clr Drug Dosing ml/min Est GFR ( Amer) ml/min Est GFR (Non-Af Amer) ml/min BUN/Creatinine Ratio (10-20) Glucose (70-99(Fasting)) mg/dl POC Glucose (70-99) mg/dl Calcium (8.6-10.3) mg/dl Total Bilirubin (0.2-1.0) mg/dl AST (13-39) U/L ALT (7-52) U/L Alkaline Phosphatase (34-104) U/L Troponin I High Sens (0-20) pg/ml Total Protein (6.0-8.3) gm/dl Albumin (3.4-5.0) gm/dl Globulin (2.5-4.0) gm/dl Albumin/Globulin Ratio (0.9-2) Urine Color Yellow Urine Appearance Clear (Clear) Urine pH 5.5 (4.5-7.5) Ur Specific [place] 1.027 (1.000-1.030) Urine Protein Negative (Negative) Urine Glucose (UA) 3+ H (Negative) Urine Ketones Trace H (Negative) Urine Blood Negative (Negative) Urine Nitrite Negative (Negative) Urine Bilirubin Negative (Negative) Urine Urobilinogen Negative (Negative) Ur Leukocyte Esterase Negative (Negative) Adenovirus (PCR) Not Detected (NotDetected) B. pertussis DNA (PCR) Not Detected (NotDetected) B.parapertussis DNA PCR Not Detected (NotDetected) C. pneumoniae DNA (PCR) Not Detected (NotDetected) Coronavirus OC43 (PCR) Not Detected (NotDetected) Coronavirus HKU1 (PCR) Not Detected (NotDetected) Coronavirus 229E (PCR) Not Detected (NotDetected) SARS-CoV-2 (PCR) Not Detected (NotDetected) Coronavirus NL63 (PCR) Not Detected (NotDetected) Human Metapneumovir PCR Not Detected (NotDetected) Influenza Type A (PCR) Not Detected (NotDetected) Influenza Type B (PCR) Not Detected (NotDetected) M. pneumoniae (PCR) Not Detected (NotDetected) Parainfluenza 1 (PCR) Not Detected (NotDetected) Parainfluenza 2 (PCR) Not Detected (NotDetected) Parainfluenza 3 (PCR) Not Detected (NotDetected) Parainfluenza 4 (PCR) Not Detected (NotDetected) RSV (PCR) Not Detected (NotDetected) Entero/Rhino (PCR) Not Detected (NotDetected) Administered Medications Discontinued Medications Doxycycline Hyclate (Doxycycline Hyclate 100 Mg Cap) 100 mg PO NOW STA Stop: 01/24/23 21:58 Last Admin: 01/24/23 22:06 Dose: 100 mg Documented By: MANOJ Ceftriaxone Sodium (Rocephin) 2,000 mg in 50 mls @ 100 mls/hr IV NOW STA Stop: 01/24/23 22:26 Last Admin: 01/24/23 22:06 Dose: 100 mls/hr Documented By: MANOJ Sodium Chloride (Nss) 500 mls @ 999 mls/hr IV .Q31M ONE Stop: 01/24/23 22:27 Last Admin: 01/24/23 22:06 Dose: 999 mls/hr Documented By: MANOJ Imaging Data Radiologist's Impression: Chest X-Ray 01/24/23 21:04 SINGLE VIEW CHEST CLINICAL HISTORY: Cough. FINDINGS: 2 AP, portable, upright chest radiographs are compared to study dated 08/24/2022 and correlated with chest CT dated 05/20/2022. The examination is degraded by portable technique and patient rotation. The cardiomediastinal silhouette is top normal for projection. Emphysema and chronic interstitial thickening is similar to previous. There is left basilar consolidation from pneumonia. No large pleural effusion or pneumothorax is seen. The bony thorax is grossly intact. IMPRESSION: Left basilar consolidation is typical for pneumonia. Clinical correlation will be required and radiographic follow-up to resolution is recommended. ACT 112: Negative or not required by law. Electronically signed by: Allen Chavez M.D. 01/24/2023 9:42 PM Discharge Plan Visit Data Chief Complaint: Hyperglycemia Stated Complaint: Hyperglycemia, Weakness ED Provider: Ever Santamaria Discharge Problem: LLL pneumonia, COPD (chronic obstructive pulmonary disease), Weakness, Acute hyponatremia, Hyperglycemia due to type 2 diabetes mellitus Patient Disposition: Being Evaluated by Hospitalist Forms Stand Alone Forms: My [facility] Prescriptions Prescriptions: No Action insulin aspart U-100 [Novolog U-100 Insulin aspart] 100 unit/mL solution 1 sliding scale dose subcut USEASDIRECTD Rx Instructions: BSG 200-249=4 UNITS, 250-299=6 UNITS, 300-349=8 UNITS, 350-399=10 UNITS, 400- 449=12 UNITS, 450-499=14 UNITS, >450=16 UNITS. dulaglutide 0.75 mg/0.5 mL pen injector 0.75 mg subcut WK Rx Instructions: THURSDAYS Trelegy Ellipta 200-62.5-25 mcg blister with device 1 inh INHALATION DAILY Qty: 60 10RF albuterol sulfate 90 mcg/actuation HFA aerosol inhaler 2 puff inhalation Q6H PRN (Reason: Shortness Of Breath Or Wheezing) Qty: 18 3RF acetaminophen [Tylenol] 325 mg Tablet 650 mg PO Q6H PRN (Reason: Pain) meloxicam 15 mg Tablet 15 mg PO DAILY PRN (Reason: Pain) loperamide [Imodium A-D] 2 mg Tablet 2 mg PO DIRECTED PRN (Reason: Diarrhea) cyclobenzaprine [Flexeril] 5 mg Tablet 0 mg PO DIRECTED PRN (Reason: MUSCLE SPASMS) Rx Instructions: UNSURE OF STRENGTH, UNABLE TO VERIFY ipratropium-albuterol 0.5 mg-3 mg(2.5 mg base)/3 mL solution for nebulization 3 ml inhalation Q2H PRN (Reason: shortness of breath or wheezing) atorvastatin 80 mg Tablet 80 mg PO QPM aspirin 81 mg Tablet,Delayed Release (Dr/Ec) 81 mg PO QAM risperidone 2 mg Tablet 2 mg PO HS paroxetine HCl [Paxil] 30 mg Tablet 30 mg PO BID buspirone 10 mg Tablet 10 mg PO BID lisinopril 2.5 mg Tablet 2.5 mg PO DAILY Jardiance 25 mg Tablet 25 mg PO DAILY metformin 500 mg tablet extended release 24 hr 1,000 mg PO BIDM Referrals Referrals: Cm Roberto MD [Primary Care Provider] - LLL pneumonia Qualifiers: Pneumonia type: due to unspecified organism Qualified Code(s): J18.9 - Pneumonia, unspecified organism Hyperglycemia due to type 2 diabetes mellitus Qualifiers: Diabetes mellitus penitentiary insulin use: with superintendent container terminal use Qualified Code(s): E11.65 - Type 2 diabetes mellitus with hyperglycemia
[2023-01-24] MEDS ORDERED: CYCLOBENZAPRINE HCL 10 MG TAB PO STA (22:37)
--- NOTE | 2023-01-24 23:39 | History & Physical Report ---
Date of Service January 24, 2023 Assessment & Plan (1) Weakness: Plan: 67-year-old male with past medical significant for type 2 diabetes, hyperlipidemia, diabetic peripheral angiopathy, hyperprolactinemia, COPD moderate, hypertension, osteoarthritis, chronic pain syndrome, bipolar 1 disorder, generalized anxiety, presents with weakness and cough for last 2 days and found with pneumonia and hyponatremia. Pneumonia Weakness Cough Started empiric Rocephin and Doxy We will monitor the response Hyponatremia Possible contributing to weakness Sodium of 126 Getting gentle fluids We will closely follow the labs We will follow urine osmolality, serum osmolality and urine sodium levels Nephrology consult in a.m. History of COPD Currently not smoking Currently no wheezing heard Patient denies shortness of breath Continues home inhalers and nebs as needed Diabetes Hold metformin and Jardiance Insulin sliding scale Further blood sugars and HbA1c levels History of bipolar disorder Continue risperidone and Paxil and buspirone Hyperlipidemia On statin Hypertension Lisinopril DVT prophylaxis Lovenox Disposition Med/telemetry Full code History of Present Illness Chief Complaint: Weakness Primary Care Provider: Cm Roberto MD 67-year-old male with past medical significant for type 2 diabetes, hyperlipidemia, diabetic peripheral angiopathy, hyperprolactinemia, COPD moderate, hypertension, osteoarthritis, chronic pain syndrome, bipolar 1 disorder, generalized anxiety, presents with weakness and cough for last 2 days. Denies any fevers. No shortness of breath. No chest pain. No headache. No blurred visions. No headaches. No runny nose. No sore throat. Appetite is okay. No nausea or vomiting. No abdominal pain. Normal bowel and bladder movements. No blood in the stools. Currently resting comfortably and hemodynamically stable. Past med history. As mentioned above. Past surgical history. Colonoscopy. Injection lumbosacral spine. Appendectomy. Umbilical hernia repair. Social history. Lives alone. Family lives close by. Quit smoking in 2018's. Smoked quarter pack a day for many years. No alcohol use. No drug use. Family history. No family history on file. Allergies Allergy/AdvReac Type Severity Reaction Status Date / Time No Known Allergies Allergy Verified 01/24/23 22:24 Home Medications Medication Instructions Recorded Confirmed Type aspirin 81 mg tablet,delayed 81 mg PO QAM 04/13/22 01/24/23 History release atorvastatin 80 mg tablet 80 mg PO QPM 04/13/22 01/24/23 History buspirone 10 mg tablet 10 mg PO BID 04/13/22 01/24/23 History empagliflozin 25 mg tablet 25 mg PO DAILY 04/13/22 01/24/23 History (Jardiance) lisinopril 2.5 mg tablet 2.5 mg PO DAILY 04/13/22 01/24/23 History paroxetine HCl 30 mg tablet (Paxil) 30 mg PO BID 04/13/22 01/24/23 History risperidone 2 mg tablet 2 mg PO HS 04/13/22 01/24/23 History metformin 500 mg tablet,extended 1,000 mg PO BIDM 08/24/22 01/24/23 History release 24 hr albuterol sulfate 90 mcg/actuation 2 puff inhalation Q6H PRN 12/01/22 01/24/23 Rx aerosol inhaler Shortness Of Breath Or Wheezing #18 grams dulaglutide 0.75 mg/0.5 mL 0.75 mg subcut WK 12/01/22 01/24/23 History subcutaneous pen injector fluticasone fur. 200 mcg-umeclid 1 inh inhalation DAILY #60 ea 12/01/22 01/24/23 Rx 62.5 mcg-vilant 25 mcg inhalat.powder (Trelegy Ellipta) insulin aspart U-100 100 unit/mL 1 sliding scale dose subcut 12/01/22 01/24/23 History subcutaneous solution (Novolog USEASDIRECTD U-100 Insulin aspart) acetaminophen 325 mg tablet 650 mg PO Q6H PRN Pain 01/24/23 01/24/23 History (Tylenol) cyclobenzaprine 5 mg tablet 0 mg PO DIRECTED PRN MUSCLE 01/24/23 01/24/23 History SPASMS ipratropium 0.5 mg-albuterol 3 mg 3 ml inhalation Q2H PRN shortness 01/24/23 01/24/23 History (2.5 mg base)/3 mL nebulization of breath or wheezing soln loperamide 2 mg tablet (Imodium 2 mg PO DIRECTED PRN Diarrhea 01/24/23 01/24/23 History A-D) meloxicam 15 mg tablet 15 mg PO DAILY PRN Pain 01/24/23 01/24/23 History Past Med/Surg History Medical History Anxiety Bipolar 1 disorder Chronic pain syndrome COPD, moderate Current tobacco use Depression Depression with anxiety Diabetes DM type 2, goal HbA1c < 7% Dyslipidemia, goal LDL below 70 Essential hypertension with goal blood pressure less than 150/90 Former smoker Paranoia Paronychia Primary osteoarthritis involving multiple joints Pulmonary nodule Surgical History History of appendectomy History of hemorrhoidectomy History of umbilical hernia repair Family History Other Family history non-contributory Social History Smoking Status: Former smoker Tobacco Type: Cigarettes Cigarettes Per Day: 20; Second Hand Exposure: No; Do You Dip or Chew Tobacco: No; Tobacco Cessation Education Requested by Patient: No Hx Alcohol Use: No Hx Substance Use: No Preferred Language: [place] Communication Ability: Effective Developer Evangelist Required: No Beliefs That Will Affect Care: None Current Living Situation: Alone Current Living Situation Comment: lives alone - friend Cecilia helps Other Information That Helps Us Care for You: No Feels Safe at Home: Yes Safety Concerns: Feels Safe At This Time Assistive Devices: None Assistive Devices Comment: cane/walker Review of Systems Review of Systems: All systems reviewed & are unremarkable except as noted in HPI & below Physical Exam Physical Exam: General- Not in distress Head- atraumatic Eyes- PERRL. ENT- oropharynx clear Neck- supple, no JVD. Lungs- clear to auscultation , no wheezing or crackles. Heart- regular rate and rhythm; no murmur, no gallop. Abdomen- normal bowel sounds, soft, nontender, no distension. Extremities- no pretibial edema, no erythema seen. Neuro- alert, oriented x 3; PERRL, no facial palsy; no dysarthria; moves extremities. Skin- warm & dry Results & Data Results & Data Vital Signs (Past 12 Hours) Vital Signs Temp Pulse Pulse Resp BP BP Pulse Ox 01/24/23 22:05 85 25 H 139/75 94 01/24/23 20:40 91 H 01/24/23 20:17 36.4 C L 90 29 H 134/86 94 O2 Del Method 01/24/23 22:05 01/24/23 20:40 01/24/23 20:17 Room Air Diagnostic Findings Laboratory Results WBC 14.08 K/ul (4.8-10.8) H 01/24/23 20:56 RBC 3.75 M/uL (4.70-6.10) L 01/24/23 20:56 Hgb 11.6 g/dl (14.0-18.0) L 01/24/23 20:56 Hct 33.5 % (42.0-52.0) L 01/24/23 20:56 MCV 89.3 fL (80.0-100.0) 01/24/23 20:56 MCH 30.9 pg (25.0-34.0) 01/24/23 20:56 MCHC 34.6 g/dL (32.0-36.0) 01/24/23 20:56 RDW Std Deviation 41.4 fL (36.4-46.3) 01/24/23 20:56 RDW Coeff of Keila 12.7 % (11.5-14.5) 01/24/23 20:56 Plt Count 288 K/uL (130-400) 01/24/23 20:56 MPV 9.8 fL (9.4-12.4) 01/24/23 20:56 Immature Gran % (Auto) 0.8 % 01/24/23 20:56 Neut % (Auto) 86.5 % 01/24/23 20:56 Lymph % (Auto) 5.6 % 01/24/23 20:56 [place] % (Auto) 6.7 % 01/24/23 20:56 Eos % (Auto) 0.1 % 01/24/23 20:56 Baso % (Auto) 0.3 % 01/24/23 20:56 Neut # (Auto) 12.19 K/uL (1.40-6.50) H 01/24/23 20:56 Lymph # (Auto) 0.79 K/uL (1.20-3.40) L 01/24/23 20:56 [place] # (Auto) 0.94 K/uL (0.11-0.59) H 01/24/23 20:56 Eos # (Auto) 0.01 K/uL (0.00-0.50) 01/24/23 20:56 Baso # (Auto) 0.04 K/uL (0.00-0.20) 01/24/23 20:56 Immature Gran # (Auto) 0.11 K/uL (0.01-0.20) 01/24/23 20:56 VBG pH 7.43 (7.36-7.41) H 01/24/23 21:36 VBG pCO2 29 mmHg (38-50) L 01/24/23 21:36 VBG pO2 57 mmHg 01/24/23 21:36 VBG HCO3 19 mmol/L 01/24/23 21:36 VBG O2 Saturation 89.6 % 01/24/23 21:36 VBG Base Excess -3.9 mEq/L 01/24/23 21:36 Sodium 126 mmol/L (136-145) L 01/24/23 20:56 Potassium 4.2 mmol/L (3.5-5.1) 01/24/23 20:56 Chloride 99 mmol/L (98-107) 01/24/23 20:56 Carbon Dioxide 19 mmol/L (21-32) L 01/24/23 20:56 Anion Gap 8 (3-11) 01/24/23 20:56 BUN 25 mg/dl (6-23) H 01/24/23 20:56 Creatinine 1.18 mg/dl (0.6-1.4) 01/24/23 20:56 Est Cr Clr Drug Dosing 65.6 ml/min 01/24/23 20:56 Est GFR ( Amer) 74.1 ml/min 01/24/23 20:56 Est GFR (Non-Af Amer) 63.9 ml/min 01/24/23 20:56 BUN/Creatinine Ratio 21.2 (10-20) H 01/24/23 20:56 Glucose 277 mg/dl (70-99(Fasting)) H 01/24/23 20:56 POC Glucose 295 mg/dl (70-99) H 01/24/23 20:35 Calcium 9.4 mg/dl (8.6-10.3) 01/24/23 20:56 Total Bilirubin 0.4 mg/dl (0.2-1.0) 01/24/23 20:56 AST 9 U/L (13-39) L 01/24/23 20:56 ALT 11 U/L (7-52) 01/24/23 20:56 Alkaline Phosphatase 109 U/L (34-104) H 01/24/23 20:56 Troponin I High Sens 11.0 pg/ml (0-20) 01/24/23 20:56 Total Protein 7.2 gm/dl (6.0-8.3) 01/24/23 20:56 Albumin 3.6 gm/dl (3.4-5.0) 01/24/23 20:56 Globulin 3.6 gm/dl (2.5-4.0) 01/24/23 20:56 Albumin/Globulin Ratio 1.0 (0.9-2) 01/24/23 20:56 Urine Color Yellow 01/24/23 20:56 Urine Appearance Clear (Clear) 01/24/23 20:56 Urine pH 5.5 (4.5-7.5) 01/24/23 20:56 Ur Specific [place] 1.027 (1.000-1.030) 01/24/23 20:56 Urine Protein Negative (Negative) 01/24/23 20:56 Urine Glucose (UA) 3+ (Negative) H 01/24/23 20:56 Urine Ketones Trace (Negative) H 01/24/23 20:56 Urine Blood Negative (Negative) 01/24/23 20:56 Urine Nitrite Negative (Negative) 01/24/23 20:56 Urine Bilirubin Negative (Negative) 01/24/23 20:56 Urine Urobilinogen Negative (Negative) 01/24/23 20:56 Ur Leukocyte Esterase Negative (Negative) 01/24/23 20:56 Adenovirus (PCR) Not Detected (NotDetected) 01/24/23 20:56 B. pertussis DNA (PCR) Not Detected (NotDetected) 01/24/23 20:56 B.parapertussis DNA PCR Not Detected (NotDetected) 01/24/23 20:56 C. pneumoniae DNA (PCR) Not Detected (NotDetected) 01/24/23 20:56 Coronavirus OC43 (PCR) Not Detected (NotDetected) 01/24/23 20:56 Coronavirus HKU1 (PCR) Not Detected (NotDetected) 01/24/23 20:56 Coronavirus 229E (PCR) Not Detected (NotDetected) 01/24/23 20:56 SARS-CoV-2 (PCR) Not Detected (NotDetected) 01/24/23 20:56 Coronavirus NL63 (PCR) Not Detected (NotDetected) 01/24/23 20:56 Human Metapneumovir PCR Not Detected (NotDetected) 01/24/23 20:56 Influenza Type A (PCR) Not Detected (NotDetected) 01/24/23 20:56 Influenza Type B (PCR) Not Detected (NotDetected) 01/24/23 20:56 M. pneumoniae (PCR) Not Detected (NotDetected) 01/24/23 20:56 Parainfluenza 1 (PCR) Not Detected (NotDetected) 01/24/23 20:56 Parainfluenza 2 (PCR) Not Detected (NotDetected) 01/24/23 20:56 Parainfluenza 3 (PCR) Not Detected (NotDetected) 01/24/23 20:56 Parainfluenza 4 (PCR) Not Detected (NotDetected) 01/24/23 20:56 RSV (PCR) Not Detected (NotDetected) 01/24/23 20:56 Entero/Rhino (PCR) Not Detected (NotDetected) 01/24/23 20:56 Impressions Chest X-Ray 01/24/23 21:04 SINGLE VIEW CHEST CLINICAL HISTORY: Cough. FINDINGS: 2 AP, portable, upright chest radiographs are compared to study dated 08/24/2022 and correlated with chest CT dated 05/20/2022. The examination is degraded by portable technique and patient rotation. The cardiomediastinal silhouette is top normal for projection. Emphysema and chronic interstitial thickening is similar to previous. There is left basilar consolidation from pneumonia. No large pleural effusion or pneumothorax is seen. The bony thorax is grossly intact. IMPRESSION: Left basilar consolidation is typical for pneumonia. Clinical correlation will be required and radiographic follow-up to resolution is recommended. ACT 112: Negative or not required by law. Electronically signed by: Allen Chavez M.D. 01/24/2023 9:42 PM ECG Additional Comments: ECG. Normal sinus rhythm with sinus arrhythmia rate of 89. No acute ST seen. Code Status & VTE Plan VTE Prophylaxis Plan VTE Prophylaxis will be ordered: Yes
[2023-01-25] MEDS ORDERED: GLUCOSE 40% GEL 15 GM TUBE PO PRN (01:59)
[2023-01-25] MEDS ORDERED: ACETAMINOPHEN 325 MG TAB PO PRN (01:59)
[2023-01-25] MEDS ORDERED: GLUCAGON FOR INJ 1 MG VIAL SQ PRN (01:59)
[2023-01-25] MEDS ORDERED: ALBUT/IPRATROP 3MG/0.5MG NEB 3 ML VIAL INH PRN (01:59)
[2023-01-25] MEDS ORDERED: CARBOHYDRATES FOR HYPOGLYCEMIA PO PRN (01:59)
[2023-01-25] MEDS ORDERED: GLUCOSE 10 TAB/TUBE PO PRN (01:59)
[2023-01-25] MEDS ORDERED: ALBUTEROL HFA 8 GM INHALER INH PRN (01:59)
[2023-01-25] MEDS ORDERED: CYCLOBENZAPRINE HCL 10 MG TAB PO PRN (01:59)
[2023-01-25] MEDS ORDERED: POLYETHYLENE (MIRALAX) 17 GM PACK PO PRN (01:59)
[2023-01-25] MEDS ORDERED: NITROGLYCERIN SL 0.4 MG/TAB TAB SL PRN (01:59)
[2023-01-25] MEDS ORDERED: DEXTROSE 50% 50 ML SYRINGE IV PRN (01:59)
[2023-01-25] MEDS: SODIUM CHLORIDE 0.9% 1,000 ML IV SCH ×2 (03:08→15:53)
[2023-01-25 05:14] LABS: Basophils # (auto) 0.02 K/uL (0.00-0.20); Basophils % (auto) 0.1 %; Eosinophils # (auto) 0.01 K/uL (0.00-0.50); Eosinophils % (auto) 0.1 %; Hematocrit (blood only) 33.5 % (42.0-52.0); Hemoglobin 11.2 g/dl (14.0-18.0); Immature Granulocytes # (auto) 0.11 K/uL (0.01-0.20); Immature Granulocytes % (auto) 0.6 %; Lymphocytes # (auto) 0.97 K/uL (1.20-3.40); Lymphocytes % (auto) 5.5 %; Mean Corpuscular Hemoglobin 30.7 pg (25.0-34.0); Mean Corpuscular Hgb Conc 33.4 g/dL (32.0-36.0); Mean Corpuscular Volume 91.8 fL (80.0-100.0); Mean Platelet Volume 9.6 fL (9.4-12.4); Monocytes # (auto) 1.26 K/uL (0.11-0.59); Monocytes % (auto) 7.2 %; Neutrophils # (auto) 15.24 K/uL (1.40-6.50); Neutrophils % (auto) 86.5 %; Platelet Count 288 K/uL (130-400); RDW Coefficient of Variation 12.8 % (11.5-14.5); RDW Standard Deviation 43.1 fL (36.4-46.3); Red Blood Count 3.65 M/uL (4.70-6.10); White Blood Count 17.61 K/ul (4.8-10.8)
[2023-01-25 05:30] LABS: Creatinine Clr Calc Pharmacy 62.9 ml/min; Est GFR (African American) 75.6 ml/min; Est GFR (Non-African American) 65.3 ml/min; Magnesium 1.9 mg/dl (1.7-2.4); Potassium 4.5 mmol/L (3.5-5.1)
[2023-01-25 07:56] LABS: Estimated Average Glucose 329 mg/dl; Hemoglobin A1C 13.1 % (4.5-5.6)
[2023-01-25] MEDS ORDERED: PHARMACY GLYCEMIC MGMT CONSULT PRN (08:32)
[2023-01-25] MEDS: INSULIN ASPART PER UNIT CHARGE SC SCH ×4 (08:52→20:42)
--- NOTE | 2023-01-25 08:53 | Electrocardiogram Report ---
Test Reason : Blood Pressure : / mmHG Vent. Rate : 089 BPM Atrial Rate : 089 BPM P-R Int : 134 ms QRS Dur : 102 ms QT Int : 340 ms P-R-T Axes : 078 018 057 degrees QTc Int : 413 ms Normal sinus rhythm with PACs Abnormal ECG When compared with ECG of 24-AUG-2022 18:13, QRS axis Shifted right Confirmed by Deep Huffman ([id number]) on 01/25/2023 8:52:42 AM Referred By: REFERRED SELF Confirmed By:Rasta Huffman
[2023-01-25] MEDS: DOXYCYCLINE HYCLATE 100 MG in DEXTROSE 5% MINI-B 100 ML IV SCH ×2 (08:56→20:30)
[2023-01-25] MEDS ORDERED: LANTUS PER UNIT CHARGE SC ONE (09:00)
[2023-01-25] MEDS ORDERED: NON-FORMULARY MEDICATION (Fluticasone-Umeclidin-Vilanter [Trelegy Ellipta] 200-62.5-25 mcg INH SCH (09:00)
[2023-01-25] MEDS: ENOXAPARIN INJ 40 MG/0.4 ML SYR SQ SCH (09:00)
[2023-01-25] MEDS: lisinopril 2.5 MG TAB PO SCH (09:03)
[2023-01-25] MEDS: busPIRone 5 MG TAB PO SCH ×2 (09:03→20:28)
[2023-01-25] MEDS: PARoxetine HCL 20 MG TAB PO SCH ×2 (09:03→20:29)
[2023-01-25] MEDS: ASPIRIN 81 MG ECTAB PO SCH (09:05)
[2023-01-25] MEDS: UMECLIDINIUM/VILANTEROL 62.5/25MCG 7 PUFFS/INHALER INH SCH (09:08)
[2023-01-25] MEDS: FLUTICASONE FUROATE 200MCG 14 PUFFS/INHALER INH SCH (09:08)
--- NOTE | 2023-01-25 10:55 | Nephrology Consultation ---
Date of Consultation January 25, 2023 Assessment & Plan (1) Acute hyponatremia: It seems sodium has been running somewhat low for the last few months. This is probably multifactorial related with hyperglycemia as well as very excessive water intake. He was drinking close to 200 ounce of water per day but he is also on Jardiance. In any case sodium has gone up nicely from 126 to 130 with the use of normal saline so would continue the same. Rate of correction is appropriate. Did explain to the patient that when there is persistent hyperglycemia it does cause sodium to go low because of pseudohyponatremia of hyperglycemia. (2) Hyperglycemia due to type 2 diabetes mellitus: Hemoglobin A1c was 13% plus which is obviously very high. Would need persistent sustained control glucose. (3) LLL pneumonia: On antibiotic. Also not unusual to have slightly low sodium in the setting of pneumonia especially in patients with underlying COPD History of Present Illness Reason for Consultation: Hyponatremia Attending Physician: Lan Li MD History of Present Illness 67/M with 30+ years of type 2 diabetes, diabetic peripheral angiopathy, hyperprolactinemia, COPD moderate, hypertension, osteoarthritis, chronic pain syndrome, bipolar 1 disorder, generalized anxiety, presented with weakness and cough for last 2 days. Work-up showed hyponatremia with a serum glucose of 126 and also lobar pneumonia. He got normal saline and with that sodium has gone up to 130 this morning. His hemoglobin A1c was 13% and reports that his sugar has been running high lately. He is getting normal saline at 75 mill per hour and antibiotic. At home he claims he was eating normal diet but he was drinking close to 260 ounce of water per day. Denies any urinary complaints and denies any GI complaint. No fever shortness of breath chest pain orthopnea PND lower extremity edema headache or really any other symptoms. He feels he is little stronger today than yesterday Allergies Allergy/AdvReac Type Severity Reaction Status Date / Time No Known Allergies Allergy Verified 01/24/23 22:24 Home Medications Medication Instructions Recorded Confirmed Type aspirin 81 mg tablet,delayed 81 mg PO QAM 04/13/22 01/24/23 History release atorvastatin 80 mg tablet 80 mg PO QPM 04/13/22 01/24/23 History buspirone 10 mg tablet 10 mg PO BID 04/13/22 01/24/23 History empagliflozin 25 mg tablet 25 mg PO DAILY 04/13/22 01/24/23 History (Jardiance) lisinopril 2.5 mg tablet 2.5 mg PO DAILY 04/13/22 01/24/23 History paroxetine HCl 30 mg tablet (Paxil) 30 mg PO BID 04/13/22 01/24/23 History risperidone 2 mg tablet 2 mg PO HS 04/13/22 01/24/23 History metformin 500 mg tablet,extended 1,000 mg PO BIDM 08/24/22 01/24/23 History release 24 hr albuterol sulfate 90 mcg/actuation 2 puff inhalation Q6H PRN 12/01/22 01/24/23 Rx aerosol inhaler Shortness Of Breath Or Wheezing #18 grams dulaglutide 0.75 mg/0.5 mL 0.75 mg subcut WK 12/01/22 01/24/23 History subcutaneous pen injector fluticasone fur. 200 mcg-umeclid 1 inh inhalation DAILY #60 ea 12/01/22 01/24/23 Rx 62.5 mcg-vilant 25 mcg inhalat.powder (Trelegy Ellipta) insulin aspart U-100 100 unit/mL 1 sliding scale dose subcut 12/01/22 01/24/23 History subcutaneous solution (Novolog USEASDIRECTD U-100 Insulin aspart) acetaminophen 325 mg tablet 650 mg PO Q6H PRN Pain 01/24/23 01/24/23 History (Tylenol) cyclobenzaprine 5 mg tablet 0 mg PO DIRECTED PRN MUSCLE 01/24/23 01/24/23 History SPASMS ipratropium 0.5 mg-albuterol 3 mg 3 ml inhalation Q2H PRN shortness 01/24/23 01/24/23 History (2.5 mg base)/3 mL nebulization of breath or wheezing soln loperamide 2 mg tablet (Imodium 2 mg PO DIRECTED PRN Diarrhea 01/24/23 01/24/23 History A-D) meloxicam 15 mg tablet 15 mg PO DAILY PRN Pain 01/24/23 01/24/23 History Patient History Medical History Anxiety Bipolar 1 disorder Chronic pain syndrome COPD, moderate Current tobacco use Depression Depression with anxiety Diabetes DM type 2, goal HbA1c < 7% Dyslipidemia, goal LDL below 70 Essential hypertension with goal blood pressure less than 150/90 Former smoker Paranoia Paronychia Primary osteoarthritis involving multiple joints Pulmonary nodule Surgical History History of appendectomy History of hemorrhoidectomy History of umbilical hernia repair Family History Other Family history non-contributory Social History Smoking Status: Former smoker Tobacco Type: Cigarettes Cigarettes Per Day: 20; Second Hand Exposure: No; Do You Dip or Chew Tobacco: No; Tobacco Cessation Education Requested by Patient: No Hx Alcohol Use: No Hx Substance Use: No Preferred Language: Arabic Communication Ability: Effective Beet End Supervisor Required: No Beliefs That Will Affect Care: None Current Living Situation: Alone Current Living Situation Comment: lives alone - friend Cecilia helps Other Information That Helps Us Care for You: No Feels Safe at Home: Yes Safety Concerns: Feels Safe At This Time Assistive Devices: None Assistive Devices Comment: cane/walker Physical Exam Physical Exam: Awake alert oriented x3 no respiratory distress Neck: Neck is supple no JVD Respiratory: Bilateral clear to auscultation Cardiovascular: S1 and S2 regular no murmur heard No edema Gastrointestinal (Abdomen): Abdomen is soft and nontender Skin: No obvious rashes noted Neurologic: Normal speech awake alert oriented x3 and was able to give detailed account of his medical problems Results & Data Vital Signs (Past 12 Hours) Vital Signs Temp Pulse Pulse Resp BP Pulse Ox O2 Del Method 01/25/23 07:27 36.9 C 78 18 120/68 92 Room Air 01/25/23 07:16 98 H 01/25/23 02:30 120 H 01/25/23 01:44 36.8 C 104 H 16 125/75 90 Room Air 01/25/23 00:41 89 01/25/23 00:00 91 H 22 130/74 95 Laboratory Results Sodium 126 this morning is 130. Sodium was 132 as of October 2022 Renal function normal hemoglobin A1c 13% plus Diagnostic Findings Chest x-ray shows lobar pneumonia (2) Hyperglycemia due to type 2 diabetes mellitus Diabetes mellitus usp insulin use: with medical terminologist use Qualified Code(s): E11.65 - Type 2 diabetes mellitus with hyperglycemia; Z79.4 - intermediate (current) use of insulin (3) LLL pneumonia Pneumonia type: due to unspecified organism Qualified Code(s): J18.9 - Pneumonia, unspecified organism
[2023-01-25 12:27] LABS: BUN Creatinine Ratio 21.5 (10-20); Est GFR (African American) 71.9 ml/min; Potassium 4.5 mmol/L (3.5-5.1)
--- NOTE | 2023-01-25 14:26 | Pharmacy Report ---
Pharmacy Glycemic Short Note 2 - Date of Service January 25, 2023 - Glycemic Short BSG Results (Last 24 hours): 01/24/23 01/24/23 01/25/23 20:35 20:56 05:00 Glucose 277 H 250 H POC Glucose 295 H 01/25/23 01/25/23 01/25/23 07:56 11:46 12:09 Glucose 217 H POC Glucose 261 H 211 H OUTPATIENT ANTIDIABETIC REGIMEN: * Trulicity 0.75 mg SQ weekly * Jardiance 25 mg PO daily * metformin 1 gm PO BID * Novolog * HbA1C = 13.1% (01/25/23) ASSESSMENT: * Mr Gomez is a 67 y/o M with a PMH of T2DM who presents with pneumonia. * During a previous admission, the patient tolerated Lantus 5 units (fastings <120 mg/dL) plus Novolog CF 25 CR 15 (BSGs trended upwards throughout the day). * Today BSGs are 261-211 mg/dL. * Lantus 10 units SQ x 1 as a loading dose. Will hold off on further dosing based upon previous data. * Novolog weight-based stress of 3. PLAN FOR INPATIENT GLYCEMIC CONTROL: * Hold outpatient oral diabetes medications * Basal insulin * Lantus 10 units SQ x 1 then re-evaluate on 01/26 * Bolus insulin * NovoLog per scale ACHS or Q6hrs while NPO * Goal Range: Low 120 mg/dL - High 150 mg/dL * Correction Factor: 20 mg/dL/unit * Nutritional / Prandial insulin per carb ratio of 1 unit per 7 grams CHO consumed
--- NOTE | 2023-01-25 17:47 | Hospitalist Progress Note ---
Date of Service January 25, 2023 Assessment & Plan (1) Weakness: Plan: 67-year-old male with past medical significant for type 2 diabetes, hyperlipidemia, diabetic peripheral angiopathy, hyperprolactinemia, COPD moderate, hypertension, osteoarthritis, chronic pain syndrome, bipolar 1 disorder, generalized anxiety, presents with weakness and cough for last 2 days and found with pneumonia and hyponatremia. Pneumonia Generalized weakness due to above --CXR:Left basilar consolidation is typical for pneumonia. Clinical correlation will be required and radiographic follow-up to resolution is recommended. Bio fire negative Check procalcitonin Continue Rocephin and Doxy Saturating well on room air Acute Hyponatremia Likely multifactorial due to hyperglycemia, excessive water intake Appreciate nephrology input Sodium level slowly improving Monitor 126>>132 History of COPD Currently not smoking Continues home inhalers Nebs as needed DM II Uncontrolled HbA1c 13.1 Hold metformin and Jardiance Continue insulin while hospitalized Appreciate glycemic pharmacist help hopper feeder consulted Monitor BGs History of bipolar disorder Continue risperidone and Paxil and buspirone Hyperlipidemia On statin Hypertension Continue Lisinopril DVT prophylaxis Lovenox SQ Code Status Full code Admission and Anticipated Discharge Date Admission Date: January 24, 2023 Subjective Patient is seen and examined at bedside States feeling better today Less dyspnea, cough today Generalized weakness improving Offers no other complaints Saturating well on room air Review of Systems Review of Systems: All systems reviewed & are unremarkable except as noted in Subjective Physical Exam Physical Exam: Physical Exam: Vitals signs as noted above General Appearance:Moderately built and nourished, no apparent distress Head: normocephalic, Atraumatic Eyes: normal inspection, EOMI Neck: supple, Trachea midline Respiratory/Chest: Normal breath sounds, R basal Crackles, No accessory muscle use Cardiovascular: S1, S2, No murmur Abdomen/GI:Soft, Non tender, Bowel sounds present Extremities/Musculoskeletal:normal inspection, Trace pedal edema Neurologic/Psych:AAOX3, grossly no focal neurological deficits Skin: normal color, warm Results & Data Results & Data Vital Signs (Past 12 Hours) Vital Signs Temp Pulse Pulse Resp BP Pulse Ox O2 Del Method 01/25/23 15:00 36.8 C 90 18 103/62 93 Room Air 01/25/23 14:51 80 01/25/23 09:00 Room Air 01/25/23 11:38 36.6 C 50 L 18 94/60 L 94 Room Air 01/25/23 07:27 36.9 C 78 18 120/68 92 Room Air 01/25/23 07:16 98 H Laboratory Results Short CBC 01/24/23 01/25/23 Range/Units 20:56 05:00 WBC 14.08 H 17.61 H (4.8-10.8) K/ul Hgb 11.6 L 11.2 L (14.0-18.0) g/dl Hct 33.5 L 33.5 L (42.0-52.0) % Plt Count 288 288 (130-400) K/uL BMP 01/24/23 01/25/23 01/25/23 20:56 05:00 11:46 Sodium 126 L 130 L 132 L Potassium 4.2 4.5 4.5 Chloride 99 102 104 Carbon Dioxide 19 L 12 L 16 L BUN 25 H 22 26 H Creatinine 1.18 1.16 1.21 Glucose 277 H 250 H 217 H Calcium 9.4 9.0 9.0 Liver Function 01/24/23 Range/Units 20:56 Total Bilirubin 0.4 (0.2-1.0) mg/dl AST 9 L (13-39) U/L ALT 11 (7-52) U/L Alkaline Phosphatase 109 H (34-104) U/L Albumin 3.6 (3.4-5.0) gm/dl Urine 01/24/23 Range/Units 20:56 Urine Color Yellow Urine Appearance Clear (Clear) Urine pH 5.5 (4.5-7.5) Ur Specific [place] 1.027 (1.000-1.030) Urine Protein Negative (Negative) Urine Glucose (UA) 3+ H (Negative)
[2023-01-25 19:45] LABS: BUN Creatinine Ratio 19.9 (10-20); Creatinine Clr Calc Pharmacy 51.4 ml/min; Est GFR (African American) 57.3 ml/min; Est GFR (Non-African American) 49.4 ml/min
[2023-01-25] MEDS ORDERED: cefTRIAXone SODIUM 2,000 MG in DEXTROSE 5 % MINI-B 50 ML IV SCH (20:00)
[2023-01-25] MEDS ORDERED: risperiDONE 2 MG TABLET PO SCH (21:00)
[2023-01-25] MEDS ORDERED: ATORVASTATIN 40 MG TAB PO SCH (21:00)
[2023-01-26 00:20] LABS: BUN Creatinine Ratio 23.5 (10-20); Calcium 8.7 mg/dl (8.6-10.3); Est GFR (African American) 73.3 ml/min; Est GFR (Non-African American) 63.3 ml/min
[2023-01-26 05:18] LABS: Hematocrit (blood only) 31.2 % (42.0-52.0); Hemoglobin 10.4 g/dl (14.0-18.0); Mean Corpuscular Hemoglobin 30.8 pg (25.0-34.0); Mean Corpuscular Hgb Conc 33.3 g/dL (32.0-36.0); Mean Corpuscular Volume 92.3 fL (80.0-100.0); Mean Platelet Volume 9.5 fL (9.4-12.4); Platelet Count 310 K/uL (130-400); RDW Coefficient of Variation 13.2 % (11.5-14.5); RDW Standard Deviation 44.5 fL (36.4-46.3); Red Blood Count 3.38 M/uL (4.70-6.10); White Blood Count 13.38 K/ul (4.8-10.8)
[2023-01-26 05:37] LABS: Calcium 8.7 mg/dl (8.6-10.3); Creatinine Clr Calc Pharmacy 63.6 ml/min; Est GFR (African American) 74.1 ml/min; Est GFR (Non-African American) 63.9 ml/min; Potassium 4.8 mmol/L (3.5-5.1)
[2023-01-26] MEDS: ENOXAPARIN INJ 40 MG/0.4 ML SYR SQ SCH (06:25)
[2023-01-26] MEDS: SODIUM CHLORIDE 0.9% 1,000 ML IV SCH (08:19)
[2023-01-26] MEDS: ASPIRIN 81 MG ECTAB PO SCH (08:20)
[2023-01-26] MEDS: DOXYCYCLINE HYCLATE 100 MG in DEXTROSE 5% MINI-B 100 ML IV SCH (08:21)
[2023-01-26] MEDS: busPIRone 5 MG TAB PO SCH (08:21)
[2023-01-26] MEDS: PARoxetine HCL 20 MG TAB PO SCH (08:22)
[2023-01-26] MEDS: UMECLIDINIUM/VILANTEROL 62.5/25MCG 7 PUFFS/INHALER INH SCH (08:22)
[2023-01-26] MEDS: lisinopril 2.5 MG TAB PO SCH (08:23)
[2023-01-26] MEDS: FLUTICASONE FUROATE 200MCG 14 PUFFS/INHALER INH SCH (08:23)
[2023-01-26] MEDS ORDERED: LANTUS PER UNIT CHARGE SC SCH (09:00)
--- NOTE | 2023-01-26 09:51 | Nephrology Progress Note ---
Date of Service January 26, 2023 Assessment & Plan Admission and Anticipated Discharge Date Admission Date: January 24, 2023 Subjective A/p: (1) Acute hyponatremia: It seems sodium has been running somewhat low for the last few months. This is probably multifactorial related with hyperglycemia as well as very excessive water intake. He was drinking close to 200 ounce of water per day but he is also on Jardiance. In any case sodium has gone up nicely from 126 to 134 with the use of normal saline. Can stop now. Rate of correction is appropriate. Did explain to the patient that when there is persistent hyperglycemia it does cause sodium to go low because of pseudohyponatremia of hyperglycemia. (2) Hyperglycemia due to type 2 diabetes mellitus: Hemoglobin A1c was 13% plus which is obviously very high. Would need persistent sustained control glucose. (3) LLL pneumonia: On antibiotic. Also not unusual to have slightly low sodium in the setting of pneumonia especially in patients with underlying COPD S--no new issues. Physical Exam Physical Exam: Awake alert oriented x3 no respiratory distress Neck: Neck is supple no JVD Respiratory: Bilateral clear to auscultation Cardiovascular: S1 and S2 regular no murmur heard No edema Gastrointestinal (Abdomen): Abdomen is soft and nontender Skin: No obvious rashes noted Neurologic: Normal speech awake alert oriented x3 and was able to give detailed account of his medical problems Results & Data Vital Signs (Past 12 Hours) Vital Signs Temp Pulse Pulse Resp BP Pulse Ox O2 Del Method 01/26/23 09:27 81 01/26/23 09:27 Room Air 01/26/23 07:44 86 16 115/72 93 Room Air 01/26/23 03:09 37 C 93 H 16 120/66 92 Room Air 01/25/23 23:12 37 C 89 18 120/72 91 Room Air 01/25/23 22:59 Room Air 01/25/23 21:58 84
[2023-01-26] MEDS: INSULIN ASPART PER UNIT CHARGE SC SCH ×2 (10:13→13:00)
--- NOTE | 2023-01-26 13:54 | Hospitalist Progress Note ---
Date of Service January 26, 2023 Assessment & Plan (1) Weakness: Plan: 67-year-old male with past medical significant for type 2 diabetes, hyperlipidemia, diabetic peripheral angiopathy, hyperprolactinemia, COPD moderate, hypertension, osteoarthritis, chronic pain syndrome, bipolar 1 disorder, generalized anxiety, presents with weakness and cough for last 2 days and found with pneumonia and hyponatremia. Pneumonia Generalized weakness due to above --CXR:Left basilar consolidation is typical for pneumonia. Clinical correlation will be required and radiographic follow-up to resolution is recommended. Bio fire negative procalcitonin 0.92 Continue Rocephin and Doxy Saturating well on room air Transition to p.o. antibiotics upon discharge Acute Hyponatremia Likely multifactorial due to hyperglycemia, excessive water intake Appreciate nephrology input Sodium level slowly improving Monitor 126>>132>134 Advised moderation of water intake History of COPD Currently not smoking Continues home inhalers Nebs as needed DM II Uncontrolled HbA1c 13.1 Hold metformin and Jardiance while hospitalized Continue insulin while hospitalized Appreciate glycemic pharmacist help nurses educator consulted Monitor BGs Plan to discharge on insulin glargine 10 units daily to simplify regimen and discontinue NovoLog Needs titration of Trulicity as outpatient History of bipolar disorder Continue risperidone and Paxil and buspirone Hyperlipidemia On statin Hypertension Continue Lisinopril DVT prophylaxis Lovenox SQ Code Status Full code Disposition Patient not interested in rehab Plan to discharge home Admission and Anticipated Discharge Date Admission Date: January 24, 2023 Subjective Patient is seen and examined at bedside Reports only minimal cough Weakness much improved Sodium levels improved to 134 Denies any chest pain, dyspnea, nausea, vomiting, abdominal pain Not interested in rehab Discussed with patient's family at bedside Plan to be discharged home today Review of Systems Review of Systems: All systems reviewed & are unremarkable except as noted in Subjective Physical Exam Physical Exam: Physical Exam: Vitals signs as noted above General Appearance:Moderately built and nourished, no apparent distress Head: normocephalic, Atraumatic Eyes: normal inspection, EOMI Neck: supple, Trachea midline Respiratory/Chest: Normal breath sounds, R basal Crackles, No accessory muscle use Cardiovascular: S1, S2, No murmur Abdomen/GI:Soft, Non tender, Bowel sounds present Extremities/Musculoskeletal:normal inspection, Trace pedal edema Neurologic/Psych:AAOX3, grossly no focal neurological deficits Skin: normal color, warm Results & Data Results & Data Vital Signs (Past 12 Hours) Vital Signs Temp Pulse Pulse Resp BP Pulse Ox O2 Del Method 01/26/23 12:00 36.4 C 81 18 102/66 94 Room Air 01/26/23 09:27 81 01/26/23 09:27 Room Air 01/26/23 07:44 86 16 115/72 93 Room Air 01/26/23 03:09 37 C 93 H 16 120/66 92 Room Air Laboratory Results Short CBC 01/26/23 Range/Units 04:56 WBC 13.38 H (4.8-10.8) K/ul Hgb 10.4 L (14.0-18.0) g/dl Hct 31.2 L (42.0-52.0) % Plt Count 310 (130-400) K/uL BMP 01/25/23 01/25/23 01/26/23 19:13 23:30 04:56 Sodium 132 L 132 L 134 L Potassium 5.0 4.0 4.8 Chloride 105 106 108 H Carbon Dioxide 18 L 17 L 16 L BUN 29 H 28 H 26 H Creatinine 1.46 H 1.19 1.18 Glucose 223 H 167 H 170 H Calcium 9.0 8.7 8.7
--- NOTE | 2023-01-26 14:07 | Discharge Summary ---
Date of Service January 26, 2023 Admission HPI Per Admitting Provider 67-year-old male with past medical significant for type 2 diabetes, hyperlipidemia, diabetic peripheral angiopathy, hyperprolactinemia, COPD moderate, hypertension, osteoarthritis, chronic pain syndrome, bipolar 1 dis order, generalized anxiety, presents with weakness and cough for last 2 days. Denies any fevers. No shortness of breath. No chest pain. No headache. No blurred visions. No headaches. No runny nose. No sore throat. Appetite is okay. No nausea or vomiting. No abdominal pain. Normal bowel and bladder movements. No blood in the stools. Currently resting comfortably and hemodynamically stable. Past med history. As mentioned above. Past surgical history. Colonoscopy. Injection lumbosacral spine. Appendectomy. Umbilical hernia repair. Social history. Lives alone. Family lives close by. Quit smoking in . Smoked quarter pack a day for many years. No alcohol use. No drug use. Family history. No family history on file. Admission Exam Per Admitting Provider General- Not in distress Head- atraumatic Eyes- PERRL. ENT- oropharynx clear Neck- supple, no JVD. Lungs- clear to auscultation , no wheezing or crackles. Heart- regular rate and rhythm; no murmur, no gallop. Abdomen- normal bowel sounds, soft, nontender, no distension. Extremities- no pretibial edema, no erythema seen. Neuro- alert, oriented x 3; PERRL, no facial palsy; no dysarthria; moves extremities. Skin- warm & dry Principal Diagnosis Pneumonia Hyponatremia Uncontrolled diabetes mellitus type 2 Discharge Data Allergies Allergy/AdvReac Type Severity Reaction Status Date / Time No Known Allergies Allergy Verified 01/24/23 22:24 Consultations 01/24/23 22:02 ED Decision to Admit Stat 01/25/23 08:00 Consult Nephrology Routine Procedures Performed Laboratory Results WBC 13.38 K/ul (4.8-10.8) H 01/26/23 04:56 RBC 3.38 M/uL (4.70-6.10) L 01/26/23 04:56 Hgb 10.4 g/dl (14.0-18.0) L 01/26/23 04:56 Hct 31.2 % (42.0-52.0) L 01/26/23 04:56 MCV 92.3 fL (80.0-100.0) 01/26/23 04:56 MCH 30.8 pg (25.0-34.0) 01/26/23 04:56 MCHC 33.3 g/dL (32.0-36.0) 01/26/23 04:56 RDW Std Deviation 44.5 fL (36.4-46.3) 01/26/23 04:56 RDW Coeff of Keila 13.2 % (11.5-14.5) 01/26/23 04:56 Plt Count 310 K/uL (130-400) 01/26/23 04:56 MPV 9.5 fL (9.4-12.4) 01/26/23 04:56 Immature Gran % (Auto) 0.6 % 01/25/23 05:00 Neut % (Auto) 86.5 % 01/25/23 05:00 Lymph % (Auto) 5.5 % 01/25/23 05:00 Geary % (Auto) 7.2 % 01/25/23 05:00 Eos % (Auto) 0.1 % 01/25/23 05:00 Baso % (Auto) 0.1 % 01/25/23 05:00 Neut # (Auto) 15.24 K/uL (1.40-6.50) H 01/25/23 05:00 Lymph # (Auto) 0.97 K/uL (1.20-3.40) L 01/25/23 05:00 Geary # (Auto) 1.26 K/uL (0.11-0.59) H 01/25/23 05:00 Eos # (Auto) 0.01 K/uL (0.00-0.50) 01/25/23 05:00 Baso # (Auto) 0.02 K/uL (0.00-0.20) 01/25/23 05:00 Immature Gran # (Auto) 0.11 K/uL (0.01-0.20) 01/25/23 05:00 VBG pH 7.43 (7.36-7.41) H 01/24/23 21:36 VBG pCO2 29 mmHg (38-50) L 01/24/23 21:36 VBG pO2 57 mmHg 01/24/23 21:36 VBG HCO3 19 mmol/L 01/24/23 21:36 VBG O2 Saturation 89.6 % 01/24/23 21:36 VBG Base Excess -3.9 mEq/L 01/24/23 21:36 Sodium 134 mmol/L (136-145) L 01/26/23 04:56 Potassium 4.8 mmol/L (3.5-5.1) 01/26/23 04:56 Chloride 108 mmol/L (98-107) H 01/26/23 04:56 Carbon Dioxide 16 mmol/L (21-32) L 01/26/23 04:56 Anion Gap 10 (3-11) 01/26/23 04:56 BUN 26 mg/dl (6-23) H 01/26/23 04:56 Creatinine 1.18 mg/dl (0.6-1.4) 01/26/23 04:56 Est Cr Clr Drug Dosing 63.6 ml/min 01/26/23 04:56 Est GFR ( Amer) 74.1 ml/min 01/26/23 04:56 Est GFR (Non-Af Amer) 63.9 ml/min 01/26/23 04:56 BUN/Creatinine Ratio 22.0 (10-20) H 01/26/23 04:56 Glucose 170 mg/dl (70-99(Fasting)) H 01/26/23 04:56 POC Glucose 212 mg/dl (70-99) H 01/26/23 12:28 Estimat Average Glucose 329 mg/dl 01/25/23 05:00 Hemoglobin A1c 13.1 % (4.5-5.6) H 01/25/23 05:00 Osmolality 285 mOsm/kg (280-300) 01/25/23 05:00 Calcium 8.7 mg/dl (8.6-10.3) 01/26/23 04:56 Magnesium 2.0 mg/dl (1.7-2.4) 01/25/23 23:30 Total Bilirubin 0.4 mg/dl (0.2-1.0) 01/24/23 20:56 AST 9 U/L (13-39) L 01/24/23 20:56 ALT 11 U/L (7-52) 01/24/23 20:56 Alkaline Phosphatase 109 U/L (34-104) H 01/24/23 20:56 Troponin I High Sens 11.0 pg/ml (0-20) 01/24/23 20:56 Total Protein 7.2 gm/dl (6.0-8.3) 01/24/23 20:56 Albumin 3.6 gm/dl (3.4-5.0) 01/24/23 20:56 Globulin 3.6 gm/dl (2.5-4.0) 01/24/23 20:56 Albumin/Globulin Ratio 1.0 (0.9-2) 01/24/23 20:56 Procalcitonin 0.92 ng/ml (0-0.5) H 01/26/23 04:56 Urine Color Yellow 01/24/23 20:56 Urine Appearance Clear (Clear) 01/24/23 20:56 Urine pH 5.5 (4.5-7.5) 01/24/23 20:56 Ur Specific [place] 1.027 (1.000-1.030) 01/24/23 20:56 Urine Protein Negative (Negative) 01/24/23 20:56 Urine Glucose (UA) 3+ (Negative) H 01/24/23 20:56 Urine Ketones Trace (Negative) H 01/24/23 20:56 Urine Blood Negative (Negative) 01/24/23 20:56 Urine Nitrite Negative (Negative) 01/24/23 20:56 Urine Bilirubin Negative (Negative) 01/24/23 20:56 Urine Urobilinogen Negative (Negative) 01/24/23 20:56 Ur Leukocyte Esterase Negative (Negative) 01/24/23 20:56 Urine Osmolality 534 mOsm/kg (500-800) 01/25/23 10:07 Ur Random Sodium 29 mmol/L 01/25/23 10:07 Adenovirus (PCR) Not Detected (NotDetected) 01/24/23 20:56 B. pertussis DNA (PCR) Not Detected (NotDetected) 01/24/23 20:56 B.parapertussis DNA PCR Not Detected (NotDetected) 01/24/23 20:56 C. pneumoniae DNA (PCR) Not Detected (NotDetected) 01/24/23 20:56 Coronavirus OC43 (PCR) Not Detected (NotDetected) 01/24/23 20:56 Coronavirus HKU1 (PCR) Not Detected (NotDetected) 01/24/23 20:56 Coronavirus 229E (PCR) Not Detected (NotDetected) 01/24/23 20:56 SARS-CoV-2 (PCR) Not Detected (NotDetected) 01/24/23 20:56 Coronavirus NL63 (PCR) Not Detected (NotDetected) 01/24/23 20:56 Human Metapneumovir PCR Not Detected (NotDetected) 01/24/23 20:56 Influenza Type A (PCR) Not Detected (NotDetected) 01/24/23 20:56 Influenza Type B (PCR) Not Detected (NotDetected) 01/24/23 20:56 M. pneumoniae (PCR) Not Detected (NotDetected) 01/24/23 20:56 Parainfluenza 1 (PCR) Not Detected (NotDetected) 01/24/23 20:56 Parainfluenza 2 (PCR) Not Detected (NotDetected) 01/24/23 20:56 Parainfluenza 3 (PCR) Not Detected (NotDetected) 01/24/23 20:56 Parainfluenza 4 (PCR) Not Detected (NotDetected) 01/24/23 20:56 RSV (PCR) Not Detected (NotDetected) 01/24/23 20:56 Entero/Rhino (PCR) Not Detected (NotDetected) 01/24/23 20:56 Impressions Chest X-Ray 01/24/23 21:04 SINGLE VIEW CHEST CLINICAL HISTORY: Cough. FINDINGS: 2 AP, portable, upright chest radiographs are compared to study dated 08/24/2022 and correlated with chest CT dated 05/20/2022. The examination is degraded by portable technique and patient rotation. The cardiomediastinal silhouette is top normal for projection. Emphysema and chronic interstitial thickening is similar to previous. There is left basilar consolidation from pneumonia. No large pleural effusion or pneumothorax is seen. The bony thorax is grossly intact. IMPRESSION: Left basilar consolidation is typical for pneumonia. Clinical correlation will be required and radiographic follow-up to resolution is recommended. ACT 112: Negative or not required by law. Electronically signed by: Allen Chavez M.D. 01/24/2023 9:42 PM Diabetes Follow up Diabetes Follow-up Needed for HgbA1c >9% Hospital Course (1) Weakness: 67-year-old male with past medical significant for type 2 diabetes, hyperlipidemia, diabetic peripheral angiopathy, hyperprolactinemia, COPD m oderate, hypertension, osteoarthritis, chronic pain syndrome, bipolar 1 disorder, generalized anxiety, presents with weakness and cough for last 2 days and found with pneumonia and hyponatremia. Pneumonia Generalized weakness due to above --CXR:Left basilar consolidation is typical for pneumonia. Clinical correlation will be required and radiographic follow-up to resolution is recommended. Bio fire negative procalcitonin 0.92 Continue Rocephin and Doxy Saturating well on room air Transition to p.o. antibiotics upon discharge Acute Hyponatremia Likely multifactorial due to hyperglycemia, excessive water intake Appreciate nephrology input Sodium level slowly improving Monitor 126>>132>134 Advised moderation of water intake History of COPD Currently not smoking Continues home inhalers Nebs as needed DM II Uncontrolled HbA1c 13.1 Hold metformin and Jardiance while hospitalized Continue insulin while hospitalized Appreciate glycemic pharmacist help ems educator consulted Monitor BGs Plan to discharge on insulin glargine 10 units daily to simplify regimen and discontinue NovoLog Needs titration of Trulicity as outpatient History of bipolar disorder Continue risperidone and Paxil and buspirone Hyperlipidemia On statin Hypertension Continue Lisinopril DVT prophylaxis Lovenox SQ Code Status Full code Disposition Patient not interested in rehab Plan to discharge home Total Time Total Time Spent Total Time Spent (In Minutes): 60 minutes Discharge Plan Discharge Items Patient Disposition: Home - Self-Care Reason For Visit: WEAKNESS, PNEUMONIA, HYPONATREMIA Discharge Diagnosis: Pneumonia Hyponatremia Uncontrolled diabetes mellitus type 2 Activity: Per Instructions section Exercise/Sports: Wait until after follow-up appointment Non-emergency contact: Primary Care Provider Call non-emergency contact if: you have any medication questions, your symptoms worsen, your pain is concerning for you and you have a fever Follow-up/Referrals: Cm Roberto MD [Primary Care Provider] - (Date & Time 02/03/2023 11:20 AM Provider Cm Roberto MD [facility] ) Diet: Carb Consistent or DM2 Addtl Attending Provider Instructions: Follow-up with your primary care physician Dr. Roberto on 02/03/2023 11:20 AM --- Complete antibiotic course cefuroxime, doxycycline as prescribed --- Stop taking insulin aspart and start taking insulin glargine 10 units daily. --- Monitor your blood glucose levels regularly at home and discuss with your physician for further adjustment of medications as needed. Seek immediate medical attention if your symptoms reoccur or worsen Please take all medications as instructed on discharge list below. Please call if you have any questions or problems. You can reach a [facility] hospitalist on duty at [facility] 24 hours a day by calling [phone] Pending Studies at Discharge: No Stand-Alone Forms: My [facility], Smoking Cessation Medications and DC Order Prescriptions: New doxycycline hyclate 100 mg tablet 100 mg PO BID Qty: 10 0RF cefuroxime axetil 500 mg tablet 500 mg PO BID Qty: 10 0RF insulin glargine 100 unit/mL (3 mL) insulin pen 10 unit subcut DAILY Qty: 15 1RF (DME) pen needle, diabetic [Pen Needle] 32 gauge x 5/32" needle See Rx Instructions .Route Qty: 100 1RF Rx Instructions: As directed Continued dulaglutide 0.75 mg/0.5 mL pen injector 0.75 mg subcut WK Rx Instructions: THURSDAYS Trelegy Ellipta 200-62.5-25 mcg blister with device 1 inh INHALATION DAILY Qty: 60 10RF albuterol sulfate 90 mcg/actuation HFA aerosol inhaler 2 puff inhalation Q6H PRN (Reason: Shortness Of Breath Or Wheezing) Qty: 18 3RF acetaminophen [Tylenol] 325 mg Tablet 650 mg PO Q6H PRN (Reason: Pain) meloxicam 15 mg Tablet 15 mg PO DAILY PRN (Reason: Pain) loperamide [Imodium A-D] 2 mg Tablet 2 mg PO DIRECTED PRN (Reason: Diarrhea) cyclobenzaprine [Flexeril] 5 mg Tablet 0 mg PO DIRECTED PRN (Reason: MUSCLE SPASMS) Rx Instructions: UNSURE OF STRENGTH, UNABLE TO VERIFY ipratropium-albuterol 0.5 mg-3 mg(2.5 mg base)/3 mL solution for nebulization 3 ml inhalation Q2H PRN (Reason: shortness of breath or wheezing) atorvastatin 80 mg Tablet 80 mg PO QPM aspirin 81 mg Tablet,Delayed Release (Dr/Ec) 81 mg PO QAM risperidone 2 mg Tablet 2 mg PO HS paroxetine HCl [Paxil] 30 mg Tablet 30 mg PO BID buspirone 10 mg Tablet 10 mg PO BID lisinopril 2.5 mg Tablet 2.5 mg PO DAILY Jardiance 25 mg Tablet 25 mg PO DAILY metformin 500 mg tablet extended release 24 hr 1,000 mg PO BIDM Discontinued insulin aspart U-100 [Novolog U-100 Insulin aspart] 100 unit/mL solution 1 sliding scale dose subcut USEASDIRECTD Rx Instructions: BSG 200-249=4 UNITS, 250-299=6 UNITS, 300-349=8 UNITS, 350-399=10 UNITS, 400- 449=12 UNITS, 450-499=14 UNITS, >450=16 UNITS. Discharge Orders: Discharge Order (Routine); Ordered 01/26/23 Ordered By: Lan Li Admission Data Admit Date/Time: 01/24/23 23:35 Attending Provider: Lan Li Admit Provider: Jann Hay Primary Care Provider: Cm Roberto Other Providers: Jann Hay; Sindy Badillo
== END 2023-01-26 16:09 | disposition home or self-care (01) | DRG 194 ==
LOC: ED 20:25 → INTOOBSV 23:35 → SUATTDRO 23:35 → 2W 23:35

== ENCOUNTER 2023-05-07 16:42 | Inpatient (IN) ==
--- OUTSIDE RECORDS SUMMARY | 2023-05-07 16:48 | External Medical Summary | Summary of Care ---
Author Name Unknown Organization [facility] Address [address] [place] [address] Phone [phone] Care Team Providers Care Coil Tier Name Role Phone Cm Roberto MD Primary Care Provider [phone] Reason for Visit * Reason Comments Dosage Adjustment In Person (Anticoag Cl inic) Diabetes Management * Evaluate & Treat - Unlimited Visits (Within 10 days (routine)) - Pending Review Specialty Diagnoses / Procedures Referred By Contac t Referred To Contact Pharmacist / Pharmacy Diagnoses Type 2 diabetes mellitus with hemoglobin A1c goal of less than 7.0% (HCC) Jus Lynn MD [address] [place] [address] Referral ID Status Reason Start Date Expiration Date Visits Requested Visits Authorized [id number] Pending Review Specialty Services Required 04/20/2023 99 99 Encounter Details Date Type Department Care Team (Late st Contact Info) Description 04/28/2023 1:00 PM EST Pharmacy Pharmacy, [facility] [address] [place] [address] [facility] [address] [place] [address] Type 2 diabetes mellitus with hemoglobin A1c goal of less than 7.0% (HCC)* Allergies No known active allergiesdocumented as of this encounter (statuses as of 04/28/2023) Medications Medication Sig Dispensed Refills Start Date End Date Status aspirin 81 MG chewable tabletIndications:i n am Take 1 Tablet by mouth in the morning. with food.. 100 Tab 1 09/29/2016 Active risperiDONE (RISPERDAL) 2 MG Tablet Take 1 Tab by mouth at bedtime. prescribed by Psych 30 Tab 0 08/12/2019 Active PARoxetine (PAXIL) 30 MG Tablet Take 1 Tab by mouth 2 times a day. prescribed by Psych 60 Tab 0 08/12/2019 Active busPIRone HCl 10 MG Oral Tablet (Buspar) Take 1 Tablet by mouth in the morning and 1 Tablet before bedtime. 0 Active Ferrous Sulfate 325 (65 Fe) MG Oral Tablet (Feosol)Indications :Anemia, unspecified type Take 1 Tablet by mouth daily. 90 Tablet 1 08/08/2022 Active metFORMIN HCl ER 500 MG Oral Tablet Extended Release 24 Hour (Glucophage XR)Indications:Type 2 diabetes mellitus with hemoglobin A1c goal of less than 7.0% (HCC) Take 1 Tablet by mouth 2 times a day with morning and evening meals. 180 Tablet 3 08/30/2022 Active Meclizine HCl 12.5 MG Oral Tablet (Antivert) 1 Tablet. 0 04/13/2022 Active Divalproex Sodium ER 250 MG Oral Tablet Extended Release 24 Hour Take 1 Tablet by mouth in the morning and 1 Tablet before bedtime. 0 07/23/2022 Active Acetaminophen 500 MG Oral Tablet (Tylenol) 2 Tablets. 0 05/17/2022 Active Insulin Syringe 31G X 5/16" 1 ML Dx E11.9 follow sliding scale for novolog insulin dosing 100 Each 5 12/23/2022 Active OneTouch Verio w/Device Kit Use up to 4 times a day E11.9 1 Kit 0 12/23/2022 Active OneTouch Verio w/Device Kit Use up to 4 times a day E11.9 1 Kit 0 12/23/2022 Active OneTouch Delica Lancets 33GIndications:Type 2 diabetes mellitus with hemoglobin A1c goal of less than 7.0% (HCC) ONE TOUCH VERIO LANCETS USE UP TO 3 TIMES A DAY DX E 11.9. 100 Each 11 12/23/2022 Active OneTouch Verio In Vitro Strip (Glucose Blood)Indications:T ype 2 diabetes mellitus with hemoglobin A1c goal of less than 7.0% (HCC) USE TO TEST BLOOD SUGARS 3 times A DAY DX E11.9 100 Strip 3 12/23/2022 Active Lisinopril 2.5 MG Oral Tablet (Prinivil)Indicatio ns:Essential hypertension with goal blood pressure less than 150/90 Take 1 Tablet by mouth in the morning. 90 Tablet 3 01/18/2023 Active Atorvastatin Calcium 80 MG Oral Tablet (Lipitor)Indication s:Type 2 diabetes mellitus with hemoglobin A1c goal of less than 7.0% (HCC) Take 1 Tablet by mouth in the morning. 90 Tablet 3 01/18/2023 Active Empagliflozin 25 MG Oral Tablet (Jardiance)Indicati ons:Type 2 diabetes mellitus with hemoglobin A1c goal of less than 7.0% (HCC) Take 1 Tablet by mouth in the morning. 90 Tablet 3 01/18/2023 Active Ipratropium-Albuter ol 0.5-2.5 (3) MG/3ML Inhalation Solution (Duoneb) Use 1 vial nebulized every 6 hours 360 mL 5 01/24/2023 Active Doxycycline Hyclate 100 MG Oral Tablet Take 1 Tablet by mouth in the morning and 1 Tablet before bedtime. 0 01/26/2023 Active Cefuroxime Axetil 500 MG Oral Tablet (Ceftin) Take 1 Tablet by mouth in the morning and 1 Tablet before bedtime. 0 01/26/2023 Active Meloxicam 15 MG Oral TabletIndications:P rimary osteoarthritis involving multiple joints TAKE 1 TABLET BY MOUTH DAILY FOR PAIN. 90 Tablet 1 02/21/2023 Active Trelegy Ellipta 200-62.5-25 MCG/ACT Aerosol Powder Breath ActivatedIndication s:COPD, moderate (HCC) Inhale 1 Puff by mouth in the morning. 90 Blister Dosing Unit 3 03/03/2023 Active Albuterol Sulfate HFA 108 (90 Base) MCG/ACT Inhalation Aerosol SolutionIndications :COPD, moderate (HCC) INHALE 2 PUFFS ORALLY EVERY 6 HOURS NEEDED FOR SHORTNESS OF BREATH/WHEEE *GIVE IF REFUSING DUONEB 18 g 11 03/03/2023 Active Gabapentin 300 MG Oral Capsule (Neurontin) Take 1 Capsule by mouth in the morning and 1 Capsule at noon and 1 Capsule before bedtime. 90 Capsule 1 04/13/2023 Active Trulicity 1.5 MG/0.5ML Subcutaneous Solution Pen-injector (Dulaglutide) Inject 1.5 mg under the skin once a week. 2 mL 3 04/17/2023 Active NovoLOG 100 UNIT/ML Injection Solution Start with 4 units for glucose of 200 or greater and increase dose by 2 units for every increase of 50mg. Maximum of 16 units for glucose greater than 450. Dx E11.9 10 mL 11 04/19/2023 Active Insulin Glargine 100 UNIT/ML Subcutaneous Solution Pen-injector (Lantus)Indications :Type 2 diabetes mellitus with hemoglobin A1c goal of less than 7.0% (HCC) 24 units daily or as directed 0 04/24/2023 Active traMADol HCl 50 MG Oral Tablet (Ultram)Indications :Pain of right upper extremity Take 1 Tablet by mouth 3 times a day as needed for Pain, Moderate. 60 Tablet 0 04/24/2023 Active Azithromycin 250 MG Oral Tablet (Zithromax Z-Johnathon)Indications:C OPD exacerbation (HCC) Take two tablets by mouth on first day, then 1 tablet daily until gone 6 Tablet 0 04/24/2023 Active Amoxicillin-Pot Clavulanate 875-125 MG Oral Tablet (Augmentin)Indicati ons:Pneumonia of left lower lobe due to infectious organism Take 1 Tablet by mouth in the morning and 1 Tablet before bedtime. Do all this for 10 days. 20 Tablet 0 04/25/2023 4 Active Insulin Lispro (1 Unit Dial) 100 UNIT/ML Subcutaneous Solution Pen-injector (HumaLOG KwikPen)Indications :Type 2 diabetes mellitus with hemoglobin A1c goal of less than 7.0% (HCC) Inject 8 units with meals plus CF 1:25 over 150 30 mL 3 04/28/2023 Active Insupen Pen [place] 31G X 8 MM (Insulin Pen Needle)Indications: Type 2 diabetes mellitus with hemoglobin A1c goal of less than 7.0% (HCC) Use to inject insulin up to 4x daily 400 Each 3 04/28/2023 Active Insulin Pen Needle (INSUPEN PEN NEEDLES) 31G X 8 MMIndications:Type 2 diabetes mellitus with hemoglobin A1c goal of less than 7.0% (HCC) Use with Trulicity once per week 12 Box Dosing Unit 3 02/16/2018 4 Discontinu ed(Refill) documented as of this encounter (statuses as of 04/28/2023) Active Problems Problem Noted Date Diagnosed Date Hyperprolactinemia 02/02/2022 Bipolar II disorder 01/30/2020 Anxiety, generalized 01/30/2020 Type 2 diabetes mellitus wit h hemoglobin A1c goal of less than 7.0% 09/21/2016 Chronic pain syndrome 09/21/2016 Bipolar 1 disorder COPD, moderate Essential hypertension with goal blood pressure less than 150/90 Primary osteoarthritis involving multiple joints Dyslipidemia, goal LDL below 70 documented as of this encounter (statuses as of 04/28/2023) Resolved Problems Problem Noted Date Diagnosed Date Resolved Date Type 2 diabetes mellitus wit h diabetic peripheral angiopathy without gangrene 01/30/2020 0 04/13/2023 Encounter for long-term (cur rent) use of medications 03/24/2017 09/22/2017 Screen for colon cancer 03/24/201708/26 Depression with anxiety 08/26 Overview: hospitalized in past COPD, moderate 09/21/2016 DM type 2 (diabetes mellitus, type 2) 09/21/2016 documented as of this encounter (statuses as of 04/28/2023) Immunizations Name Administration Dates Next Due COVID-19 mRNA, LNP-s, No Pre serve, 2-Dose Series ([email or web address]) 07/25/2020,07/04/2020 Hepatitis B, 20+ yrs 12/18/2013,04/17/2013,02/07 Pneumococcal Conjugate Vacci ne, 20-valent ([id number]) 02/02/2022 Pneumococcal Polysaccharide PPV23 (Pneumovax) 11/23/2020,03/24/2017 Seasonal Influenza, PF, 6 M & above, IM , (FluLaval or Fluzone) 12/02/2017 Seasonal Influenza, Quadriva lent Hd (Fluzone Hd) 12/23/2022 Seasonal Influenza, Quadriva lent Hd, 65+ Yrs 01/05/2022 Seasonal Influenza, Quadriva lent, No Preserve, IM 11/23/2020,11/26/2018,01/08/2017,01/13,01/15/2015 Seasonal Influenza, Quadriva lent, No Preserve, Mdck 12/09/2019 Seasonal Influenza, Split, I IV3, With Preserve, Inj 01/14/2016,01/15/2015,12/18/2013,02/07,02/03/2012,12/30/2008,12/10/2007 TDAP (age 10 and older)(Boostrix) 11/23/2020, Zoster Vaccine Recombinant (Shingrix) 11/23/2017 ,08/02/2017 documented as of this encounter Social History Tobacco Use Types Packs/Day Years Used Date Smoking Tobacco: Former Cigarettes 0.3 Q uit: 06/25/2017 Passive Smoke Exposure: Past Smokeless Tobacco: Never Comments:from 16 years - Dec mingo of 2020 Alcohol Use Standard Drinks/Week Comments No 0 (1 standard drink = 0.6 oz pur e alcohol) PHQ-2 Answer Date Recorded PHQ Adult Total Score 0 04/12/2023 Hunger Vital Sign Answer Date Recorded Within the past 12 months, y ou worried that your food would run out before you got the money to buy more. Never true 04/12/19 24 Within the past 12 months, t he food you bought just didn't last and you didn't have money to get more. Never true 04/12/2023 Sex and Gender Information Value Date Recorded Sex Assigned at Male 08/09/2018 1:19 PM EDT Gender Identity Male 08/09/2018 1:19 PM EDT Sexual Orientation Straight 08/09/2018 1: 19 PM EDT Job Start Date Occupation Industry Not on file Not on file Not on file documented as of this encounter Progress Notes * Deep Shi, [facility] - 04/28/2023 12:27 PM EST Medication Therapy Disease [facility] - Diabetes Management Progress Note Homer Gomez, identified by name and date of , is a 67 year old male being seen for diabetesmanagement/education. Patient presents for return diabetic visit. DIABETES: Current diabetic medications: Metformin ER 500mg BID Jardiance 25mg QAM Trulicity 1.5mg once weekly Novolog 4 units plus 1:50 CF over 200 with meals Lantus 24 units QAM Medication Injection Site: Abdomen Lifestyle: Diet: unchanged Glucose Review/SMBG: Readings obtained from patient documented BG logbook pt reports BG averaging 200-300 with spikes up to 500 at times. Hypoglycemia: Does your blood sugar go below 70 mg/dL? No Hyperglycemia symptoms present: none Recent Labs Units 04/13/23 1421 02/03/23 1230 08/03/22 0947 HEMOGLOBIN A1C - [facility] % 12.2* 13.2* 6.5* Recent Labs Units 04/13/23 1421 02/03/23 1230 06/01/22 1203 ESTIMATED GLOMERULAR FILTRATION RATE - [facility] mL/min 48* 77 80 CREATININE - [facility] mg/dL 1.6* 1.1 1.0 HYPERTENSION: Patient on ACEi/ARB: yes BP Readings from Last 3 Encounters: 04/24/23 128/62 04/13/23 132/86 02/03/23 108/54 Blood pressure at goal: yes HYPERLIPIDEMIA: Patient is taking moderate or high intensity statin: yes HEALTH MAINTENANCE REVIEW: Health Maintenance Due Topic Date Due Alpha-1 Antitrypsin Never done ASSESSMENT & PLAN: ICD-10-CM 1. Type 2 diabetes mellitus with hemoglobin A1c goal of less than 7.0% ([facility]) E11.9 BG Readings - Blood sugars uncontrolled. A1c 12.2, pt reports BG averaging 200- 300 with spikes up to 500 at times. Patient agreeable to start dexcom G7, order sent in today. Medications - Reviewed current regimen, patient is adherent to regimen. Patient agreeable to transition to humalog insulin (likely on formulary) and increase the dosing of short acting insulin he is taking. Diet, Exercise, Lifestyle - No significant lifestyle changes since last visit. Patient is agreeable to SMBG 3 time(s) daily. Patient aware to contact clinic if any hypoglycemia before next visit. MEDICATION CHANGES: yes, see below; preferred pharmacy: [facility] Diabetic Medications: Metformin ER 500mg BID Jardiance 25mg QAM Trulicity 1.5mg once weekly START: Humalog Inject 8 units with meals plus CF 1:25 over 150 Lantus 24 units QAM HEALTH MAINTENANCE INTERVENTIONS: Labs: Up to Date Immunizations: Up to Date Foot Exam: Up to Date Eye Exam: Up to Date Annual Wellness Visit: N/A FOLLOW UP: Return to clinic in 6 weeks Visit date not found Deep Shi RPh Clinical Pharmacist - [employer] [facility] Med[facility] 04/28/2023, 12:27 PM documented in this encounter Plan of Treatment Upcoming Encounters Date Type Department Care Team (Late st Contact Info) Description 05/26/2023 9:00 AM EST [facility] [address] [facility] [id number] [facility] [address] [facility] [place] [id number] 05/31/2023 11:00 AM EST Pharmacy Pharmacy, [facility] [address] [facility] [id number] Pharmacist2, [facility] [address] [facility] [address] [facility] [id number] 06/02/2023 2:00 PM EST Office Visit Family [facility], [place] [address] [facility] [phone] Cm Roberto MD [address] [facility] [place] [id number] Scheduled Procedures Name Priority Associated Diagnoses Date/Ti me COLONOSCOPY FLEXIBLE PROXIMAL DIAGNOSTIC Recall Screen for colon cancer Health Maintenance Due Date Last Done Comments Alpha-1 Antitrypsin 1974 Fecal Occult Blood Test 2001 Sigmoidoscopy 2001 Cologuard 04/11/2020 04/11/2017 Diabetic Foot Exam 06/02/2023 06/01/2022, 1 04/03/2020, 01/30/2020, Additional history exists B-12 08/04/2023 08/03/2022, 09/24, 01/10/2019, Additional history exists Albumin/Creatinine Ratio 08/05/2023 023, 02/01/2021, 01/10/2019, Additional history exists HbA1c 10/12/2023 04/13/2023, 01/25, 08/03/2022, Additional history exists Diabetic Eye Exam 04/03/2024 04/03/2023, , 04/26/2021, Additional history exists Depression Screening 04/12/2024 04/12/2023, 12/24/19 17 GFR 04/13/2024 04/13/2023, 01/25, 06/01/2022, Additional history exists O2 ASSESSMENT COMPLETED IN PAST YEAR FOR COPD 04/24/2024 04/24/2023 Lipid Panel 02/28/2027 02/28/2022, 07/26, 06/29/2021, Additional history exists DTaP,Tdap,and Td Vaccines (3 - Td or Tdap) 11/23/2030 11/23/2020, 05/21/2017 Colonoscopy 10/27/2031 10/26/2021, 10/26/2021 Colorectal Cancer Screening 10/27/2031 Hepatitis B Completed 12/18/2013, 03/28, 02/07/2013 *COPD SEVERITY VERIFIED BY PFT Addressed 10/12/2016 (Done elsewhere) Overridden with the intention of not completing the topic Zoster Vaccines Completed 11/23/2017, 08/02/2017 Pneumococcal Vaccine: 65+ Years Completed 02/02/2022, 11/23/2020, 03/24/2017 AAA Screening Completed 05/24/2022 Influenza Vaccine (FLU shot) Completed 12/23/2022, 01/05/2022, 11/23/2020, Additional history exists COVID-19 Vaccine Completed 02/23/2023, , 07/25/2020, Additional history exists GARDASIL-HPV IMMUNIZATION SERIES Aged Out No longer eligible based on patient's age to complete this topic MENINGOCOCCAL (MENACTRA/MENVEO) Aged Out No longer eligible based on patient's age to complete this topic documented as of this encounter Medical Devices Not on filedocumented as of this encounter Visit Diagnoses Diagnosis Type 2 diabetes mellitus with hemoglobin A1c goal of less than 7.0% (HCC)- Primary documented in this encounter Advance Directives Documents on File Type Date Recorded Patient Civil Designer Expl anation Advance Directives and Living Will 06/29/2022 ADVANCE DIRECTIVE / LIVING WILL Power of Utilities Operator 06/29/2022 POWER OF A TTORNEY Advance Directives and Living Will 06/27/2022 ADVANCE DIRECTIVE / LIVING WILL Power of Utilities Operator 06/27/2022 POWER OF A TTHCA [employer] Care Teams Coil Tier Relationship Specialty Start Date End Date Cm Roberto MD [address] [place] [address] PCP - General Family Medicine 03/12/18 documented as of this encounter
--- OUTSIDE RECORDS SUMMARY | 2023-05-07 16:48 | External Medical Summary | Summary of Care ---
Author Name Unknown Organization [facility] Address [address] [place] [address] Phone [phone] Care Team Providers Care Evp Operations Name Role Phone Cm Roberto MD Primary Care Provider [phone] Reason for Visit * Reason Onset Date Comments Diabetes Management 05/05/2023 Non-ce dm TRIAGE 05/05/2023 Encounter Details Date Type Department Care Team (Late st Contact Info) Description 05/05/2023 Telephone Pharmacy Call Center [phone] [place] [phone] Marlyn Jensen, [facility] [phone] [place] [phone] Diabetes Management (Non-ce dm ); TRIAGE Allergies No known active allergiesdocumented as of this encounter (statuses as of 05/05/2023) Medications Medication Sig Dispensed Refills Start Date End Date Status aspirin 81 MG chewable tabletIndications:in am Take 1 Tablet by mouth in [...] Sulfate 325 (65 Fe) MG Oral Tablet (Feosol)Indications: Anemia, unspecified type Take 1 Tablet by mouth [...] Active OneTouch Verio In Vitro Strip (Glucose Blood)Indications:Ty pe 2 diabetes mellitus with hemoglobin A1c goal of less than 7.0% (HCC) USE TO TEST BLOOD SUGARS 3 times A DAY DX E11.9 100 Strip 3 12/23/2022 Active Lisinopril 2.5 MG Oral Tablet (Prinivil)Indication s:Essential hypertension with goal blood pressure less than 150/90 Take 1 Tablet by mouth in the morning. 90 Tablet 3 01/18/2023 Active Atorvastatin Calcium 80 MG Oral Tablet (Lipitor)Indications :Type 2 diabetes mellitus with hemoglobin A1c goal of less than 7.0% (HCC) Take 1 Tablet by mouth in the morning. 90 Tablet 3 01/18/2023 Active Empagliflozin 25 MG Oral Tablet (Jardiance)Indicatio ns:Type 2 diabetes mellitus with hemoglobin A1c goal of less than 7.0% (HCC) Take 1 Tablet by mouth in the morning. 90 Tablet 3 01/18/2023 Active Ipratropium-Albutero l 0.5-2.5 (3) MG/3ML Inhalation Solution (Duoneb) Use [...] 0 01/26/2023 Active Meloxicam 15 MG Oral TabletIndications:Pr imary osteoarthritis involving multiple joints TAKE 1 TABLET BY MOUTH DAILY FOR PAIN. 90 Tablet 1 02/21/2023 Active Trelegy Ellipta 200-62.5-25 MCG/ACT Aerosol Powder Breath ActivatedIndications :COPD, moderate (HCC) Inhale 1 Puff by mouth in the morning. 90 Blister Dosing Unit 3 03/03/2023 Active Albuterol Sulfate HFA 108 (90 Base) MCG/ACT Inhalation Aerosol SolutionIndications: COPD, moderate (HCC) INHALE 2 PUFFS ORALLY EVERY [...] Insulin Glargine 100 UNIT/ML Subcutaneous Solution Pen-injector (Lantus)Indications: Type 2 diabetes mellitus with hemoglobin A1c goal of less than 7.0% (HCC) 24 units daily or as directed 0 04/24/2023 Active traMADol HCl 50 MG Oral Tablet (Ultram)Indications: Pain of right upper extremity Take 1 Tablet by mouth 3 times a day as needed for Pain, Moderate. 60 Tablet 0 04/24/2023 Active Azithromycin 250 MG Oral Tablet (Zithromax Z-Johnathon)Indications:CO PD exacerbation (HCC) Take two tablets by mouth on first day, then 1 tablet daily until gone 6 Tablet 0 04/24/2023 Active Amoxicillin-Pot Clavulanate 875-125 MG Oral Tablet (Augmentin)Indicatio ns:Pneumonia of left lower lobe due to infectious organism Take 1 Tablet by mouth in the morning and 1 Tablet before bedtime. Do all this for 10 days. 20 Tablet 0 04/25/2023 Active Insulin Lispro (1 Unit Dial) 100 UNIT/ML Subcutaneous Solution Pen-injector (HumaLOG KwikPen)Indications: Type 2 diabetes mellitus with hemoglobin A1c goal of less than 7.0% (HCC) Inject 8 units with meals plus CF 1:25 over 150 30 mL 3 04/28/2023 Active Insupen Pen [place] 31G X 8 MM (Insulin Pen Needle)Indications:T ype 2 diabetes mellitus with hemoglobin A1c goal of less than 7.0% (HCC) Use to inject insulin up to 4x daily 400 Each 3 04/28/2023 Active documented as of this encounter (statuses as of 05/05/2023) Active Problems Problem Noted Date Diagnosed Date [...] as of this encounter (statuses as of 05/05/2023) Resolved Problems Problem Noted Date Diagnosed Date [...] as of this encounter (statuses as of 05/05/2023) Immunizations Name Administration Dates Next Due COVID-19 mRNA, LNP-s, No Pre serve, 2-Dose Series (Pfizer) 07/25/2020,07/04/2020 Hepatitis B, 20+ yrs 12/18/2013,04/17/2013,02/07 Pneumococcal Conjugate Vacci ne, 20-valent ([id number]) 02/02/2022 Pneumococcal Polysaccharide PPV23 (Pneumovax) 11/23/2020,03/24/2017 Seasonal [...] on file documented as of this encounter Miscellaneous Notes * Telephone Encounter - Marlyn Jensen RP - 05/05/2023 10:51 AM EST [facility] Non-Clinical [facility] THIS NOTE SERVES FOR TRIAGING PURPOSES ONLY AND IS NOT A PATIENT CONTACT. PATIENT MAY BE CONTACTED FOLLOWING MY ASSESSMENT. Patient was identified to be a candidate for the Non- telephonic program based on the following criteria: Not high cost / A1c >= 9.0/ PDC >= 80% Patient managed by [facility] provider? Yes; [facility] MTDM and [facility] PCP Last A1C: 12.2 (Result Date: 04/13/23) Diabetes Diagnosis: Type 2 After chart review the following opportunities were identified: Mail Order Invite ( Call and invite) Action to be taken by oil burner technician: mail order invite Needs Language Line: No Marlyn Jensen RPh Clinical Pharmacist 05/05/2023, 10:51 AM documented in this encounter Plan of Treatment Upcoming Encounters Date Type Department Care Team (Late st Contact Info) Description 05/26/2023 9:00 AM EST Laboratory Laboratory, [place] [address] [facility] [place] [phone] [place] [address] [place] [address] 05/31/2023 11:00 AM EST Pharmacy Pharmacy, [facility] [address] [facility] [address] Pharmacist2, [facility] [address] [facility], [place] [address] 06/02/2023 2:00 PM EST Office Visit Family [facility] [place] [address] [place] [facility] [place] [phone] Cm Roberto MD [address] [place] [address] Scheduled Procedures Name Priority Associated Diagnoses Date/Ti [...] Not on filedocumented as of this encounter Advance Directives Documents on File Type Date Recorded Patient Section Beamer Expl anation Advance Directives and Living Will 06/29/2022 ADVANCE DIRECTIVE / LIVING WILL Power of Technical Account Executive 06/29/2022 POWER OF A TTORNEY Advance Directives and Living Will 06/27/2022 ADVANCE DIRECTIVE / LIVING WILL Power of Technical Account Executive 06/27/2022 POWER OF A TTORNEY Care Teams Evp Operations Relationship Specialty Start Date End Date Cm Roberto MD [address] [facility] [address] PCP - General Family Medicine 03/12/18 documented as of this encounter
--- OUTSIDE RECORDS SUMMARY | 2023-05-07 16:48 | External Medical Summary | Summary of Care ---
Author Name Unknown Organization [facility] Address [address] [place] [address] Phone [phone] Care Team Providers Care Nursing Staff Development Coordinator Name Role Phone Cm Roberto MD Primary Care Provider [phone] Reason for Visit * Reason Onset Date Comments Diabetes Management 05/05/2023 Non-ce dm TRIAGE 05/05/2023 Encounter Details Date Type Department Care Team (Late st Contact Info) Description 05/05/2023 Telephone Pharmacy Call Center [phone] [place] [phone] Marlyn Jensen, [facility] [phone] [place] [address] Diabetes Management (Non-ce dm ); TRIAGE Allergies [...] 30 mL 3 04/28/2023 Active Insupen Pen [place] 31G X 8 MM (Insulin Pen Needle)Indications:T [...] yrs 12/18/2013,04/17/2013,02/07 Pneumococcal Conjugate Vacci ne, 20-valent ([id number]) 02/02/2022 Pneumococcal Polysaccharide PPV23 (Pneumovax) 11/23/2020,03/24/2017 Seasonal [...] Jensen RP - 05/05/2023 10:51 AM EST [facility] Non-Clinical [place] Diabetes Initiative THIS NOTE SERVES FOR TRIAGING PURPOSES ONLY AND IS NOT A PATIENT CONTACT. PATIENT MAY BE CONTACTED FOLLOWING MY ASSESSMENT. Patient was identified to be a candidate for the Non- telephonic program based on the following criteria: Not high cost / A1c >= 9.0/ PDC >= 80% Patient managed by [facility] provider? Yes; [facility] MTDM and [facility] PCP Last A1C: 12.2 (Result Date: 04/13/23) Diabetes Diagnosis: Type 2 After chart review the following opportunities were identified: Mail Order Invite ( Call and invite) Action to be taken by certified veterinary technician: mail order invite Needs Language Line: No Marlyn Jensen RPh Clinical Pharmacist 05/05/2023, 10:51 AM documented in this encounter Plan of Treatment Upcoming Encounters Date Type Department Care Team (Late st Contact Info) Description 05/26/2023 9:00 AM EST Laboratory Laboratory, [place] [address] [facility] [place] [id number] [place] [address] [place] [address] 05/31/2023 11:00 AM EST Pharmacy Pharmacy, [facility] [place] [address] [facility] [place] [address] [place]2, [facility] [address] [facility] [place], [place] [address] 06/02/2023 2:00 PM EST Office Visit Family [facility], [place] [address] [place] [facility] [place] [address] Cm Roberto MD [address] [place] [address] Scheduled Procedures Name Priority Associated Diagnoses Date/Ti [...] Documents on File Type Date Recorded Patient Set Decorator Expl anation Advance Directives and Living Will 06/29/2022 ADVANCE DIRECTIVE / LIVING WILL Power of Automobile Locator 06/29/2022 POWER OF A TTORNEY Advance Directives and Living Will 06/27/2022 ADVANCE DIRECTIVE / LIVING WILL Power of Automobile Locator 06/27/2022 POWER OF A TTORNEY Care Teams Nursing Staff Development Coordinator Relationship Specialty Start Date End Date Cm Roberto MD [address] [facility] [place] [address] PCP - General Family Medicine 03/12/18 documented as of this encounter
--- OUTSIDE RECORDS SUMMARY | 2023-05-07 16:48 | External Medical Summary | Summary of Care ---
Author Name Unknown Organization [facility] Address [address] [place] [address] Phone [phone] Care Team Providers Care Freight Booker Name Role Phone Cm Roberto MD Primary Care Provider [phone] Reason for Visit * Reason Onset Date Comments Abnormal Test Results 04/24/2023 Encounter Details Date Type Department Care Team (Late st Contact Info) Description 04/24/2023 Telephone [facility] [address] [place] [address] Cm Roberto MD [address] [place] [address] Abnormal Test Results Allergies No known active allergiesdocumented as of this encounter (statuses as of 05/01/2023) Medications Medication Sig Dispensed Refills Start Date [...] 20 Tablet 0 04/25/2023 4 Active Insulin Pen Needle (INSUPEN PEN NEEDLES) 31G X 8 MMIndications:Type 2 diabetes mellitus with hemoglobin A1c goal of less than 7.0% (HCC) Use with Trulicity once per week 12 Box Dosing Unit 3 02/16/2018 4 Discontinu ed(Refill) documented as of this encounter (statuses as of 05/01/2023) Active Problems Problem Noted Date Diagnosed Date [...] as of this encounter (statuses as of 05/01/2023) Resolved Problems Problem Noted Date Diagnosed Date [...] as of this encounter (statuses as of 05/01/2023) Immunizations Name Administration Dates Next Due COVID-19 mRNA, LNP-s, No Pre serve, 2-Dose Series (Pfizer) 07/25/2020,07/04/2020 Hepatitis B, 20+ yrs 12/18/2013,04/17/2013,02/07 Pneumococcal Conjugate Vacci ne, 20-valent ([id number]) 02/02/2022 Pneumococcal Polysaccharide PPV23 (Pneumovax) 11/23/2020,03/24/2017 Seasonal [...] encounter Miscellaneous Notes * Telephone Encounter - Carlene Trujillo LPN - 05/01/2023 10:13 AM EST Called pt and relayed information from [place]. Pt voiced understanding. * Telephone Encounter - Almita Beck CCMA - 04/25/2023 8:16 AM EST Called pt, pt got a half a message and hang up on me, called pt again it went to that has not been setup. * Telephone Encounter - Cm Roberto MD - 04/25/2023 7:30 AM EST Notify Pt: The CXR shows a left sided pneumonia. It is unclear if this is new or same as what was noted 1 month ago. Need for Pt to continue Z pack but also need to add a second antibiotic ([id number] twice daily)> * Telephone Encounter - Almita Beck CCMA - 04/24/2023 3:36 PM EST Pt is requesting an order for X-ray. Please advise. documented in this encounter Plan of Treatment Upcoming Encounters Date Type Department Care Team (Late st Contact Info) Description 05/26/2023 9:00 AM EST Laboratory Laboratory, [address] [place] [address] [place] [address] [facility] [place] [address] 05/31/2023 11:00 AM EST Pharmacy Pharmacy, [facility] [place] [address] [facility] [place] [address] [place]2, [facility] [address] [facility] [place] [address] 06/02/2023 2:00 PM EST Office Visit Family [facility] [place] [address] [place] [address] Cm Roberto MD [address] [place] [address] Scheduled Procedures Name Priority Associated Diagnoses Date/Ti [...] as of this encounter Visit Diagnoses Diagnosis Pneumonia of left lower lobe due to infectious organism- Primary documented in this encounter Advance Directives Documents on File Type Date Recorded Patient Customer Engagement Manager Expl anation Advance Directives and Living Will 06/29/2022 ADVANCE DIRECTIVE / LIVING WILL Power of Thread Trimmer 06/29/2022 POWER OF A TTORNEY Advance Directives and Living Will 06/27/2022 ADVANCE DIRECTIVE / LIVING WILL Power of Thread Trimmer 06/27/2022 POWER OF A TTORNEY Care Teams Freight Booker Relationship Specialty Start Date End Date Cm Roberto MD [address] [facility] [place] [address] PCP - General Family Medicine 03/12/18 documented as of this encounter
--- OUTSIDE RECORDS SUMMARY | 2023-05-07 16:49 | External Medical Summary | Summary of Care ---
Author Name Unknown Organization [facility] Address [address] [place] [address] Phone [phone] Care Team Providers Care Outcomes Analyst Name Role Phone Cm Roberto MD Primary Care Provider [phone] Reason for Referral * Evaluate & Treat - Unlimited Visits (Within 10 days (routine)) - Pending Review Specialty Diagnoses / Procedures Referred By Contkassidy t Referred To Contact Pharmacist / Pharmacy Diagnoses Type 2 diabetes mellitus with hemoglobin A1c goal of less than 7.0% ([facility]) Jus Lynn MD [address] [place] [address] Referral ID Status Reason Start Date Expiration Date Visits Requested Visits Authorized [id number] Pending Review Specialty Services Required 04/20/2023 99 [phone] Question Answer Referral Priority Within 10 days (routine) Where should this appointment be scheduled? [facility] Referring Provider Role: Primary Care Reason for Referral: DM Target A1c: < 8 Comments Pharmacist Medication Therapy Management: Minimum frequency patient should be seen in person for medication management: as appropriate per clinical condition and patient status By my signature, I understand that my patient Homer Gomez will have his medication therapy managed by the [facility] Medication Therapy [facility] ([facility]) per established policies, procedures, and protocols. I also certify that this referral may serve as an initiation of service for the management of drug therapy in the above noted patient. [facility] providers will be responsible for scheduling patient visits, obtaining appropriate laboratory studies, and adjusting medication management therapy per patient's need, in addition to those roles spelled out in the clinic policy, procedures, and drug management protocols. I understand that the service provided by the [facility] is voluntary and have informed patient that they can refuse the service at their discretion. I am aware that the [facility] Clinic will provide me with a copy of the patient encounter via my [employer] [facility]. I authorize the [facility] Clinic to carry out these activities on my behalf. I consider this program to be a necessary part of the patient's medical care. Jus Lynn MD Reason for Visit * Reason Onset Date Comments Test Results 04/17/2023 Encounter Details Date Type Department Care Team ([facility] st Contact Info) Description 04/17/2023 Telephone [facility] [address] [place] [address] Jus Lynn MD [address] [place] [address] Test Results Allergies No known active allergiesdocumented as of this encounter (statuses as of 04/24/2023) Medications Medication Sig Dispensed Refills Start Date End Date Status aspirin 81 MG chewable tabletIndications: in am Take 1 Tablet by mouth in the morning. with food.. 100 Tab 1 7 Active Insulin Pen Needle (INSUPEN PEN NEEDLES) 31G X 8 MMIndications:Type 2 diabetes mellitus with hemoglobin A1c goal of less than 7.0% ([facility]) Use with Trulicity once per week 12 Box Dosing Unit 3 8 Active risperiDONE (RISPERDAL) 2 MG Tablet Take 1 Tab by mouth at bedtime. prescribed by Psych 30 Tab 0 0 Active PARoxetine (PAXIL) 30 MG Tablet Take 1 Tab by mouth 2 times a day. prescribed by Psych 60 Tab 0 0 Active busPIRone HCl 10 MG Oral Tablet (Buspar) Take 1 Tablet by mouth in the morning and 1 Tablet before bedtime. 0 Active Ferrous Sulfate 325 (65 Fe) MG Oral Tablet (Feosol)Indication s:Anemia, unspecified type Take 1 Tablet by mouth daily. 90 Tablet 1 3 Active metFORMIN HCl ER 500 MG Oral Tablet Extended Release 24 Hour (Glucophage XR)Indications:Typ e 2 diabetes mellitus with hemoglobin A1c goal of less than 7.0% (HCC) Take 1 Tablet by mouth 2 times a day with morning and evening meals. 180 Tablet 3 3 Active Meclizine HCl 12.5 MG Oral Tablet (Antivert) 1 Tablet. 0 3 Active Divalproex Sodium ER 250 MG Oral Tablet Extended Release 24 Hour Take 1 Tablet by mouth in the morning and 1 Tablet before bedtime. 0 3 Active Acetaminophen 500 MG Oral Tablet (Tylenol) 2 Tablets. 0 3 Active Insulin Syringe 31G X 5/16" 1 ML Dx E11.9 follow sliding scale for novolog insulin dosing 100 Each 5 3 Active OneTouch Verio w/Device Kit Use up to 4 times a day E11.9 1 Kit 0 3 Active OneTouch Verio w/Device Kit Use up to 4 times a day E11.9 1 Kit 0 3 Active OneTouch Delica Lancets 33GIndications:Typ e 2 diabetes mellitus with hemoglobin A1c goal of less than 7.0% (HCC) ONE TOUCH VERIO LANCETS USE UP TO 3 TIMES A DAY DX E 11.9. 100 Each 11 3 Active OneTouch Verio In Vitro Strip (Glucose Blood)Indications: Type 2 diabetes mellitus with hemoglobin A1c goal of less than 7.0% (HCC) USE TO TEST BLOOD SUGARS 3 times A DAY DX E11.9 100 Strip 3 3 Active Lisinopril 2.5 MG Oral Tablet (Prinivil)Indicati ons:Essential hypertension with goal blood pressure less than 150/90 Take 1 Tablet by mouth in the morning. 90 Tablet 3 3 Active Atorvastatin Calcium 80 MG Oral Tablet (Lipitor)Indicatio ns:Type 2 diabetes mellitus with hemoglobin A1c goal of less than 7.0% (HCC) Take 1 Tablet by mouth in the morning. 90 Tablet 3 3 Active Empagliflozin 25 MG Oral Tablet (Jardiance)Indicat ions:Type 2 diabetes mellitus with hemoglobin A1c goal of less than 7.0% (HCC) Take 1 Tablet by mouth in the morning. 90 Tablet 3 3 Active Ipratropium-Albute rol 0.5-2.5 (3) MG/3ML Inhalation Solution (Duoneb) Use 1 vial nebulized every 6 hours 360 mL 5 3 Active Doxycycline Hyclate 100 MG Oral Tablet Take 1 Tablet by mouth in the morning and 1 Tablet before bedtime. 0 3 Active Cefuroxime Axetil 500 MG Oral Tablet (Ceftin) Take 1 Tablet by mouth in the morning and 1 Tablet before bedtime. 0 3 Active Insulin Glargine 100 UNIT/ML Subcutaneous Solution Pen-injector (Lantus)Indication s:Type 2 diabetes mellitus with hemoglobin A1c goal of less than 7.0% (HCC) Inject 16 Units under the skin in the morning. 15 mL 11 3 Active Meloxicam 15 MG Oral TabletIndications: Primary osteoarthritis involving multiple joints TAKE 1 TABLET BY MOUTH DAILY FOR PAIN. 90 Tablet 1 3 Active Trelegy Ellipta 200-62.5-25 MCG/ACT Aerosol Powder Breath ActivatedIndicatio ns:COPD, moderate (HCC) Inhale 1 Puff by mouth in the morning. 90 Blister Dosing Unit 3 3 Active Albuterol Sulfate HFA 108 (90 Base) MCG/ACT Inhalation Aerosol SolutionIndication s:COPD, moderate (HCC) INHALE 2 PUFFS ORALLY EVERY 6 HOURS NEEDED FOR SHORTNESS OF BREATH/WHEEE *GIVE IF REFUSING DUONEB 18 g 11 3 Active Gabapentin 300 MG Oral Capsule (Neurontin) Take 1 Capsule by mouth in the morning and 1 Capsule at noon and 1 Capsule before bedtime. 90 Capsule 1 4 Active Trulicity 1.5 MG/0.5ML Subcutaneous Solution Pen-injector (Dulaglutide) Inject 1.5 mg under the skin once a week. 2 mL 3 4 Active Trulicity 0.75 MG/0.5ML Subcutaneous Solution Pen-injectorIndica tions:Type 2 diabetes mellitus with hemoglobin A1c goal of less than 7.0% (HCC) Inject 0.75 mg under the skin once a week. 2 mL 5 3 04/17/19 24 Discontinued NovoLOG 100 UNIT/ML Injection Solution Start with 4 units for glucose of 200 or greater and increase dose by 2 units for every increase of 50mg. Maximum of 16 units for glucose greater than 450. Dx E11.9 10 mL 11 4 04/19/19 24 Discontinued(Re fill) documented as of this encounter (statuses as of 04/24/2023) Active Problems Problem Noted Date Diagnosed Date [...] as of this encounter (statuses as of 04/24/2023) Resolved Problems Problem Noted Date Diagnosed Date [...] as of this encounter (statuses as of 04/24/2023) Immunizations Name Administration Dates Next Due COVID-19 mRNA, LNP-s, No Pre serve, 2-Dose Series (C-sam) 07/25/2020,07/04/2020 Hepatitis B, 20+ yrs 12/18/2013,04/17/2013,02/07 Pneumococcal Conjugate Vacci ne, 20-valent ([id number]) 02/02/2022 Pneumococcal Polysaccharide PPV23 (Pneumovax) 11/23/2020,03/24/2017 Seasonal [...] Miscellaneous Notes * Telephone Encounter - Marlyn Machado OSA - 04/24/2023 11:48 AM EST Scheduled MTM. 04/24/2023 * Telephone Encounter - Edith Liang CPhT - 04/20/2023 6:07 PM EST Patients insurance would like to inform the office that Trulicity is approved until open ended. Patient and pharmacy made aware by Tanesha. Information will be faxed to the office. Thank you, Edith Liang CPht Aircraft Loadmaster Superintendent II [facility] (formerly [facility]) 04/20/2023, 6:07 PM * Addendum Note - Jus Lynn MD - 04/20/2023 12:33 PM ESTAddended by: JUS LYNN on: 04/20/2023 12:33 PM Modules accepted: Orders * Telephone Encounter - Jus Lynn MD - 04/20/2023 12:33 PM EST pLease schedule with MTM * Telephone Encounter - Samantha Crowe LPN - 04/20/2023 11:24 AM EST Spoke with Janie and she states that a prior auth for Trulicity and would like to have a referral placed for MTM Prior auth sent through [facility] for Trulicity and ID#: [id number] * Addendum Note - Jus Lynn MD - 04/18/2023 9:43 AM ESTAddended by: JUS LYNN on: 04/18/2023 09:43 AM Modules accepted: Orders * Telephone Encounter - Jus Lynn MD - 04/18/2023 9:41 AM EST Yes please keep appointment with PCP as scheduled It is good timing And keep neurontin for nerve pain for now And also increase lantus to 20 units daily And refilled novolog And please take higher dose trulicity And might need to see [facility] clinic Does he f/u at [facility] ? * Addendum Note - Kmii Singh LPN - 04/17/2023 4:34 PM ESTAddended by: KIMI SINGH on: 04/17/2023 04:34 PM Modules accepted: Orders * Telephone Encounter - Kimi Singh LPN - 04/17/2023 4:10 PM EST Patient's EC Janie aware and verbalized understanding, will comply. Reports that the pt has been and is still taking Novolog via a sliding scale. PCP ordered the sliding scale. States that the pt is almost out of Novolog and needs a refill. Novolog was D/C 01/28/24 with reason stating "discharged". Janie states that PCP wanted to to continue this. Reports that the pt is scheduled to see PCP on 04/24/23 and would like to know if it's ok just to keep that appointment? Janie asks that she is called back once this is addressed. Novolog pended. Pharmacy selected. Please advise. * Telephone Encounter - Samantha Crowe LPN - 04/17/2023 2:23 PM EST Voicemail was full and unable to leave a message. * Addendum Note - Jus Lynn MD - 04/17/2023 2:20 PM ESTAddended by: JUS LYNN on: 04/17/2023 02:20 PM Modules accepted: Orders * Telephone Encounter - Jus Lynn MD - 04/17/2023 2:18 PM EST Please increase lantus to 20 unit if he is taking still 16 unit And also sending out trulicity higher dose 1.5 mg weekly injection If his sugar is very high, he can have more nerve pain So please cont neurontin 300 mg tid And if he has mobic 15 mg , please take it daily too Can he come back within a week again ? * Telephone Encounter - Patricia Scales LPN - 04/17/2023 1:39 PM EST Patient aware and verbalized understanding States that his arm pain is the same Denies any changes to urine, any arm swelling, & any changes to skin color States that taking the Gabapentin and it seems to be helping the pain a little bit He is taking both the Jardiance and the Trulicity * Telephone Encounter - Jus Lynn MD - 04/17/2023 1:05 PM EST US test didn't show any clot fortunately But blood tests showed still uncontrolled DM ( No improvement since jan) And also worse kidney function How is arm pain now Any urine color change , arm swelling or skin color change ? Does he take jardiance 25 mg And trulicity 0.75 injection weekly ? * Telephone Encounter - Patricia Scales LPN - 04/17/2023 12:36 PM EST Ordered by Dr. Lynn * Telephone Encounter - Whitney Baxter OSA - 04/17/2023 10:37 AM EST Who is Requesting Test Results: kristina Brooks Primary Care Provider : Cm Roberto MD Tests Results Requested : US right arm Date of Test : 04/14/23 Location of Test: [facility] Ordering Provider: Dr. Jus Lynn Callback Number: [phone] Patient has been made aware that the turnaround time for test results are typically as follows: Laboratory results = within 2-3 days ([facility]), 3-5 days (Non[facility], ie. [facility]) Urine Cultures = within 2-3 days depending on growth within the culture Pathology results (biopsy results/PAP) = 1-2 weeks Radiology results = about 1 week Cologuard results = within 2 weeks from the shipment date COVID testing = about 24 hours documented in this encounter Plan of Treatment Upcoming Encounters Date Type Department Care Team (Late st Contact Info) Description 04/24/2023 12:20 PM EST Office Visit [place] [address] [place] [address] Cm Roberto MD [address] [place] [address] 04/28/2023 1:00 PM EST Pharmacy Pharmacy, [place] [address] [place] [address] [facility] [address] [place] [address] Scheduled Procedures Name Priority Associated Diagnoses Date/Ti wy COLONOSCOPY FLEXIBLE PROXIMAL DIAGNOSTIC Recall Screen for colon cancer Scheduled Referrals Name Type Priority Associated Diagnoses Orde r Schedule PHARMACIST MEDS THERAPY MGMT REFERRAL OP Referral Within 10 days (routine) Type 2 diabetes mellitus with hemoglobin A1c goal of less than 7.0% (HCC) Ordered: 04/20/2023 Health Maintenance Due Date Last Done Comments [...] ASSESSMENT COMPLETED IN PAST YEAR FOR COPD 04/13/2024 04/13/2023 Lipid Panel 02/28/2027 02/28/2022, 07/26, 06/29/2021, Additional [...] hemoglobin A1c goal of less than 7.0% ([facility]) documented in this encounter Advance Directives Documents on File Type Date Recorded 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
--- OUTSIDE RECORDS SUMMARY | 2023-05-07 16:49 | External Medical Summary | Summary of Care ---
Author Name Unknown Organization [facility] Address [address] [place] [address] Phone [phone] Care Team Providers Care Senior Risk Analyst Name Role Phone Cm Roberto MD Primary Care Provider [phone] Reason for Visit * Reason Onset Date Comments Abnormal Test Results 04/24/2023 Encounter Details Date Type Department Care Team (Late st Contact Info) Description 04/24/2023 Telephone Formerly [facility] [address] [place] [address] Cm Roberto MD [address] [place] [address] Abnormal Test Results Allergies No known active allergiesdocumented as of this encounter (statuses as of 04/25/2023) Medications Medication Sig Dispensed Refills Start Date End Date Status aspirin 81 MG chewable tabletIndications:in am Take 1 Tablet by mouth in the morning. with food.. 100 Tab 1 09/29/2016 Active Insulin Pen Needle (INSUPEN PEN NEEDLES) 31G X 8 MMIndications:Type 2 diabetes mellitus with hemoglobin A1c goal of less than 7.0% ([facility]) Use with Trulicity once per week 12 [address] D[address] 02/16/2018 Active risperiDONE (RISPERDAL) 2 MG Tablet Take [...] 10 days. 20 Tablet 0 04/25/2023 Active documented as of this encounter (statuses as of 04/25/2023) Active Problems Problem Noted Date Diagnosed Date [...] as of this encounter (statuses as of 04/25/2023) Resolved Problems Problem Noted Date Diagnosed Date [...] as of this encounter (statuses as of 04/25/2023) Immunizations Name Administration Dates Next Due COVID-19 mRNA, LNP-s, No Pre serve, 2-Dose Series (Pfizer) 07/25/2020,07/04/2020 Hepatitis B, 20+ yrs 12/18/2013,04/17/2013,02/07 Pneumococcal Conjugate Vacci ne, 20-valent ([id number]) 02/02/2022 Pneumococcal Polysaccharide PPV23 (Pneumovax) 11/23/2020,03/24/2017 Seasonal [...] encounter Miscellaneous Notes * Telephone Encounter - Cm Roberto MD - 04/25/2023 7:30 AM EST Notify Pt: The CXR shows a left sided pneumonia. It is unclear if this is new or same as what was noted 1 month ago. Need for Pt to continue Z pack but also need to add a second antibiotic ([id number] twice daily)> * Telephone Encounter - Almita Beck CCMA - 04/24/2023 3:36 PM EST Pt is requesting an order for X-ray. Please advise. documented in this encounter Plan of Treatment Upcoming Encounters Date Type Department Care Team (Late st Contact Info) Description 04/28/2023 1:00 PM EST Pharmacy Pharmacy, [place] [address] [place] [address] [facility] [address] [place] [address] 05/26/2023 9:00 AM EST Laboratory Laboratory, [place] [address] [facility] [place] [facility] [id number] [facility] [address] [place] [address] 06/02/2023 2:00 PM EST Office Visit Family [facility], [place] [address] [facility] [place] [phone] Cm Roberto MD [address] [place] [address] Scheduled Procedures Name Priority Associated Diagnoses Date/Ti [...] Documents on File Type Date Recorded Patient 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
--- OUTSIDE RECORDS SUMMARY | 2023-05-07 16:49 | External Medical Summary | Summary of Care ---
Author Name Unknown Organization [facility] Address [address] [place] [address] Phone [phone] Care Team Providers Care Revenue Accounting Manager Name Role Phone Cm Roberto MD Primary Care Provider [phone] Reason for Visit * Reason Comments Dosage Adjustment In Person (Anticoag Cl inic) Diabetes Management * Evaluate & Treat - Unlimited Visits (Within 10 days (routine)) - Pending Review Specialty Diagnoses / Procedures Referred By Contac t Referred To Contact Pharmacist / Pharmacy Diagnoses Type 2 diabetes mellitus with hemoglobin A1c goal of less than 7.0% (HCC) Jus Lynn MD [address] [place] [address] Referral ID Status Reason Start Date Expiration Date Visits Requested Visits Authorized [id number] Pending Review Specialty Services Required 04/20/2023 99 99 Encounter Details Date Type Department Care Team (Late st Contact Info) Description 04/28/2023 1:00 PM EST Pharmacy Pharmacy, [place] [address] [place] [address] [place], [facility] [address] [place] [address] Type 2 diabetes mellitus with hemoglobin A1c [...] 30 mL 3 04/28/2023 Active Insupen Pen [place] 31G X 8 MM (Insulin Pen Needle)Indications: [...] mRNA, LNP-s, No Pre serve, 2-Dose Series ([employer]) 07/25/2020,07/04/2020 Hepatitis B, 20+ yrs 12/18/2013,04/17/2013,02/07 Pneumococcal Conjugate Vacci ne, 20-valent ([id number]) 02/02/2022 Pneumococcal Polysaccharide PPV23 (Pneumovax) 11/23/2020,03/24/2017 Seasonal [...] this encounter Progress Notes * Deep Shi, [facility] - 04/28/2023 12:27 PM EST Medication Therapy [...] hemoglobin A1c goal of less than 7.0% ([facility]) E11.9 BG Readings - Blood sugars uncontrolled. [...] MEDICATION CHANGES: yes, see below; preferred pharmacy: [facility] Diabetic Medications: Metformin ER 500mg BID Jardiance [...] found Deep Shi RPh Clinical Pharmacist - Cement Finishing Supervisor [facility] 04/28/2023, 12:27 PM documented in this encounter Plan of Treatment Upcoming Encounters Date Type Department Care Team (Late st Contact Info) Description 05/26/2023 9:00 AM EST [facility] [place] [address] [facility] [id number] [facility] [address] [facility] [place] [id number] 05/31/2023 11:00 AM EST Pharmacy Pharmacy, [facility] [address] [facility] [place] [address] Pharmacist2, [facility] [address] [facility] [place] [address] 06/02/2023 2:00 PM EST Office Visit Family [facility], [place] [address] [facility] [phone] Cm Roberto MD [address] [facility] [place] [id number] Scheduled Procedures Name Priority Associated Diagnoses Date/Ti [...] Documents on File Type Date Recorded Patient Rn Emergency Room Expl anation Advance Directives and Living Will 06/29/2022 ADVANCE DIRECTIVE / LIVING WILL Power of Ux Lead 06/29/2022 POWER OF A TTORNEY Advance Directives and Living Will 06/27/2022 ADVANCE DIRECTIVE / LIVING WILL Power of Ux Lead 06/27/2022 [facility] Care Teams Revenue Accounting Manager Relationship Specialty Start Date End Date Cm Robreto MD [address] [place] [address] PCP - General Family Medicine 03/12/18 documented as of this encounter
--- OUTSIDE RECORDS SUMMARY | 2023-05-07 16:49 | External Medical Summary | Summary of Care ---
Author Name Unknown Organization [facility] Address [address] [facility] [place] [address] Phone [phone] Care Team Providers Care Housekeeping Associate Name Role Phone Cm Roberto MD Primary Care Provider [phone] Encounter Details Date Type Department Care Team (Late st Contact Info) Description 04/25/2023 Orders Only PATIENT PORTAL DO NOT DELETE THIS DEPT USED [place] [address] Allergies No known active allergiesdocumented as of [...] hemoglobin A1c goal of less than 7.0% ([facility]) Use with Trulicity once per week 12 [...] mRNA, LNP-s, No Pre serve, 2-Dose Series ([employer]) 07/25/2020,07/04/2020 Hepatitis B, 20+ yrs 12/18/2013,04/17/2013,02/07 Pneumococcal Conjugate Vacci ne, 20-valent ([id number]) 02/02/2022 Pneumococcal Polysaccharide PPV23 (Pneumovax) 11/23/2020,03/24/2017 Seasonal [...] on file documented as of this encounter Plan of Treatment Upcoming Encounters Date Type Department Care Team (Late st Contact Info) Description 04/28/2023 1:00 PM EST Pharmacy Pharmacy, [place] [address] [place] [facility] [address] [place] [facility] [address] [facility], [place] [address] 05/26/2023 9:00 AM EST Laboratory Laboratory, [place] [address] [facility], [place] [phone] [place], [facility] [address] [facility], [place] [id number] 06/02/2023 2:00 PM EST Office Visit Family Practice, [place] [address] [facility], [place] [phone] Cm Roberto MD [address] [facility] [place] [id number] Scheduled Procedures Name Priority Associated Diagnoses Date/Ti [...] Documents on File Type Date Recorded Patient Quick Print Operator Expl anation Advance Directives and Living Will 06/29/2022 ADVANCE DIRECTIVE / LIVING WILL Power of Fire Regulator 06/29/2022 POWER OF A TTORNEY Advance Directives and Living Will 06/27/2022 ADVANCE DIRECTIVE / LIVING WILL Power of Fire Regulator 06/27/2022 POWER OF A TTORNEY Care Teams Housekeeping Associate Relationship Specialty Start Date End Date Cm Roberto MD [address] [place] [address] PCP - General Family Medicine 03/12/18 documented as of this encounter
--- OUTSIDE RECORDS SUMMARY | 2023-05-07 16:49 | External Medical Summary | Summary of Care ---
Author Name Unknown Organization [facility] Address [address] [place] [address] Phone [phone] Care Team Providers Care Bolt Threader Name Role Phone Cm Roberto MD Primary Care Provider [phone] Reason for Referral * Evaluate & Treat - Unlimited Visits (Within 10 days (routine)) - Pending Review Specialty Diagnoses / Procedures Referred By Contkassidy t Referred To Contact Pharmacist / Pharmacy Diagnoses Type 2 diabetes mellitus with hemoglobin A1c goal of less than 7.0% ([facility]) Jus Lynn MD [address] [place] [address] Referral ID Status Reason Start Date Expiration Date Visits Requested Visits Authorized [id number] Pending Review Specialty Services Required 04/20/2023 99 99 Question Answer Referral Priority Within 10 days (routine) Where should this appointment be scheduled? [facility] Referring Provider Role: Primary Care Reason for Referral: DM Target A1c: < 8 Comments Pharmacist Medication Therapy Management: Minimum frequency patient should be seen in person for medication management: as appropriate per clinical condition and patient status By my signature, I understand that my patient Homer Gomez will have his medication therapy managed by the [facility] Medication Therapy Disease Management [facility] ([facility]) per established policies, procedures, and protocols. I also certify that this referral may serve as an initiation of service for the management of drug therapy in the above noted patient. [facility] providers will be responsible for scheduling patient visits, obtaining appropriate laboratory studies, and adjusting medication management therapy per patient's need, in addition to those roles spelled out in the clinic policy, procedures, and drug management protocols. I understand that the service provided by the [facility] is voluntary and have informed patient that they can refuse the service at their discretion. I am aware that the [facility] Clinic will provide me with a copy of the patient encounter via my [employer] In[employer]. I authorize the [facility] to carry out these activities on my behalf. I consider this program to be a necessary part of the patient's medical care. Jus Lynn MD Reason for Visit * Reason Onset Date Comments Test Results 04/17/2023 Encounter Details Date Type Department Care Team ([facility] st Contact Info) Description 04/17/2023 Telephone [facility] [address] [place] [address] Jus Lynn MD [address] [place] [address] Test Results Allergies No known active allergiesdocumented as of this encounter (statuses as of 04/21/2023) Medications Medication Sig Dispensed Refills Start Date End Date Status aspirin 81 MG chewable tabletIndications: in am Take 1 Tablet by mouth in the morning. with food.. 100 Tab 1 7 Active Insulin Pen Needle (INSUPEN PEN NEEDLES) 31G X 8 MMIndications:Type 2 diabetes mellitus with hemoglobin A1c goal of less than 7.0% ([facility]) Use with Trulicity once per week 12 [...] as of this encounter (statuses as of 04/21/2023) Active Problems Problem Noted Date Diagnosed Date [...] as of this encounter (statuses as of 04/21/2023) Resolved Problems Problem Noted Date Diagnosed Date [...] as of this encounter (statuses as of 04/21/2023) Immunizations Name Administration Dates Next Due COVID-19 mRNA, LNP-s, No Pre serve, 2-Dose Series ([employer]) 07/25/2020,07/04/2020 Hepatitis B, 20+ yrs 12/18/2013,04/17/2013,02/07 Pneumococcal Conjugate Vacci ne, 20-valent ([id number]) 02/02/2022 Pneumococcal Polysaccharide PPV23 (Pneumovax) 11/23/2020,03/24/2017 Seasonal [...] encounter Miscellaneous Notes * Telephone Encounter - Edith Liang CPhT - 04/20/2023 6:07 PM EST Patients insurance would like to inform the office that Trulicity is approved until open ended. Patient and pharmacy made aware by Tanesha. Information will be faxed to the office. Thank you, Edith Liang CPht Bean Picker Machine Operator II [facility] (formerly [...] placed for [facility] Prior auth sent through [employer] for Trulicity and ID#: [id number] * Addendum Note - Jus Lynn MD [...] dose trulicity And might need to see [facility] clinic Does he f/u at [facility] ? * Addendum Note - Susan Singh LPN - 04/17/2023 4:34 PM ESTAddended by: SUSAN SINGH on: 04/17/2023 04:34 PM Modules accepted: Orders * Telephone Encounter - Susan Singh LPN - 04/17/2023 4:10 PM EST [...] of Test : 04/14/23 Location of Test: [facility] Ordering Provider: Dr. Jus Lynn Callback Number: [phone] Patient has been made aware that the [...] Description 04/24/2023 12:20 PM EST Office Visit [facility] [address] [place] [address] Cm Roberto MD [address] [place] [address] Scheduled Procedures Name Priority Associated Diagnoses Date/Ti or COLONOSCOPY FLEXIBLE PROXIMAL DIAGNOSTIC Recall Screen for [...] A1c goal of less than 7.0% (HCC) documented in this encounter Advance Directives Documents on File Type Date Recorded Patient Control Panel Operator Expl anation Advance Directives and Living Will 06/29/2022 ADVANCE DIRECTIVE / LIVING WILL Power of Medicinal Plant Picker 06/29/2022 POWER OF A TTORNEY Advance Directives and Living Will 06/27/2022 ADVANCE DIRECTIVE / LIVING WILL Power of Medicinal Plant Picker 06/27/2022 POWER OF A TTORNEY Care Teams Bolt Threader Relationship Specialty Start Date End Date Cm Roberto MD [address] [place] [address] PCP - General Family Medicine 03/12/18 documented as of this encounter
--- OUTSIDE RECORDS SUMMARY | 2023-05-07 16:49 | External Medical Summary | Summary of Care ---
Author Name Unknown Organization [facility] Address [address] [place] [address] Phone [phone] Care Team Providers Care Rag Boiler Name Role Phone Cm Roberto MD Primary Care Provider [phone] Reason for Visit * Reason Comments Follow Up Follow upUS done on right arm with dr Lynn Encounter Details Date Type Department Care Team (Latest Contact Info) Description 04/24/2023 12:20 PM EST Office Visit [facility] [address] [place] [address] Cm Roberto MD [address] [place] [address] Increase in creatinine*; Primary osteoarthritis involving multiple joints; Pain of right upper extremity; COPD, moderate ([facility]); Bipolar 1 disorder ([facility]); Type 2 diabetes mellitus with hemoglobin A1c goal of less than 7.0% ([facility]); COPD exacerbation ([facility]) Allergies No known active allergiesdocumented as of [...] A1c goal of less than 7.0% ([facility]) Use with Trulicity once per [...] until gone 6 Tablet 0 04/24/2023 Active Insulin Glargine 100 UNIT/ML Subcutaneous Solution Pen-injector (Lantus)Indications :Type 2 diabetes mellitus with hemoglobin A1c goal of less than 7.0% (HCC) Inject 16 Units under the skin in the morning. 15 mL 11 02/03/2023 4 Discontinu ed(Medicat ion/Dose Changed) documented as of this encounter (statuses as [...] yrs 12/18/2013,04/17/2013,02/07 Pneumococcal Conjugate Vacci ne, 20-valent ([id number]) 02/02/2022 Pneumococcal Polysaccharide PPV23 (Pneumovax) 11/23/2020,03/24/2017 Seasonal [...] Tobacco: Never Comments:from 15 years - Dec [place]og of 2020 Alcohol Use Standard Drinks/Week Comments [...] on file documented as of this encounter Last Filed Vital Signs Vital Sign Reading Time Taken Comments Blood Pressure 128/62 04/24/2023 12:29 PM EST Pulse 79 04/24/2023 12:29 PM EST Temperature 36.5 C (97.7 F) 04/24/2023 1 2:29 PM EST Respiratory Rate 16 04/24/2023 12:2 9 PM EST Oxygen Saturation 94% 04/24/2023 12: 29 PM EST Inhaled Oxygen Concentration - - Weight 79.3 kg (174 lb 12.8 oz) 024 12:29 PM EST Height - - Body Mass Index 24.38 04/13/2023 1:12 PM EST documented in this encounter Progress Notes * Cm Roberto MD - 04/24/2023 12:40 PM EST Subjective: Homer Gomez is a 67 year old male. Chief Complaint Patient presents with Follow Up Follow up US done on right arm with dr Lynn HPI: 67-year-old seen today for a regular scheduled visit but also follow-up for right mid arm pain. This pain has been ongoing now for about 2 weeks. Tells me that it is extremely painful. He deniestrauma. He saw Dr. Lynn who ordered Doppler study. That Doppler study did not show any DVT. Patient has not had a rash in the arm. He has been taking ibuprofen 200 mg 4 tablets 3 times a day or possibly more as well as Tylenol 500 mg, 4 tablets 3 times a day or possibly more. He also has been takingmeloxicam. Blood sugars remain out of control. When he saw Dr. Lynn his glargine insulin was increased from 16-20 units daily. He is on NovoLog sliding scale 4 units twice daily and 2 units for every 50 mg glucose above 200 up to a glucose of 450. He has not been using the sliding scale twice a day but rather only once a day as he did not want to take NovoLog essentially the same time as his glargine insulinin the evening. He has been bothered with a cough for the last 3 weeks. He had been hospitalized with pneumonia in late December. Has not had the follow-up chest x-ray yet as was ordered. No fever that were aware of. Patient Active Problem List Diagnosis Code Bipolar 1 disorder ([facility]) F31.9 COPD, moderate ([facility]) J44.9 Essential hypertension with goal blood pressure less than 150/90 I10 Primary osteoarthritis involving multiple joints M15.9 Dyslipidemia, goal LDL below 70 E78.5 Type 2 diabetes mellitus with hemoglobin A1c goal of less than 7.0% ([facility]) E11.9 Chronic pain syndrome G89.4 Bipolar II disorder ([facility]) F31.81 Anxiety, generalized F41.1 Hyperprolactinemia ([facility]) E22.1 Current Outpatient Medications Medication Sig Dispense Refill aspirin 81 MG chewable tablet Take 1 Tablet by mouth in the morning. with food.. 100 Tab 1 Insulin Pen Needle (INSUPEN PEN NEEDLES) 31G X 8 MM Use with Trulicity once per week 12 Box Dosing Unit 3 PARoxetine (PAXIL) 30 MG Tablet Take 1 Tab by mouth 2 times a day. prescribed by Psych 60 Tab 0 busPIRone HCl 10 MG Oral Tablet (Buspar) Take 1 Tablet by mouth in the morning and 1 Tablet before bedtime. Ferrous Sulfate 325 (65 Fe) MG Oral Tablet (Feosol) Take 1 Tablet by mouth daily. 90 Tablet 1 metFORMIN HCl ER 500 MG Oral Tablet Extended Release 24 Hour (Glucophage XR) Take 1 Tablet by mouth2 times a day with morning and evening meals. 180 Tablet 3 Meclizine HCl 12.5 MG Oral Tablet (Antivert) 1 Tablet. Acetaminophen 500 MG Oral Tablet (Tylenol) 2 Tablets. Insulin Syringe 31G X 5/16" 1 ML Dx E11.9 follow sliding scale for novolog insulin dosing 100 Each 5 OneTouch Verio w/Device Kit Use up to 4 times a day E11.9 1 Kit 0 OneTouch Verio w/Device Kit Use up to 4 times a day E11.9 1 Kit 0 OneTouch Delica Lancets 33G ONE TOUCH VERIO LANCETS USE UP TO 3 TIMES A DAY DX E 11.9. 100 Each 11 OneTouch Verio In Vitro Strip (Glucose Blood) USE TO TEST BLOOD SUGARS 3 times A DAY DX E11.9 100 Strip 3 Lisinopril 2.5 MG Oral Tablet (Prinivil) Take 1 Tablet by mouth in the morning. 90 Tablet 3 Atorvastatin Calcium 80 MG Oral Tablet (Lipitor) Take 1 Tablet by mouth in the morning. 90 Tablet 3 Empagliflozin 25 MG Oral Tablet (Jardiance) Take 1 Tablet by mouth in the morning. 90 Tablet 3 Ipratropium-Albuterol 0.5-2.5 (3) MG/3ML Inhalation Solution (Duoneb) Use 1 vial nebulized every 6 hours 360 mL 5 Doxycycline Hyclate 100 MG Oral Tablet Take 1 Tablet by mouth in the morning and 1 Tablet before bedtime. Cefuroxime Axetil 500 MG Oral Tablet (Ceftin) Take 1 Tablet by mouth in the morning and 1 Tablet before bedtime. Insulin Glargine 100 UNIT/ML Subcutaneous Solution Pen-injector (Lantus) Inject 16 Units under the skin in the morning. 15 mL 11 Meloxicam 15 MG Oral Tablet TAKE 1 TABLET BY MOUTH DAILY FOR PAIN. 90 Tablet 1 Trelegy Ellipta 200-62.5-25 MCG/ACT Aerosol Powder Breath Activated Inhale 1 Puff by mouth in the morning. 90 Blister Dosing Unit 3 Albuterol Sulfate HFA 108 (90 Base) MCG/ACT Inhalation Aerosol Solution INHALE 2 PUFFS ORALLY EVERY6 HOURS NEEDED FOR SHORTNESS OF BREATH/WHEEE *GIVE IF REFUSING DUONEB 18 g 11 Gabapentin 300 MG Oral Capsule (Neurontin) Take 1 Capsule by mouth in the morning and 1 Capsule at noon and 1 Capsule before bedtime. 90 Capsule 1 Trulicity 1.5 MG/0.5ML Subcutaneous Solution Pen-injector (Dulaglutide) Inject 1.5 mg under the skin once a week. 2 mL 3 NovoLOG 100 UNIT/ML Injection Solution Start with 4 units for glucose of 200 or greater and increase dose by 2 units for every increase of 50mg. Maximum of 16 units for glucose greater than 450. Dx E11.9 10 mL 11 risperiDONE (RISPERDAL) 2 MG Tablet Take 1 Tab by mouth at bedtime. prescribed by Psych 30 Tab 0 Divalproex Sodium ER 250 MG Oral Tablet Extended Release 24 Hour Take 1 Tablet by mouth in the morning and 1 Tablet before bedtime. (Patient not taking: Reported on 12/23/2022) No current facility-administered medications for this visit. Review of patient's allergies indicates: No Known Allergies Objective: BP 128/62 | Pulse 79 | Temp 36.5 C (97.7 F) (Infrared ) | Resp 16 | Wt 79.3 kg (174 lb 12.8 oz)| SpO2 94% | BMI 24.38 kg/m | BSA 1.99 m Physical Exam: CONST: alert, pleasant, no acute distress. He did not appear to have any respiratory distress. HEAD: normocephalic, atraumatic NECK: supple, soft, no adenopathy Eyes - PERRLA, EOM'I OROPHARYNX: clear, no swelling or erythema, moist CV: regular rate and rhythm, no murmur CHEST: clear to auscultation bilaterally-but with harsh breath sounds throughout, no rales or wheezing ABD: soft, non tender, non distended, no masses or hepatosplenomegaly EXT: no edema, no joint swelling or deformities, . I do not see any swelling or redness at the siteof his pain in the right forearm. Has a little bit a discomfort with flexion at the elbow against resistance. Did not have pain with pronation supination against resistance NEURO: AAOx3, no gross focal deficits, cerebellar signs normal, affect appropriate MENTAL STATUS: no evidence of thought disorder, no delusional thought, no evidence of paranoia, thought is non-tangential. SKIN: no rash or significant lesions Lab work done April 13, 2023 showed a sharp decrease in GFR from 77-48 increase in the creatinine from 1.1-1.6. His BUN was about the same. Liver functions were normal except for minimally elevated alkaline phos of 138,000. White blood count slightly elevated at 10.7. ASSESSMENT/PLAN: Right arm pain-etiology is unclear. Could be a a sensory neuropathy as a consequence of diabetes but unusual. I can not make a case for any severe muscular or tendon problem. Can not have him continue meloxicam and ibuprofen given the sharp decrease in his GFR/renal function. So, he is to stop meloxicam and ibuprofen. I gave him a prescription for tramadol 50 mg to use up to 3 times a day but if he can get by with once or twice a day, that is what he should do. A total of 60 with no refills. Ifhe needs a continue he will have to get in touch with the office. Will plan to see again in 1 monthto reassess. Acute renal failure-suspect this is due to excess NSAIDs ideas-ibuprofen and meloxicam. As noted above, he is stopped both of these medicines. Repeat basic metabolic panel before I see him back againin a month Diabetes mellitus poor control. Increase glargine from 20-24 units daily and he is going to start taking that daily in the middle of the day so he has not concerned about combining it with his NovoLog. Continue the NovoLog sliding scale i.e. 4 units twice daily plus 4 units for every 50 mg of glucose above 200 up to 450. I stressed that he needs to use this twice a day. He is supposed to be on Trulicity 1.5 mg but he has not been able to get that dose. He did get the 0.75 which he will continuebut ultimately would like to up the dose to 1.5. He does have follow up with MTM in 4 days time in this office. Exacerbation COPD-Z-Johnathon. Avoid steroids because of uncontrolled glucose. See again 1 month with blood work (basic metabolic panel) done 2 days before next visit. Instructions all hand printed for him to reference Follow Up: Return in about 1 month (around 05/25/2023) for Return with Physician, Fasting Labs 2-5 Days Before Next Visit. | For: Return with Physician, Fasting Labs 2-5 Days Before Next Visit | Check-out note: RTC for me or dr Moore Time: I spent a total of 40-54 minutes (exact time 45 mins) on the date of service in preparation, delivery, and documentation of the care provided to Homer Gomez excluding any time spent in the performance of separately billed services. Cm Roberto MD documented in this encounter Nursing Notes * Yi Huerta LPN - 04/24/2023 12:21 PM EST Chief Complaint Patient presents with Follow Up Follow up US done on right arm with dr Lynn documented in this encounter Plan of Treatment Upcoming Encounters Date Type Department Care Team (Late st Contact Info) Description 04/28/2023 1:00 PM EST Pharmacy Pharmacy, [place] [address], [place] [address] [place] [address] [facility] [facility] [address] 05/26/2023 9:00 AM EST Laboratory Laboratory, [place] [address] [facility] [facility] [phone] [place] [address] [facility] [address] 06/02/2023 2:00 PM EST Office Visit [facility], [place] [address] [facility] [phone] [facility]m Roberto [facility] [address] [facility] [address] Scheduled Orders Name Type Priority Associated Diagnoses Orde r Schedule BASIC METABOLIC PANEL Lab Routine Increase in creatinine Expected: 04/24/2023 (Approximate), Expires: 04/23/2024 Scheduled Procedures Name Priority Associated Diagnoses Date/Ti [...] as of this encounter Visit Diagnoses Diagnosis Increase in creatinine- Primary Primary osteoarthritis involving multiple joints Pain of right upper extremity COPD, moderate (HCC) Chronic airway obstruction, not elsewhere classified Bipolar 1 disorder (HCC) Bipolar I disorder, most recent episode (or current) unspecified Type 2 diabetes mellitus with hemoglobin A1c goal of less than 7.0% (HCC) COPD exacerbation (HCC) Obstructive chronic bronchitis with exacerbation documented in this encounter Advance Directives Documents on File Type Date Recorded 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
--- OUTSIDE RECORDS SUMMARY | 2023-05-07 16:49 | External Medical Summary | Summary of Care ---
Author Name Unknown Organization [facility] Address [address] [place] [address] Phone [phone] Care Team Providers Care Banquet Waiter/Waitress Name Role Phone Cm Roberto MD Primary Care Provider Reason for Visit * Reason Onset Date Comments Test Results 04/25/2023 Unexpected or In determinate Result Encounter Details Date Type Department Care Team (Late st Contact Info) Description 04/25/2023 Telephone Laboratory, [place] [address] [place] [address] Cm Roberto MD [address] [place] [address] Test Results (Unexpected or Indeterminate ... Allergies No known active allergiesdocumented as of [...] hemoglobin A1c goal of less than 7.0% ([facility]) Use with Trulicity once per week [...] until gone 6 Tablet 0 04/24/2023 Active documented as of this encounter (statuses [...] mRNA, LNP-s, No Pre serve, 2-Dose Series (Helveta) 07/25/2020,07/04/2020 Hepatitis B, 20+ yrs 12/18/2013,04/17/2013,02/07 Pneumococcal Conjugate Vacci ne, 20-valent ([id number]) 02/02/2022 Pneumococcal Polysaccharide PPV23 (Pneumovax) 11/23/2020,03/24/2017 Seasonal [...] Never Comments:from 15 years - Dec mingo 2020 Alcohol Use Standard Drinks/Week Comments No [...] encounter Miscellaneous Notes * Telephone Encounter - Hawa Bolanos OSA - 04/25/2023 5:35 AM EST Ed[place]- The radiologist discovered an unexpected or indeterminate finding on Homer Gomez ([id number]) and asks that you review the following report. Study Type: XR CHEST 2 VIEWS Date of Study: 04/24/2023 Mild left lower lobe infiltrate, compatible with pneumonia. Please respond to this encounter to acknowledge receipt of this message and take responsibility to ensure this report is reviewed. Thank you, JEIMY Elias Client Service Rep [facility] documented in this encounter Plan of Treatment Upcoming Encounters Date Type Department Care Team (Late st Contact Info) Description 04/28/2023 1:00 PM EST Pharmacy Pharmacy, [place] [address] [place] [address] [facility] [address] [place] [facility] [place] [address] 05/26/2023 9:00 AM EST Laboratory Laboratory, [place] [address] [place] [phone] [facility] [address] [facility] [address] 06/02/2023 2:00 PM EST Office Visit Family [facility], [place] [address] [place] [facility] [place] [phone] Cm Roberto MD [address] [place] [address] Scheduled Procedures Name Priority Associated Diagnoses Date/Ti [...] exists Depression Screening 04/12/2024 04/12/2023, 12/24/19 17 04/13/2024 04/13/2023, 01/25, 06/01/2022, Additional history exists [...] Documents on File Type Date Recorded Patient Sand Worker Expl anation Advance Directives and Living Will 06/29/2022 ADVANCE DIRECTIVE / LIVING WILL Power of Channel Marketing Program Manager 06/29/2022 POWER OF A TTORNEY Advance Directives and Living Will 06/27/2022 ADVANCE DIRECTIVE / LIVING WILL Power of Channel Marketing Program Manager 06/27/2022 POWER OF A TTORNEY Care Teams Banquet Waiter/Waitress Relationship Specialty Start Date End Date Cm Roberto MD [address] [place] [address] PCP - General Family Medicine 03/12/18 documented as of this encounter
--- OUTSIDE RECORDS SUMMARY | 2023-05-07 16:49 | External Medical Summary | Summary of Care ---
Author Name Unknown Organization [facility] Address [address] [place] [address] Phone [phone] Care Team Providers Care Poising Inspector Name Role Phone Cm Roberto MD Primary Care Provider Reason for Visit * Reason Onset Date Comments Test Results 04/25/2023 Unexpected or In determinate Result Encounter Details Date Type Department Care Team (Late st Contact Info) Description 04/25/2023 Telephone Laboratory, [place] [address] [place] [address] Cm Roberto MD [address] [place] [address] Test Results (Unexpected or Indeterminate [...] A1c goal of less than 7.0% ([facility]) Use with Trulicity once per week 12 [...] mRNA, LNP-s, No Pre serve, 2-Dose Series (Acsendo) 07/25/2020,07/04/2020 Hepatitis B, 20+ yrs 12/18/2013,04/17/2013,02/07 Pneumococcal Conjugate Vacci ne, 20-valent ([id number]) 02/02/2022 Pneumococcal Polysaccharide PPV23 (Pneumovax) 11/23/2020,03/24/2017 Seasonal [...] unexpected or indeterminate finding on Homer Gomez ([id number]) and asks that you review the following report. Study Type: XR CHEST 2 VIEWS Date of Study: 04/24/2023 Mild left lower lobe infiltrate, compatible with pneumonia. Please respond to this encounter to acknowledge receipt of this message and take responsibility to ensure this report is reviewed. Thank you, JEIMY Elias Client Service Rep [facility] documented in this encounter Plan of Treatment Upcoming Encounters Date Type Department Care Team (Late st Contact Info) Description 04/28/2023 1:00 PM EST Pharmacy Pharmacy, [place] [address] [facility] [place] [address] [place] [facility] [address] [place] [facility] [place] [address] 05/26/2023 9:00 AM EST Laboratory Laboratory, [place] [address] [place] [facility] [place] [phone] [facility] [address] [place] [facility] [place] [address] 06/02/2023 2:00 PM EST Office Visit Family [facility], [place] [address] [facility] [place] [phone] Cm Roberto MD [address] [place] [address] Scheduled Procedures Name Priority Associated Diagnoses Date/Ti [...] Documents on File Type Date Recorded 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
--- OUTSIDE RECORDS SUMMARY | 2023-05-07 16:49 | External Medical Summary | Summary of Care ---
Author Name Unknown Organization [facility] Address [address] [place] [address] Phone [phone] Care Team Providers Care Special Education Kindergarten Teacher Name Role Phone Cm Roberto MD Primary Care Provider [phone] Reason for Visit * Reason Comments Follow Up Follow upUS done on right arm with dr Lynn Encounter Details Date Type Department Care Team (Latest Contact Info) Description 04/24/2023 12:20 PM EST Office Visit [facility] [address] [place] [address] Cm Roberto MD [address] [place] [address] Increase in creatinine*; Primary osteoarthritis involving multiple joints; Pain of right upper extremity; COPD, moderate ([facility]); Bipolar 1 disorder (HCC); Type 2 diabetes mellitus with hemoglobin A1c goal of less than 7.0% ([facility]); COPD exacerbation ([facility]); Pneumonia of left lower lobe due to infectious organism Allergies No known active allergiesdocumented as of [...] yrs 12/18/2013,04/17/2013,02/07 Pneumococcal Conjugate Vacci ne, 20-valent ([id number]) 02/02/2022 Pneumococcal Polysaccharide PPV23 (Pneumovax) 11/23/2020,03/24/2017 Seasonal [...] Problem List Diagnosis Code Bipolar 1 disorder ([facility]) F31.9 COPD, moderate ([facility]) J44.9 Essential hypertension with goal blood pressure less than 150/90 I10 Primary osteoarthritis involving multiple joints M15.9 Dyslipidemia, goal LDL below 70 E78.5 Type 2 diabetes mellitus with hemoglobin A1c goal of less than 7.0% ([facility]) E11.9 Chronic pain syndrome G89.4 Bipolar II disorder ([facility]) F31.81 Anxiety, generalized F41.1 Hyperprolactinemia ([facility]) E22.1 Current Outpatient Medications Medication Sig Dispense [...] with dr Lynn documented in this encounter Miscellaneous Notes * Addendum Note - Patricia Baldwin LPN - 04/24/2023 3:45 PM ESTAddended by: PATRICIA BALDWIN on: 04/24/2023 03:45 PM Modules accepted: Orders documented in this encounter Plan of Treatment Upcoming Encounters Date Type Department Care Team (Late st Contact Info) Description 04/28/2023 1:00 PM EST Pharmacy Pharmacy, [place] [address] [place] [address] [facility] [address] [place] [address] 05/26/2023 9:00 AM EST Laboratory Laboratory, [place] [address] [place] [phone] [place], [facility] [address] [place] [address] 06/02/2023 2:00 PM EST Office Visit Family Practice, [place] [address] [place] [facility] [place] [phone] Cm Roberto MD [address] [place] [address] Scheduled Orders Name Type Priority Associated Diagnoses Orde r Schedule BASIC METABOLIC PANEL Lab Routine Increase in creatinine Expected: 04/24/2023 (Approximate), Expires: 04/23/2024 XR CHEST 2 VIEWS Medical Imaging Routine Pneumonia of left lower lobe due to infectious organism Ordered: 04/24/2023 Scheduled Procedures Name Priority Associated Diagnoses Date/Ti [...] exacerbation (HCC) Obstructive chronic bronchitis with exacerbation Pneumonia of left lower lobe due to infectious organism documented in this encounter Advance Directives Documents on File Type Date Recorded Patient Broadcast Field Supervisor Expl anation Advance Directives and Living Will 06/29/2022 ADVANCE DIRECTIVE / LIVING WILL Power of Acute Dialysis Nurse 06/29/2022 POWER OF A TTORNEY Advance Directives and Living Will 06/27/2022 ADVANCE DIRECTIVE / LIVING WILL Power of Acute Dialysis Nurse 06/27/2022 POWER OF A TTORNEY Care Teams Special Education Kindergarten Teacher Relationship Specialty Start Date End Date Cm Roberto MD [address] [place] [address] PCP - General Family Medicine 03/12/18 documented as of this encounter
--- OUTSIDE RECORDS SUMMARY | 2023-05-07 16:49 | External Medical Summary | Summary of Care ---
Author Name Unknown Organization [facility] Address [address] [place] [address] Phone [phone] Care Team Providers Care Ct Manager Name Role Phone Cm Roberto MD Primary Care Provider [phone] Reason for Visit * Reason Onset Date Comments Abnormal Test Results 04/24/2023 Encounter Details Date Type Department Care Team (Late st Contact Info) Description 04/24/2023 Telephone [facility] [address] [place] [address] Cm Roberto MD [address] [place] [address] Abnormal Test Results Allergies No [...] hemoglobin A1c goal of less than 7.0% ([facility]) Use with Trulicity once per [...] yrs 12/18/2013,04/17/2013,02/07 Pneumococcal Conjugate Vacci ne, 20-valent ([id number]) 02/02/2022 Pneumococcal Polysaccharide PPV23 (Pneumovax) 11/23/2020,03/24/2017 Seasonal [...] encounter Miscellaneous Notes * Telephone Encounter - Almita Beck CCMA [...] also need to add a second antibiotic ([id number] twice daily)> * Telephone Encounter - Almita Beck CCMA - 04/24/2023 3:36 PM EST Pt is requesting an order for X-ray. Please advise. documented in this encounter Plan of Treatment Upcoming Encounters Date Type Department Care Team (Late st Contact Info) Description 04/28/2023 1:00 PM EST Pharmacy Pharmacy, [place] [address] [facility] [address] [facility] [address] [address] 05/26/2023 9:00 AM EST Laboratory Laboratory, [place] [address] [facility] [phone] [facility] [address] [facility] [address] 06/02/2023 2:00 PM EST Office [facility] [place] [address] [facility] [place] [phone] Cm Roberto MD [address] [place] [facility] [place] [address] Scheduled Procedures Name Priority Associated Diagnoses Date/Ti [...] Documents on File Type Date Recorded Patient Agency Trainer Expl anation Advance Directives and Living Will 06/29/2022 ADVANCE DIRECTIVE / LIVING WILL Power of Pulmonary Physical Therapist 06/29/2022 POWER OF A TTORNEY Advance Directives and Living Will 06/27/2022 ADVANCE DIRECTIVE / LIVING WILL Power of Pulmonary Physical Therapist 06/27/2022 POWER OF A TTORNEY Care Teams Ct Manager Relationship Specialty Start Date End Date Cm Roberto MD [address] [facility] [place] [address] PCP - General Family Medicine 03/12/18 documented as of this encounter
--- OUTSIDE RECORDS SUMMARY | 2023-05-07 16:49 | External Medical Summary | Summary of Care ---
Author Name Unknown Organization [facility] Address [address] [place] [address] Phone [phone] Care Team Providers Care Chief Creative Officer Name Role Phone Cm Roberto MD Primary Care Provider Reason for Visit * Reason Onset Date Comments Test Results 04/25/2023 Unexpected or In determinate Result Encounter Details Date Type Department Care Team (Late st Contact Info) Description 04/25/2023 Telephone Laboratory, [place] [address] [place] [address] Cm Roberto MD [address] [place] [address] Test Results (Unexpected or Indeterminate [...] goal of less than 7.0% ([facility]) Use with Trulicity once per week 12 [...] mRNA, LNP-s, No Pre serve, 2-Dose Series (Routeware) 07/25/2020,07/04/2020 Hepatitis B, 20+ yrs 12/18/2013,04/17/2013,02/07 Pneumococcal Conjugate Vacci ne, 20-valent ([id number]) 02/02/2022 Pneumococcal Polysaccharide PPV23 (Pneumovax) 11/23/2020,03/24/2017 Seasonal [...] Encounter - Cm Roberto MD - 04/25/2023 1:01 PM EST I addressed this abnormality. See other encounter. * Telephone Encounter - Hawa Bolanos OSA - 04/25/2023 5:35 AM EST Hello- The radiologist discovered an unexpected or indeterminate finding on Homer Gomez ([id number]) and asks that you review the following report. Study Type: XR CHEST 2 VIEWS Date of Study: 04/24/2023 Mild left lower lobe infiltrate, compatible with pneumonia. Please respond to this encounter to acknowledge receipt of this message and take responsibility to ensure this report is reviewed. Thank you, JEIMY Elias Client Service [facility] documented in this encounter Plan of Treatment Upcoming Encounters Date Type Department Care Team (Late st Contact Info) Description 04/28/2023 1:00 PM EST Pharmacy Pharmacy, [place] [address] [place] [address] [facility] [address] [place] [address] 05/26/2023 9:00 AM EST Laboratory Laboratory, [place] [address] [place] [phone] [facility] [address] [place] [address] 06/02/2023 2:00 PM EST Office Visit Family [facility], [place] [address] [place] [facility] [place] [phone] Cm Roberto MD [address] [place] [address] Scheduled Procedures Name Priority Associated Diagnoses Date/Ti [...] Documents on File Type Date Recorded Patient Tree Marker Expl anation Advance Directives and Living Will 06/29/2022 ADVANCE DIRECTIVE / LIVING WILL Power of Dry Plasterer 06/29/2022 POWER OF A TTORNEY Advance Directives and Living Will 06/27/2022 ADVANCE DIRECTIVE / LIVING WILL Power of Dry Plasterer 06/27/2022 POWER OF A TTORNEY Care Teams Chief Creative Officer Relationship Specialty Start Date End Date Cm Roberto MD [address] [place] [address] PCP - General Family Medicine 03/12/18 documented as of this encounter
--- OUTSIDE RECORDS SUMMARY | 2023-05-07 16:49 | External Medical Summary | Summary of Care ---
Author Name Unknown Organization [facility] Address [address] [place] [address] Phone [phone] Care Team Providers Care Hand Brim Ironer Name Role Phone Cm Roberto MD Primary Care Provider [phone] Reason for Visit * Reason Onset Date Comments Test Results 04/25/2023 Unexpected or In determinate Result Encounter Details Date Type Department Care Team (Late st Contact Info) Description 04/25/2023 Telephone Laboratory, [place] [address] [place] [address] Cm Roberto MD [address] [place] [address] Test Results (Unexpected or Indeterminate [...] than 7.0% ([facility]) Use with Trulicity once per week 12 [...] mRNA, LNP-s, No Pre serve, 2-Dose Series (Inspivia) 07/25/2020,07/04/2020 Hepatitis B, 20+ yrs 12/18/2013,04/17/2013,02/07 Pneumococcal Conjugate Vacci ne, 20-valent ([id number]) 02/02/2022 Pneumococcal Polysaccharide PPV23 (Pneumovax) 11/23/2020,03/24/2017 Seasonal [...] unexpected or indeterminate finding on Homer Gomez ([id number]) and asks that you review the following report. Study Type: XR CHEST 2 VIEWS Date of Study: 04/24/2023 Mild left lower lobe infiltrate, compatible with pneumonia. Please respond to this encounter to acknowledge receipt of this message and take responsibility to ensure this report is reviewed. Thank you, JEIMY Elias Client Service Rep [facility] documented in this encounter Plan of Treatment Upcoming Encounters Date Type Department Care Team (Late st Contact Info) Description 04/28/2023 1:00 PM EST Pharmacy Pharmacy, [place] [address] [place] [address] [place] [address] [place] [address] 05/26/2023 9:00 AM EST Laboratory Laboratory, [place] [address] [place] [phone] [facility] [address] [place] [address] 06/02/2023 2:00 PM EST Office Visit Family [facility], [place] [address] [place] [phone] Cm Roberto MD [address] [place] [address] Scheduled Procedures Name Priority Associated Diagnoses Date/Ti [...] Documents on File Type Date Recorded Patient Tag Maker Expl anation Advance Directives and Living Will 06/29/2022 ADVANCE DIRECTIVE / LIVING WILL Power of Public Relations Player 06/29/2022 POWER OF A TTORNEY Advance Directives and Living Will 06/27/2022 ADVANCE DIRECTIVE / LIVING WILL Power of Public Relations Player 06/27/2022 POWER OF A TTORNEY Care Teams Hand Brim Ironer Relationship Specialty Start Date End Date Cm Roberto MD [address] [place] [address] PCP - General Family Medicine 03/12/18 documented as of this encounter
--- OUTSIDE RECORDS SUMMARY | 2023-05-07 16:49 | External Medical Summary | Summary of Care ---
Author Name Unknown Organization [facility] Address [address] [place] [address] Phone [phone] Care Team Providers Care Stitcher Standard Machine Name Role Phone Cm Roberto MD Primary Care Provider Reason for Visit * Reason Onset Date Comments Medication Problem 04/28/2023 Novolog Encounter Details Date Type Department Care Team ([facility] st Contact Info) Description 04/28/2023 Telephone [facility] [address] [place] [address] Cm Roberto MD [address] [place] [address] Medication Problem (Novolog) Allergies No known active allergiesdocumented as of [...] hemoglobin A1c goal of less than 7.0% ([facility]) Use with Trulicity once per [...] yrs 12/18/2013,04/17/2013,02/07 Pneumococcal Conjugate Vacci ne, 20-valent ([id number]) 02/02/2022 Pneumococcal Polysaccharide PPV23 (Pneumovax) 11/23/2020,03/24/2017 Seasonal [...] encounter Miscellaneous Notes * Telephone Encounter - Gavi Cardenas OSA - 04/28/2023 12:25 PM EST Error documented in this encounter Plan of Treatment Upcoming Encounters Date Type Department Care Team (Late st Contact Info) Description 04/28/2023 1:00 PM EST Pharmacy Pharmacy, [place] [address] [place] [address] [place] [facility] [address] [place] [address] Medication Therapy Disease Management [facility] - Diabetes Management 05/26/2023 9:00 AM EST Laboratory Laboratory, [place] [address] [place] [phone] [place], [facility] [address] [place] [address] 06/02/2023 2:00 PM EST Office Visit [facility], [place] [address] [place] [phone] Cm Roberto MD [address] [place] [address] Scheduled Procedures Name Priority Associated Diagnoses Date/Ti [...] Documents on File Type Date Recorded 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
--- OUTSIDE RECORDS SUMMARY | 2023-05-07 16:50 | External Medical Summary | Summary of Care ---
Author Name Unknown Organization [facility] Address [address] [place] [address] Phone [phone] Care Team Providers Care Lighthouse Keeper Name Role Phone Cm Roberto MD Primary Care Provider [phone] Reason for Visit * Reason Onset Date Comments Test Results 04/17/2023 Encounter Details Date Type Department Care Team (Late st Contact Info) Description 04/17/2023 Telephone [facility] [address] [place] [address] Jus Lynn MD [address] [place] [address] Test Results Allergies No known active allergiesdocumented as of this encounter (statuses as of 04/17/2023) Medications Medication Sig Dispensed Refills Start Date End Date Status aspirin 81 MG chewable tabletIndications:i n am Take 1 Tablet by mouth in the morning. with food.. 100 Tab 1 7 Active Insulin Pen Needle (INSUPEN PEN NEEDLES) 31G X 8 MMIndications:Type 2 diabetes mellitus with hemoglobin A1c goal of less than 7.0% ([facility]) Use with Trulicity once per week [...] Kit 0 3 Active OneTouch Delica Lancets 33GIndications:Type 2 diabetes [...] 3 Active Lisinopril 2.5 MG Oral Tablet (Prinivil)Indicatio [...] 3 Active Empagliflozin 25 MG Oral Tablet (Jardiance)Indicati ons:Type 2 diabetes mellitus with hemoglobin A1c goal of less than 7.0% ([facility]) Take 1 Tablet by mouth in the morning. 90 Tablet 3 3 Active Ipratropium-Albuter ol 0.5-2.5 (3) MG/3ML Inhalation [...] 11 3 Active Meloxicam 15 MG Oral TabletIndications:P rimary [...] 4 Active Trulicity 0.75 MG/0.5ML Subcutaneous Solution Pen-injectorIndicat ions:Type 2 diabetes mellitus with hemoglobin A1c goal of less than 7.0% ([facility]) Inject 0.75 mg under the skin once a week. 2 mL 5 3 04/17/19 24 Discontinued documented as of this encounter (statuses as of 04/17/2023) Active Problems Problem Noted Date Diagnosed Date [...] as of this encounter (statuses as of 04/17/2023) Resolved Problems Problem Noted Date Diagnosed Date [...] as of this encounter (statuses as of 04/17/2023) Immunizations Name Administration Dates Next Due COVID-19 mRNA, LNP-s, No Pre serve, 2-Dose Series (eDreams Edusoft) 07/25/2020,07/04/2020 Hepatitis B, 20+ yrs 12/18/2013,04/17/2013,02/07 Pneumococcal Conjugate Vacci ne, 20-valent ([id number]) 02/02/2022 Pneumococcal Polysaccharide PPV23 (Pneumovax) 11/23/2020,03/24/2017 Seasonal [...] as of this encounter Miscellaneous Notes * Addendum Note - Susan Singh LPN [...] leave a message. * Addendum Note - uJs Lynn MD - 04/17/2023 2:20 PM ESTAddended [...] still uncontrolled DM ( No improvement since nov) And also worse kidney function How is [...] of Test : 04/14/23 [facility] Ordering Provider: Dr. Jus Lynn Callback Number: [phone] Patient has been made aware that the [...] Description 04/24/2023 12:20 PM EST [facility] [address] [facility] [place] [address] Cm Roberto MD [address] [facility] [place] [address] Scheduled Procedures Name Priority Associated Diagnoses [...] Documents on File Type Date Recorded Patient Division Chair Expl anation Advance Directives and Living Will 06/29/2022 ADVANCE DIRECTIVE / LIVING WILL Power of Manager Professional Development 06/29/2022 POWER OF A TTORNEY Advance Directives and Living Will 06/27/2022 ADVANCE DIRECTIVE / LIVING WILL Power of Manager Professional Development 06/27/2022 POWER OF A TTORNEY Care Teams Lighthouse Keeper Relationship Specialty Start Date End Date Cm Roberto MD [address] [place] [address] PCP - General Family Medicine 03/12/18 documented as of this encounter
--- OUTSIDE RECORDS SUMMARY | 2023-05-07 16:50 | External Medical Summary | Summary of Care ---
Author Name Unknown Organization [facility] Address [address] [place] [address] Phone [phone] Care Team Providers Care Agency Operator Name Role Phone Cm Roberto MD Primary Care Provider [phone] Reason for Visit * Reason Onset Date Comments Test Results 04/17/2023 Encounter Details Date Type Department Care Team (Late st Contact Info) Description 04/17/2023 Telephone [facility] [address] [place] [address] Jus Lynn MD [address] [place] [address] Test Results Allergies No known active allergiesdocumented as of this encounter (statuses as of 04/20/2023) Medications Medication Sig Dispensed Refills Start Date End Date Status aspirin 81 MG chewable tabletIndications: in am Take 1 Tablet by mouth in the morning. with food.. 100 Tab 1 7 Active Insulin Pen Needle (INSUPEN PEN NEEDLES) 31G X 8 MMIndications:Type 2 diabetes mellitus with hemoglobin A1c goal of less than 7.0% ([facility]) Use with Trulicity once per [...] hemoglobin A1c goal of less than 7.0% ([facility]) Inject 0.75 mg under the skin once [...] as of this encounter (statuses as of 04/20/2023) Active Problems Problem Noted Date Diagnosed Date [...] as of this encounter (statuses as of 04/20/2023) Resolved Problems Problem Noted Date Diagnosed Date [...] as of this encounter (statuses as of 04/20/2023) Immunizations Name Administration Dates Next Due COVID-19 mRNA, LNP-s, No Pre serve, 2-Dose Series ([employer]) 07/25/2020,07/04/2020 Hepatitis B, 20+ yrs 12/18/2013,04/17/2013,02/07 Pneumococcal Conjugate Vacci ne, 20-valent ([id number]) 02/02/2022 Pneumococcal Polysaccharide PPV23 (Pneumovax) 11/23/2020,03/24/2017 Seasonal [...] encounter Miscellaneous Notes * Telephone Encounter - Samantha Crowe LPN - 04/20/2023 11:24 AM EST Spoke with Janie and she states that a prior auth for Trulicity and would like to have a referral placed for MTM * Addendum Note - Jus Lynn MD [...] of Test : 04/14/23 Location of Test: [facility] Ordering Provider: Dr. Jus Lynn Callback Number: [phone] Patient has been made aware that the [...] Description 04/24/2023 12:20 PM EST Office Visit [facility] [address] [place] [address] Cm Roberto MD [address] [place] [address] Scheduled Procedures Name Priority Associated [...] hemoglobin A1c goal of less than 7.0% ([facility]) documented in this encounter Advance Directives Documents on File Type Date Recorded Patient Check Writing Machine Operator Expl anation Advance Directives and Living Will 06/29/2022 ADVANCE DIRECTIVE / LIVING WILL Power of Retail Sales Specialist 06/29/2022 POWER OF A TTORNEY Advance Directives and Living Will 06/27/2022 ADVANCE DIRECTIVE / LIVING WILL Power of Retail Sales Specialist 06/27/2022 POWER OF A TTORNEY Care Teams Agency Operator Relationship Specialty Start Date End Date Cm Roberto MD [address] [place] [address] PCP - General Family Medicine 03/12/18 documented as of this encounter
--- OUTSIDE RECORDS SUMMARY | 2023-05-07 16:50 | External Medical Summary | Summary of Care ---
Author Name Unknown Organization [facility] Address [address] [place] [address] Phone [phone] Care Team Providers Care Professor Of Poultry Science Name Role Phone Cm Roberto MD Primary Care Provider [phone] Reason for Visit * Reason Onset Date Comments Test Results 04/17/2023 Encounter Details Date Type Department Care Team (Late st Contact Info) Description 04/17/[address] [facility] [address] [place] [address] Jus Lynn MD [address] [place] [address] Test Results Allergies No known [...] hemoglobin A1c goal of less than 7.0% ([facility]) Use with Trulicity once per [...] hemoglobin A1c goal of less than 7.0% ([facility]) Inject 0.75 mg under the [...] mRNA, LNP-s, No Pre serve, 2-Dose Series ([employer]) 07/25/2020,07/04/2020 Hepatitis B, 20+ yrs 12/18/2013,04/17/2013,02/07 Pneumococcal Conjugate Vacci ne, 20-valent ([id number]) 02/02/2022 Pneumococcal Polysaccharide PPV23 (Pneumovax) 11/23/2020,03/24/2017 Seasonal [...] a message. * Addendum Note - Jus Lnyn MD - 04/17/2023 2:20 PM ESTAddended by: [...] of Test : 04/14/23 Location of Test: [facility] Ordering Provider: Dr. Jus Lynn Callback Number: [phone] Patient has been made aware that the [...] Description 04/24/2023 12:20 PM EST Office Visit [facility] [address] [place] [address] Cm Roberto MD [address] [place], [place] [phone] Scheduled Procedures Name Priority Associated Diagnoses Date/Ti [...] Documents on File Type Date Recorded Patient Cath Lab Nurse Expl anation Advance Directives and Living Will 06/29/2022 ADVANCE DIRECTIVE / LIVING WILL Power of Php Lamp Developer 06/29/2022 POWER OF A TTORNEY Advance Directives and Living Will 06/27/2022 ADVANCE DIRECTIVE / LIVING WILL Power of Php Lamp Developer 06/27/2022 POWER OF A TTORNEY Care Teams Professor Of Poultry Science Relationship Specialty Start Date End Date Cm Roberto MD [address] [facility] [address] PCP - General Family Medicine 03/12/18 documented as of this encounter
--- OUTSIDE RECORDS SUMMARY | 2023-05-07 16:50 | External Medical Summary | Summary of Care ---
Author Name Unknown Organization [facility] Address [address] [place] [address] Phone [phone] Care Team Providers Care Core Shaper Top Name Role Phone Cm Roberto MD Primary Care Provider [phone] Reason for Referral * Evaluate & Treat - Unlimited Visits (Within 10 days (routine)) - Pending Review Specialty Diagnoses / Procedures Referred By Contkassidy t Referred To Contact Pharmacist / Pharmacy Diagnoses Type 2 diabetes mellitus with hemoglobin A1c goal of less than 7.0% ([facility]) Jus Lynn MD [address] [place] [address] Referral ID Status Reason Start Date Expiration Date Visits Requested Visits Authorized [id number] Pending Review Specialty Services Required 04/20/2023 99 99 Question Answer Referral Priority Within 10 days (routine) Where should this appointment be scheduled? [facility] Referring Provider Role: Primary Care Reason for Referral: DM Target A1c: < 8 Comments Pharmacist Medication Therapy Management: Minimum frequency patient should be seen in person for medication management: as appropriate per clinical condition and patient status By my signature, I understand that my patient Homer Gomez will have his medication therapy managed by the [facility] Medication Therapy Disease Management Clinic ([facility]) per established policies, procedures, and protocols. I also certify that this referral may serve as an initiation of service for the management of drug therapy in the above noted patient. [facility] providers will be responsible for scheduling patient visits, obtaining appropriate laboratory studies, and adjusting medication management therapy per patient's need, in addition to those roles spelled out in the clinic policy, procedures, and drug management protocols. I understand that the service provided by the [facility] is voluntary and have informed patient that they can refuse the service at their discretion. I am aware that the [facility] Clinic will provide me with a copy of the patient encounter via my [employer]. I authorize the [facility] Clinic to carry out these activities on my behalf. I consider this program to be a necessary part of the patient's medical care. Jus Lynn MD Reason for Visit * Reason Onset Date Comments Test Results 04/17/2023 Encounter Details Date Type Department Care Team ([facility] st Contact Info) Description 04/17/2023 Telephone [facility] [address] [place] [address] Jus Lynn MD [address] [place] [address] Test Results Allergies No known [...] hemoglobin A1c goal of less than 7.0% ([facility]) Use with Trulicity once per week 12 [...] mRNA, LNP-s, No Pre serve, 2-Dose Series (Trot) 07/25/2020,07/04/2020 Hepatitis B, 20+ yrs 12/18/2013,04/17/2013,02/07 Pneumococcal Conjugate Vacci ne, 20-valent ([id number]) 02/02/2022 Pneumococcal Polysaccharide PPV23 (Pneumovax) 11/23/2020,03/24/2017 Seasonal [...] encounter Miscellaneous Notes * Addendum Note - Jus Lynn MD [...] placed for MTM Prior auth sent through [facility] for Trulicity and ID#: [id number] * Addendum Note - Jus Lynn MD [...] of Test : 04/14/23 Location of Test: [facility] Ordering Provider: Dr. Jus Lynn Callback Number: [phone] Patient has been made aware that the [...] Description 04/24/2023 12:20 PM EST Office Visit [address] [address] Cm Roberto MD [address] [place] [address] Scheduled Procedures Name Priority Associated [...] hemoglobin A1c goal of less than 7.0% ([facility]) documented in this encounter Advance Directives Documents on File Type Date Recorded Patient Dry Cell Tester Expl anation Advance Directives and Living Will 06/29/2022 ADVANCE DIRECTIVE / LIVING WILL Power of Assistive Technology Specialist 06/29/2022 POWER OF A TTORNEY Advance Directives and Living Will 06/27/2022 ADVANCE DIRECTIVE / LIVING WILL Power of Assistive Technology Specialist 06/27/2022 POWER OF A TTORNEY Care Teams Core Shaper Top Relationship Specialty Start Date End Date Cm Roberto MD [address] [facility] [place] [address] PCP - General Family Medicine 03/12/18 documented as of this encounter
--- OUTSIDE RECORDS SUMMARY | 2023-05-07 16:50 | External Medical Summary | Summary of Care ---
Author Name Unknown Organization [facility] Address [address] [place] [address] Phone [phone] Care Team Providers Care Treater Helper Name Role Phone Cm Roberto MD Primary Care Provider [phone] Reason for Visit * Reason Onset Date Comments Test Results 04/17/2023 Encounter Details Date Type Department Care Team (Late st Contact Info) Description 04/17/2023 Telephone [facility] [address] [place] [address] Jus Lynn MD [address] [place] [address] Test Results Allergies No known [...] goal of less than 7.0% ([facility]) Use with Trulicity once per [...] goal of less than 7.0% ([facility]) Inject 0.75 mg under the [...] mRNA, LNP-s, No Pre serve, 2-Dose Series ([employer]) 07/25/2020,07/04/2020 Hepatitis B, 20+ yrs 12/18/2013,04/17/2013,02/07 Pneumococcal Conjugate Vacci ne, 20-valent ([id number]) 02/02/2022 Pneumococcal Polysaccharide PPV23 (Pneumovax) 11/23/2020,03/24/2017 Seasonal [...] of Test : 04/14/23 Location of Test: [facility] Ordering Provider: Dr. Jus Lynn Callback Number: [phone] Patient has been made aware that the [...] Description 04/24/2023 12:20 PM EST Office Visit [facility] [address] [place] [address] Cm Roberto MD [address], [place] [id number] Scheduled Procedures Name Priority Associated Diagnoses Date/Ti [...] Documents on File Type Date Recorded Patient Celery Wrapper Expl anation Advance Directives and Living Will 06/29/2022 ADVANCE DIRECTIVE / LIVING WILL Power of Manager Car 06/29/2022 POWER OF A TTORNEY Advance Directives and Living Will 06/27/2022 ADVANCE DIRECTIVE / LIVING WILL Power of Manager Car 06/27/2022 POWER OF A TTORNEY Care Teams Treater Helper Relationship Specialty Start Date End Date Cm Roberto MD [address] [facility] [address] PCP - General Family Medicine 03/12/18 documented as of this encounter
--- OUTSIDE RECORDS SUMMARY | 2023-05-07 16:50 | External Medical Summary | Summary of Care ---
Author Name Unknown Organization [facility] Address [address] [place] [address] Phone [phone] Care Team Providers Care Sugar Refiner Name Role Phone Cm Roberto MD Primary Care Provider [phone] Reason for Visit * Reason Onset Date Comments Test Results 04/17/2023 Encounter Details Date Type Department Care Team (Late st Contact Info) Description 04/17/2023 Telephone [facility] [address] [place] [address] Jus Lynn MD [address] [place] [address] Test Results Allergies No known [...] hemoglobin A1c goal of less than 7.0% ([facility]) Use with Trulicity once per week 12 [...] 1 Tablet before bedtime. 0 01/26/2023 Active Insulin Glargine 100 UNIT/ML Subcutaneous Solution Pen-injector (Lantus)Indications: Type 2 diabetes mellitus with hemoglobin A1c goal of less than 7.0% (HCC) Inject 16 Units under the skin in the morning. 15 mL 11 02/03/2023 Active Meloxicam 15 MG Oral TabletIndications:Pr imary [...] REFUSING DUONEB 18 g 11 03/03/2023 Active Trulicity 0.75 MG/0.5ML Subcutaneous Solution Pen-injectorIndicati ons:Type 2 diabetes mellitus with hemoglobin A1c goal of less than 7.0% (HCC) Inject 0.75 mg under the skin once a week. 2 mL 5 03/16/2023 Active Gabapentin 300 MG Oral Capsule (Neurontin) Take 1 Capsule by mouth in the morning and 1 Capsule at noon and 1 Capsule before bedtime. 90 Capsule 1 04/13/2023 Active documented as of this encounter (statuses [...] mRNA, LNP-s, No Pre serve, 2-Dose Series ([employer]) 07/25/2020,07/04/2020 Hepatitis B, 20+ yrs 12/18/2013,04/17/2013,02/07 Pneumococcal Conjugate Vacci ne, 20-valent ([id number]) 02/02/2022 Pneumococcal Polysaccharide PPV23 (Pneumovax) 11/23/2020,03/24/2017 Seasonal [...] encounter Miscellaneous Notes * Telephone Encounter - Patricia Scales LPN [...] of Test : 04/14/23 Location of Test: [facility] Ordering Provider: Dr. Jus Lynn Callback Number: [phone] Patient has been made aware that the [...] Description 04/24/2023 12:20 PM EST Office Visit [facility] [address] [place] [address] Cm Roberto MD [address] [place] [address] Scheduled Procedures Name Priority Associated [...] Documents on File Type Date Recorded Patient Leadership Program Associate Expl anation Advance Directives and Living Will 06/29/2022 ADVANCE DIRECTIVE / LIVING WILL Power of Director Of Assessing 06/29/2022 POWER OF A TTORNEY Advance Directives and Living Will 06/27/2022 ADVANCE DIRECTIVE / LIVING WILL Power of Director Of Assessing 06/27/2022 POWER OF A TTORNEY Care Teams Sugar Refiner Relationship Specialty Start Date End Date Cm Roberto MD [address] [place] [address] PCP - General Family Medicine 03/12/18 documented as of this encounter
--- OUTSIDE RECORDS SUMMARY | 2023-05-07 16:50 | External Medical Summary | Summary of Care ---
Author Name Unknown Organization [facility] Address [address] [place] [address] Phone [phone] Care Team Providers Care Loss Prevention Detective Name Role Phone Shlomo Roberto MD Primary Care Provider [phone] Reason for Visit * Reason Onset Date Comments Medication Refill 04/19/2023 Encounter Details Date Type Department Care Team (Late st Contact Info) Description 04/19/2023 Refill [facility] [address] [place] [address] Shlomo Roberto MD [address] [place] [address] Allergies No known active allergiesdocumented as of this encounter (statuses as of 04/19/2023) Medications Medication Sig Dispensed Refills Start Date End Date Status aspirin 81 MG chewable tabletIndications:i n am Take 1 Tablet by mouth in the morning. with food.. 100 Tab 1 09/29/2016 Active Insulin Pen Needle (INSUPEN PEN NEEDLES) 31G X 8 MMIndications:Type 2 diabetes mellitus with hemoglobin A1c goal of less than 7.0% ([facility]) Use with Trulicity once per week 12 [...] 11 02/03/2023 Active Meloxicam 15 MG Oral TabletIndications:P rimary [...] Dx E11.9 10 mL 11 04/19/2023 Active NovoLOG 100 UNIT/ML Injection Solution Start with 4 units for glucose of 200 or greater and increase dose by 2 units for every increase of 50mg. Maximum of 16 units for glucose greater than 450. Dx E11.9 10 mL 11 04/18/2023 4 Discontinu ed(Refill) documented as of this encounter (statuses as of 04/19/2023) Active Problems Problem Noted Date Diagnosed Date [...] as of this encounter (statuses as of 04/19/2023) Resolved Problems Problem Noted Date Diagnosed Date [...] as of this encounter (statuses as of 04/19/2023) Immunizations Name Administration Dates Next Due COVID-19 mRNA, LNP-s, No Pre serve, 2-Dose Series ([employer]) 07/25/2020,07/04/2020 Hepatitis B, 20+ yrs 12/18/2013,04/17/2013,02/07 Pneumococcal Conjugate Vacci ne, 20-valent ([id number]) 02/02/2022 Pneumococcal Polysaccharide PPV23 (Pneumovax) 11/23/2020,03/24/2017 Seasonal [...] encounter Miscellaneous Notes * Telephone Encounter - Shlomo Roberto MD - 04/19/2023 8:09 PM ESTSigned Prescriptions: Disp Refills NovoLOG 100 UNIT/ML Injection Solution 10 mL 11 Sig: Start with 4 units for glucose of 200 or greater and increase dose by 2 units for every increase of 50mg. Maximum of 16 units for glucose greater than 450. Dx E11.9Authorizing Provider: SHLOMO ROBERTO documented in this encounter Plan of Treatment Upcoming Encounters Date Type Department Care Team (Late st Contact Info) Description 04/24/2023 12:20 PM EST Office Visit [facility] [address] [place] [address] Shlomo Roberto MD [address] [place] [address] Scheduled Procedures Name Priority Associated [...] Documents on File Type Date Recorded Patient Personnel Specialist Expl anation Advance Directives and Living Will 06/29/2022 ADVANCE DIRECTIVE / LIVING WILL Power of Other Spatial Scientist 06/29/2022 POWER OF A TTORNEY Advance Directives and Living Will 06/27/2022 ADVANCE DIRECTIVE / LIVING WILL Power of Other Spatial Scientist 06/27/2022 POWER OF A TTORNEY Care Teams Loss Prevention Detective Relationship Specialty Start Date End Date [facility]lomo Roberto [facility] [address] [facility] [address] PCP - General Family Medicine 03/12/18 documented as of this encounter
--- OUTSIDE RECORDS SUMMARY | 2023-05-07 16:50 | External Medical Summary | Summary of Care ---
Author Name Unknown Organization [facility] Address [address] [place] [address] Phone [phone] Care Team Providers Care Family Medicine Resident Name Role Phone Cm Roberto MD Primary Care Provider [phone] Reason for Referral * Evaluate & Treat - Unlimited Visits (Within 10 days (routine)) - Pending Review Specialty Diagnoses / Procedures Referred By Contkassidy t Referred To Contact Pharmacist / Pharmacy Diagnoses Type 2 diabetes mellitus with hemoglobin A1c goal of less than 7.0% ([facility]) Jus Lynn MD [address] [place] [address] Referral ID Status Reason Start Date Expiration Date Visits Requested Visits Authorized [id number] Pending Review Specialty Services Required 04/20/2023 99 99 Question Answer Referral Priority Within 10 days (routine) Where should this appointment be scheduled? [facility] Referring Provider Role: Primary Care Reason for Referral: DM Target A1c: < 8 Comments Pharmacist Medication Therapy Management: Minimum frequency patient should be seen in person for medication management: as appropriate per clinical condition and patient status By my signature, I understand that my patient Homer Gomez will have his medication therapy managed by the [facility] Medication Therapy [facility] ([facility]) per established policies, procedures, and protocols. I also certify that this referral may serve as an initiation of service for the management of drug therapy in the above noted patient. [facility] providers will be responsible for scheduling patient visits, obtaining appropriate laboratory studies, and adjusting medication management therapy per patient's need, in addition to those roles spelled out in the clinic policy, procedures, and drug management protocols. I understand that the service provided by the [facility] is voluntary and have informed patient that they can refuse the service at their discretion. I am aware that the [facility] Clinic will provide me with a copy of the patient encounter via my [employer]. I authorize the [facility] to carry out these activities on my behalf. I consider this program to be a necessary part of the patient's medical care. Jus Lynn MD Reason for Visit * Reason Onset Date Comments Test Results 04/17/2023 Encounter Details Date Type Department Care Team ([facility] st Contact Info) Description 04/17/2023 Telephone [facility] [address] [place] [address] Jus Lynn MD [address] [place] [address] Test Results Allergies No known [...] A1c goal of less than 7.0% ([facility]) Use with Trulicity once per [...] mRNA, LNP-s, No Pre serve, 2-Dose Series ([employer]) 07/25/2020,07/04/2020 Hepatitis B, 20+ yrs 12/18/2013,04/17/2013,02/07 Pneumococcal Conjugate Vacci ne, 20-valent ([id number]) 02/02/2022 Pneumococcal Polysaccharide PPV23 (Pneumovax) 11/23/2020,03/24/2017 Seasonal [...] the office. Thank you, Edith Liang CPht Sugar Mill Worker II [facility] (formerly [...] placed for MTM Prior auth sent through [employer] for Trulicity and ID#: [id number] * Addendum Note - Jus Lynn MD [...] of Test : 04/14/23 Location of Test: [facility] Ordering Provider: Dr. Jus Lynn Callback Number: [phone] Patient has been made aware that the [...] Description 04/24/2023 12:20 PM EST Office Visit [facility] [address] [place] [address] Cm Roberto MD [address] [place] [address] Scheduled Procedures Name Priority Associated Diagnoses Date/Ti mt COLONOSCOPY FLEXIBLE PROXIMAL DIAGNOSTIC Recall Screen for [...] Documents on File Type Date Recorded Patient Branch Sales And Service Representative Expl anation Advance Directives and Living Will 06/29/2022 ADVANCE DIRECTIVE / LIVING WILL Power of Radiology Assistant 06/29/2022 POWER OF A TTORNEY Advance Directives and Living Will 06/27/2022 ADVANCE DIRECTIVE / LIVING WILL Power of Radiology Assistant 06/27/2022 POWER OF A TTORNEY Care Teams Family Medicine Resident Relationship Specialty Start Date End Date Cm Roberto MD [address] [place] [address] PCP - General Family Medicine 03/12/18 documented as of this encounter
--- OUTSIDE RECORDS SUMMARY | 2023-05-07 16:50 | External Medical Summary | Summary of Care ---
Author Name Unknown Organization [facility] Address [address] [place] [address] Phone [phone] Care Team Providers Care Injection Mold Tooling Technician Name Role Phone Cm Roberto MD Primary Care Provider Reason for Visit * Reason Onset Date Comments Test Results 04/17/2023 Encounter Details Date Type Department Care Team (Late st Contact Info) Description 04/17/2023 Telephone [facility] [address] [place] [address] Jus Lynn MD [address] [place] [address] Test Results Allergies No known [...] A1c goal of less than 7.0% ([facility]) Use with Trulicity once per week 12 [...] mRNA, LNP-s, No Pre serve, 2-Dose Series ([employer]) 07/25/2020,07/04/2020 Hepatitis B, 20+ yrs 12/18/2013,04/17/2013,02/07 Pneumococcal Conjugate Vacci ne, 20-valent ([id number]) 02/02/2022 Pneumococcal Polysaccharide PPV23 (Pneumovax) 11/23/2020,03/24/2017 Seasonal [...] encounter Miscellaneous Notes * Telephone Encounter - Jus Lynn MD [...] of Test : 04/14/23 Location of Test: [facility] Ordering Provider: Dr. Jus Lynn Callback Number: [phone] Patient has been made aware that the [...] Office Visit [facility] [address] [place] [address] Cm Roberto MD [address] [place] [address] Scheduled Procedures Name Priority Associated Diagnoses Date/Ti [...] Documents on File Type Date Recorded Patient Population Geneticist Expl anation Advance Directives and Living Will 06/29/2022 ADVANCE DIRECTIVE / LIVING WILL Power of Airline Pilot Flight Instructor 06/29/2022 POWER OF A TTORNEY Advance Directives and Living Will 06/27/2022 ADVANCE DIRECTIVE / LIVING WILL Power of Airline Pilot Flight Instructor 06/27/2022 POWER OF A TTORNEY Care Teams Injection Mold Tooling Technician Relationship Specialty Start Date End Date Cm Roberto MD [address] [place] [facility] [place] [address] PCP - General Family Medicine 03/12/18 documented as of this encounter
--- OUTSIDE RECORDS SUMMARY | 2023-05-07 16:50 | External Medical Summary | Summary of Care ---
Author Name Unknown Organization [facility] Address [address] [place] [address] Phone [phone] Care Team Providers Care Supervisor Prop Making Name Role Phone Cm Roberto MD Primary Care Provider [phone] Reason for Visit * Reason Onset Date Comments Test Results 04/17/2023 Encounter Details Date Type Department Care Team (Late st Contact Info) Description 04/17/2023 Telephone [facility] [address] [place] [address] Jus Lynn MD [address] [place] [address] Test Results Allergies No known [...] hemoglobin A1c goal of less than 7.0% ([facility]) Use with Trulicity once per week 12 [...] hemoglobin A1c goal of less than 7.0% ([facility]) Inject 0.75 mg under the skin once [...] mRNA, LNP-s, No Pre serve, 2-Dose Series ([employer]) 07/25/2020,07/04/2020 Hepatitis B, 20+ yrs 12/18/2013,04/17/2013,02/07 Pneumococcal Conjugate Vacci ne, 20-valent ([id number]) 02/02/2022 Pneumococcal Polysaccharide PPV23 (Pneumovax) 11/23/2020,03/24/2017 Seasonal [...] of Test : 04/14/23 Location of Test: [facility] Ordering Provider: Dr. Jus Lynn Callback Number: [phone] Patient has been made aware that the [...] [facility] [address] [place] [address] Cm Roberto MD [address] [place], [place] [id number] Scheduled Procedures Name Priority Associated Diagnoses Date/Ti [...] Documents on File Type Date Recorded Patient Medical Administrative Specialist Expl anation Advance Directives and Living Will 06/29/2022 ADVANCE DIRECTIVE / LIVING WILL Power of Packing Clerk 06/29/2022 POWER OF A TTORNEY Advance Directives and Living Will 06/27/2022 ADVANCE DIRECTIVE / LIVING WILL Power of Packing Clerk 06/27/2022 POWER OF A TTORNEY Care Teams Supervisor Prop Making Relationship Specialty Start Date End Date Cm Roberto MD [address] [facility] [address] PCP - General Family Medicine 03/12/18 documented as of this encounter
--- OUTSIDE RECORDS SUMMARY | 2023-05-07 16:50 | External Medical Summary | Summary of Care ---
Author Name Unknown Organization [facility] Address [address] [place] [address] Phone [phone] Care Team Providers Care Supervisor Steffen House Name Role Phone Cm Roberto MD Primary Care Provider [phone] Reason for Visit * Reason Onset Date Comments Test Results 04/17/2023 Encounter Details Date Type Department Care Team (Late st Contact Info) Description 04/17/2023 Telephone [facility] [address] [place] [address] Jus Lynn MD [address] [place] [address] Test Results Allergies No known active allergiesdocumented as of this encounter (statuses as of 04/18/2023) Medications Medication Sig Dispensed Refills Start Date End Date Status aspirin 81 MG chewable tabletIndications:i n am Take 1 Tablet by mouth in the morning. with food.. 100 Tab 1 7 Active Insulin Pen Needle (INSUPEN PEN NEEDLES) 31G X 8 MMIndications:Type 2 diabetes mellitus with hemoglobin A1c goal of less than 7.0% ([facility]) Use with Trulicity once per week 12 [...] a week. 2 mL 3 4 Active NovoLOG 100 UNIT/ML Injection Solution Start with 4 units for glucose of 200 or greater and increase dose by 2 units for every increase of 50mg. Maximum of 16 units for glucose greater than 450. Dx E11.9 10 mL 11 4 Active Trulicity 0.75 MG/0.5ML Subcutaneous Solution Pen-injectorIndicat ions:Type 2 diabetes mellitus with hemoglobin A1c goal of less than 7.0% ([facility]) Inject 0.75 mg under the skin once a week. 2 mL 5 3 04/17/19 24 Discontinued documented as of this encounter (statuses as of 04/18/2023) Active Problems Problem Noted Date Diagnosed Date [...] as of this encounter (statuses as of 04/18/2023) Resolved Problems Problem Noted Date Diagnosed Date [...] as of this encounter (statuses as of 04/18/2023) Immunizations Name Administration Dates Next Due COVID-19 mRNA, LNP-s, No Pre serve, 2-Dose Series ([employer]) 07/25/2020,07/04/2020 Hepatitis B, 20+ yrs 12/18/2013,04/17/2013,02/07 Pneumococcal Conjugate Vacci ne, 20-valent ([id number]) 02/02/2022 Pneumococcal Polysaccharide PPV23 (Pneumovax) 11/23/2020,03/24/2017 Seasonal [...] dose trulicity And might need to see [facility] Does he f/u at [facility] ? * Addendum Note - Susan Singh [...] accepted: Orders * Telephone Encounter - Jus Lnyn MD - 04/17/2023 2:18 PM EST Please [...] of Test : 04/14/23 Location of Test: [facility] Ordering Provider: Dr. Jus Lynn Callback Number: [phone] Patient has been made aware that the [...] Description 04/24/2023 12:20 PM EST Office Visit [facility] [address] [place] [address] Cm Roberto MD [address] [place], [place] [address] Scheduled Procedures Name Priority Associated Diagnoses Date/Ti [...] Documents on File Type Date Recorded Patient Food Photographer Expl anation Advance Directives and Living Will 06/29/2022 ADVANCE DIRECTIVE / LIVING WILL Power of Top Collar Maker 06/29/2022 POWER OF A TTORNEY Advance Directives and Living Will 06/27/2022 ADVANCE DIRECTIVE / LIVING WILL Power of Top Collar Maker 06/27/2022 POWER OF A TTORNEY Care Teams Supervisor Steffen House Relationship Specialty Start Date End Date Cm Roberto MD [address] [place] [address] PCP - General Family Medicine 03/12/18 documented as of this encounter
--- OUTSIDE RECORDS SUMMARY | 2023-05-07 16:50 | External Medical Summary | Summary of Care ---
Author Name Unknown Organization [facility] Address [address] [place] [address] Phone [phone] Care Team Providers Care Senior Talent Management Consultant Name Role Phone Cm Roberto MD Primary Care Provider [phone] Reason for Visit * Reason Onset Date Comments Test Results 04/17/2023 Encounter Details Date Type Department Care Team (Late st Contact Info) Description 04/17/2023 Telephone [facility] [address] [place] [address] Jus Lynn MD [address] [place] [address] Test Results Allergies No known [...] goal of less than 7.0% ([facility]) Use with Trulicity once per week [...] goal of less than 7.0% ([facility]) Inject 0.75 mg under the skin once [...] mRNA, LNP-s, No Pre serve, 2-Dose Series ([employer]) 07/25/2020,07/04/2020 Hepatitis B, 20+ yrs 12/18/2013,04/17/2013,02/07 Pneumococcal Conjugate Vacci ne, 20-valent ([id number]) 02/02/2022 Pneumococcal Polysaccharide PPV23 (Pneumovax) 11/23/2020,03/24/2017 Seasonal [...] : 04/14/23 Location of Test: [facility] Ordering Provider: Dr. Jus Lynn Callback Number: [phone] Patient has been made aware that the [...] Description 04/24/2023 12:20 PM EST Office Visit [facility] [address] [place] [address] Cm Roberto MD [address] [place], [place] [address] Scheduled Procedures Name Priority Associated Diagnoses Date/Ti [...] Documents on File Type Date Recorded Patient Nurse Navigator Expl anation Advance Directives and Living Will 06/29/2022 ADVANCE DIRECTIVE / LIVING WILL Power of Rotor Assembler 06/29/2022 POWER OF A TTORNEY Advance Directives and Living Will 06/27/2022 ADVANCE DIRECTIVE / LIVING WILL Power of Rotor Assembler 06/27/2022 POWER OF A TTORNEY Care Teams Senior Talent Management Consultant Relationship Specialty Start Date End Date Cm Roberto MD [address] [place] [address] PCP - General Family Medicine 03/12/18 documented as of this encounter
--- OUTSIDE RECORDS SUMMARY | 2023-05-07 16:50 | External Medical Summary | Summary of Care ---
Author Name Unknown Organization [facility] Address [address] [place] [address] Phone [phone] Care Team Providers Care Soakers Supervisor Name Role Phone Cm Roberto MD Primary Care Provider [phone] Reason for Visit * Reason Onset Date Comments Test Results 04/17/2023 Encounter Details Date Type Department Care Team (Late st Contact Info) Description 04/17/2023 Telephone [facility] [address] [place] [address] Jus Lynn MD [address] [place] [address] Test Results Allergies No known [...] 7.0% ([facility]) Inject 0.75 mg under the skin once [...] mRNA, LNP-s, No Pre serve, 2-Dose Series ([employer]) 07/25/2020,07/04/2020 Hepatitis B, 20+ yrs 12/18/2013,04/17/2013,02/07 Pneumococcal Conjugate Vacci ne, 20-valent ([id number]) 02/02/2022 Pneumococcal Polysaccharide PPV23 (Pneumovax) 11/23/2020,03/24/2017 Seasonal [...] placed for MTM Prior auth sent through [facility] for Trulicity and ID#: [id number] * Addendum Note - Jsu Lynn MD - 04/18/2023 9:43 AM ESTAddended [...] of Test : 04/14/23 Location of Test: [facility] Ordering Provider: Dr. uJs Lynn Callback Number: [phone] Patient has been made aware that the [...] Description 04/24/2023 12:20 PM EST Office Visit [facility] [address] [place] [address] Cm Roberto MD [address] [place] [address] Scheduled Procedures Name Priority Associated [...] Documents on File Type Date Recorded Patient Auto Repair Technician Expl anation Advance Directives and Living Will 06/29/2022 ADVANCE DIRECTIVE / LIVING WILL Power of Gun Club Manager 06/29/2022 POWER OF A TTORNEY Advance Directives and Living Will 06/27/2022 ADVANCE DIRECTIVE / LIVING WILL Power of Gun Club Manager 06/27/2022 POWER OF A TTORNEY Care Teams Soakers Supervisor Relationship Specialty Start Date End Date Cm Roberto MD [address] [place] [address] PCP - General Family Medicine 03/12/18 documented as of this encounter
--- OUTSIDE RECORDS SUMMARY | 2023-05-07 16:50 | External Medical Summary | Summary of Care ---
Author Name Unknown Organization [facility] Address [address] [place] [address] Phone [phone] Care Team Providers Care Teletypist Name Role Phone Cm Roberto MD Primary Care Provider [phone] Reason for Visit * Reason Onset Date Comments Test Results 04/17/2023 Encounter Details Date Type Department Care Team (Late st Contact Info) Description 04/17/2023 Telephone [facility] [address] [place] [address] Jus Lynn MD [address] [place] [address] Test Results Allergies No known [...] hemoglobin A1c goal of less than 7.0% ([facility]) Use with Trulicity once per week [...] hemoglobin A1c goal of less than 7.0% ([facility]) Inject 0.75 mg under the skin [...] mRNA, LNP-s, No Pre serve, 2-Dose Series ([employer]) 07/25/2020,07/04/2020 Hepatitis B, 20+ yrs 12/18/2013,04/17/2013,02/07 Pneumococcal Conjugate Vacci ne, 20-valent ([id number]) 02/02/2022 Pneumococcal Polysaccharide PPV23 (Pneumovax) 11/23/2020,03/24/2017 Seasonal [...] it's ok just to keep that appointment? Novolog pended. Pharmacy selected. Please advise. * [...] of Test : 04/14/23 Location of Test: [facility] Ordering Provider: Dr. Jus Lynn Callback Number: [phone] Patient has been made aware that the [...] Description 04/24/2023 12:20 PM EST Office Visit [facility] [address] [facility] [place] [address] Cm Roberto MD [address] [place] [address] Scheduled Procedures Name Priority Associated Diagnoses [...] Documents on File Type Date Recorded Patient Windows Desktop Support Expl anation Advance Directives and Living Will 06/29/2022 ADVANCE DIRECTIVE / LIVING WILL Power of Informatics Analyst 06/29/2022 POWER OF A TTORNEY Advance Directives and Living Will 06/27/2022 ADVANCE DIRECTIVE / LIVING WILL Power of Informatics Analyst 06/27/2022 POWER OF A TTORNEY Care Teams Teletypist Relationship Specialty Start Date End Date Cm Roberto MD [address] [place] [facility] [place] [address] PCP - General Family Medicine 03/12/18 documented as of this encounter
--- OUTSIDE RECORDS SUMMARY | 2023-05-07 16:51 | External Medical Summary | Summary of Care ---
Author Name Unknown Organization [facility] Address [address] [place] [address] Phone [phone] Care Team Providers Care Chain Dyer Name Role Phone Cm Roberto MD Primary Care Provider [phone] Reason for Visit * Reason Comments Outpatient Testing Encounter Details Date Type Department Care Team (Late st Contact Info) Description 04/13/2023 2:20 PM EST Laboratory Laboratory, [place] [address] [place] [address] [facility] [address] [place] [address] Type 2 diabetes mellitus with hemoglobin A1c goal of less than 7.0% (HCC); Essential hypertension with goal blood pressure less than 150/90; COPD, moderate (HCC); Pain of right upper arm Allergies No known active allergiesdocumented as of this encounter (statuses as of 04/13/2023) Medications Medication Sig Dispensed Refills Start Date [...] as of this encounter (statuses as of 04/13/2023) Active Problems Problem Noted Date Diagnosed Date [...] as of this encounter (statuses as of 04/13/2023) Resolved Problems Problem Noted Date Diagnosed Date [...] as of this encounter (statuses as of 04/13/2023) Immunizations Name Administration Dates Next Due COVID-19 mRNA, LNP-s, No Pre serve, 2-Dose Series ([employer]) 07/25/2020,07/04/2020 Hepatitis B, 20+ yrs 12/18/2013,04/17/2013,02/07 Pneumococcal Conjugate Vacci ne, 20-valent ([id number]) 02/02/2022 Pneumococcal Polysaccharide PPV23 (Pneumovax) 11/23/2020,03/24/2017 Seasonal [...] Care Team (Late st Contact Info) Description 04/14/2023 11:30 AM EST Imaging Vascular Lab, [facility], [address] [place] [address] 04/24/2023 12:20 PM EST Office Visit [address] [place] [address] Cm Roberto MD [address] [place] [address] Pending Results Name Type Priority Associated Diagnoses Date /Time HEMOGLOBIN A1C Lab Routine Type 2 diabetes mellitus with hemoglobin A1c goal of less than 7.0% (HCC) 04/13/2023 2:21 PM EST CBC WITH WBC DIFFERENTIAL Lab Routine Type 2 diabetes mellitus with hemoglobin A1c goal of less than 7.0% (HCC) Essential hypertension with goal blood pressure less than 150/90 COPD, moderate (HCC) 04/13/2023 2:21 PM EST COMPREHENSIVE METABOLIC PANEL Lab Routine Type 2 diabetes mellitus with hemoglobin A1c goal of less than 7.0% (HCC) Essential hypertension with goal blood pressure less than 150/90 COPD, moderate (HCC) 04/13/2023 2:21 PM EST TSH WITH FREE T4 IF INDICATED Lab Routine Essential hypertension with goal blood pressure less than 150/90 COPD, moderate (HCC) 04/13/2023 2:21 PM EST CRP (INFLAMMATORY MARKER) Lab Routine Pain of right upper arm 04/13/2023 2:21 PM EST CBC Lab Routine Type 2 diabetes mellitus with hemoglobin A1c goal of less than 7.0% (HCC) Essential hypertension with goal blood pressure less than 150/90 COPD, moderate (HCC) 04/13/2023 2:21 PM EST DIFFERENTIAL, AUTOMATED Lab Routine Type 2 diabetes mellitus with hemoglobin A1c goal of less than 7.0% (HCC) Essential hypertension with goal blood pressure less than 150/90 COPD, moderate (HCC) 04/13/2023 2:21 PM EST Scheduled Procedures Name Priority Associated Diagnoses Date/Ti me COLONOSCOPY FLEXIBLE PROXIMAL DIAGNOSTIC Recall Screen for colon cancer Health Maintenance Due Date Last Done Comments Alpha-1 Antitrypsin 1974 Fecal Occult Blood Test 2001 Sigmoidoscopy 2001 Cologuard 04/11/2020 04/11/2017 Diabetic Foot Exam 06/02/2023 06/01/2022, 1 04/03/2020, 01/30/2020, Additional history exists B-12 08/04/2023 08/03/2022, 09/24, 01/10/2019, Additional history exists HbA1c 08/04/2023 02/03/2023, 07/25, 06/01/2022, Additional history exists Albumin/Creatinine Ratio 08/05/2023 023, 02/01/2021, 01/10/2019, Additional history exists O2 ASSESSMENT COMPLETED IN PAST YEAR FOR COPD 12/24/2023 12/23/2022 GFR 02/04/2024 02/03/2023, 03/0 10/2022, 02/28/2022, Additional history exists Diabetic Eye Exam 04/03/2024 04/03/2023, , 04/26/2021, Additional history exists Depression Screening 04/12/2024 04/12/2023, 12/24/19 Lipid Panel 02/28/2027 02/28/2022, 07/26, 06/29/2021, Additional [...] A1c goal of less than 7.0% (HCC) Essential hypertension with goal blood pressure less than 150/90 COPD, moderate (HCC) Chronic airway obstruction, not elsewhere classified Pain of right upper arm Pain in limb documented in this encounter Advance Directives Documents on File Type Date Recorded Patient Broadcast Field Supervisor Expl anation Advance Directives and Living Will 06/29/2022 ADVANCE DIRECTIVE / LIVING WILL Power of Inspector Watch Parts 06/29/2022 POWER OF A TTORNEY Advance Directives and Living Will 06/27/2022 ADVANCE DIRECTIVE / LIVING WILL Power of Inspector Watch Parts 06/27/2022 POWER OF A TTORNEY Care Teams Chain Dyer Relationship Specialty Start Date End Date Cm Roberto MD [address] [place] [address] PCP - General Family Medicine 03/12/18 documented as of this encounter
--- OUTSIDE RECORDS SUMMARY | 2023-05-07 16:51 | External Medical Summary ---
Author Name Unknown Address Unknown Organization K01:[facility] - [address] [facility] [address] Laboratory Report Ordering Provider Test Date Status SANTIAGO QUACH 04/13/2023 14:21:12 Final Observation Date Value Abnormality Reference (Units ) Status TSH 04/13/2023 14:21:12 1.06 0.27-4.20 (uIU/mL) Final Performing Location [facility] - [address] [facility] [address]
--- OUTSIDE RECORDS SUMMARY | 2023-05-07 16:51 | External Medical Summary | Summary of Care ---
Author Name Unknown Organization [facility] Address [address] [place] [address] Phone [phone] Care Team Providers Care Sifting Operator Name Role Phone Cm Roberto MD Primary Care Provider [phone] Encounter Details Date Type Department Care Team (Late st Contact Info) Description 04/11/2023 Population Health External Data Unspecified Department Allergies No known active allergiesdocumented as of this encounter (statuses as of 04/11/2023) Medications Medication Sig Dispensed Refills Start Date End Date Status aspirin 81 MG chewable tabletIndications:in am Take 1 Tablet by mouth in the morning. with food.. 100 Tab 1 09/29/2016 Active Insulin Pen Needle (INSUPEN PEN NEEDLES) 31G X 8 MMIndications:Type 2 diabetes mellitus with hemoglobin A1c goal of less than 7.0% ([facility]) Use with Trulicity once per [...] a week. 2 mL 5 03/16/2023 Active documented as of this encounter (statuses as of 04/11/2023) Active Problems Problem Noted Date Diagnosed Date Hyperprolactinemia 02/02/2022 Bipolar II disorder 01/30/2020 Type 2 diabetes mellitus wit h diabetic peripheral angiopathy without gangrene 01/30/2020 Anxiety, generalized 01/30/2020 Type 2 diabetes mellitus wit h hemoglobin A1c goal of less than 7.0% 09/21/2016 Chronic pain syndrome 09/21/2016 Bipolar 1 disorder COPD, moderate Essential hypertension with goal blood pressure less than 150/90 Primary osteoarthritis involving multiple joints Dyslipidemia, goal LDL below 70 documented as of this encounter (statuses as of 04/11/2023) Resolved Problems Problem Noted Date Diagnosed Date Resolved Date Encounter for long-term (cur rent) use of medications 03/24/2017 09/22/2017 Screen for colon cancer 03/24/201708/26 Depression with anxiety 08/26 Overview: hospitalized in past COPD, moderate 09/21/2016 DM type 2 (diabetes mellitus, type 2) 09/21/2016 documented as of this encounter (statuses as of 04/11/2023) Immunizations Name Administration Dates Next Due COVID-19 mRNA, LNP-s, No Pre serve, 2-Dose Series ([employer]) 07/25/2020,07/04/2020 Hepatitis B, 20+ yrs 12/18/2013,04/17/2013,02/07 Pneumococcal Conjugate Vacci ne, 20-valent ([id number]) 02/02/2022 Pneumococcal Polysaccharide PPV23 (Pneumovax) 11/23/2020,03/24/2017 Seasonal [...] pur e alcohol) PHQ-2 Answer Date Recorded PHQ-2 Score 2 01/30/2020 Hunger Vital Sign Answer Date Recorded Worried About Running Out of Food in the Last Ye ar Never true 01/30/2020 Ran Out of Food in the Last Year Never true 01/30/2020 Sex and Gender Information Value Date Recorded [...] Description 04/24/2023 12:20 PM EST Office Visit [facility] [address] [place] [address] Cm Roberto MD [address] [place] [address] Scheduled Procedures Name Priority Associated Diagnoses Date/Ti me COLONOSCOPY FLEXIBLE PROXIMAL DIAGNOSTIC Recall Screen for colon cancer Health Maintenance Due Date Last Done Comments Alpha-1 Antitrypsin 1974 Fecal Occult Blood Test 2001 Sigmoidoscopy 2001 Cologuard 04/11/2020 04/11/2017 Depression Screening 01/29/2021 01/30/2020, 12/24/19 17 Diabetic Foot Exam 06/02/2023 06/01/2022, 1 04/03/2020, [...] 04/03/2024 04/03/2023, , 04/26/2021, Additional history exists Lipid Panel 02/28/2027 02/28/2022, 07/26, 06/29/2021, Additional [...] Documents on File Type Date Recorded Patient Second Butler Expl anation Advance Directives and Living Will 06/29/2022 ADVANCE DIRECTIVE / LIVING WILL Power of Cdl Company Driver 06/29/2022 POWER OF A TTORNEY Advance Directives and Living Will 06/27/2022 ADVANCE DIRECTIVE / LIVING WILL Power of Cdl Company Driver 06/27/2022 POWER OF A TTORNEY Care Teams Sifting Operator Relationship Specialty Start Date End Date Cm Roberto MD [address] [place] [address] PCP - General Family Medicine 03/12/18 documented as of this encounter
--- OUTSIDE RECORDS SUMMARY | 2023-05-07 16:51 | External Medical Summary | Summary of Care ---
Author Name Unknown Organization [facility] Address [address] [place] [address] Phone [phone] Care Team Providers Care Electronic Warfare Officer Name Role Phone Cm Roberto MD Primary Care Provider [phone] Encounter Details Date Type Department Care Team (Late st Contact Info) Description 03/27/2023 Population Health External Data Unspecified Department Allergies No known active allergiesdocumented as of this encounter (statuses as of 03/27/2023) Medications Medication Sig Dispensed Refills Start Date End Date Status aspirin 81 MG chewable tabletIndications:in am Take 1 Tablet by mouth in the morning. with food.. 100 Tab 1 09/29/2016 Active Insulin Pen Needle (INSUPEN PEN NEEDLES) 31G X 8 MMIndications:Type 2 diabetes mellitus with hemoglobin A1c goal of less than 7.0% ([facility]) Use with Trulicity once per [...] as of this encounter (statuses as of 03/27/2023) Active Problems Problem Noted Date Diagnosed Date [...] as of this encounter (statuses as of 03/27/2023) Resolved Problems Problem Noted Date Diagnosed Date Resolved Date Encounter for long-term (cur rent) use of medications 03/24/2017 09/22/2017 Screen for colon cancer 03/24/201708/26 Depression with anxiety 08/26 Overview: hospitalized in past COPD, moderate 09/21/2016 DM type 2 (diabetes mellitus, type 2) 09/21/2016 documented as of this encounter (statuses as of 03/27/2023) Immunizations Name Administration Dates Next Due COVID-19 mRNA, LNP-s, No Pre serve, 2-Dose Series ([employer]) 07/25/2020,07/04/2020 Hepatitis B, 20+ yrs 12/18/2013,04/17/2013,02/07 Pneumococcal Conjugate Vacci ne, 20-valent ([id number]) 02/02/2022 Pneumococcal Polysaccharide PPV23 (Pneumovax) 11/23/2020,03/24/2017 Seasonal [...] Description 04/24/2023 12:20 PM EST Office Visit [facility] [address] [place] [address] Cm Roberto MD [address] [place] [address] Scheduled Procedures Name Priority Associated Diagnoses Date/Ti me COLONOSCOPY FLEXIBLE PROXIMAL DIAGNOSTIC Recall Screen for colon cancer Health Maintenance Due Date Last Done Comments Alpha-1 Antitrypsin 1974 Fecal Occult Blood Test 2001 Sigmoidoscopy 2001 Cologuard 04/11/2020 04/11/2017 Depression Screening 01/29/2021 01/30/2020, 12/24/19 17 Diabetic Eye Exam 03/31/2023 03/31/2022, , 04/24/2020, Additional history exists Diabetic Foot Exam 06/02/2023 06/01/2022, 1 04/03/2020, 01/30/2020, Additional history exists B-12 08/04/2023 08/03/2022, 09/24, 01/10/2019, Additional history exists HbA1c 08/04/2023 02/03/2023, 07/25, 06/01/2022, Additional history exists Albumin/Creatinine Ratio 08/05/2023 023, 02/01/2021, 01/10/2019, Additional history exists O2 ASSESSMENT COMPLETED IN PAST YEAR FOR COPD 12/24/2023 12/23/2022 GFR 02/04/2024 02/03/2023, 03/0 10/2022, 02/28/2022, Additional history exists Lipid Panel 02/28/2027 02/28/2022, [...] Documents on File Type Date Recorded Patient Furniture Builder Expl anation Advance Directives and Living Will 06/29/2022 ADVANCE DIRECTIVE / LIVING WILL Power of Potato Chip Maker 06/29/2022 POWER OF A TTORNEY Advance Directives and Living Will 06/27/2022 ADVANCE DIRECTIVE / LIVING WILL Power of Potato Chip Maker 06/27/2022 POWER OF A TTORNEY Care Teams Electronic Warfare Officer Relationship Specialty Start Date End Date Cm Roberto MD [address] [place] [address] [address] PCP - General Family Medicine 03/12/18 documented as of this encounter
--- OUTSIDE RECORDS SUMMARY | 2023-05-07 16:51 | External Medical Summary ---
Author Name Unknown Address Unknown Organization K01:[facility] - [address] [facility] [address] Laboratory Report Ordering Provider Test Date Status VAZQUEZSANTIAGO LIN 04/13/2023 14:21:12 Final Observation Date Value Abnormality Reference (Units ) Status CRP, low-sensitivity 04/13/2023 14:21:12 6 Above high normal <=5 (mg/L) Final Performing Location [facility] - [address] [facility] [address]
--- OUTSIDE RECORDS SUMMARY | 2023-05-07 16:51 | External Medical Summary | Summary of Care ---
Author Name Unknown Organization [facility] Address [address] [place] [address] Phone [phone] Care Team Providers Care Director Of Business Applications Name Role Phone Cm Roberto MD Primary Care Provider [phone] Encounter Details Date Type Department Care Team (Late st Contact Info) Description 04/04/2023 Orders Only [facility] [address] [place] [address] Cm Roberto MD [address] [place] [address] Allergies No known active allergiesdocumented as of this encounter (statuses as of 04/04/2023) Medications Medication Sig Dispensed Refills Start Date End Date Status aspirin 81 MG chewable tabletIndications:in am Take 1 Tablet by mouth in the morning. with food.. 100 Tab 1 09/29/2016 Active Insulin Pen Needle (INSUPEN PEN NEEDLES) 31G X 8 MMIndications:Type 2 diabetes mellitus with hemoglobin A1c goal of less than 7.0% ([facility]) Use with Trulicity once [...] as of this encounter (statuses as of 04/04/2023) Active Problems Problem Noted Date Diagnosed Date [...] as of this encounter (statuses as of 04/04/2023) Resolved Problems Problem Noted Date Diagnosed Date Resolved Date Encounter for long-term (cur rent) use of medications 03/24/2017 09/22/2017 Screen for colon cancer 03/24/201708/26 Depression with anxiety 08/26 Overview: hospitalized in past COPD, moderate 09/21/2016 DM type 2 (diabetes mellitus, type 2) 09/21/2016 documented as of this encounter (statuses as of 04/04/2023) Immunizations Name Administration Dates Next Due COVID-19 mRNA, LNP-s, No Pre serve, 2-Dose Series ([employer]) 07/25/2020,07/04/2020 Hepatitis B, 20+ yrs 12/18/2013,04/17/2013,02/07 Pneumococcal Conjugate Vacci ne, 20-valent ([id number]) 02/02/2022 Pneumococcal Polysaccharide PPV23 (Pneumovax) 11/23/2020,03/24/2017 Seasonal [...] Description 04/24/2023 12:20 PM EST Office Visit [facility] [address] [place] [phone] Cm Roberto MD [address] [place] [address] Scheduled Procedures Name Priority Associated [...] 02/28/2022, Additional history exists Diabetic Eye Exam 04/04/2024 04/03/2023, , 04/26/2021, Additional history exists Lipid [...] Not on filedocumented as of this encounter Procedures Procedure Name Priority Date/Time Associated Diagnosis Comments DIABETIC EYE EXAM Routine 04/03/2023 documented in this encounter Results * DIABETIC EYE EXAM (04/03/2023) 04/03/2023 History Per Patient OTHER OUTSIDE LAB (SEE SCANNED REPORT) documented in this encounter Advance Directives Documents on File Type Date Recorded Patient Log Preparer Expl anation Advance Directives and Living Will 06/29/2022 ADVANCE DIRECTIVE / LIVING WILL Power of Educational Programming Director 06/29/2022 POWER OF A TTORNEY Advance Directives and Living Will 06/27/2022 ADVANCE DIRECTIVE / LIVING WILL Power of Educational Programming Director 06/27/2022 POWER OF A TTORNEY Care Teams Director Of Business Applications Relationship Specialty Start Date End Date Cm Roberto MD [address] [place] [address] PCP - General Family Medicine 03/12/18 documented as of this encounter
--- OUTSIDE RECORDS SUMMARY | 2023-05-07 16:51 | External Medical Summary | Summary of Care ---
Author Name Unknown Organization [facility] Address [address] [place] [address] Phone [phone] Care Team Providers Care Integrated Logistics Programs Director Name Role Phone Shlomo Roberto MD Primary Care Provider [phone] Reason for Visit * Reason Onset Date Comments Med Request 03/02/2023 Encounter Details Date Type Department Care Team (Late st Contact Info) Description 03/02/2023 Telephone [facility] [address] [place] [address] Shlomo Roberto MD [address] [place] [address] Med Request Allergies No known active allergiesdocumented as of this encounter (statuses as of 03/03/2023) Medications Medication Sig Dispensed Refills Start Date End Date Status aspirin 81 MG chewable tabletIndications:i n am Take 1 Tablet by mouth in the morning. with food.. 100 Tab 1 7 Active Insulin Pen Needle (INSUPEN PEN NEEDLES) 31G X 8 MMIndications:Type 2 diabetes mellitus with hemoglobin A1c goal of less than 7.0% ([facility]) Use with Trulicity once per [...] Tablet (Tylenol) 2 Tablets. 0 3 Active Albuterol Sulfate HFA 108 (90 Base) MCG/ACT Inhalation Aerosol Solution INHALE 2 PUFFS ORALLY EVERY 6 HOURS NEEDED FOR SHORTNESS OF BREATH/WHEEE *GIVE IF REFUSING DUONEB 0 3 Active Trulicity 0.75 MG/0.5ML Subcutaneous Solution Pen-injector INJECT 0.5 ML SUBCUTANEOUSLY WEEKLY ON MONDAY (TYPE 2 DIABETES MELLITUS) (ROTATE SITES) 0 3 Active Insulin Syringe 31G X [...] 90 Blister Dosing Unit 3 3 Active Trelegy Ellipta 200-62.5-25 MCG/INH Aerosol Powder Breath Activated 0 1 03/03/20 23 Discontinu ed(Refill) documented as of this encounter (statuses as of 03/03/2023) Active Problems Problem Noted Date Diagnosed Date [...] as of this encounter (statuses as of 03/03/2023) Resolved Problems Problem Noted Date Diagnosed Date Resolved Date Encounter for long-term (cur rent) use of medications 03/24/2017 09/22/2017 Screen for colon cancer 03/24/201708/26 Depression with anxiety 08/26 Overview: hospitalized in past COPD, moderate 09/21/2016 DM type 2 (diabetes mellitus, type 2) 09/21/2016 documented as of this encounter (statuses as of 03/03/2023) Immunizations Name Administration Dates Next Due COVID-19 mRNA, LNP-s, No Pre serve, 2-Dose Series (Letsmake) 07/25/2020,07/04/2020 Hepatitis B, 20+ yrs 12/18/2013,04/17/2013,02/07 Pneumococcal Conjugate Vacci ne, 20-valent ([id number]) 02/02/2022 Pneumococcal Polysaccharide PPV23 (Pneumovax) 11/23/2020,03/24/2017 SEASONAL INFLUENZA, PF, 6 M & Above, IM , (FLULAVAL or FLUZONE) 12/02/2017 Seasonal Influenza, Quadriva lent Hd (Fluzone [...] encounter Miscellaneous Notes * Addendum Note - Shlomo Roberto MD - 03/03/2023 7:42 AM ESTAddended by: SHLOMO ROBERTO on: 03/03/2023 07:42 AM Modules accepted: Orders * Telephone Encounter - Almita Beck CCMA - 03/02/2023 3:31 PM EST Please advise as below. Thank you. * Telephone Encounter - Magali Worthington CPhT - 03/02/2023 8:41 AM EST Pt's EC calling requesting the following medication below that is listed as "Historical". The following information was provided: Medication Name: Trelegy Ellipta Strength: 200-62.5-25 MCG/INH Aerosol Powder Breath Activated Directions: N/A Preferred Quantity: N/A Previous Prescriber: PCP Preferred Pharmacy: [id number] [place] [address] Medication Name: Albuterol Sulfate HFA Strength: 108 (90 Base) MCG/ACT Inhalation Aerosol Solution Directions: INHALE 2 PUFFS ORALLY EVERY 6 HOURS NEEDED FOR SHORTNESS OF BREATH/WHEEE *GIVE IF REFUSING DUONEB Preferred Quantity: N/A Previous Prescriber: PCP Preferred Pharmacy: [id number] [place] [address] Please review and approve if appropriate. Thank you, Kaitlynn Worthington Die Cutting Machine Operator I [facility] ([facility] (Formerly [facility]) 03/02/2023,8:42 AM documented in this encounter Plan of Treatment Upcoming Encounters Date Type Department Care Team (Late st Contact Info) Description 04/24/2023 12:20 PM EST Office Visit [facility] [id number] [place] [address] Shlomo Roberto MD [address], [place] [phone] Scheduled Procedures Name Priority Associated Diagnoses Date/Ti [...] as of this encounter Visit Diagnoses Diagnosis COPD, moderate (HCC)- Primary Chronic airway obstruction, not elsewhere classified documented in this encounter Advance Directives Documents on File Type Date Recorded Patient Supervisor Slitting And Shipping Expl anation Advance Directives and Living Will 06/29/2022 ADVANCE DIRECTIVE / LIVING WILL Power of Supervisor Sleeping Bag Department 06/29/2022 POWER OF A TTORNEY Advance Directives and Living Will 06/27/2022 ADVANCE DIRECTIVE / LIVING WILL Power of Supervisor Sleeping Bag Department 06/27/2022 POWER OF A TTORNEY Care Teams Integrated Logistics Programs Director Relationship Specialty Start Date End Date Shlomo Roberto MD [address] [place] [address] PCP - General Family Medicine 03/12/18 documented as of this encounter
--- OUTSIDE RECORDS SUMMARY | 2023-05-07 16:51 | External Medical Summary | Summary of Care ---
Author Name Unknown Organization [facility] Address [address] [place] [address] Phone [phone] Care Team Providers Care Clarifier Name Role Phone Cm Roberto MD Primary Care Provider [phone] Reason for Visit * Reason Comments Hospital Follow-Up Pt presents for hosp ital follow up. Encounter Details Date Type Department Care Team (Late st Contact Info) Description 02/03/2023 11:20 AM EST Office Visit [facility] [address] [place] [address] Cm Roberto MD [address] [place] [address] COPD, moderate (HCC)*; Type 2 diabetes mellitus with hemoglobin A1c goal of less than 7.0% (HCC); Pneumonia of left lower lobe due to infectious organism; Hyponatremia Allergies No known active allergiesdocumented as of this encounter (statuses as of 02/06/2023) Medications Medication Sig Dispensed Refills Start Date [...] per week 12 Box Dosing Unit 3 11/23/201 8 Active risperiDONE (RISPERDAL) 2 MG Tablet [...] and 1 Tablet before bedtime. 0 Active Trelegy Ellipta 200-62.5-25 MCG/INH Aerosol Powder Breath Activated 0 1 Active Meloxicam 15 MG Oral TabletIndications:P rimary osteoarthritis involving multiple joints TAKE 1 TABLET BY MOUTH DAILY FOR PAIN. 90 Tablet 1 2 Active Ferrous Sulfate 325 (65 Fe) MG [...] insulin dosing 100 Each 5 3 Active AutoBike Verio w/Device Kit Use up to 4 [...] the morning. 15 mL 11 3 Active Insulin Glargine 100 UNIT/ML Subcutaneous Solution Pen-injector (Lantus) Inject 10 Units under the skin in the morning. 0 3 02/04/20 23 Discontinu ed(Refill) documented as of this encounter (statuses as of 02/06/2023) Active Problems Problem Noted Date Diagnosed Date [...] as of this encounter (statuses as of 02/06/2023) Resolved Problems Problem Noted Date Diagnosed Date Resolved Date Encounter for long-term (cur rent) use of medications 03/24/2017 09/22/2017 Screen for colon cancer 03/24/201708/26 Depression with anxiety 08/26 Overview: hospitalized in past COPD, moderate 09/21/2016 DM type 2 (diabetes mellitus, type 2) 09/21/2016 documented as of this encounter (statuses as of 02/06/2023) Immunizations Name Administration Dates Next Due COVID-19 mRNA, LNP-s, No Pre serve, 2-Dose Series (Sverve) 07/25/2020,07/04/2020 Hepatitis B, 20+ yrs 12/18/2013,04/17/2013,02/07 Pneumococcal Conjugate Vacci ne, 20-valent ([id number]) 02/02/2022 Pneumococcal Polysaccharide PPV23 (Pneumovax) 11/23/2020,03/24/2017 SEASONAL [...] Sign Reading Time Taken Comments Blood Pressure 108/54 02/03/2023 11:31 AM EST Pulse 80 02/03/2023 11:31 AM EST Temperature 36.4 C (97.5 F) 02/03/2023 11:[address] Respiratory Rate 16 02/03/2023 11:31 AM EST Oxygen Saturation - - Inhaled Oxygen Concentration - - Weight 71 kg (156 lb 9.6 oz) 02/03/2023 11:31 AM EST Height - - Body Mass Index 21.84 12/23/2022 11:36 AM EDT documented in this encounter Progress Notes * Cm Roberto MD - 02/03/2023 12:05 PM EST Subjective: Homer Gomez is a 67 year old male. Chief Complaint Patient presents with Hospital Follow-Up Pt presents for hospital follow up. HPI: 67-year-old seen today as follow-up after recent [facility] hospital admission. He would developed some respiratory distress/cough. Seen in the emergency room where chest x-ray revealed a left lower lung infiltrate consistent with pneumonia. COVID as well as remainder of his respiratory panel was negative. His white blood count was elevated about 14,000 with mild anemia. His serum sodium level was slightly low at 127. His sodium did improve during the hospitalization. Was seen by Nephrology whorecommended very mild fluid restriction. They thought a lot of the low-sodium was probably related to uncontrolled diabetes. Hemoglobin A1c was 13. Increased fluid intake as a consequence of high sugars. At discharge he was told increase his glargine insulin from 10-12 units and to stop his S part Murphy sliding scale. Although he is noted a slight improvement in blood sugars, there still very highoften times in the 400s. No low blood sugars. His breathing status has essentially returned to normal. He finished his antibiotics (doxycycline) about a week ago. Patient Active Problem List Diagnosis Code Bipolar [...] II disorder ([facility]) F31.81 Type 2 diabetes mellitus with diabetic peripheral angiopathy without gangrene ([facility]) E11.51 Anxiety, generalized F41.1 Hyperprolactinemia ([facility]) E22.1 Current Outpatient Medications Medication Sig Dispense Refill aspirin 81 MG chewable tablet Take 1 Tablet by mouth in the morning. with food.. 100 Tab 1 risperiDONE (RISPERDAL) 2 MG Tablet Take 1 Tab by mouth at bedtime. prescribed by Psych 30 Tab 0 PARoxetine (PAXIL) 30 MG Tablet Take 1 Tab by mouth 2 times a day. prescribed by Psych 60 Tab 0 busPIRone HCl 10 MG Oral Tablet (Buspar) Take 1 Tablet by mouth in the morning and 1 Tablet before bedtime. Trelegy Ellipta 200-62.5-25 MCG/INH Aerosol Powder Breath Activated Meloxicam 15 MG Oral Tablet TAKE 1 TABLET BY MOUTH DAILY FOR PAIN. 90 Tablet 1 Ferrous Sulfate 325 (65 Fe) MG Oral [...] 500 MG Oral Tablet (Tylenol) 2 Tablets. Albuterol Sulfate HFA 108 (90 Base) MCG/ACT Inhalation Aerosol Solution INHALE 2 PUFFS ORALLY EVERY6 HOURS NEEDED FOR SHORTNESS OF BREATH/WHEEE *GIVE IF REFUSING DUONEB Trulicity 0.75 MG/0.5ML Subcutaneous Solution Pen-injector INJECT 0.5 ML SUBCUTANEOUSLY WEEKLY ON MONDAY (TYPE 2 DIABETES MELLITUS) (ROTATE SITES) Lisinopril 2.5 MG Oral Tablet (Prinivil) Take [...] nebulized every 6 hours 360 mL 5 Insulin Glargine 100 UNIT/ML Subcutaneous Solution Pen-injector (Lantus) Inject 16 Units under the skin in the morning. 15 mL 11 Insulin Pen Needle (INSUPEN PEN NEEDLES) 31G X 8 MM Use with Trulicity once per week 12 Box Dosing Unit 3 Divalproex Sodium ER 250 MG Oral Tablet Extended Release 24 Hour Take 1 Tablet by mouth in the morning and 1 Tablet before bedtime. (Patient not taking: Reported on 12/23/2022) Insulin Syringe 31G X 5/16" 1 ML [...] A DAY DX E11.9 100 Strip 3 Doxycycline Hyclate 100 MG Oral Tablet Take 1 Tablet by mouth in the morning and 1 Tablet before bedtime. Cefuroxime Axetil 500 MG Oral Tablet (Ceftin) Take 1 Tablet by mouth in the morning and 1 Tablet before bedtime. No current facility-administered medications for this visit. Review of patient's allergies indicates: No Known Allergies Objective: BP 108/54 | Pulse 80 | Temp 36.4 C (97.5 F) | Resp 16 | Wt 71 kg (156 lb 9.6 oz) | BMI 21.84 kg/m | BSA 1.89 m Physical Exam: CONST: alert, pleasant, no acute distress. He did not appear to be short of breath and was not coughing HEAD: normocephalic, atraumatic Eyes - PERRLA, EOM'I OROPHARYNX: clear, no swelling or erythema, moist CV: regular rate and rhythm, no murmur CHEST: clear to auscultation bilaterally, no rales or wheezing ABD: soft, non tender, non distended, no masses or hepatosplenomegaly EXT: no edema, no joint swelling or deformities, ASSESSMENT/PLAN: COPD, moderate (HCC) (Primary) He sees [facility]. I suggested he make an appointment if he is not already scheduledsometime before June 25. Type 2 diabetes mellitus with hemoglobin A1c goal of less than 7.0% ([facility]) - Insulin Glargine 100 UNIT/ML Subcutaneous Solution Pen-injector (Lantus); Inject 16 Units under the skin in the morning. Restart sliding scale. That starts at 200 mg glucose and he uses it twice a day. Pneumonia of left lower lobe due to infectious organism-clinically much improved. He knows to get repeat chest x-ray to look for resolution of the infiltrate in about a month's time. Will also repeathis CBC to make sure white count returning to normal and mild anemia not worsening - XR CHEST 2 VIEWS; Future; Expected date: 02/17/2023 Hyponatremia - BASIC METABOLIC PANEL; Future; Expected date: 02/03/2023 I suggested he limit slightly his water intake. He has been drinking for 32 oz jugs of water per day. I asked the decrease that to 3. Will still get a basic metabolic panel Mary sure the sodium is reasonable. Cm Roberto MD documented in this encounter Nursing Notes * Lisa Case MED ASSIST - 02/03/2023 11:31 AM EST The patient has been properly identified by confirmation of name and date of . Chief Complaint Patient presents with Hospital Follow-Up Pt presents for hospital follow up. documented in this encounter Plan of Treatment Upcoming Encounters Date Type Department Care Team (Late st Contact Info) Description 04/24/2023 12:20 PM EST Office Visit [facility] [address] [place] [phone] Cm Roberto MD [address] [place] [address] Scheduled Orders Name Type Priority Associated Diagnoses Orde r Schedule XR CHEST 2 VIEWS Medical Imaging Routine Pneumonia of left lower lobe due to infectious organism Expected: 02/17/2023, Expires: 04/05/2023 Scheduled Procedures Name Priority Associated Diagnoses Date/Ti me COLONOSCOPY FLEXIBLE PROXIMAL DIAGNOSTIC Recall Screen for colon cancer Health Maintenance Due Date Last Done Comments Alpha-1 Antitrypsin 1974 Fecal Occult Blood Test 2001 Sigmoidoscopy 2001 Cologuard 04/11/2020 04/11/2017 Depression Screening 01/29/2021 01/30/2020, 12/24/19 17 COVID-19 Vaccine ( season) 2022 03/11/2021, 07/25/2020, 07/04/2020 Diabetic Eye Exam 03/31/2023 03/31/2022, , 04/24/2020, Additional history exists Diabetic Foot Exam 06/02/2023 06/01/2022, 1 04/03/2020, 01/30/2020, Additional history exists B-12 08/04/2023 08/03/2022, 09/24, 01/10/2019, Additional history exists HbA1c 08/04/2023 02/03/2023, 07/25, 06/01/2022, Additional history exists Albumin/Creatinine Ratio 08/05/2023 023, 02/01/2021, 01/10/2019, Additional history exists O2 ASSESSMENT COMPLETED IN PAST YEAR FOR COPD 12/24/2023 12/23/2022 GFR 02/04/2024 02/03/2023, 03/10/2022, 02/28/2022, Additional history exists Lipid Panel 02/28/2027 [...] Completed 12/23/2022, 01/05/2022, 11/23/2020, Additional history exists GARDASIL-HPV IMMUNIZATION SERIES Aged Out No longer eligible based on patient's age to complete this topic MENINGOCOCCAL (MENACTRA/MENVEO) Aged Out No longer eligible based on patient's age to complete this topic documented as of this encounter Medical Devices Not on filedocumented as of this encounter Results * (ABNORMAL) BASIC METABOLIC PANEL (02/03/2023 12:30 PM EST) BUN 29(H) 6 - 20 mg/dL 02/04/2023 12:08 AM EST [facility] Creatinine 1.1 0.6 - 1.2 mg/dL 02/04/2023 12:08 AM EST [facility] Estimated Glomerular Filtration Rate 77 >=60 mL/min 02/04/2023 12:08 AM EST [facility] Comment:eGFR is calculated b ased on the CKD-EPI 2020 equation Sodium 132(L) 135 - 146 mmol/L 02/04/2023 12:08 AM EST [facility] Potassium 4.7 3.5 - 5.1 mmol/L 02/04/2023 12:08 AM EST [facility] Chloride 100 98 - 107 mmol/L 02/04/2023 12:08 AM EST [facility] CO2 19(L) 22 - 32 mmol/L 02/04/2023 12:08 AM EST [facility] Anion Gap 13 7 - 15 mmol/L 02/04/2023 12:08 AM EST [facility] Glucose 215(H) 70 - 120 mg/dL 02/04/2023 12:08 AM EST [facility] Calcium 9.6 8.4 - 10.2 mg/dL 02/04/2023 12:08 AM EST [facility] Blood Venous blood specimen / Unknown Venipuncture / Unknown 02/03/2023 12:30 PM EST 02/03/2023 12:30 PM EST Cm Roberto MD LAB BLOOD ORDERABLES [facility] [address] [place] [address] documented in this encounter Visit Diagnoses Diagnosis COPD, moderate (HCC)- Primary Chronic airway obstruction, not elsewhere classified Type 2 diabetes mellitus with hemoglobin A1c goal of less than 7.0% (HCC) Pneumonia of left lower lobe due to infectious organism Hyponatremia Hyposmolality and/or hyponatremia documented in this encounter Advance Directives Documents on File Type Date Recorded Patient Tape Deck Installer Expl anation Advance Directives and Living Will 06/29/2022 ADVANCE DIRECTIVE / LIVING WILL Power of Heavy Equipment Sales Manager 06/29/2022 POWER OF A TTORNEY Advance Directives and Living Will 06/27/2022 ADVANCE DIRECTIVE / LIVING WILL Power of Heavy Equipment Sales Manager 06/27/2022 POWER OF A TTORNEY Care Teams Clarifier Relationship Specialty Start Date End Date Cm Roberto MD [address] [place] [address] PCP - General Family Medicine 03/12/18 documented as of this encounter
--- OUTSIDE RECORDS SUMMARY | 2023-05-07 16:51 | External Medical Summary | Summary of Care ---
Author Name Unknown Organization [facility] Address [address] [place] [address] Phone [phone] Care Team Providers Care Sap Crm Developer Name Role Phone Cm Roberto MD Primary Care Provider Reason for Visit * Reason Onset Date Comments Med Request 03/02/2023 Encounter Details Date Type Department Care Team (Late st Contact Info) Description 03/02/2023 Telephone [facility] [address] [place] [address] Cm Roberto MD [address] [place] [address] Med Request Allergies No known active allergiesdocumented as of this encounter (statuses as of 03/02/2023) Medications Medication Sig Dispensed Refills Start Date End Date Status aspirin 81 MG chewable tabletIndications:i n am Take 1 Tablet by mouth in the morning. with food.. 100 Tab 1 09/29/2016 Active Insulin Pen Needle (INSUPEN PEN NEEDLES) 31G X 8 MMIndications:Type 2 diabetes mellitus with hemoglobin A1c goal of less than 7.0% ([facility]) Use with Trulicity once per week [...] 200-62.5-25 MCG/INH Aerosol Powder Breath Activated 0 01/16/2021 Active Ferrous Sulfate 325 (65 Fe) MG [...] Tablet (Tylenol) 2 Tablets. 0 05/17/2022 Active Albuterol Sulfate HFA 108 (90 Base) MCG/ACT Inhalation Aerosol Solution INHALE 2 PUFFS ORALLY EVERY 6 HOURS NEEDED FOR SHORTNESS OF BREATH/WHEEE *GIVE IF REFUSING DUONEB 0 12/19/2022 Active Trulicity 0.75 MG/0.5ML Subcutaneous Solution Pen-injector INJECT 0.5 ML SUBCUTANEOUSLY WEEKLY ON MONDAY (TYPE 2 DIABETES MELLITUS) (ROTATE SITES) 0 12/19/2022 Active Insulin Syringe 31G X 5/16" 1 [...] E 11.9. 100 Each 11 12/23/2022 Active Shemar Matt In Vitro Strip (Glucose Blood)Indications:T ype 2 [...] FOR PAIN. 90 Tablet 1 02/21/2023 Active documented as of this encounter (statuses as of 03/02/2023) Active Problems Problem Noted Date Diagnosed Date [...] as of this encounter (statuses as of 03/02/2023) Resolved Problems Problem Noted Date Diagnosed Date Resolved Date Encounter for long-term (cur rent) use of medications 03/24/2017 09/22/2017 Screen for colon cancer 03/24/201708/26 Depression with anxiety 08/26 Overview: hospitalized in past COPD, moderate 09/21/2016 DM type 2 (diabetes mellitus, type 2) 09/21/2016 documented as of this encounter (statuses as of 03/02/2023) Immunizations Name Administration Dates Next Due COVID-19 mRNA, LNP-s, No Pre serve, 2-Dose Series ([email or web address]) 07/25/2020,07/04/2020 Hepatitis B, 20+ yrs 12/18/2013,04/17/2013,02/07 Pneumococcal Conjugate Vacci ne, 20-valent ([id number]) 02/02/2022 Pneumococcal Polysaccharide PPV23 (Pneumovax) 11/23/2020,03/24/2017 SEASONAL [...] N/A Previous Prescriber: PCP Preferred Pharmacy: [id number] Medication Name: Albuterol Sulfate HFA Strength: 108 (90 Base) MCG/ACT Inhalation Aerosol Solution Directions: INHALE 2 PUFFS ORALLY EVERY 6 HOURS NEEDED FOR SHORTNESS OF BREATH/WHEEE *GIVE IF REFUSING DUONEB Preferred Quantity: N/A Previous Prescriber: PCP Preferred Pharmacy: [id number] [address] [facility] Please review and approve if appropriate. Thank you, Kaitlynn Worthington Light Rail Signal Technician I [facility] ([facility]) (Formerly Telepharmacy) 03/02/2023,8:42 AM documented in this encounter Plan of Treatment Upcoming Encounters Date Type Department Care Team (Late st Contact Info) Description 04/24/2023 12:20 PM EST Office Visit [facility] [address] [place] [phone] Cm Roberto MD [address] [place] [address] Scheduled Procedures Name Priority Associated Diagnoses Date/Ti me COLONOSCOPY FLEXIBLE PROXIMAL DIAGNOSTIC Recall Screen for colon cancer Health Maintenance Due Date Last Done Comments Alpha-1 Antitrypsin 1974 Fecal Occult Blood Test 2001 Sigmoidoscopy 2001 Cologuard 04/11/2020 04/11/2017 Depression Screening 01/29/2021 01/30/2020, 12/24/19 Diabetic Eye Exam 03/31/2023 03/31/2022, , 04/24/2020, [...] on File Type Date Recorded Patient Supervisor Sterile Processing Expl anation Advance Directives and Living Will 06/29/2022 ADVANCE DIRECTIVE / LIVING WILL Power of Freezer Worker 06/29/2022 POWER OF A TTORNEY Advance Directives and Living Will 06/27/2022 ADVANCE DIRECTIVE / LIVING WILL Power of Freezer Worker 06/27/2022 POWER OF A TTORNEY Care Teams Sap Crm Developer Relationship Specialty Start Date End Date Cm Roberto MD [address] [place] [address] PCP - General Family Medicine 03/12/18 documented as of this encounter
--- OUTSIDE RECORDS SUMMARY | 2023-05-07 16:51 | External Medical Summary | Summary of Care ---
Author Name Unknown Organization [facility] Address [address] [place] [address] Phone [phone] Care Team Providers Care Sociology Research Assistant Name Role Phone Cm Roberto MD Primary Care Provider Reason for Referral * Medication Prior Authorization - Pending Review Specialty Diagnoses / Procedures Referred By Contac t Referred To Contact Diagnoses Type 2 diabetes mellitus with hemoglobin A1c goal of less than 7.0% ([facility]) Cm Roberto MD [address] [place] [address] Referral ID Status Reason Start Date Expiration Date V isits Requested Visits Authorized [id number] Pending Review 999 999 Reason for Visit * Reason Onset Date Comments Med Request 03/16/2023 Encounter Details Date Type Department Care Team (Late st Contact Info) Description 03/16/2023 Telephone [facility] [address] [place] [address] Cm Roberto MD [address] [place] [address] Med Request Allergies No known active allergiesdocumented as of this encounter (statuses as of 03/16/2023) Medications Medication Sig Dispensed Refills Start Date [...] REFUSING DUONEB 18 g 11 3 Active Trulicity 0.75 MG/0.5ML Subcutaneous Solution Pen-injectorIndicat ions:Type 2 diabetes mellitus with hemoglobin A1c goal of less than 7.0% (HCC) Inject 0.75 mg under the skin once a week. 2 mL 5 3 Active Trulicity 0.75 MG/0.5ML Subcutaneous Solution Pen-injector INJECT 0.5 ML SUBCUTANEOUSLY WEEKLY ON MONDAY (TYPE 2 DIABETES MELLITUS) (ROTATE SITES) 0 3 03/16/20 23 Discontinu ed(Refill) documented as of this encounter (statuses as of 03/16/2023) Active Problems Problem Noted Date Diagnosed Date [...] as of this encounter (statuses as of 03/16/2023) Resolved Problems Problem Noted Date Diagnosed Date Resolved Date Encounter for long-term (cur rent) use of medications 03/24/2017 09/22/2017 Screen for colon cancer 03/24/201708/26 Depression with anxiety 08/26 Overview: hospitalized in past COPD, moderate 09/21/2016 DM type 2 (diabetes mellitus, type 2) 09/21/2016 documented as of this encounter (statuses as of 03/16/2023) Immunizations Name Administration Dates Next Due COVID-19 mRNA, LNP-s, No Pre serve, 2-Dose Series ([employer]) 07/25/2020,07/04/2020 Hepatitis B, 20+ yrs 12/18/2013,04/17/2013,02/07 Pneumococcal Conjugate Vacci ne, 20-valent ([id number]) 02/02/2022 Pneumococcal Polysaccharide PPV23 (Pneumovax) 11/23/2020,03/24/2017 Seasonal [...] encounter Miscellaneous Notes * Telephone Encounter - Lexie Wallace CPhT - 03/16/2023 8:13 AM EST Pt EC is asking high priority as the pt is completely out of medication. Patient calling requesting the following medication below that is listed as "Historical". The following information was provided: Medication Name: Trulicity 0.75 MG/0.5ML Subcutaneous Solution Pen-injector Strength: 0.75 MG/0.5ML Directions: INJECT 0.5 ML SUBCUTANEOUSLY WEEKLY ON MONDAY (TYPE 2 DIABETES MELLITUS) (ROTATE SITES) Preferred Quantity: 30 day supply Previous Prescriber: Pt unaware Preferred Pharmacy: [id number] [address] [place] [address] Please review and approve if appropriate. Thank you, Elvia Wallace Blister Packing Machine Tender I [facility] (Formerly Telepharmacy) 03/16/2023,8:13 AM documented in this encounter Plan of Treatment Upcoming Encounters Date Type Department Care Team (Late st Contact Info) Description 04/24/2023 12:20 PM EST Office Visit [facility] [address] [place] [phone] Cm Roberto MD [address] [place] [address] Scheduled Procedures Name Priority Associated [...] 01/10/2019, Additional history exists HbA1c 08/04/2023 02/03/2023, 051 , 06/01/2022, Additional history exists Albumin/Creatinine Ratio 08/05/2023 [...] Documents on File Type Date Recorded Patient C Software Developer Expl anation Advance Directives and Living Will 06/29/2022 ADVANCE DIRECTIVE / LIVING WILL Power of Beam Dyer Recessed Vat 06/29/2022 POWER OF A TTORNEY Advance Directives and Living Will 06/27/2022 ADVANCE DIRECTIVE / LIVING WILL Power of Beam Dyer Recessed Vat 06/27/2022 POWER OF A TTORNEY Care Teams Sociology Research Assistant Relationship Specialty Start Date End Date Cm Roberto MD [address] [place] [address] PCP - General Family Medicine 03/12/18 documented as of this encounter
--- OUTSIDE RECORDS SUMMARY | 2023-05-07 16:51 | External Medical Summary ---
Author Name Unknown Address Unknown Organization K01:[facility]ORY [facility] - [facility] [address] [facility] [address] Laboratory Report Ordering Provider Test Date Status SANTIAGO QUACH 04/13/2023 14:21:12 Final Observation Date Value Abnormality Reference (Units ) Status WBC, Total 04/13/2023 14:21:12 10.70 4.00-10.80 (K/uL) Final RBC 04/13/2023 14:21:12 4.41 4.50-5.25 (M/uL) Final Hemoglobin 04/13/2023 14:21:12 13.5 Below low normal 14.0-16.8 (g/dL) Final HCT 04/13/2023 14:21:12 41.9 40.0-48.4 (%) Final MCV 04/13/2023 14:21:12 95.0 82.0-99.5 (fL) Final MCH 04/13/2023 14:21:12 30.6 27.0-34.0 (pg) Final MCHC 04/13/2023 14:21:12 32.2 32.0-36.0 (g/dL) Final RDW 04/13/2023 14:21:12 13.1 11.5-15.5 (%) Final Platelets 04/13/2023 14:21:12 331 140-400 (K/uL) Final MPV 04/13/2023 14:21:12 9.3 6.6-11.1 (fL) Final Nucleated erythrocytes/100 leukocytes [Ratio] in Blood by Automated count 04/13/2023 14:21:12 0 <=0 (/100 WBCs) Final Performing Location [facility]ORY [facility] - [address] [facility] [address]
--- OUTSIDE RECORDS SUMMARY | 2023-05-07 16:51 | External Medical Summary ---
Author Name Unknown Address Unknown Organization K01:LABORATORY [facility] [place] [place] - [address] [facility] [address] Laboratory Report Ordering Provider Test Date Status ARPIT JIMENEZ 02/03/2023 12:30:19 Final Observation Date Value Abnormality Reference (Units ) Status MYCODE SPECIMEN-SST 02/03/2023 12:30:19 Freezing of extracted DNA, whole blood and/or serum. Final Performing Location LABORATORY [facility] [place] [place] - [address] [facility] [address]
--- OUTSIDE RECORDS SUMMARY | 2023-05-07 16:51 | External Medical Summary | Summary of Care ---
Author Name Unknown Organization [facility] Address [address] [place] [address] Phone [phone] Care Team Providers Care Substation Designer Name Role Phone Cm Roberto MD Primary Care Provider Reason for Referral * Evaluate & Treat - Unlimited Visits (Within 10 days (routine)) - Pending Review Specialty Diagnoses / Procedures Referred By Contac t Referred To Contact Pharmacist / Pharmacy Diagnoses Type 2 diabetes mellitus with hemoglobin A1c goal of less than 7.0% ([facility]) Cm Roberto MD [address] [place] [address] Referral ID Status Reason Start Date Expiration Date Visits Requested Visits Authorized [id number] Pending Review Specialty Services Required 04/12/2023 99 99 Question Answer Referral Priority Within 10 days (routine) Where should this appointment be scheduled? [facility] Referring Provider Role: Primary Care Reason for Referral: DM Target A1c: < 8 Comments Pharmacist Medication Therapy Management: Minimum frequency patient should be seen in person for medication management: as appropriate per clinical condition and patient status By my signature, I understand that my patient Homer Gomez will have his medication therapy managed by the [facility] Medication Therapy Disease Management Clinic ([facility]) per established policies, procedures, and protocols. I also certify that this referral may serve as an initiation of service for the management of drug therapy in the above noted patient. [facility] providers will be responsible for scheduling patient visits, obtaining appropriate laboratory studies, and adjusting medication management therapy per patient's need, in addition to those roles spelled out in the clinic policy, procedures, and drug management protocols. I understand that the service provided by the [facility] is voluntary and have informed patient that they can refuse the service at their discretion. I am aware that the [facility] Clinic will provide me with a copy of the patient encounter via my [employer] In[employer]raphenicssket. I authorize the [facility] to carry out these activities on my behalf. I consider this program to be a necessary part of the patient's medical care. Amelia Martinez RN Reason for Visit * Reason Onset Date Comments Referral 04/12/2023 Encounter Details Date Type Department Care Team (Late st Contact Info) Description 04/12/2023 Motel Clerk Telephone [facility] [address] [place] [address] Amelia Martinez RN [address] [place] [address] Referral Allergies No known active allergiesdocumented as of this encounter (statuses as of 04/12/2023) Medications Medication Sig Dispensed Refills Start Date End Date Status aspirin 81 MG chewable tabletIndications:in am Take 1 Tablet by mouth in the morning. with food.. 100 Tab 1 09/29/2016 Active Insulin Pen Needle (INSUPEN PEN NEEDLES) 31G X 8 MMIndications:Type 2 diabetes mellitus with hemoglobin A1c goal of less than 7.0% ([facility]) Use with Trulicity once per week 12 [...] as of this encounter (statuses as of 04/12/2023) Active Problems Problem Noted Date Diagnosed Date [...] as of this encounter (statuses as of 04/12/2023) Resolved Problems Problem Noted Date Diagnosed Date Resolved Date Encounter for long-term (cur rent) use of medications 03/24/2017 09/22/2017 Screen for colon cancer 03/24/201708/26 Depression with anxiety 08/26 Overview: hospitalized in past COPD, moderate 09/21/2016 DM type 2 (diabetes mellitus, type 2) 09/21/2016 documented as of this encounter (statuses as of 04/12/2023) Immunizations Name Administration Dates Next Due COVID-19 mRNA, LNP-s, No Pre serve, 2-Dose Series (Xyleme) 07/25/2020,07/04/2020 Hepatitis B, 20+ yrs 12/18/2013,04/17/2013,02/07 Pneumococcal Conjugate Vacci ne, 20-valent ([id number]) 02/02/2022 Pneumococcal Polysaccharide PPV23 (Pneumovax) 11/23/2020,03/24/2017 Seasonal [...] Tobacco: Never Comments:from 15 years - Dec mingo2020 Alcohol Use Standard Drinks/Week Comments No 0 [...] encounter Miscellaneous Notes * Telephone Encounter - Amelia Martinez RN - 04/12/2023 9:[address] Roberto, I spoke with Homer today, he is agreeable with working with [facility] on his diabetes, his most recent A1C was 13.2-I have pended the order thanks Amelia Martinez RN documented in this encounter Plan of Treatment Upcoming Encounters Date Type Department Care Team (Late st Contact Info) Description 04/13/2023 1:40 PM EST Office Visit [facility] [place] [address] [place] [address] Jus Lynn MD [address] [place] [address] 04/24/2023 12:20 PM EST Office Visit [facility] [place] [address] [place] [address] Cm Roberto MD [address] [place] [address] Scheduled Procedures Name Priority Associated Diagnoses Date/Ti me COLONOSCOPY FLEXIBLE PROXIMAL DIAGNOSTIC Recall Screen for colon cancer Scheduled Referrals Name Type Priority Associated Diagnoses Orde r Schedule PHARMACIST MEDS THERAPY MGMT REFERRAL OP Referral Within 10 days (routine) Type 2 diabetes mellitus with hemoglobin A1c goal of less than 7.0% (HCC) Ordered: 04/12/2023 Health Maintenance Due Date Last Done Comments [...] exists Depression Screening 04/12/2024 04/12/2023, 12/24/19 17 Lipid Panel 02/28/2027 02/28/2022, 07/26, 06/29/2021, Additional [...] goal of less than 7.0% ([facility])- Primary documented in this encounter Advance Directives Documents on File Type Date Recorded Patient Warehouse Analyst Expl anation Advance Directives and Living Will 06/29/2022 ADVANCE DIRECTIVE / LIVING WILL Power of Sephora Product Consultant 06/29/2022 POWER OF A TTORNEY Advance Directives and Living Will 06/27/2022 ADVANCE DIRECTIVE / LIVING WILL Power of Se[employer] Product Consultant 06/27/2022 POWER OF A TTORNEY Care Teams Substation Designer Relationship Specialty Start Date End Date Cm Roberto MD [address] [facility] [address] PCP - General Family Medicine 03/12/18 documented as of this encounter
--- OUTSIDE RECORDS SUMMARY | 2023-05-07 16:51 | External Medical Summary ---
Author Name Unknown Address Unknown Organization K01:[facility] - [address] [facility] [address] Laboratory Report Ordering Provider Test Date Status VIJAY KEENAN 02/03/2023 12:30:19 Final Observation Date Value Abnormality Reference (Units ) Status BUN 02/03/2023 12:30:19 29 Above high normal 6-20 (mg/dL) Final Creatinine 02/03/2023 12:30:19 1.1 0.6-1.2 (mg/dL) Final Glomerular filtration rate/1.73 sq M.predicted [Volume Rate/Area] in Serum, Plasma or Blood by Creatinine-based formula (CKD-EPI) 02/03/2023 12:30:19 77 >=60 (mL/min) Final eGFR is calculated based on the CKD-EPI 2020 equation SODIUM 02/03/2023 12:30:19 132 Below low normal 135 -146 (mmol/L) Final Potassium 02/03/2023 12:30:19 4.7 3.5-5.1 (m mol/L) Final Cl 02/03/2023 12:30:19 100 98-107 (mm ol/L) Final CO2 02/03/2023 12:30:19 19 Below low normal 22- 32 (mmol/L) Final Anion gap 02/03/2023 12:30:19 13 7-15 (mmol /L) Final Glucose 02/03/2023 12:30:19 215 Above high normal 70 -120 (mg/dL) Final Calcium 02/03/2023 12:30:19 9.6 8.4-10.2 ( mg/dL) Final Performing Location [facility] - [address] [facility] [address]
--- OUTSIDE RECORDS SUMMARY | 2023-05-07 16:51 | External Medical Summary | Summary of Care ---
Author Name Unknown Organization [facility] Address [address] [place] [address] Phone [phone] Care Team Providers Care Rn Informatics Name Role Phone Shlomo Roberto MD Primary Care Provider [phone] Reason for Visit * Reason Onset Date Comments Med Request 03/02/2023 Encounter Details Date Type Department Care Team (Late st Contact Info) Description 03/02/[address] [facility] [address] [place] [address] Shlomo Roberto MD [address] [place] [address] Med Request Allergies No known [...] hemoglobin A1c goal of less than 7.0% ([facility]) Use with Trulicity once per week 12 [...] Tablet (Tylenol) 2 Tablets. 0 3 Active Trulicity 0.75 MG/0.5ML Subcutaneous [...] REFUSING DUONEB 18 g 11 3 Active Trelegy Ellipta 200-62.5-25 MCG/INH Aerosol Powder Breath Activated 0 1 03/03/20 23 Discontinu ed(Refill) Albuterol Sulfate HFA 108 (90 Base) MCG/ACT Inhalation Aerosol Solution INHALE 2 PUFFS ORALLY EVERY 6 HOURS NEEDED FOR SHORTNESS OF BREATH/WHEEE *GIVE IF REFUSING DUONEB 0 3 03/03/20 23 Discontinu ed(Refill) documented as of [...] mRNA, LNP-s, No Pre serve, 2-Dose Series (Boastify) 07/25/2020,07/04/2020 Hepatitis B, 20+ yrs 12/18/2013,04/17/2013,02/07 Pneumococcal Conjugate Vacci ne, 20-valent ([id number]) 02/02/2022 Pneumococcal Polysaccharide PPV23 (Pneumovax) 11/23/2020,03/24/2017 SEASONAL [...] Note - Shlomo Roberto MD - 03/03/2023 4:59 PM ESTAddended by: SHLOMO ROBERTO on: 03/03/2023 04:59 PM Modules accepted: Orders * Addendum Note - hSlomo Roberto MD - 03/03/2023 7:42 AM ESTAddended [...] N/A Previous Prescriber: PCP Preferred Pharmacy: [id number] Medication Name: Albuterol Sulfate HFA Strength: 108 (90 Base) MCG/ACT Inhalation Aerosol Solution Directions: INHALE 2 PUFFS ORALLY EVERY 6 HOURS NEEDED FOR SHORTNESS OF BREATH/WHEEE *GIVE IF REFUSING DUONEB Preferred Quantity: N/A Previous Prescriber: PCP Preferred Pharmacy: [facility] [id number] Please review and approve if appropriate. Thank you, Kaitlynn Worthington Art Teacher I Centralized Clinical Pharmacy Services ([facility]) (Formerly Telepharmacy) 03/02/2023,8:42 AM documented in this encounter Plan of Treatment Upcoming Encounters Date Type Department Care Team (Late st Contact Info) Description 04/24/2023 12:20 PM EST Office Visit [facility] [address] [place] [phone] Shlomo Roberto MD [address] [place] [address] Scheduled Procedures Name Priority Associated [...] Documents on File Type Date Recorded Patient Reclamation Engineer Expl anation Advance Directives and Living Will 06/29/2022 ADVANCE DIRECTIVE / LIVING WILL Power of Inspector Paper Products 06/29/2022 POWER OF A TTORNEY Advance Directives and Living Will 06/27/2022 ADVANCE DIRECTIVE / LIVING WILL Power of Inspector Paper Products 06/27/2022 POWER OF A TTORNEY Care Teams Rn Informatics Relationship Specialty Start Date End Date Shlomo Roberto MD [address] [place] [address] PCP - General Family Medicine 03/12/18 documented as of this encounter
--- OUTSIDE RECORDS SUMMARY | 2023-05-07 16:51 | External Medical Summary | Summary of Care ---
Author Name Unknown Organization [facility] Address [address] [place] [address] Phone [phone] Care Team Providers Care Physical Therapy Asst Name Role Phone Cm Roberto MD Primary Care Provider [phone] Reason for Visit * Reason Comments Outpatient Testing Encounter Details Date Type Department Care Team (Late st Contact Info) Description 02/03/2023 12:20 PM EST Laboratory Laboratory, [place] [address] [place] [address] [facility] [address] [place] [address] Urgency of urination; Nocturia; Urinary frequency; Type 2 diabetes mellitus with hemoglobin A1c goal of less than 7.0% ([facility]); My[employer] Research Other*[id number]; Hyponatremia; Pneumonia of left lower lobe due to infectious organism Allergies No known active allergiesdocumented as of this encounter (statuses as of 02/03/2023) Medications Medication Sig Dispensed Refills Start Date [...] Aerosol Powder Breath Activated 0 01/16/2021 Active Meloxicam 15 MG Oral TabletIndications:P rimary osteoarthritis involving multiple joints TAKE 1 TABLET BY MOUTH DAILY FOR PAIN. 90 Tablet 1 12/08/2021 Active Ferrous Sulfate 325 (65 Fe) MG Oral Tablet (Feosol)Indications :Anemia, unspecified type Take 1 Tablet by mouth daily. 90 Tablet 1 08/08/2022 Active metFORMIN HCl ER 500 MG Oral Tablet Extended Release 24 Hour (Glucophage XR)Indications:Type 2 diabetes mellitus with hemoglobin A1c goal of less than 7.0% ([facility]) Take 1 Tablet by mouth 2 times [...] insulin dosing 100 Each 5 12/23/2022 Active Mimvi w/Device Kit Use up to 4 times [...] the morning. 15 mL 11 02/03/2023 Active documented as of this encounter (statuses as of 02/03/2023) Active Problems Problem Noted Date Diagnosed Date [...] as of this encounter (statuses as of 02/03/2023) Resolved Problems Problem Noted Date Diagnosed Date Resolved Date Encounter for long-term (cur rent) use of medications 03/24/2017 09/22/2017 Screen for colon cancer 03/24/201708/26 Depression with anxiety 08/26 Overview: hospitalized in past COPD, moderate 09/21/2016 DM type 2 (diabetes mellitus, type 2) 09/21/2016 documented as of this encounter (statuses as of 02/03/2023) Immunizations Name Administration Dates Next Due COVID-19 mRNA, LNP-s, No Pre serve, 2-Dose Series ([employer]) 07/25/2020,07/04/2020 Hepatitis B, 20+ yrs 12/18/2013,04/17/2013,02/07 Pneumococcal Conjugate Vacci ne, 20-valent ([id number]) 02/02/2022 Pneumococcal Polysaccharide PPV23 (Pneumovax) 11/23/2020,03/24/2017 SEASONAL [...] 04/24/2023 12:20 PM EST Office Visit [facility] [address] [place] [phone] Cm Roberto MD [address] [place] [address] Pending Results Name Type Priority Associated Diagnoses Date /Time PSA Lab Routine Urgency of urination Nocturia Urinary frequency 02/03/2023 12:30 PM EST URINALYSIS, REFLEX TO MICROSCOPIC Lab Routine Urgency of urination Nocturia Urinary frequency 02/03/2023 12:30 PM EST HEMOGLOBIN A1C Lab Routine Type 2 diabetes mellitus with hemoglobin A1c goal of less than 7.0% ([facility]) 02/03/2023 12:30 PM EST MYCODE SUBSEQUENT ADULT Lab Routine My[employer] Research Other*[id number] 02/03/2023 12:30 PM EST BASIC METABOLIC PANEL Lab Routine Hyponatremia 02/03/2023 12:30 PM EST CBC WITH WBC DIFFERENTIAL Lab Routine Pneumonia of left lower lobe due to infectious organism 02/03/2023 12:30 PM EST MYCODE SST1 Lab Routine [employer] Other*[id number] 02/03/2023 12:30 PM EST MYCODE SST2 Lab Routine My[employer] Research Other*[id number] 02/03/2023 12:30 PM EST CBC Lab Routine Pneumonia of left lower lobe due to infectious organism 02/03/2023 12:30 PM EST DIFFERENTIAL, AUTOMATED Lab Routine Pneumonia of left lower lobe due to infectious organism 02/03/2023 12:30 PM EST Scheduled Procedures Name Priority Associated Diagnoses Date/Ti me COLONOSCOPY FLEXIBLE PROXIMAL DIAGNOSTIC Recall Screen for colon cancer Health Maintenance Due Date Last Done Comments Alpha-1 Antitrypsin 1974 Fecal Occult Blood Test 2001 Sigmoidoscopy 2001 Cologuard 04/11/2020 04/11/2017 Depression Screening 01/29/2021 01/30/2020, 12/24/19 17 COVID-19 Vaccine ( season) 2022 03/11/2021, 07/25/2020, 07/04/2020 HbA1c 02/03/2023 08/03/2022, 03/0 10/2022, 02/28/2022, Additional history exists Diabetic Eye Exam 03/31/2023 03/31/2022, , 04/24/2020, Additional history exists Diabetic Foot Exam 06/02/2023 06/01/2022, 1 04/03/2020, 01/30/2020, Additional history exists GFR 06/02/2023 06/01/2022, 12/0 07/2021, 08/18/2021, Additional history exists B-12 08/04/2023 08/03/2022, 07/04/2020, 01/10/2019, Additional history exists Albumin/Creatinine Ratio 08/05/2023 023, 02/01/2021, 01/10/2019, Additional history exists O2 ASSESSMENT COMPLETED IN PAST YEAR FOR COPD 12/24/2023 12/23/2022 Lipid Panel 02/28/2027 02/28/2022, 07/26, 06/29/2021, Additional [...] as of this encounter Visit Diagnoses Diagnosis Urgency of urination Nocturia Urinary frequency Type 2 diabetes mellitus with hemoglobin A1c goal of less than 7.0% ([facility]) My[employer] Research Other*[id number] Hyponatremia Hyposmolality and/or hyponatremia Pneumonia of left lower lobe due to infectious organism documented in this encounter Advance Directives Documents on File Type Date Recorded Patient Digital Content Specialist Expl anation Advance Directives and Living Will 06/29/2022 ADVANCE DIRECTIVE / LIVING WILL Power of Intel Recruiter 06/29/2022 POWER OF A TTORNEY Advance Directives and Living Will 06/27/2022 ADVANCE DIRECTIVE / LIVING WILL Power of Intel Recruiter 06/27/2022 POWER OF A TTORNEY Care Teams Physical Therapy Asst Relationship Specialty Start Date End Date Cm Roberto MD [address] [place] [address] PCP - General Family Medicine 03/12/18 documented as of this encounter
--- OUTSIDE RECORDS SUMMARY | 2023-05-07 16:51 | External Medical Summary ---
Author Name Unknown Address Unknown Organization [id number]:[facility]ATORY [facility] [place] - [address] [facility] [place] [address] Laboratory Report Ordering Provider Test Date Status SANTIAGO QUACH 04/13/2023 14:21:12 Final Observation Date Value Abnormality Reference (Units ) Status BUN 04/13/2023 14:21:12 25 Above high normal 6-20 (mg/dL) Final Creatinine 04/13/2023 14:21:12 1.6 Above high normal 0.6-1.2 (mg/dL) Final Glomerular filtration rate/1.73 sq M.predicted [Volume Rate/Area] in Serum, Plasma or Blood by Creatinine-based formula (CKD-EPI) 04/13/2023 14:21:12 48 Below low normal >=60 (mL/min) Final eGFR is calculated based on the CKD-EPI 2020 equation SODIUM 04/13/2023 14:21:12 134 Below low normal 135 -146 (mmol/L) Final Potassium 04/13/2023 14:21:12 4.9 3.5-5.1 (m mol/L) Final Cl 04/13/2023 14:21:12 106 98-107 (mm ol/L) Final CO2 04/13/2023 14:21:12 15 Below low normal 22- 32 (mmol/L) Final Anion gap 04/13/2023 14:21:12 13 7-15 (mmol /L) Final Glucose 04/13/2023 14:21:12 316 Above high normal 70 -120 (mg/dL) Final Albumin 04/13/2023 14:21:12 4.0 3.8-5.0 (g /dL) Final AST (Aspartate aminotransferase) 04/13/2023 14:21:12 16 10-50 (U/L) Fin al Alk Phos 04/13/2023 14:21:12 138 Above high normal 35 -130 (U/L) Final Bilirubin, Total 04/13/2023 14:21:12 0.2 <=1 .2 (mg/dL) Final Calcium 04/13/2023 14:21:12 9.0 8.4-10.2 ( mg/dL) Final Protein 04/13/2023 14:21:12 6.9 6.0-8.3 (g /dL) Final ALT (Alanine aminotransferase) 04/13/2023 14:21:12 22 10-50 (U/L) Luis Angel sesay Performing Location [facility] [place] - [address] [facility] [address]
--- OUTSIDE RECORDS SUMMARY | 2023-05-07 16:51 | External Medical Summary ---
Author Name Unknown Address Unknown Organization K01:[facility] [place] - [address] [place] [address] Laboratory Report Ordering Provider Test Date Status SANTIAGO QUACH 04/13/2023 14:21:12 Final Observation Date Value Abnormality Reference (Units ) Status SYNC LEUKOCYTES IN BLOOD BY AUTOMATED COUNT 04/13/2023 14:21:12 10.70 4.00-10.80 (K/uL) Final Segs 04/13/2023 14:21:12 84.6 Above high normal 40.0-75.0 (%) Final Lymphs % 04/13/2023 14:21:12 10.4 Below low normal 18.0-42.0 (%) Final Monos 04/13/2023 14:21:12 3.7 1.0-11.0 (%) Final Eosinophils 04/13/2023 14:21:12 0.4 0.0-6.0 (%) Final Basos 04/13/2023 14:21:12 0.5 0.0-2.0 (%) Final Immature Granulocyte, Percent 04/13/2023 14:21:12 0.4 0.0-2.0 (%) Final Absolute Segs 04/13/2023 14:21:12 9.06 Above high normal 1.80-7.70 (K/uL) Final Lymphs, absolute 04/13/2023 14:21:12 1.11 1.00-4.80 (K/ul) Final Monos, Abs 04/13/2023 14:21:12 0.40 0.00-1.10 (K/uL) Final Eos, Abs 04/13/2023 14:21:12 0.04 0.00-0.70 (K/uL) Final Basos, Abs 04/13/2023 14:21:12 0.05 0.00-0.20 (K/uL) Final Immature Granulocytes, Number 04/13/2023 14:21:12 0.04 0.00-0.20 (K/uL) Final Performing Location [facility] [place] - [facility] [place] [address]
--- OUTSIDE RECORDS SUMMARY | 2023-05-07 16:51 | External Medical Summary | Summary of Care ---
Author Name Unknown Organization [facility] Address [address] [place] [address] Phone [phone] Care Team Providers Care Supervisor Tank Cleaning Name Role Phone Cm Roberto MD Primary Care Provider [phone] Reason for Visit * Reason Onset Date Comments Med Request 03/02/2023 Encounter Details Date Type Department Care Team (Late st Contact Info) Description 03/02/2023 Telephone [facility] [address] [place] [address] Cm Roberto MD [address] [place] [address] Med Request Allergies No known [...] mRNA, LNP-s, No Pre serve, 2-Dose Series ([employer]) 07/25/2020,07/04/2020 Hepatitis B, 20+ yrs 12/18/2013,04/17/2013,02/07 Pneumococcal Conjugate Vacci ne, 20-valent ([id number]) 02/02/2022 Pneumococcal Polysaccharide PPV23 (Pneumovax) 11/23/2020,03/24/2017 SEASONAL [...] encounter Miscellaneous Notes * Telephone Encounter - Magali Worthington CPhT - 03/02/2023 8:41 AM EST Pt's EC calling requesting the following medication below that is listed as "Historical". The following information was provided: Medication Name: Trelegy Ellipta Strength: 200-62.5-25 MCG/INH Aerosol Powder Breath Activated Directions: N/A Preferred Quantity: N/A Previous Prescriber: PCP Preferred Pharmacy: [facility] #[id number] Medication Name: Albuterol Sulfate HFA Strength: 108 (90 Base) MCG/ACT Inhalation Aerosol Solution Directions: INHALE 2 PUFFS ORALLY EVERY 6 HOURS NEEDED FOR SHORTNESS OF BREATH/WHEEE *GIVE IF REFUSING DUONEB Preferred Quantity: N/A Previous Prescriber: PCP Preferred Pharmacy: [id number] Please review and approve if appropriate. Thank you, Kaitlynn Worthington Orchard Manager [facility] ([facility]) (Formerly Telepharmacy) 03/02/2023,8:42 AM documented in this encounter Plan of Treatment Upcoming Encounters Date Type Department Care Team (Late st Contact Info) Description 04/24/2023 12:20 PM EST Office Visit [facility] [address] [place] [facility] [place] [address] Cm Roberto MD [address] [facility] [place] [address] Scheduled Procedures Name Priority Associated Diagnoses [...] Additional history exists Lipid Panel 02/28/2027 02/28/2022, 0507/2021, 06/29/2021, Additional history exists DTaP,Tdap,and Td Vaccines [...] Documents on File Type Date Recorded Patient Toll Line Mechanic Expl anation Advance Directives and Living Will 06/29/2022 ADVANCE DIRECTIVE / LIVING WILL Power of Systems Technologist 06/29/2022 POWER OF A TTORNEY Advance Directives and Living Will 06/27/2022 ADVANCE DIRECTIVE / LIVING WILL Power of Systems Technologist 06/27/2022 POWER OF A TTORNEY Care Teams Supervisor Tank Cleaning Relationship Specialty Start Date End Date Cm Roberto MD [address] [place] [address] PCP - General Family Medicine 03/12/18 documented as of this encounter
--- OUTSIDE RECORDS SUMMARY | 2023-05-07 16:51 | External Medical Summary ---
Author Name Unknown Address Unknown Organization K01:[facility]ORY [facility] [place] - [address] [facility] [address] Laboratory Report Ordering Provider Test Date Status NICCI KEENANPARAMJIT 02/03/2023 12:30:19 Final Observation Date Value Abnormality Reference (Units ) Status HbA1C 02/03/2023 12:30:19 13.2 Above high normal 4. 0-5.6 (%) Final The use of HbA1c to monitor glycemic status is based on normal hemoglobin and HbA composition. This test should not be used in patients with abnormal hemoglobin that affects the half life of the red blood cell or the in vivo glycation rates. Glucose, estimated average 02/03/2023 12:30:19 332 Above high normal <126 (mg/dL) Fin al Performing Location [facility] [place] [facility] [address] [address] [facility] [address]
--- OUTSIDE RECORDS SUMMARY | 2023-05-07 16:51 | External Medical Summary | Summary of Care ---
Author Name Unknown Organization [facility] Address [address] [place] [address] Phone [phone] Care Team Providers Care Vacuum Plastic Forming Machine Operator Name Role Phone Shlomo Roberto MD Primary Care Provider [phone] Reason for Visit * Reason Onset Date Comments Medication Refill 02/21/2023 Encounter Details Date Type Department Care Team (Late st Contact Info) Description 02/21/2023 Refill [facility] [address] [place] [address] Shlomo Roberto MD [address] [place] [address] Primary osteoarthritis involving multiple joints Allergies No known active allergiesdocumented as of this encounter (statuses as of 02/21/2023) Medications Medication Sig Dispensed Refills Start Date End Date Status aspirin 81 MG chewable tabletIndications:i n am Take 1 Tablet by mouth in the morning. with food.. 100 Tab 1 7 Active Insulin Pen Needle (INSUPEN PEN NEEDLES) 31G X 8 MMIndications:Type 2 diabetes mellitus with hemoglobin A1c goal of less than 7.0% ([facility]) Use with Trulicity once per [...] Aerosol Powder Breath Activated 0 1 Active Ferrous Sulfate 325 (65 Fe) MG [...] FOR PAIN. 90 Tablet 1 3 Active Meloxicam 15 MG Oral TabletIndications:P rimary osteoarthritis involving multiple joints TAKE 1 TABLET BY MOUTH DAILY FOR PAIN. 90 Tablet 1 2 02/22/20 23 Discontinu ed(Refill) documented as of this encounter (statuses as of 02/21/2023) Active Problems Problem Noted Date Diagnosed Date [...] as of this encounter (statuses as of 02/21/2023) Resolved Problems Problem Noted Date Diagnosed Date Resolved Date Encounter for long-term (cur rent) use of medications 03/24/2017 09/22/2017 Screen for colon cancer 03/24/201708/26 Depression with anxiety 08/26 Overview: hospitalized in past COPD, moderate 09/21/2016 DM type 2 (diabetes mellitus, type 2) 09/21/2016 documented as of this encounter (statuses as of 02/21/2023) Immunizations Name Administration Dates Next Due COVID-19 mRNA, LNP-s, No Pre serve, 2-Dose Series ([employer]) 07/25/2020,07/04/2020 Hepatitis B, 20+ yrs 12/18/2013,04/17/2013,02/07 Pneumococcal Conjugate Vacci ne, 20-valent ([id number]) 02/02/2022 Pneumococcal Polysaccharide PPV23 (Pneumovax) 11/23/2020,03/24/2017 SEASONAL [...] encounter Miscellaneous Notes * Telephone Encounter - Flako Deshpande [facility] - 02/21/2023 3:23 PM ESTSigned Prescriptions: Disp Refills Meloxicam 15 MG Oral Tablet 90 Tab*1 Sig: TAKE 1 TABLET BY MOUTH DAILY FOR PAIN. Authorizing Provider: SHLOMO ROBERTO Ordering User: FLAKO DAO * Telephone Encounter - Veronica Wadsworth CPhT - 02/21/2023 9:21 AM EST Patient needs refill ordered today Did you pend patient's preferred pharmacy and medication before forwarding?yes [id number] [address] [facility] Pending Prescriptions: Disp Refills Meloxicam 15 MG Oral Tablet 90 Tab*1 Sig: TAKE 1 TABLET BY MOUTH DAILY FOR PAIN. Last Visit: 02/03/2023 (in office), Visit date not found (telemedicine) Next Visit: 04/24/2023 If no future appointments scheduled, and last appointment is greater than a year ago, please schedule patient for a follow-up appointment Last date the medication was ordered: [id number] Is this request for a controlled substance?No Urine Drug Screen:No results found for this or any previous visit. Patient Phone Numbers Labs: Lab Results Component Value Date/Time CREAT 1.1 02/03/2023 12:30 PM CREAT 1.0 10/25/2019 08:51 AM POTASSIUM 4.7 02/03/2023 12:30 PM POTASSIUM 5.6 (H) 10/28/2019 09:04 AM TSH 1.48 02/01/2021 02:57 PM TSH 1.21 10/25/2019 08:51 AM LDLCALC 58 02/28/2022 09:59 AM LDLCALC 31 10/25/2019 08:51 AM LDLDIRECT NOT APPLICABLE 01/10/2019 08:08 AM ALT 13 02/28/2022 09:59 AM ALT 16 01/30/2020 11:37 AM HGBA1C 13.2 (H) 02/03/2023 12:30 PM HGBA1C 8.0 (H) 10/25/2019 08:51 AM documented in this encounter Plan of Treatment Upcoming Encounters Date Type Department Care Team (Late st Contact Info) Description 04/24/2023 12:20 PM EST Office Visit [facility] [address] [place] [facility] [place] [address] Shlomo Roberto MD [address] [place] [address] Scheduled Procedures Name Priority Associated [...] as of this encounter Visit Diagnoses Diagnosis Primary osteoarthritis involving multiple joints documented in this encounter Advance Directives Documents on File Type Date Recorded Patient Metal Leaf Layer Expl anation Advance Directives and Living Will 06/29/2022 ADVANCE DIRECTIVE / LIVING WILL Power of Associate Professor Of Psychology 06/29/2022 POWER OF A TTORNEY Advance Directives and Living Will 06/27/2022 ADVANCE DIRECTIVE / LIVING WILL Power of Associate Professor Of Psychology 06/27/2022 POWER OF A TTORNEY Care Teams Vacuum Plastic Forming Machine Operator Relationship Specialty Start Date End Date Shlomo Roberto MD [address] [place] [address] PCP - General Family Medicine 03/12/18 documented as of this encounter
--- OUTSIDE RECORDS SUMMARY | 2023-05-07 16:52 | External Medical Summary | Summary of Care ---
Author Name Unknown Organization [facility] Address [address] [place] [address] Phone [phone] Care Team Providers Care Bath Solution Maker Name Role Phone Cm Roberto MD Primary Care Provider Reason for Visit * Reason Onset Date Comments Fax 09/14/2022 Encounter Details Date Type Department Care Team Description 09/14/2022 Telephone [facility] [address] [place] [address] Cm Roberto MD [address] [place] [address] Fax Allergies No known active allergiesdocumented as of this encounter (statuses as of 11/22/2022) Medications Medication Sig Dispensed Refills Start Date End Date Status aspirin 81 MG chewable tabletIndications:in am Take 1 Tablet by mouth in the morning. with food.. 100 Tab 1 09/29/2016 Active Blood Glucose Monitoring Suppl (ONETOUCH VERIO) w/Device KIT Use up to 4 times a day E11.9 1 Kit 0 04/06/2017 Active Insulin Pen Needle (INSUPEN PEN NEEDLES) 31G X 8 MMIndications:Type 2 diabetes mellitus with hemoglobin A1c goal of less than 7.0% ([facility]) Use with Trulicity once per week 12 Box Dosing Unit 3 02/16/2018 Active JARDIANCE 25 MG TABSIndications:Type 2 diabetes mellitus with hemoglobin A1c goal of less than 7.0% (HCC) TAKE 1 TABLET BY MOUTH EVERY DAY 90 Tab 0 06/27/2018 Active ONETOUCH DELICA LANCETS 33G MISCIndications:Type 2 diabetes mellitus with hemoglobin A1c goal of less than 7.0% (HCC) ONE TOUCH VERIO LANCETS USE UP TO 3 TIMES A DAY DX E 11.9. 100 Each 11 12/18/2018 Active risperiDONE (RISPERDAL) 2 MG Tablet Take 1 Tab by mouth at bedtime. prescribed by Psych 30 Tab 0 08/12/2019 Active PARoxetine (PAXIL) 30 MG Tablet Take 1 Tab by mouth 2 times a day. prescribed by Psych 60 Tab 0 08/12/2019 Active hydrOXYzine HCl 25 MG Oral Tablet TAKE 1 TAB BY MOUTH 3 TIMES A DAY NEEDED FOR ANXIETY. 45 Tab 0 05/11/2020 Active busPIRone HCl 10 MG Oral Tablet (Buspar) Take 1 Tablet by mouth in the morning and 1 Tablet before bedtime. 0 Active Trelegy Ellipta 200-62.5-25 MCG/INH Aerosol Powder Breath Activated 0 01/16/2021 Active OneTouch Verio In Vitro Strip (Glucose Blood)Indications:Ty pe 2 diabetes mellitus with hemoglobin A1c goal of less than 7.0% (HCC) USE TO TEST BLOOD SUGARS ONCE A DAY DX E11.9 100 Strip 3 05/26/2021 Active Cyclobenzaprine HCl 10 MG Oral Tablet (Flexeril)Indication s:Strain of lumbar paraspinous muscle, initial encounter Take by mouth 0.5-1 Tablets as needed in the morning AND 0.5-1 Tablets as needed at noon AND 0.5-1 Tablets as needed in the evening for Muscle spasms. 20 Tablet 1 09/07/2021 Active Meloxicam 15 MG Oral TabletIndications:Pr imary osteoarthritis involving multiple joints TAKE 1 TABLET BY MOUTH DAILY FOR PAIN. 90 Tablet 1 12/08/2021 Active Atorvastatin Calcium 80 MG Oral Tablet (Lipitor)Indications :Type 2 diabetes mellitus with hemoglobin A1c goal of less than 7.0% (HCC) TAKE 1 TABLET BY MOUTH EVERY DAY 90 Tablet 3 12/08/2021 Active Lisinopril 2.5 MG Oral Tablet (Prinivil)Indication s:Essential hypertension with goal blood pressure less than 150/90 TAKE 1 TABLET BY MOUTH EVERY DAY 90 Tablet 3 12/08/2021 Active Ferrous Sulfate 325 (65 Fe) [...] evening meals. 180 Tablet 3 08/30/2022 Active documented as of this encounter (statuses as of 11/22/2022) Active Problems Problem Noted Date Hyperprolactinemia 02/02/2022 Bipolar II disorder 01/30/2020 Type 2 diabetes mellitus wit h diabetic peripheral angiopathy without gangrene 01/30/2020 Anxiety, generalized 01/30/2020 Type 2 diabetes mellitus with hemoglobin A1c goal of less than 7.0% 09/21/2016 Chronic pain syndrome 09/21/2016 Bipolar 1 disorder COPD, moderate Essential hypertension with goal blood p ressure less than 150/90 Primary osteoarthritis involving multipl e joints Dyslipidemia, goal LDL below 70 documented as of this encounter (statuses as of 11/22/2022) Resolved Problems Problem Noted Date Resolved Date Encounter for long-term (current) use of medicat ions 03/24/2017 09/22/2017 Screen for colon cancer 03/24/2017 09/23/19 18 Depression with anxiety 09/23/19 18 Overview: hospitalized in past COPD, moderate 09/21/2016 DM type 2 (diabetes mellitus, type 2) 09/21/2016 documented as of this encounter (statuses as of 11/22/2022) Immunizations Name Administration Dates Next Due COVID-19 mRNA, LNP-s, No Pre serve, 2-Dose Series ([employer]) 07/25/2020,07/04/2020 Hepatitis B, 20+ yrs 12/18/2013,04/17/2013,02/07 Pneumococcal Conjugate Vacci ne, 20-valent ([id number]) 02/02/2022 Pneumococcal Polysaccharide PPV23 (Pneumovax) 11/23/2020,03/24/2017 Seasonal Influenza, PF, 6 mo ns & Above, IM , (Flulaval) 12/02/2017 Seasonal Influenza, Quadriva lent Hd, 65+ Yrs [...] drink = 0.6 oz pur e alcohol) Food Insecurity Answer Date Recorded Within the past 12 months, y ou worried that your food would run out before you got money to buy more. Never true 01/30/2020 Within the past 12 months, t he food you bought just didn't last and you didn't have money to get more. Never true 01/30/2020 Sex Assigned at Date Recorded Male 08/09/2018 1:19 PM E DT Job Start Date Occupation Industry Not on file Not on file Not on file documented as of this encounter Miscellaneous Notes * Telephone Encounter - JEIMY aTng - 09/14/2022 11:29 AM EDT [facility] pharmacy calling to check if clinic received fax for diabetic montior for patient. Called front end specialist to check and transferred to [facility] documented in this encounter Plan of Treatment Upcoming Encounters Date Type Specialty Care Team Description 12/29/2022 Office Visit Neurology Amelia Weinstein PA-C [address] [facility] [place], [place] [address] 02/08/2023 Office Visit Urology Andre Schneider, Lalo Morgan MD [address] [facility] [address] [place] [address] Scheduled Procedures Name Priority Associated Diagnoses Date/Ti me COLONOSCOPY FLEXIBLE PROXIMAL DIAGNOSTIC Recall Screen for colon cancer Health Maintenance Due Date Last Done Comments Alpha-1 Antitrypsin 1974 Fecal Occult Blood Test 2001 Sigmoidoscopy 2001 Cologuard 04/11/2020 04/11/2017 Depression Screening, Annual for Pts 12 and Over 01/29/2021 01/30/2020, 12/23/2016 COVID-19 Vaccine (4 - Pfizer series) 05/06/2021 03/11/2021, 07/25/2020, 07/04/2020 Influenza Vaccine (FLU shot) (#1) 2022 01/05/2022, 11/23/2020, 12/09/2019, Additional history exists HbA1c 02/03/2023 08/03/2022, 03/0 10/2022, 02/28/2022, Additional history exists DIABETES-EYE EXAM 03/31/2023 03/31/2022, , 04/24/2020, Additional history exists DIABETES-FOOT EXAM 06/02/2023 06/01/2022, 1 04/03/2020, 01/30/2020, Additional history exists GFR 06/02/2023 06/01/2022, 12/0 07/2021, 08/18/2021, Additional history exists B-12 08/04/2023 08/03/2022, 07/04/2020, 01/10/2019, Additional history exists Albumin/Creatinine Ratio 08/05/2023 023, 02/01/2021, 01/10/2019, Additional history exists O2 ASSESSMENT COMPLETED IN PAST YEAR FOR COPD 09/21/2023 09/20/2022 Lipid Panel 02/28/2027 02/28/2022, 07/26, 06/29/2021, Additional [...] 02/02/2022, 11/23/2020, 03/24/2017 AAA Screening Completed 05/24/2022 GARDASIL-HPV IMMUNIZATION SERIES Aged Out No longer eligible based on patient's age to complete this topic MENINGOCOCCAL (MENACTRA/MENVEO) Aged Out No longer eligible based on patient's age to complete this topic documented as of this encounter Medical Devices Not on filedocumented as of this encounter Advance Directives Documents on File Type Date Recorded Patient 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
--- OUTSIDE RECORDS SUMMARY | 2023-05-07 16:52 | External Medical Summary | Summary of Care ---
Author Name Unknown Organization [facility] Address [address] [place] [address] Phone [phone] Care Team Providers Care Director Of Research Name Role Phone Cm Roberto MD Primary Care Provider Reason for Visit * Reason Onset Date Comments Hospital Follow-[facility]- reports in chart Medication Administration 12/23/2022 Flu an d/or Pneumo Inj Encounter Details Date Type Department Care Team Description 12/23/2022 Office Visit [facility] [address] [place] [address] Cm Roberto MD [address] [place] [address] Need for prophylactic vaccination and inoculation against influenza*; Type 2 diabetes mellitus with hemoglobin A1c goal of less than 7.0% ([facility]) Allergies No known active allergiesdocumented as of this encounter (statuses as of 12/23/2022) Medications Medication Sig Dispensed Refills Start Date [...] 12 Box Dosing Unit 3 8 Active JARDIANCE 25 MG TABSIndications:Typ e 2 diabetes mellitus with hemoglobin A1c goal of less than 7.0% (HCC) TAKE 1 TABLET BY MOUTH EVERY DAY 90 Tab 0 9 Active risperiDONE (RISPERDAL) 2 MG Tablet Take [...] FOR PAIN. 90 Tablet 1 2 Active Atorvastatin Calcium 80 MG Oral Tablet (Lipitor)Indication s:Type 2 diabetes mellitus with hemoglobin A1c goal of less than 7.0% (HCC) TAKE 1 TABLET BY MOUTH EVERY DAY 90 Tablet 3 2 Active Lisinopril 2.5 MG Oral Tablet (Prinivil)Indicatio ns:Essential hypertension with goal blood pressure less than 150/90 TAKE 1 TABLET BY MOUTH EVERY DAY 90 Tablet 3 2 Active Ferrous Sulfate 325 (65 Fe) [...] DIABETES MELLITUS) (ROTATE SITES) 0 3 Active Ipratropium-Albuter ol 0.5-2.5 (3) MG/3ML Inhalation Solution (Duoneb) Inhale 3 mL by mouth every 4 hours as needed (every 2 hours PRN SOB/wheezing). 0 Active Insulin Syringe 31G X 5/16" 1 ML Dx E11.9 follow sliding scale for novolog insulin dosing 100 Each 5 3 Active NovoLOG 100 UNIT/ML Injection Solution Start with 4 units for glucose of 200 or greater and increase dose by 2 units for every increase of 50mg. Maximum of 16 units for glucose greater than 450. Dx E11.9 10 mL 11 3 Active OneTouch Verio w/Device Kit Use [...] DX E11.9 100 Strip 3 3 Active Blood Glucose Monitoring Suppl (ONETOUCH VERIO) w/Device KIT Use up to 4 times a day E11.9 1 Kit 0 8 12/24/19 23 Discontinu ed(Refill) ONETOUCH DELICA LANCETS 33G MISCIndications:Typ e 2 diabetes mellitus with hemoglobin A1c goal of less than 7.0% (HCC) ONE TOUCH VERIO LANCETS USE UP TO 3 TIMES A DAY DX E 11.9. 100 Each 9 12/24/19 23 Discontinu ed(Refill) hydrOXYzine HCl 25 MG Oral Tablet TAKE 1 TAB BY MOUTH 3 TIMES A DAY NEEDED FOR ANXIETY. 45 Tab 0 1 12/24/19 23 Discontinu ed(Patient preference /discontin uation) OneTouch Vernell In Vitro Strip (Glucose Blood)Indications:T ype 2 diabetes mellitus with hemoglobin A1c goal of less than 7.0% ([facility]) USE TO TEST BLOOD SUGARS ONCE A DAY DX E11.9 100 Strip 3 2 12/24/19 23 Discontinu ed(Refill) Cyclobenzaprine HCl 10 MG Oral Tablet (Flexeril)Indicatio ns:Strain of lumbar paraspinous muscle, initial encounter Take by mouth 0.5-1 Tablets as needed in the morning AND 0.5-1 Tablets as needed at noon AND 0.5-1 Tablets as needed in the evening for Muscle spasms. 20 Tablet 1 2 12/24/19 23 Discontinu ed(Patient preference /discontin uation) NovoLOG 100 UNIT/ML Injection Solution 0 3 12/24/19 23 Discontinu ed(Refill) documented as of this encounter (statuses as of 12/23/2022) Active Problems Problem Noted Date Hyperprolactinemia 02/02/2022 [...] as of this encounter (statuses as of 12/23/2022) Resolved Problems Problem Noted Date Resolved Date Encounter for long-term (current) use of medicat ions 03/24/2017 09/22/2017 Screen for colon cancer 03/24/2017 09/23/19 18 Depression with anxiety 09/23/19 18 Overview: hospitalized in past COPD, moderate 09/21/2016 DM type 2 (diabetes mellitus, type 2) 09/21/2016 documented as of this encounter (statuses as of 12/23/2022) Immunizations Name Administration Dates Next Due COVID-19 mRNA, LNP-s, No Pre serve, 2-Dose Series (Pfizer) 07/25/2020,07/04/2020 Hepatitis B, 20+ yrs 12/18/2013,04/17/2013,02/07 Pneumococcal Conjugate Vacci ne, 20-valent ([id number]) 02/02/2022 Pneumococcal Polysaccharide PPV23 (Pneumovax) 11/23/2020,03/24/2017 SEASONAL [...] Passive Smoke Exposure: Past Smokeless Tobacco: Never Tobacco Cessation:Counseling Given: Not Answered Comments:from 16 years - December of 2020 Alcohol Use Standard Drinks/Week Comments [...] Sign Reading Time Taken Comments Blood Pressure 125/62 12/23/2022 11:36 AM EDT Pulse 81 12/23/2022 11:36 AM EDT Temperature 36.6 C (97.8 F) 12/23/2022 11:36 AM E DT Respiratory Rate 20 12/23/2022 11:36 AM EDT Oxygen Saturation 95% 12/23/2022 11:36 AM EDT Inhaled Oxygen Concentration - - Weight 72 kg (158 lb 12.8 oz) 12/23/2022 11:36 A M EDT Height 180.3 cm (5' 11") 12/23/2022 11:36 AM EDT Body Mass Index 22.15 12/23/2022 11:36 AM EDT documented in this encounter Patient Instructions * Patient Instructions* Mayuri Angeles LPN - 12/23/2022 12:48 PM EDT ~~PATIENT INSTRUCTIONS FOR FLU SHOT~~ Possible side effects of influenza vaccine, (flu shot), are usually mild and include: 1. Soreness or redness at injection site 2. Low grade fever 3. Body aches You may use Tylenol/Acetaminophen as needed for these symptoms. LET YOUR DOCTOR KNOW IMMEDIATELY IF YOU HAVE DIFFICULTY BREATHING OR SWALLOWING, EXPERIENCE ITCHINGOF FEET OR HANDS, HAVE SWELLING OF EYES, FACE OR INSIDE OF NOSE. documented in this encounter Progress Notes * Mayuri Angeles LPN - 12/23/2022 12:48 PM EDT PRE - ADMINISTRATION DOCUMENTATION Are you experiencing any cold symptoms or fever? No Have you had Guillain-[place] Syndrome (an illness that causes paralysis) within the last 6 weeks? No Have you had the flu shot in the past? YES Have you ever had a reaction to the flu shot? No Mayuri Angeles LPN, 12/23/2022 12:48 PM Immunization Administration Documentation Time Out Procedure Performed: Yes Patient Identified (Ask Name/Date of ): Yes Does the patient have a fever greater than 101 degrees today? No Patient allergic to latex? No VFC Stock: No Immunization(s) verified: Yes, Immunization Name: Flu, VIS Sheet(s) given: Yes Verified Side and Site: Yes Verified Shot(s) with Parent(s)/Patient: Yes * Cm Roberto MD - 12/23/2022 12:03 PM EDT Subjective: Homer Gomez is a 67 year old male. Chief Complaint Patient presents with [facility]- reports in chart HPI: 67-year-old seen for the 1st time since he was discharged from [facility]. He acquired COVID infection last March. He was hospitalized [place] in ultimately transferred to [facility] then discharged to home. He did not do well at home especially with difficulties with urine and stool incontinence. He then went into [facility] where he has been for the last 5 months. He is back to his apartment. He has help with significant other and son. He points out that since he was in [facility] he no longer has the gross tremor that he had previously. He also does not have the diarrhea but he has a tendency towards loose stools. He also notes that for the most part he is controlling his urine but he has significant urinary urgency and sometimes can not make it. He was discharged on following diabetic regimen: Trulicity 0.75 mg weekly, Jardiance 25 mg daily, metformin ER 500 mg twice a day and a NovoLog sliding scale that begins at a blood sugar of 400. He checks blood sugars twice a day. He has had to use his NovoLog twice since discharge. He questions why such a high starting dose. Patient Active Problem List Diagnosis Code Bipolar 1 disorder ([facility]) F31.9 COPD, moderate ([facility]) J44.9 Essential hypertension with goal blood pressure less than 150/90 I10 Primary osteoarthritis involving multiple joints M15.9 Dyslipidemia, goal LDL below 70 E78.5 Type 2 diabetes mellitus with hemoglobin A1c goal of less than 7.0% ([facility]) E11.9 Chronic pain syndrome G89.4 Bipolar II disorder ([facility]) F31.81 Type 2 diabetes mellitus with diabetic peripheral angiopathy without gangrene ([facility]) E11.51 Anxiety, generalized F41.1 Hyperprolactinemia ([facility]) E22.1 Current Outpatient Medications Medication Sig Dispense Refill aspirin 81 MG chewable tablet Take 1 Tablet by mouth in the morning. with food.. 100 Tab 1 Blood Glucose Monitoring Suppl (abeoUCH VERIO) w/Device KIT Use up to 4 times a day E11.9 1 Kit 0 Insulin Pen Needle (INSUPEN PEN NEEDLES) 31G X 8 MM Use with Trulicity once per week 12 Box Dosing Unit 3 JARDIANCE 25 MG TABS TAKE 1 TABLET BY MOUTH EVERY DAY 90 Tab 0 ONETOUCH DELICA LANCETS 33G MISC ONE TOUCH VERIO LANCETS USE UP TO 3 TIMES A DAY DX E 11.9. 100 Each 11 risperiDONE (RISPERDAL) 2 MG Tablet Take [...] Ellipta 200-62.5-25 MCG/INH Aerosol Powder Breath Activated Cytoguideuch [employer] In Vitro Strip (Glucose Blood) USE TO TEST BLOOD SUGARS ONCE A DAY DX E11.9 100 Strip 3 Meloxicam 15 MG Oral Tablet TAKE 1 TABLET BY MOUTH DAILY FOR PAIN. 90 Tablet 1 Atorvastatin Calcium 80 MG Oral Tablet (Lipitor) TAKE 1 TABLET BY MOUTH EVERY DAY 90 Tablet 3 Lisinopril 2.5 MG Oral Tablet (Prinivil) TAKE 1 TABLET BY MOUTH EVERY DAY 90 Tablet 3 metFORMIN HCl ER 500 MG Oral Tablet Extended Release 24 Hour (Glucophage XR) Take 1 Tablet by mouth2 times a day with morning and evening meals. 180 Tablet 3 Acetaminophen 500 MG Oral Tablet (Tylenol) 2 Tablets. Albuterol Sulfate HFA 108 (90 Base) MCG/ACT Inhalation Aerosol Solution INHALE 2 PUFFS ORALLY EVERY6 HOURS NEEDED FOR SHORTNESS OF BREATH/WHEEE *GIVE IF REFUSING DUONEB Trulicity 0.75 MG/0.5ML Subcutaneous Solution Pen-injector INJECT 0.5 ML SUBCUTANEOUSLY WEEKLY ON MONDAY (TYPE 2 DIABETES MELLITUS) (ROTATE SITES) NovoLOG 100 UNIT/ML Injection Solution Ipratropium-Albuterol 0.5-2.5 (3) MG/3ML Inhalation Solution (Duoneb) Inhale 3 mL by mouth every 4 hours as needed (every 2 hours PRN SOB/wheezing). Ferrous Sulfate 325 (65 Fe) MG Oral Tablet (Feosol) Take 1 Tablet by mouth daily. (Patient not taking: Reported on 12/23/2022) 90 Tablet 1 Meclizine HCl 12.5 MG Oral Tablet (Antivert) 1 Tablet. Divalproex Sodium ER 250 MG Oral Tablet Extended Release 24 Hour Take 1 Tablet by mouth in the morning and 1 Tablet before bedtime. (Patient not taking: Reported on 12/23/2022) No current facility-administered medications for this visit. Review of patient's allergies indicates: No Known Allergies Objective: BP 125/62 | Pulse 81 | Temp 36.6 C (97.8 F) (Temporal Artery) | Resp 20 | Ht 1.803 m (5' 11") |Wt 72 kg (158 lb 12.8 oz) | SpO2 95% | BMI 22.15 kg/m | BSA 1.9 m Physical Exam: CONST: alert, pleasant, no acute distress HEAD: normocephalic, atraumatic Eyes - PERRLA, EOM'I OROPHARYNX: clear, no swelling or erythema, moist CV: regular rate and rhythm, no murmur CHEST: clear to auscultation bilaterally, no rales or wheezing ABD: soft, non tender, non distended, no masses or hepatosplenomegaly MENTAL STATUS: no evidence of thought disorder, no delusional thought, no evidence of paranoia, thought is non-tangential. ASSESSMENT/PLAN: 1. Diabetes mellitus-continue his current regimen of Trulicity 0.75 mg once week and Jardiance 25 mg a day and metformin ER 500 mg twice a day. Continue NovoLog sliding scale but change that sliding scale so that he initiates insulin at a blood sugar of 200-4 units in increases by 2 units for everyincrease a 50 mg glucose. At blood sugars greater than 450 he will use 16 units. He should have a hemoglobin A1c checked in 3 months. If this is high or he is noticing a lot of blood sugars in the 300s or above, he should get back in touch with me and at that point I would try increasing his Trulicity. Limiting factor there may be if it seems to cause increase diarrhea. 2. Hypertension-continue lisinopril COPD-he can continue his nebulizer treatment with DuoNeb in the morning and Trelegy Ellipta 1 dose daily and albuterol as needed as rescue inhaler. See again 4 months Influenza vaccine today. Encouraged him to get COVID booster end of December. Also talked about antiviral medicine that could be used if he is unfortunately enough to get COVID infection again. Follow Up: Return in about 4 months (around 04/24/2023). Cm Roberto MD documented in this encounter Nursing Notes * Mayuri Angeles LPN - 12/23/2022 11:35 AM EDT The patient has been properly identified by confirmation of name and date of . Chief Complaint Patient presents with [facility]- reports in chart documented in this encounter Plan of Treatment Upcoming Encounters Date Type Specialty Care Team Description 02/08/2023 Office Visit Urology Andre Schneider, Lalo Morgan MD [address] [address] 04/24/2023 Office Visit Family Medicine Cm Roberto MD [address] [place] [address] [phone] Scheduled Orders Name Type Priority Associated Diagnoses Orde r Schedule HEMOGLOBIN A1C Lab Routine Type 2 diabetes mellitus with hemoglobin A1c goal of less than 7.0% (HCC) Expected: 12/23/2022 (Approximate), Expires: 12/23/2023 Scheduled Procedures Name Priority Associated Diagnoses Date/Ti me COLONOSCOPY FLEXIBLE PROXIMAL DIAGNOSTIC Recall Screen for colon cancer Health Maintenance Due Date Last Done Comments Alpha-1 Antitrypsin 1974 Fecal Occult Blood Test 2001 Sigmoidoscopy 2001 Cologuard 04/11/2020 04/11/2017 Depression Screening 01/29/2021 01/30/2020, 12/24/19 17 COVID-19 Vaccine (4 - Pfizer series) 05/06/2021 03/11/2021, 07/25/2020, 07/04/2020 HbA1c 02/03/2023 08/03/2022, 03/0 10/2022, 02/28/2022, Additional history exists DIABETES-EYE EXAM 03/31/2023 03/31/2022, , 04/24/2020, Additional history exists Diabetic Foot Exam 06/02/2023 06/01/2022, 1 04/03/2020, 01/30/2020, Additional history exists GFR 06/02/2023 06/01/2022, 07/2021, 08/18/2021, Additional history exists B-12 08/04/2023 08/03/2022, 09/24, 01/10/2019, Additional history exists Albumin/Creatinine Ratio 08/05/2023 023, 02/01/2021, 01/10/2019, Additional history exists O2 ASSESSMENT COMPLETED IN PAST YEAR FOR COPD 09/21/2023 12/23/2022 Lipid Panel 02/28/2027 02/28/2022, 07/26, 06/29/2021, [...] as of this encounter Visit Diagnoses Diagnosis Need for prophylactic vaccination and inoculation against influenza- Primary Type 2 diabetes mellitus with hemoglobin A1c goal of less than 7.0% ([facility]) documented in this encounter Advance Directives Documents on File Type Date Recorded Patient Hand Edge Bander Expl anation Advance Directives and Living Will 06/29/2022 ADVANCE DIRECTIVE / LIVING WILL Power of Pianos And Organs Salesperson 06/29/2022 POWER OF A TTORNEY Advance Directives and Living Will 06/27/2022 ADVANCE DIRECTIVE / LIVING WILL Power of Pianos And Organs Salesperson 06/27/2022 POWER OF A TTORNEY Care Teams Director Of Research Relationship Specialty Start Date End Date Cm Roberto MD [address], [place] [phone] PCP - General Family Medicine 03/12/18 documented as of this encounter
--- OUTSIDE RECORDS SUMMARY | 2023-05-07 16:52 | External Medical Summary ---
Author Name Unknown Address Unknown Organization K01:[facility] [place] [address] [facility] [address] Laboratory Report Ordering Provider Test Date Status ARPIT JIMENEZ 02/03/2023 12:30:19 Final Observation Date Value Abnormality Reference (Units ) Status MYCODE SPECIMEN-SST 02/03/2023 12:30:19 Freezing of extracted DNA, whole blood and/or serum. Final Performing Location [facility] [place] [address] [facility] [address]
--- OUTSIDE RECORDS SUMMARY | 2023-05-07 16:52 | External Medical Summary | Summary of Care ---
Author Name Unknown Organization [facility] Address [address] [place] [address] Phone [phone] Care Team Providers Care Maritime Guard Name Role Phone Cm Roberto MD Primary Care Provider [phone] Reason for Visit * Reason Onset Date Comments Med Request 01/24/2023 Encounter Details Date Type Department Care Team (Late st Contact Info) Description 01/24/[address] [facility] [address] [place] [address] Cm Roberto MD [address] [place] [address] Med Request Allergies No known active allergiesdocumented as of this encounter (statuses as of 01/24/2023) Medications Medication Sig Dispensed Refills Start Date End Date Status aspirin 81 MG chewable tabletIndications:i n am Take 1 Tablet by mouth in the morning. with food.. 100 Tab 1 09/29/2016 Active Insulin Pen Needle (INSUPEN PEN NEEDLES) 31G X 8 MMIndications:Type 2 diabetes mellitus with hemoglobin A1c goal of less than 7.0% ([facility]) Use with Trulicity once per week 12 [...] DIABETES MELLITUS) (ROTATE SITES) 0 12/19/2022 Active Ipratropium-Albuter ol 0.5-2.5 (3) MG/3ML Inhalation Solution (Duoneb) Inhale 3 mL by mouth every 4 hours as needed (every 2 hours PRN SOB/wheezing). 0 Active Insulin Syringe 31G X 5/16" 1 ML Dx E11.9 follow sliding scale for novolog insulin dosing 100 Each 5 12/23/2022 Active NovoLOG 100 UNIT/ML Injection Solution Start with 4 units for glucose of 200 or greater and increase dose by 2 units for every increase of 50mg. Maximum of 16 units for glucose greater than 450. Dx E11.9 10 mL 11 12/23/2022 Active OneTouch Verio w/Device Kit Use [...] the morning. 90 Tablet 3 01/18/2023 Active documented as of this encounter (statuses as of 01/24/2023) Active Problems Problem Noted Date Diagnosed Date [...] as of this encounter (statuses as of 01/24/2023) Resolved Problems Problem Noted Date Diagnosed Date Resolved Date Encounter for long-term (cur rent) use of medications 03/24/2017 09/22/2017 Screen for colon cancer 03/24/201708/26 Depression with anxiety 08/26 Overview: hospitalized in past COPD, moderate 09/21/2016 DM type 2 (diabetes mellitus, type 2) 09/21/2016 documented as of this encounter (statuses as of 01/24/2023) Immunizations Name Administration Dates Next Due COVID-19 mRNA, LNP-s, No Pre serve, 2-Dose Series ([email or web address]) 07/25/2020,07/04/2020 Hepatitis B, 20+ yrs 12/18/2013,04/17/2013,02/07 Pneumococcal Conjugate Vacci ne, 20-valent ([id number]) 02/02/2022 Pneumococcal Polysaccharide PPV23 (Pneumovax) 11/23/2020,03/24/2017 SEASONAL [...] Comments:from 16 years - Dec [place]ingo of 1 Alcohol Use Standard Drinks/Week Comments No 0 (1 standard drink = 0.6 oz pur e alcohol) Sex and Gender Information Value Date Recorded Sex Assigned at Male 08/09/2018 1:19 PM EDT Gender Identity Male 08/09/2018 1:19 PM EDT Sexual Orientation Straight 08/09/2018 1: 19 PM EDT Job Start Date Occupation Industry Not on file Not on file Not on file documented as of this encounter Miscellaneous Notes * Telephone Encounter - Magali Worthington CPhT - 01/24/2023 11:36 AM EDT Pt's EC calling stating [facility] they gave him a nebulizer but did not give him any refills for the solution. Caller is asking if nebulizer solution can be sent to the pharmacy. Caller is also stating they gave him medication for muscle spasms because he gets them a lot at night. Caller is asking if a medication for muscle spasms can be sent as well. Pt's EC also states he has been having some issues with his blood sugar. Highest has been over 600, and the lowest was 153. I suggested that the pt may want to make an appt to see his PCP regarding these issues and the caller stated the pt has seen his PCP after he was released from the [place]. Please advise. Thank you, Kaitlynn Worthington Equipment Operator/Laborer [facility] ([facility]) 01/24/2023,11:37 AM documented in this encounter Plan of Treatment Upcoming Encounters Date Type Department Care Team (Late st Contact Info) Description 02/08/2023 10:00 AM EST Office Visit Urology [facility]yn [facility] [address] [phone] Lalo Powell Jr., MD [address] [id number] 04/24/2023 12:20 PM EST [facility] [place] [address] [facility] [address] Cm Roberto MD [address], [place] [phone] Scheduled Procedures Name Priority Associated Diagnoses Date/Ti me COLONOSCOPY FLEXIBLE PROXIMAL DIAGNOSTIC Recall Screen for colon cancer Health Maintenance Due Date Last Done Comments Alpha-1 Antitrypsin 1974 Fecal Occult Blood Test 2001 Sigmoidoscopy 2001 Cologuard 04/11/2020 04/11/2017 Depression Screening 01/29/2021 01/30/2020, 12/24/19 17 COVID-19 Vaccine ( season) 2022 03/11/2021, 07/25/2020, 07/04/2020 HbA1c 02/03/2023 08/03/2022, 030 10/2022, 02/28/2022, Additional history exists Diabetic Eye [...] Documents on File Type Date Recorded Patient Machine Sign Writer Expl anation Advance Directives and Living Will 06/29/2022 ADVANCE DIRECTIVE / LIVING WILL Power of Audio Visual Specialist 06/29/2022 POWER OF A TTORNEY Advance Directives and Living Will 06/27/2022 ADVANCE DIRECTIVE / LIVING WILL Power of Audio Visual Specialist 06/27/2022 POWER OF A TTORNEY Care Teams Maritime Guard Relationship Specialty Start Date End Date Cm Roberto MD [address] [place] [address] PCP - General Family Medicine 03/12/18 documented as of this encounter
--- OUTSIDE RECORDS SUMMARY | 2023-05-07 16:52 | External Medical Summary | Summary of Care ---
Author Name Unknown Organization [facility] Address [address] [place] [address] Phone [phone] Care Team Providers Care Psychology Clinician Name Role Phone Cm Roberto MD Primary Care Provider Reason for Visit * Reason Onset Date Comments Med Request 01/24/2023 Encounter Details Date Type Department Care Team (Late st Contact Info) Description 01/24/2023 Telephone [facility] [address] [place] [address] Cm Roberto MD [address] [place] [address] Med Request Allergies No known [...] mRNA, LNP-s, No Pre serve, 2-Dose Series ([employer]) 07/25/2020,07/04/2020 Hepatitis B, 20+ yrs 12/18/2013,04/17/2013,02/07 Pneumococcal Conjugate Vacci ne, 20-valent ([email or web address]) 02/02/2022 Pneumococcal Polysaccharide PPV23 (Pneumovax) 11/23/2020,03/24/2017 SEASONAL [...] PCP after he was released from the [place]. Please advise. Thank you, Kaitlynn Worthington Television Host [facility] ([facility]) 01/24/2023,11:37 AM documented in this encounter Plan of Treatment Upcoming Encounters Date Type Department Care Team (Late st Contact Info) Description 02/08/2023 10:00 AM EST Office Visit Urology [facility]yn [facility] [place] [address] [phone] Lalo Powell Jr., MD [address] [phone] 04/24/2023 12:20 PM EST [facility] [place] [address] [facility] [address] Cm Roberto MD [address], [place] [phone] Scheduled Procedures Name Priority Associated Diagnoses Date/Ti [...] Documents on File Type Date Recorded Patient Slot Floor Person Expl anation Advance Directives and Living Will 06/29/2022 ADVANCE DIRECTIVE / LIVING WILL Power of Drill Press Hand 06/29/2022 POWER OF A TTORNEY Advance Directives and Living Will 06/27/2022 ADVANCE DIRECTIVE / LIVING WILL Power of Drill Press Hand 06/27/2022 POWER OF A TTORNEY Care Teams Psychology Clinician Relationship Specialty Start Date End Date Cm Roberto MD [address] [place] [address] PCP - General Family Medicine 03/12/18 documented as of this encounter
--- OUTSIDE RECORDS SUMMARY | 2023-05-07 16:52 | External Medical Summary | Summary of Care ---
Author Name Unknown Organization [facility] Address [address] [place] [address] Phone [phone] Care Team Providers Care Sisal Operator Name Role Phone Cm Roberto MD Primary Care Provider [phone] Reason for Visit * Reason Onset Date Comments Med Request 01/24/2023 Encounter Details Date Type Department Care Team (Late st Contact Info) Description 01/24/2023 Telephone [facility] [address] [place] [address] Cm Roberto MD [address] [place] [address] Med Request Allergies No known [...] of less than 7.0% ([facility]) Take 1 Tablet by mouth 2 times [...] Dx E11.9 10 mL 11 3 Active Executive Intermediary Verio w/Device Kit Use up to 4 [...] 6 hours 360 mL 5 3 Active Ipratropium-Albuter ol 0.5-2.5 (3) MG/3ML Inhalation Solution (Duoneb) Inhale 3 mL by mouth every 4 hours as needed (every 2 hours PRN SOB/wheezing). 0 01/25/20 23 Discontinu ed(Refill) documented as of this [...] mRNA, LNP-s, No Pre serve, 2-Dose Series ([employer]ate) 07/25/2020,07/04/2020 Hepatitis B, 20+ yrs 12/18/2013,04/17/2013,02/07 Pneumococcal Conjugate Vacci ne, 20-valent ([id number]) 02/02/2022 Pneumococcal Polysaccharide PPV23 (Pneumovax) 11/23/2020,03/24/2017 SEASONAL [...] encounter Miscellaneous Notes * Telephone Encounter - Mayuri Angeles LPN - 01/24/2023 4:56 PM EDT I identified pt by name and , verified by patient. Pt has been informed of below message and verbalized understanding. * Addendum Note - Omari Meyer MD - 01/24/2023 4:10 PM EDTAddended by: OMARI MEYER on: 01/24/2023 04:10 PM Modules accepted: Orders * Telephone Encounter - Omari Meyer MD - 01/24/2023 4:07 PM EDT Please notify that PCP is out of the office this week. I reviewed the d/c summary from the custodial and do see the nebulizer. Sent a refill. I don't see that they discharged him on a muscle relaxant - so will leave this and diabetic adjustments to the PCP * Telephone Encounter - Magali Worthington CPhT - 01/24/2023 11:36 AM EDT Pt's EC calling stating when the pt left the custodial they gave him a nebulizer but did [...] PCP [place]. Please advise. Thank you, Kaitlynn Worthington Sap Sd Analyst I [facility] 01/24/2023,11:37 AM documented in this encounter Plan of Treatment Upcoming Encounters Date Type Department Care Team (Late st Contact Info) Description 02/08/2023 10:00 AM EST Office Visit Urology Lauryn Savage [address] [facility] [address] [address] Lalo Powell Jr., [facility] [address] [id number] 04/24/2023 12:20 PM EST Office Visit [facility] [address] [place] [id number] Cm Roberto MD [address] [place] [address] Scheduled Procedures Name Priority Associated Diagnoses Date/Ti me COLONOSCOPY FLEXIBLE PROXIMAL DIAGNOSTIC Recall Screen for colon cancer Health Maintenance Due Date Last Done Comments Alpha-1 Antitrypsin 1974 Fecal Occult Blood Test 2001 Sigmoidoscopy 2001 Cologuard 04/11/2020 04/11/2017 Depression Screening 01/29/2021 01/30/2020, 12/24/19 COVID-19 Vaccine ( season) 2022 03/11/2021, 07/25/2020, 07/04/2020 HbA1c 02/03/2023 08/03/2022, 030 10/2022, 02/28/2022, Additional history exists Diabetic Eye Exam 03/31/2023 03/31/2022, , 04/24/2020, Additional history exists Diabetic Foot Exam 06/02/2023 06/01/2022, 1 04/03/2020, 01/30/2020, Additional history exists GFR 06/02/2023 06/01/2022, 1207/2021, 08/18/2021, Additional history exists B-12 08/04/2023 08/03/2022, [...] Documents on File Type Date Recorded Patient Vault Attendant Expl anation Advance Directives and Living Will 06/29/2022 ADVANCE DIRECTIVE / LIVING WILL Power of Shipping Room Helper 06/29/2022 POWER OF A TTORNEY Advance Directives and Living Will 06/27/2022 ADVANCE DIRECTIVE / LIVING WILL Power of Shipping Room Helper 06/27/2022 POWER OF A TTORNEY Care Teams Sisal Operator Relationship Specialty Start Date End Date Cm Roberto MD [address] [place] [address] PCP - General Family Medicine 03/12/18 documented as of this encounter
--- OUTSIDE RECORDS SUMMARY | 2023-05-07 16:52 | External Medical Summary | Summary of Care ---
Author Name Unknown Organization [facility] Address [address] [place] [address] Phone [phone] Care Team Providers Care Greenhouse Or Nursery Transplanter Name Role Phone Cm Roberto MD Primary Care Provider [phone] Reason for Visit * Reason Onset Date Comments Hospital Follow-Up 01/27/2023 [facility]LET Encounter Details Date Type Department Care Team (Late st Contact Info) Description 01/27/2023 Telephone [facility] [address] [place] [address] Alicia Denny, DENISSE Hospital Follow-Up ([facility]) Allergies No known active allergiesdocumented as of this encounter (statuses as of 01/27/2023) Medications Medication Sig Dispensed Refills Start Date End Date Status aspirin 81 MG chewable tabletIndications:i n am Take 1 Tablet by mouth in the morning. with food.. 100 Tab 1 7 Active Insulin Pen Needle (INSUPEN PEN NEEDLES) 31G X 8 MMIndications:Type 2 diabetes mellitus with hemoglobin A1c goal of less than 7.0% ([facility]) Use with Trulicity once per week [...] the skin in the morning. 0 3 Active NovoLOG 100 UNIT/ML Injection Solution Start with 4 units for glucose of 200 or greater and increase dose by 2 units for every increase of 50mg. Maximum of 16 units for glucose greater than 450. Dx E11.9 10 mL 11 3 01/28/20 23 Discontinu ed(Louisa lo) documented as of this encounter (statuses as of 01/27/2023) Active Problems Problem Noted Date Diagnosed Date [...] as of this encounter (statuses as of 01/27/2023) Resolved Problems Problem Noted Date Diagnosed Date Resolved Date Encounter for long-term (cur rent) use of medications 03/24/2017 09/22/2017 Screen for colon cancer 03/24/201708/26 Depression with anxiety 08/26 Overview: hospitalized in past COPD, moderate 09/21/2016 DM type 2 (diabetes mellitus, type 2) 09/21/2016 documented as of this encounter (statuses as of 01/27/2023) Immunizations Name Administration Dates Next Due COVID-19 mRNA, LNP-s, No Pre serve, 2-Dose Series ([employer]) 07/25/2020,07/04/2020 Hepatitis B, 20+ yrs 12/18/2013,04/17/2013,02/07 Pneumococcal Conjugate Vacci ne, 20-valent ([id number]) 02/02/2022 Pneumococcal Polysaccharide PPV23 (Pneumovax) 11/23/2020,03/24/2017 SEASONAL [...] encounter Miscellaneous Notes * Telephone Encounter - Alicia Denny RN - 01/27/2023 2:02 PM EDT Transitions of Care Note Reason for Referral:Recent Admission Phone visit for follow up: H[facility]LET Admitted to: [facility], Date: 01/24/2023 Discharged to: Home, Date: 01/26/2023 Diagnosis driving hospitalization: Pneumonia, Hyponatremia, Uncontrolled DM Type 2 Source/Contact: Patient SUBJECTIVE Consent: Verbal consent for review of hospital discharge: Yes REVIEW OF SYSTEMS Patient/Other Reports: Current patient/caregiver problems or concerns: Patient states "I'm doing good." Blood sugar 234 this AM. CV: Denies problems Pulmonary: Denies problems Chills/Sweats/Fever:Denies chills/sweats Denies fever Appetite:Denies problems such as nausea, vomiting, burning, decreased appetite Current diet: Carb consistent Bowel: denies problems Last BM yesterday Bladder: denies problems Wound (If applicable): N/A Pain:Denies Sleep:Denies problems FUNCTIONAL STATUS: ADL'S: Needs Assistance With:N/A as pt is independent, uses cane IADL'S: Needs Assistance With:Grocery Shopping and Routine Housework Cognitive and Mental Health: denies problems, alert and oriented x 3, and able to communicate, understand instructions, process information. MEDICATION RECONCILIATION Medications: Discharge med list reviewed with patient or caregiver New medications: Doxycycline, Cefuroxime, Insullin Glargine Discontinued medications: Insulin aspart ASSESSMENT Medication Risk Assessment: No risks identified Did patient fail outpatient treatment? No Discharge instructions available for review? Yes PLAN Symptom Monitoring Interventions:Member/caregiver education - signs and symptoms to contact PrimaryCare (DO NOT DELETE-Three alejandro symptoms patient is to report to PCP) 1. Chest Pain/SOB 2. Fever /chills 3. Worsening symptoms, weakness Combine DriverSupervisor Wet Room of Care interventions/Action Plan: 5 - 7 day follow-up with PCP in place - Date: PCP appointment 02/03/2023 Educated on role of HAMLET completed with patient/caregiver. Educated patient/caregiver on patient right to have input on HAMLET plan of care. Verification of Home Health/DME if indicated: NA Identified Care Gaps: No Care Gaps closed this call: Appointment made or confirmed and Transition of Care follow-up communication Re-evaluation of Plan of Care and progress towards goals achievement: Patient education this visit: Verbal, Confirmed PCP appointment, Discussed reasons to call sooner as above, notified of late hours and weekend provider visits available if needed Plan to instructed to call Primary Care Provider with change in symptoms or as needed before next follow-up, discharge needs met, verbalizes understanding and agrees with plan. Alicia Denny RN documented in this encounter Plan of Treatment Upcoming Encounters Date Type Department Care Team (Late st Contact Info) Description 02/03/2023 11:20 AM EST Office Visit [facility] [address] [place] [address] Cm Roberto MD [address] [address] 02/08/2023 10:00 AM EST Office Visit UrologLauryn Zhou [address] [place] [address] [address] Lalo Powell Jr., MD [address] [place] [address] [id number] 04/24/2023 12:20 PM EST Office Visit [facility] [address] [place] [address] Cm Roberto MD [address] [place] [address] Scheduled Procedures Name Priority Associated Diagnoses Date/Ti me COLONOSCOPY FLEXIBLE PROXIMAL DIAGNOSTIC Recall Screen for colon cancer Health Maintenance Due Date Last Done Comments Alpha-1 Antitrypsin 1974 Fecal Occult Blood Test 2001 Sigmoidoscopy 2001 Cologuard 04/11/2020 04/11/2017 Depression Screening 01/29/2021 01/30/2020, 12/24/19 17 COVID-19 Vaccine ( season) 2022 03/11/2021, 07/25/2020, 07/04/2020 HbA1c 02/03/2023 08/03/2022, 0310/2022, 02/28/2022, Additional history exists Diabetic Eye Exam 03/31/2023 03/31/2022, , 04/24/2020, Additional history exists Diabetic Foot Exam 06/02/2023 06/01/2022, 1 04/03/2020, 01/30/2020, Additional history exists GFR 06/02/2023 06/01/2022, 1207/2021, 08/18/2021, Additional history exists B-12 08/04/2023 08/03/2022, 0704/2020, 01/10/2019, Additional history exists Albumin/Creatinine Ratio 08/05/2023 [...] Documents on File Type Date Recorded Patient Facepiece Line Supervisor Expl anation Advance Directives and Living Will 06/29/2022 ADVANCE DIRECTIVE / LIVING WILL Power of Rn Child 06/29/2022 POWER OF A TTORNEY Advance Directives and Living Will 06/27/2022 ADVANCE DIRECTIVE / LIVING WILL Power of Rn Child 06/27/2022 POWER OF A TTORNEY Care Teams Greenhouse Or Nursery Transplanter Relationship Specialty Start Date End Date Cm Roberto MD [address] [facility] [place] [address] PCP - General Family Medicine 03/12/18 documented as of this encounter
--- OUTSIDE RECORDS SUMMARY | 2023-05-07 16:52 | External Medical Summary | Summary of Care ---
Author Name Unknown Organization [facility] Address [address] [place] [address] Phone [phone] Care Team Providers Care Construction Project Engineer Name Role Phone Cm Roberto MD Primary Care Provider Reason for Referral * Evaluate & Treat - Unlimited Visits (Within 30 days (routine)) - Pending Review Specialty Diagnoses / Procedures Referred By Kelly ray Referred To Contact Neurology Diagnoses Essential tremor Cm Roberto MD [address] [place] [address] Referral ID Status Reason Start Date Expiration Date Visits Requested Visits Authorized [id number] Pending Review Specialty Services Required 12/22/[phone] Question Answer Referral Priority Within 30 days (routine) GS CAD NEUROLOGY REFERRAL QUESTIONS Other Conditions Reason for Visit * Reason Onset Date Comments Advice 12/20/2022 Encounter Details Date Type Department Care Team Description 12/20/2022 Telephone [facility] [address] [place] [address] Cm Roberto MD [address] [place] [address] Advice Allergies No known active allergiesdocumented as of this encounter (statuses as of 01/12/2023) Medications Medication Sig Dispensed Refills Start Date [...] Unit 3 02/16/2018 Active JARDIANCE 25 MG TABSIndications:Typ e 2 diabetes mellitus with hemoglobin A1c goal of less than 7.0% (HCC) TAKE 1 TABLET BY MOUTH EVERY DAY 90 Tab 0 06/27/2018 Active risperiDONE (RISPERDAL) 2 MG Tablet Take [...] 12/08/2021 Active Lisinopril 2.5 MG Oral Tablet (Prinivil)Indicatio [...] Tablet (Tylenol) 2 Tablets. 0 05/17/2022 Active Blood Glucose Monitoring Suppl (ZexSports.comTOUCH VERIO) w/Device KIT Use up to 4 times a day E11.9 1 Kit 0 04/06/2017 3 Discontinu ed(Refill) ONETOUCH DELICA LANCETS 33G MISCIndications:Typ e 2 diabetes mellitus with hemoglobin A1c goal of less than 7.0% ([facility]) ONE TOUCH VERIO LANCETS USE UP TO 3 TIMES A DAY DX E 11.9. 100 Each 11 12/18/2018 3 Discontinu ed(Refill) hydrOXYzine HCl 25 MG Oral Tablet TAKE 1 TAB BY MOUTH 3 TIMES A DAY NEEDED FOR ANXIETY. 45 Tab 0 05/11/2020 3 Discontinu ed(Patient preference /discontin uation) OneTouch Verio In Vitro Strip (Glucose Blood)Indications:T ype 2 diabetes mellitus with hemoglobin A1c goal of less than 7.0% ([facility]) USE TO TEST BLOOD SUGARS ONCE A DAY DX E11.9 100 Strip 3 05/26/2021 3 Discontinu ed(Refill) Cyclobenzaprine HCl 10 MG Oral Tablet (Flexeril)Indicatio ns:Strain of lumbar paraspinous muscle, initial encounter Take by mouth 0.5-1 Tablets as needed in the morning AND 0.5-1 Tablets as needed at noon AND 0.5-1 Tablets as needed in the evening for Muscle spasms. 20 Tablet 1 09/07/2021 3 Discontinu ed(Patient preference /discontin uation) documented as of this encounter (statuses as of 01/12/2023) Active Problems Problem Noted Date Hyperprolactinemia 02/02/2022 [...] as of this encounter (statuses as of 01/12/2023) Resolved Problems Problem Noted Date Resolved Date Encounter for long-term (current) use of medicat ions 03/24/2017 09/22/2017 Screen for colon cancer 03/24/2017 09/23/19 18 Depression with anxiety 09/23/19 18 Overview: hospitalized in past COPD, moderate 09/21/2016 DM type 2 (diabetes mellitus, type 2) 09/21/2016 documented as of this encounter (statuses as of 01/12/2023) Immunizations Name Administration Dates Next Due COVID-19 mRNA, LNP-s, No Pre serve, 2-Dose Series ([employer]) 07/25/2020,07/04/2020 Hepatitis B, 20+ yrs 12/18/2013,04/17/2013,02/07 Pneumococcal Conjugate Vacci ne, 20-valent ([id number]) 02/02/2022 Pneumococcal Polysaccharide PPV23 (Pneumovax) 11/23/2020,03/24/2017 SEASONAL INFLUENZA, PF, 6 M & Above, IM , (FLULAVAL or FLUZONE) 12/02/2017 Seasonal Influenza, Quadriva lent Hd, 65+ [...] Tobacco: Never Comments:from 15 years - Dec Alcohol Use Standard Drinks/Week Comments No 0 [...] Telephone Encounter - Cm Roberto MD - 12/22/2022 3:26 PM EDT Approved the neurology referral. I will handle the glucose questions at office visit. * Telephone Encounter - Patricia Scales LPN - 12/22/2022 3:11 PM EDT Neurology referral can be placed and should be able to be backdated to cover visit Unsure about [place] AAA - Mariela can you help Also, Dr. Roberto - see original message - there were questions regarding pt's sugar levels and sliding scale Pt is scheduled for an appt 12/23/22 * Telephone Encounter - Cm Roberto MD - 12/20/2022 6:04 PM EDT Not sure if I can place referral for neurology. I did neurology referral 04/2021. Problem may be he needed another referral as more than one year. Not sure about a PA for [place] AAA screen.May need to go to Billing. * Telephone Encounter - Edith Ballesteros LPN - 12/20/2022 1:00 PM EDT Provider to address: Janie () calling in regarding bills that she received for the followin05/24/2022 [place] AAA Screen -She stated that there was no PA done and insurance is not covering the [place]. 06/01/2022- No Referral for Neurology Referral place for Amelia Weinstein She stated that a PA needs done for the US and a referral for the Neurology and faxed to the [facility]. Insurance Patient ID Number: [id number] Janie also questioning how high his sugar is before they were giving him his insulin. He is on a sliding scale that does not start until his BSG is 350. He is also on Trulicity once per week injection. Gets on . Sugar this morning was 278 Sliding scale as follows: Novolog 350-400 8 units 401-450 12 units 451-500 15 units She stated that patient has some Ozempic and other medications to dispose of. Are they able to dispose of the Ozempic in the office? Please advise and call Janie back per patient request. Reason for Call: Advice Contact: Telephone Call Contact Type: Information Total Time including non face to face (minutes): 15 documented in this encounter Plan of Treatment Upcoming Encounters Date Type Specialty Care Team Description 02/08/2023 Office Visit Urology Lalo Powell Jr., MD [address] [facility] [address] [place] [address] 04/24/2023 Office Visit Family Medicine Cm Roberto MD [address] [place] [address] Scheduled Procedures Name Priority Associated Diagnoses Date/Ti me COLONOSCOPY FLEXIBLE PROXIMAL DIAGNOSTIC Recall Screen for colon cancer Scheduled Referrals Name Type Priority Associated Diagnoses Orde r Schedule NEUROLOGY REFERRAL OP Referral Within 30 days (routine) Essential tremor Ordered: 12/22/2022 Health Maintenance Due Date Last Done Comments Alpha-1 Antitrypsin 1974 Fecal Occult Blood Test 2001 Sigmoidoscopy 2001 Cologuard 04/11/2020 04/11/2017 Depression Screening 01/29/2021 01/30/2020, 12/24/19 17 COVID-19 Vaccine ( season) 2022 03/11/2021, 07/25/2020, 07/04/2020 HbA1c 02/03/2023 08/03/2022, 030 10/2022, 02/28/2022, Additional history exists DIABETES-EYE EXAM [...] as of this encounter Visit Diagnoses Diagnosis Essential tremor- Primary Essential and other specified forms of tremor documented in this encounter Advance Directives Documents on File Type Date Recorded Patient Lead Worker Of Housekeeping And Laundry Expl anation Advance Directives and Living Will 06/29/2022 ADVANCE DIRECTIVE / LIVING WILL Power of Yarn Examiner 06/29/2022 POWER OF A TTORNEY Advance Directives and Living Will 06/27/2022 ADVANCE DIRECTIVE / LIVING WILL Power of Yarn Examiner 06/27/2022 POWER OF A TTORNEY Care Teams Construction Project Engineer Relationship Specialty Start Date End Date Cm Roberto MD [address] [place] [address] PCP - General Family Medicine 03/12/18 documented as of this encounter
--- OUTSIDE RECORDS SUMMARY | 2023-05-07 16:52 | External Medical Summary ---
Author Name UNSPECIFIED Address Unknown Organization [facility] History of Encounters Reason for Assessment: Discharge from [facility] Inpatient Facility where the patient been admitted: No inpatient facility admission Discharge Disposition: Patient remained in the community (without formal assistive services) Functional Assessment When Dyspneic: When walking more th an 20 feet, climbing stairs Bowel Incontinence Frequency: Very rarel y or never has bowel incontinence Cognitive and Behavioral and Psychiatric Symptoms: None Current Ability: Bathing: Able to bathe in shower or tub with the intermittent assistance of another person: (a) for intermittent supervision or encouragement or reminders, OR (b) to get in and out of the shower or tub, OR (c) for washing difficult to reach areas. Current Ability: Ambulation: Requires us e of a two-handed device (e.g., walker or crutches) to walk alone on a level surface and/or requires human supervision or assistance to negotiate stairs or steps or uneven surfaces. Current: Management Of Oral Medications: Unable to take medication unless administered by another person
--- OUTSIDE RECORDS SUMMARY | 2023-05-07 16:52 | External Medical Summary | Summary of Care ---
Author Name Unknown Organization [facility] Address [address] [place] [address] Phone [phone] Care Team Providers Care System Dispatcher Name Role Phone Cm Roberto MD Primary Care Provider Reason for Referral * Evaluate & Treat - Unlimited Visits (Within 30 days (routine)) - Pending Review Specialty Diagnoses / Procedures Referred By Kelly ray Referred To Contact Neurology Diagnoses Essential tremor Cm Roberto MD [address] [place] [address] Referral ID Status Reason Start Date Expiration Date Visits Requested Visits Authorized [id number] Pending Review Specialty Services Required 12/22/[phone] Question Answer Referral Priority Within 30 days (routine) GS CAD NEUROLOGY REFERRAL QUESTIONS Other Conditions Reason for Visit * Reason Onset Date Comments Advice 12/20/2022 Encounter Details Date Type Department Care Team Description 12/20/[address] [facility] [address] [place] [address] Cm Roberto MD [address] [place] [address] Advice Allergies No known active allergiesdocumented as of this encounter (statuses as of 12/22/2022) Medications Medication Sig Dispensed Refills Start Date [...] Tablet (Tylenol) 2 Tablets. 0 05/17/2022 Active documented as of this encounter (statuses as of 12/22/2022) Active Problems Problem Noted Date Hyperprolactinemia 02/02/2022 [...] as of this encounter (statuses as of 12/22/2022) Resolved Problems Problem Noted Date Resolved Date Encounter for long-term (current) use of medicat ions 03/24/2017 09/22/2017 Screen for colon cancer 03/24/2017 09/23/19 18 Depression with anxiety 09/23/19 18 Overview: hospitalized in past COPD, moderate 09/21/2016 DM type 2 (diabetes mellitus, type 2) 09/21/2016 documented as of this encounter (statuses as of 12/22/2022) Immunizations Name Administration Dates Next Due COVID-19 mRNA, LNP-s, No Pre serve, 2-Dose Series ([employer]) 07/25/2020,07/04/2020 Hepatitis B, 20+ yrs 12/18/2013,04/17/2013,02/07 Pneumococcal Conjugate Vacci ne, 20-valent ([id number]) 02/02/2022 Pneumococcal Polysaccharide PPV23 (Pneumovax) 11/23/2020,03/24/2017 Seasonal [...] at office visit. * Telephone Encounter - Patriica Scales LPN - 12/22/2022 3:11 PM EDT [...] for the Neurology and faxed to the [facility]. Insurance Patient ID Number: [id number] Janie also questioning how high his sugar [...] Encounters Date Type Specialty Care Team Description 12/23/2022 Office Visit Family Medicine Cm Roberto MD [address] [place] [address] 02/08/2023 Office Visit Urology Lalo Powell Jr., MD [address] [address] Scheduled Procedures Name Priority Associated Diagnoses Date/Ti [...] 12/09/2019, Additional history exists HbA1c 02/03/2023 08/03/2022, 030 10/2022, 02/28/2022, Additional [...] Documents on File Type Date Recorded Patient Biztalk Administrator Expl anation Advance Directives and Living Will 06/29/2022 ADVANCE DIRECTIVE / LIVING WILL Power of Riprap Man 06/29/2022 POWER OF A TTORNEY Advance Directives and Living Will 06/27/2022 ADVANCE DIRECTIVE / LIVING WILL Power of Riprap Man 06/27/2022 POWER OF A TTORNEY Care Teams System Dispatcher Relationship Specialty Start Date End Date Cm Roberto MD [address] [place] [address] PCP - General Family Medicine 03/12/18 documented as of this encounter
--- OUTSIDE RECORDS SUMMARY | 2023-05-07 16:52 | External Medical Summary | Summary of Care ---
Author Name Unknown Organization [facility] Address [address] [place] [address] Phone [phone] Care Team Providers Care Garnishment Specialist Name Role Phone Cm Roberto MD Primary Care Provider [phone] Encounter Details Date Type Department Care Team Description 12/26/2022 Orders Only Outcomes Research Department [address] [place], [place] [id number] Ana Lowry CHRA [employer] [facility] Other*[id number] Allergies No known active allergiesdocumented as of this encounter (statuses as of 12/26/2022) Medications Medication Sig Dispensed Refills Start Date [...] DX E11.9 100 Strip 3 12/23/2022 Active documented as of this encounter (statuses as of 12/26/2022) Active Problems Problem Noted Date Hyperprolactinemia 02/02/2022 [...] as of this encounter (statuses as of 12/26/2022) Resolved Problems Problem Noted Date Resolved Date Encounter for long-term (current) use of medicat ions 03/24/2017 09/22/2017 Screen for colon cancer 03/24/2017 09/23/19 18 Depression with anxiety 09/23/19 18 Overview: hospitalized in past COPD, moderate 09/21/2016 DM type 2 (diabetes mellitus, type 2) 09/21/2016 documented as of this encounter (statuses as of 12/26/2022) Immunizations Name Administration Dates Next Due COVID-19 mRNA, LNP-s, No Pre serve, 2-Dose Series (Pfizer) 07/25/2020,07/04/2020 Hepatitis B, 20+ yrs 12/18/2013,04/17/2013,02/07 Pneumococcal Conjugate Vacci ne, 20-valent ([id number]) 02/02/2022 Pneumococcal Polysaccharide PPV23 (Pneumovax) 11/23/2020,03/24/2017 SEASONAL [...] Urology Andre Schneider, Lalo Morgan MD [address] [place] [place] [address] 04/24/2023 Office Visit Family Medicine Cm Roberto MD [address] [place] [facility] [place] [address] Scheduled Orders Name Type Priority Associated Diagnoses Orde r Schedule MYCODE SUBSEQUENT ADULT Lab Routine [facility] Research Other*[id number] Every 6 Months for 2 Occurrences starting 12/26/2022 until 01/15/2024 Scheduled Procedures Name Priority Associated Diagnoses Date/Ti me COLONOSCOPY FLEXIBLE PROXIMAL DIAGNOSTIC Recall Screen for colon cancer Health Maintenance Due Date Last Done Comments Alpha-1 Antitrypsin 1974 Fecal Occult Blood Test 2001 Sigmoidoscopy 2001 Cologuard 04/11/2020 04/11/2017 Depression Screening 01/29/2021 01/30/2020, 12/24/19 17 COVID-19 Vaccine (4 - Pfizer series) 05/06/2021 03/11/2021, 07/25/2020, 07/04/2020 HbA1c 02/03/2023 08/03/2022, 0310/2022, 02/28/2022, Additional history exists DIABETES-EYE EXAM 03/31/2023 [...] as of this encounter Visit Diagnoses Diagnosis [facility] Other*[id number] documented in this encounter Advance Directives Documents on File Type Date Recorded Patient Teaching Young Expl anation Advance Directives and Living Will 06/29/2022 ADVANCE DIRECTIVE / LIVING WILL Power of Resp Ther 06/29/2022 POWER OF A TTORNEY Advance Directives and Living Will 06/27/2022 ADVANCE DIRECTIVE / LIVING WILL Power of Resp Ther 06/27/2022 POWER OF A TTORNEY Care Teams Garnishment Specialist Relationship Specialty Start Date End Date Cm Roberto MD [address] [place] [address] PCP - General Family Medicine 03/12/18 documented as of this encounter
--- OUTSIDE RECORDS SUMMARY | 2023-05-07 16:52 | External Medical Summary | Summary of Care ---
Author Name Unknown Organization [facility] Address [address] [place] [address] Phone [phone] Care Team Providers Care Marble Coper Name Role Phone Cm Roberto MD Primary Care Provider Reason for Visit * Reason Onset Date Comments Med Request 01/24/2023 Encounter Details Date Type Department Care Team (Late st Contact Info) Description 01/24/2023 Telephone [facility] [address] [place] [address] Cm Roberto MD [address] [place] [address] Med Request Allergies No known [...] hemoglobin A1c goal of less than 7.0% ([facility]) Use with Trulicity once per week [...] hemoglobin A1c goal of less than 7.0% ([facility]) Take 1 Tablet by mouth 2 times [...] Dx E11.9 10 mL 11 3 Active [employer] Verio w/Device Kit Use up to 4 [...] mRNA, LNP-s, No Pre serve, 2-Dose Series (NetzVacation) 07/25/2020,07/04/2020 Hepatitis B, 20+ yrs 12/18/2013,04/17/2013,02/07 Pneumococcal Conjugate Vacci ne, 20-valent ([id number]) 02/02/2022 Pneumococcal Polysaccharide PPV23 (Pneumovax) 11/23/2020,03/24/2017 SEASONAL [...] encounter Miscellaneous Notes * Addendum Note - Maegan Meyer MD - 01/24/2023 4:10 PM EDTAddended by: MAEGAN MEYER on: 01/24/2023 04:10 PM Modules accepted: Orders * Telephone Encounter - Maegan Meyer MD - 01/24/2023 4:07 PM EDT Please notify that PCP is out of the office this week. I reviewed the d/c summary from the correction and do see the nebulizer. Sent a refill. I don't see that they discharged him on a muscle relaxant - so will leave this and diabetic adjustments to the PCP * Telephone Encounter - Magali Worthington CPhT - 01/24/2023 11:36 AM EDT Pt's EC calling stating when the pt left the correction they gave him a nebulizer but did [...] PCP after he was released from the [place]. Please advise. Thank you, Kaitlynn Worthington Burglar Alarm Mechanic [facility] 01/24/2023,11:37 AM documented in this encounter Plan of Treatment Upcoming Encounters Date Type Department Care Team (Late st Contact Info) Description 02/08/2023 10:00 AM EST Office Visit Urology Lauryn Savage [address] [place] [id number] Lalo Powell Jr., MD [address] [facility] [address] [place] [id number] 04/24/2023 12:20 PM EST Office Visit [facility] [address] [place] [address] Cm Roberto MD [address] [place] [address] Scheduled Procedures Name Priority Associated [...] Documents on File Type Date Recorded Patient Ultrasonic Seaming Machine Operator Expl anation Advance Directives and Living Will 06/29/2022 ADVANCE DIRECTIVE / LIVING WILL Power of Investment Officer 06/29/2022 POWER OF A TTORNEY Advance Directives and Living Will 06/27/2022 ADVANCE DIRECTIVE / LIVING WILL Power of Investment Officer 06/27/2022 POWER OF A TTORNEY Care Teams Marble Coper Relationship Specialty Start Date End Date Cm Roberto MD [address] [place] [place] [id number] PCP - General Family Medicine 03/12/18 documented as of this encounter
--- OUTSIDE RECORDS SUMMARY | 2023-05-07 16:52 | External Medical Summary ---
Author Name Unknown Address Unknown Organization K01:[facility] [place] [facility] [address] [facility] [address] Laboratory Report Ordering Provider Test Date Status FALGUNI CHAU JR 02/03/2023 12:30:19 Final Observation Date Value Abnormality Reference (Units ) Status Color of Urine by Auto 02/03/2023 12:30:19 Colorless Colorless, Light Yellow, Yellow, Dark Yellow Final Clarity, Urine 02/03/2023 12:30:19 Clear Clear Final Glucose [Mass/volume] in Urine by Automated test strip 02/03/2023 12:30:19 >=1000 Abnormal Negative (mg/dL) Final Bilirubin.total [Presence] in Urine by Automated test strip 02/03/2023 12:30:19 Negative Negative Final Ketones [Mass/volume] in Urine by Automated test strip 02/03/2023 12:30:19 Negative Negative (mg/dL) Final Specific gravity, Urine 02/03/2023 12:30:19 1.025 1.003-1.030 Final Hemoglobin [Presence] in Urine by Automated test strip 02/03/2023 12:30:19 Negative Negative Final pH, Urine 02/03/2023 12:30:19 5.5 5.0-7.5 (Units) Final Protein [Mass/volume] in Urine by Automated test strip 02/03/2023 12:30:19 Negative Negative (mg/dL) Final Urobilinogen [Mass/volume] in Urine by Automated test strip 02/03/2023 12:30:19 Normal Normal (mg/dL) Final Nitrite [Presence] in Urine by Automated test strip 02/03/2023 12:30:19 Negative Negative Final Leukocyte esterase [Presence] in Urine by Automated test strip 02/03/2023 12:30:19 Negative Negative Final Annotation Comment 02/03/2023 12:30:19 Final Screen negative - Microscopi c not performed. Performing Location [facility] [place] [address] [facility] [address]
--- OUTSIDE RECORDS SUMMARY | 2023-05-07 16:52 | External Medical Summary | Summary of Care ---
Author Name Unknown Organization [facility] Address [address] [place] [address] Phone [phone] Care Team Providers Care Wood Heel Attacher Name Role Phone Shlomo Roberto MD Primary Care Provider Reason for Visit * Reason Onset Date Comments Medication Refill 01/18/2023 Encounter Details Date Type Department Care Team (Late st Contact Info) Description 01/18/2023 Refill [facility] [address] [place] [address] Shlomo Roberto MD [address] [place] [address] Essential hypertension with goal blood pressure less than 150/90; Type 2 diabetes mellitus with hemoglobin A1c goal of less than 7.0% ([facility]) Allergies No known active allergiesdocumented as of this encounter (statuses as of 01/18/2023) Medications Medication Sig Dispensed Refills Start Date [...] the morning. 90 Tablet 3 3 Active JARDIANCE 25 MG TABSIndications:Typ e 2 diabetes mellitus with hemoglobin A1c goal of less than 7.0% (HCC) TAKE 1 TABLET BY MOUTH EVERY DAY 90 Tab 0 9 01/19/20 23 Discontinu ed(Refill) Atorvastatin Calcium 80 MG Oral Tablet (Lipitor)Indication s:Type 2 diabetes mellitus with hemoglobin A1c goal of less than 7.0% (HCC) TAKE 1 TABLET BY MOUTH EVERY DAY 90 Tablet 3 2 01/19/20 23 Discontinu ed(Refill) Lisinopril 2.5 MG Oral Tablet (Prinivil)Indicatio ns:Essential hypertension with goal blood pressure less than 150/90 TAKE 1 TABLET BY MOUTH EVERY DAY 90 Tablet 3 2 01/19/20 23 Discontinu ed(Refill) documented as of this encounter (statuses as of 01/18/2023) Active Problems Problem Noted Date Diagnosed Date [...] as of this encounter (statuses as of 01/18/2023) Resolved Problems Problem Noted Date Diagnosed Date Resolved Date Encounter for long-term (cur rent) use of medications 03/24/2017 09/22/2017 Screen for colon cancer 03/24/201708/26 Depression with anxiety 08/26 Overview: hospitalized in past COPD, moderate 09/21/2016 DM type 2 (diabetes mellitus, type 2) 09/21/2016 documented as of this encounter (statuses as of 01/18/2023) Immunizations Name Administration Dates Next Due COVID-19 mRNA, LNP-s, No Pre serve, 2-Dose Series (Mavin) 07/25/2020,07/04/2020 Hepatitis B, 20+ yrs 12/18/2013,04/17/2013,02/07 Pneumococcal Conjugate Vacci ne, 20-valent ([id number]) 02/02/2022 Pneumococcal Polysaccharide PPV23 (Pneumovax) 11/23/2020,03/24/2017 SEASONAL [...] Telephone Encounter - Shlomo Roberto MD - 01/18/2023 7:10 PM EDTSigned Prescriptions: Disp Refills Lisinopril 2.5 MG Oral Tablet (Prinivil) 90 Tab*3 Sig: Take 1 Tablet by mouth in the morning.Authorizing Provider: SHLOMO ROBERTO Atorvastatin Calcium 80 MG Oral Tablet (Li*90 Tab*3 Sig: Take 1 Tablet by mouth in the morning.Authorizing Provider: SHLOMO ROBERTO Empagliflozin 25 MG Oral Tablet (Jardiance)90 Tab*3 Sig: Take 1 Tablet by mouth in the morning.Aut horizing Provider: SHLOMO ROBERTO * Telephone Encounter - Yi Huerta LPN - 01/18/2023 12:39 PM EDTPending Prescriptions: Disp Refills Lisinopril 2.5 MG Oral Tablet (Prinivil) 90 Tab*3 Sig: Take 1 Tablet by mouth in the morning. Atorvastatin Calcium 80 MG Oral Tablet (Li*90 Tab*3 Sig: Take 1 Tablet by mouth in the morning. Empagliflozin 25 MG Oral Tablet (Jardiance)90 Tab*0 Sig: Take 1 Tablet by mouth in the morning. * Telephone Encounter - Yi Huerta LPN - 01/18/2023 12:38 PM EDT Did you pend patient's preferred pharmacy and medication before forwarding?yes Pharmacy: [id number] [address] [facility] Pending Prescriptions: Disp Refills Lisinopril 2.5 MG Oral Tablet (Prinivil) 90 Tab*3 Sig: Take 1 Tablet by mouth in the morning. Atorvastatin Calcium 80 MG Oral Tablet (L*90 Tab*3 Sig: Take 1 Tablet by mouth in the morning. Empagliflozin 25 MG Oral Tablet (Jardianc*90 Tab*0 Sig: Take 1 Tablet by mouth in the morning. Last Visit: 12/23/2022 (in office), Visit date not found (telemedicine) Next Visit: 04/24/2023 If no future appointments scheduled, and last appointment is greater than a year ago, please schedule patient for a follow-up appointment Last date the medication was ordered: 12/08/2022 Is this request for a controlled substance?No Urine Drug Screen:No results found for this or any previous visit. Patient Phone Numbers Labs: Lab Results Component Value Date/Time CREAT 1.0 06/01/2022 12:03 PM CREAT 1.0 10/25/2019 08:51 AM POTASSIUM 4.9 06/01/2022 12:03 PM POTASSIUM 5.6 (H) 10/28/2019 09:04 AM TSH 1.48 02/01/2021 02:57 PM TSH 1.21 10/25/2019 08:51 AM LDLCALC 58 02/28/2022 09:59 AM LDLCALC 31 10/25/2019 08:51 AM LDLDIRECT NOT APPLICABLE 01/10/2019 08:08 AM ALT 13 02/28/2022 09:59 AM ALT 16 01/30/2020 11:37 AM HGBA1C 6.5 (H) 08/03/2022 09:47 AM HGBA1C 8.0 (H) 10/25/2019 08:51 AM * Telephone Encounter - Gavi Cha - 01/18/2023 11:35 AM EDT He has for today but not tomorrow. documented in this encounter Plan of Treatment Upcoming Encounters Date Type Department Care Team (Late st Contact Info) Description 02/08/2023 10:00 AM EST Office Visit Urology Lauryn Savage [address] [place] [id number] Lalo Powell Jr., MD [address] [place] [id number] 04/24/2023 12:20 PM EST [facility] [address] [facility] [phone] Shlomo Roberto MD [address] [place], [place] [phone] Scheduled Procedures Name Priority Associated Diagnoses Date/Ti [...] of this encounter Visit Diagnoses Diagnosis Essential hypertension with goal blood pressure less than 150/90 Type 2 diabetes mellitus with hemoglobin A1c goal of less than 7.0% ([facility]) documented in this encounter Advance Directives Documents on File Type Date Recorded Patient Registered Nurse Ambulatory Expl anation Advance Directives and Living Will 06/29/2022 ADVANCE DIRECTIVE / LIVING WILL Power of Sand Slinger Operator 06/29/2022 POWER OF A TTORNEY Advance Directives and Living Will 06/27/2022 ADVANCE DIRECTIVE / LIVING WILL Power of Sand Slinger Operator 06/27/2022 POWER OF A TTORNEY Care Teams Wood Heel Attacher Relationship Specialty Start Date End Date Shlomo Roberto MD [address] [place] [address] PCP - General Family Medicine 03/12/18 documented as of this encounter
--- OUTSIDE RECORDS SUMMARY | 2023-05-07 16:52 | External Medical Summary ---
Author Name Unknown Address Unknown Organization [id number][place] [place] [address] [facility] [address] Laboratory Report Ordering Provider Test Date Status VIJAY KEENAN 02/03/2023 12:30:19 Final Observation Date Value Abnormality Reference (Units ) Status SYNC LEUKOCYTES IN BLOOD BY AUTOMATED COUNT 02/03/2023 12:30:19 12.19 Above high normal 4.00-10.80 (K/uL) Final Segs 02/03/2023 12:30:19 77.1 Above high normal 40.0-75.0 (%) Final Lymphs % 02/03/2023 12:30:19 15.9 Below low normal 18.0-42.0 (%) Final Monos 02/03/2023 12:30:19 4.9 1.0-11.0 (%) Final Eosinophils 02/03/2023 12:30:19 0.7 0.0-6.0 (%) Final Basos 02/03/2023 12:30:19 0.3 0.0-2.0 (%) Final Immature Granulocyte, Percent 02/03/2023 12:30:19 1.1 0.0-2.0 (%) Final Absolute Segs 02/03/2023 12:30:19 9.38 Above high normal 1.80-7.70 (K/uL) Final Lymphs, absolute 02/03/2023 12:30:19 1.94 1.00-4.80 (K/ul) Final Monos, Abs 02/03/2023 12:30:19 0.60 0.00-1.10 (K/uL) Final Eos, Abs 02/03/2023 12:30:19 0.09 0.00-0.70 (K/uL) Final Basos, Abs 02/03/2023 12:30:19 0.04 0.00-0.20 (K/uL) Final Immature Granulocytes, Number 02/03/2023 12:30:19 0.14 0.00-0.20 (K/uL) Final Performing Location [facility] [place] [facility] [place] [address]
--- OUTSIDE RECORDS SUMMARY | 2023-05-07 16:52 | External Medical Summary ---
Author Name Unknown Address Unknown Organization K01:[facility] [place] [facility] [address] [facility] [address] [facility] [address] Laboratory Report Ordering Provider Test Date Status VIJAY KEENAN 02/03/2023 12:30:19 Final Observation Date Value Abnormality Reference (Units ) Status WBC, Total 02/03/2023 12:30:19 12.19 Above high normal 4.00-10.80 (K/uL) Final RBC 02/03/2023 12:30:19 4.05 4.50-5.25 (M/uL) Final Hemoglobin 02/03/2023 12:30:19 12.4 Below low normal 14.0-16.8 (g/dL) Final HCT 02/03/2023 12:30:19 39.0 Below low normal 40.0-48.4 (%) Final MCV 02/03/2023 12:30:19 96.3 82.0-99.5 (fL) Final MCH 02/03/2023 12:30:19 30.6 27.0-34.0 (pg) Final MCHC 02/03/2023 12:30:19 31.8 32.0-36.0 (g/dL) Final RDW 02/03/2023 12:30:19 12.9 11.5-15.5 (%) Final Platelets 02/03/2023 12:30:19 490 Above high normal 140-400 (K/uL) Final MPV 02/03/2023 12:30:19 9.6 6.6-11.1 (fL) Final Nucleated erythrocytes/100 leukocytes [Ratio] in Blood by Automated count 02/03/2023 12:30:19 0 <=0 (/100 WBCs) Final Performing Location [facility] [place] [address] [place] [address]
[2023-05-07] MEDS: SODIUM CHLORIDE 0.9% 500 ML IV STA (17:08)
[2023-05-07 17:19] LABS: Basophils # (auto) 0.03 K/uL (0.00-0.20); Basophils % (auto) 0.1 %; Eosinophils # (auto) 0.03 K/uL (0.00-0.50); Eosinophils % (auto) 0.1 %; Hematocrit (blood only) 38.4 % (42.0-52.0); Hemoglobin 12.8 g/dl (14.0-18.0); Immature Granulocytes # (auto) 0.11 K/uL (0.01-0.20); Immature Granulocytes % (auto) 0.5 %; Lymphocytes # (auto) 1.02 K/uL (1.20-3.40); Mean Corpuscular Hemoglobin 30.9 pg (25.0-34.0); Mean Corpuscular Hgb Conc 33.3 g/dL (32.0-36.0); Mean Corpuscular Volume 92.8 fL (80.0-100.0); Mean Platelet Volume 9.8 fL (9.4-12.4); Monocytes # (auto) 1.18 K/uL (0.11-0.59); Monocytes % (auto) 5.8 %; Neutrophils # (auto) 17.96 K/uL (1.40-6.50); Neutrophils % (auto) 88.5 %; Platelet Count 332 K/uL (130-400); RDW Coefficient of Variation 14.1 % (11.5-14.5); RDW Standard Deviation 48.2 fL (36.4-46.3); Red Blood Count 4.14 M/uL (4.70-6.10); White Blood Count 20.33 K/ul (4.8-10.8)
[2023-05-07 17:33] LABS: Alanine Aminotransferase 50 U/L (7-52); Albumin Globulin Ratio 1.2 (0.9-2); Albumin Level 4.2 gm/dl (3.4-5.0); Alkaline Phosphatase 112 U/L (34-104); Anion Gap 7 (3-11); Aspartate Aminotransferase 32 U/L (13-39); BUN Creatinine Ratio 22.5 (10-20); Bilirubin,Total 0.4 mg/dl (0.2-1.0); Blood Urea Nitrogen 31 mg/dl (6-23); Calcium 9.5 mg/dl (8.6-10.3); Carbon Dioxide 22 mmol/L (21-32); Chloride 99 mmol/L (98-107); Est GFR (African American) 61.3 ml/min; Est GFR (Non-African American) 52.9 ml/min; Globulin 3.6 gm/dl (2.5-4.0); Glucose 186 mg/dl (70-99(Fasting)); Magnesium 1.8 mg/dl (1.7-2.4); Potassium 5.2 mmol/L (3.5-5.1); Sodium 128 mmol/L (136-145); Total Protein 7.8 gm/dl (6.0-8.3)
[2023-05-07 17:40] LABS: Troponin I High Sensitivity 5.7 pg/ml (0-20)
--- NOTE | 2023-05-07 17:43 | XRay Report ---
XR chest 1V portable CLINICAL HISTORY: Sepsis COMPARISON STUDY: Chest CT May 20, 2022. Chest radiograph January 24, 2023. FINDINGS: There is no pneumothorax or pleural effusion. Cardiomediastinal silhouette is stable. Left lower lung opacity is present. This is improved when compared to prior exam. There is bilateral lower lung interstitial thickening. IMPRESSION: Lower lung interstitial thickening and mild left basilar opacity, improved when compared to prior [facility] st radiograph of January 24, 2023. A residual infectious process cannot be excluded. Continued radiog raphic follow-up to ensure resolution is recommended. ACT 112: Negative or not required by law. Electronically signed by: Mesfin Dutton M.D. 05/07/2023 5:42 PM
[2023-05-07 17:44] LABS: INR 0.9 (0.9-1.1); Partial Thromboplastin Ratio 0.9; Partial Thromboplastin Time 25 Seconds (21-31); Prothrombin Time 10.3 Seconds (9.0-12.0)
[2023-05-07] MEDS: ALBUT/IPRATROP 3MG/0.5MG NEB 3 ML VIAL NEB STA (18:00)
[2023-05-07] MEDS: CEFEPIME 2,000 MG/20 ML VIAL IV STA (18:00)
[2023-05-07 18:12] LABS: Adenovirus PCR Not Detected (NotDetected); Bordetella parapertussis PCR Not Detected (NotDetected); Bordetella pertussis PCR Not Detected (NotDetected); Chlamydia pneumoniae PCR Not Detected (NotDetected); Coronavirus 229E PCR Not Detected (NotDetected); Coronavirus CoV-2 (COVID19)PCR Not Detected (NotDetected); Coronavirus HKU1 PCR Not Detected (NotDetected); Coronavirus NL63 PCR Not Detected (NotDetected); Coronavirus OC43PCR Not Detected (NotDetected); Human Metapneumovirus PCR Not Detected (NotDetected); Influenza A PCR Not Detected (NotDetected); Influenza B PCR Not Detected (NotDetected); Mycoplasma pneumoniae PCR Not Detected (NotDetected); Parainfluenza Virus 1 PCR Not Detected (NotDetected); Parainfluenza Virus 2 PCR Not Detected (NotDetected); Parainfluenza Virus 3 PCR Not Detected (NotDetected); Parainfluenza Virus 4 PCR Not Detected (NotDetected); Respiratory Syncytial VirusPCR Not Detected (NotDetected); Rhinovirus/Enterovirus PCR Not Detected (NotDetected)
--- NOTE | 2023-05-07 18:37 | Emergency Department Note ---
Impression & Plan Generalized weakness, COPD (chronic obstructive pulmonary disease), Pneumonia, Hyponatremia ED Provider Note ED Provider Note NAME: APRAMJIT MELARA AGE:67 SEX: Male : 1955 ARRIVES VIA: EMS INFORMANT: Patient ED PROVIDER(s): Siobhan Graham DO CHIEF COMPLAINT: Weakness, shaking HPI: This is a 67-year-old male presents emergency department via EMS after he states he began not feeling well this afternoon with increased weakness and shaking when he went to the [facility] for a [employer]. He states given his ill appearance a staff there checked his vital signs and told him that his blood pressure was low and his oxygen was 83%. He denies any sense of being short of breath or having any chest pain. He states he has not had any recent cough or cold symptoms. Patient does have a history of smoking. He states he felt well earlier in the day and did eat breakfast and lunch normally and without difficulty. He states he was recently started on a pain medication to use intermittently for his arm and his insulin dosing was adjusted. He feels his blood glucose levels have been improved since this. He denies any known sick contacts or recent travel. He denies fevers or chills, abdominal pain, change in urine or change in stools. PAST MEDICAL HISTORY:See Below PAST SURGICAL HISTORY:See Below FAMILY HISTORY:See Below SOCIAL HISTORY:See Below HOME MEDICATIONS:See Below ALLERGIES:See Below VITALS:See Below PHYSICAL EXAMINATION: GENERAL: alert, unwell appearing, well nourished, no distress, non-toxic EYE EXAM: normal conjunctiva, PERRL and EOM's grossly intact OROPHARYNX: no exudate, no erythema, lips, buccal mucosa, and tongue normal and mucous membranes are moist NECK: supple, no nuchal rigidity, no adenopathy, non-tender LUNGS: Clear to auscultation. Normal chest wall mechanics, no r/r, scattered bilateral expiratory wheeze, no tachypnea, no increased work of breathing HEART: no murmurs, S1 normal and S2 normal ABDOMEN: abdomen soft, non-tender, normo-active bowel sounds, no masses, no rebound or guarding. BACK: Back is symmetrical on inspection and there is no deformity, no midline tenderness, no CVA tenderness. SKIN: no rashes, petechiae, orbruising UPPER EXTREMITIES: upper extremities are grossly normal. FROM, nml pulses b/l. LOWER EXTREMITIES: No pitting edema. FROM, nml pulses b/l. NEURO EXAM: Normal sensorium, cranial nerves II-XII grossly intact, normal speech, no facial droop,nogross weakness of arms, no gross weakness of legs. Gross sensation intact. No ataxia. Vital Signs: reviewed and remarkable Differential Diagnosis: dehydration, stroke, anemia, hypoglycemia, hyponatremia, hypernatremia, urinary tract infection, pneumonia, bronchitis, sepsis, gastroenteritis, additional abdominal pathology, metabolic abnormalities, as well as others were considered MEDICAL DECISION MAKING: This is a 67-year-old male presents emergency department due to concern for abrupt onset of weakness, shaking, with noted hypotension and hypoxia by staff at [facility] when this started. Patient's initial vitals here showed hypotension, and fever. A sepsis evaluation was started. Repeat vital signs patient placed in a regular patient room 1 markedly improved. Labs drawn and sent, IV established, EKG and chest x-ray performed at bedside and interpreted by me. Patient given duoneb due to wheezing with improvement. No hypoxia noted at bedside and no increased work of breathing. Patient noted to have significant leukocytosis on IV cefepime added empirically as a precaution. Chest x-ray with no obvious consolidation however possible early evolving infiltrate versus edema noted. Mild hyponatremia and mild anemia were also noted. Patient's other labs reassuring and patient was hydrated. Upon further recheck they noted patient was recently treated for left-sided pneumonia. Based on their description he likely received azithromycin. I suspect given his smoking history and underlying COPD this was not adequate treatment and symptoms are now recurring as infection has persisted. I discussed with the patient the need for further inpatient monitoring. He and son at bedside verbalized understanding and were in agreement. Case discussed with hospitalist team for additional evaluation and management Consultation(s): 1919: DIsussed with Dr. Gastelum, [facility] hospitalist team, for additional evaluation and management. ER Treatment Provided: See below 1849: Upon updating patient and son at bedside, they state they now recall he was treated with several days of an antibiotic 2 weeks ago for a pneumonia. He states he took 2 pills 1 day and then 1 pill each of the next 5 days but does not recall the name. He states he was told he had a left-sided pneumonia. He states he has previously had pneumonia. Patient lung exam improved, no further wheezing since DuoNeb treatment. Diagnostics Interpreted By Me: -ECG: Normal sinus at 90, leftward axis, normal intervals, no acute ST/T wave change -Cardiac Monitoring: An order was placed for continuous cardiac monitoring. The monitor shows a rate of 88 with normal sinus rhythm. -Laboratory studies: As stated above and show below. -Imaging studies: X-ray Chest: A single view study of the chest was reviewed and was negative for cardiomegaly, effusion, pulmonary edema, or wide mediastinum. Possible early infiltrate at left base. Triage Nursing Note Reviewed Prior/Outside Records Reviewed Past Med/Surg History Medical History Anxiety Bipolar 1 disorder Chronic pain syndrome COPD, moderate Current tobacco use Depression Depression with anxiety Diabetes DM type 2, goal HbA1c < 7% Dyslipidemia, goal LDL below 70 Essential hypertension with goal blood pressure less than 150/90 Former smoker Paranoia Paronychia Primary osteoarthritis involving multiple joints Pulmonary nodule Surgical History History of appendectomy History of hemorrhoidectomy History of umbilical hernia repair Family History Other Family history non-contributory Social History Smoking Status: Former smoker Tobacco Type: Cigarettes Cigarettes Per Day: 20; Second Hand Exposure: No; Do You Dip or Chew Tobacco: No; Tobacco Cessation Education Requested by Patient: No Hx Alcohol Use: No Hx Substance Use: No Preferred Language: [place]ese Communication Ability: Effective Commodity Analyst Required: No Beliefs That Will Affect Care: None Current Living Situation: Alone Current Living Situation Comment: lives alone - friend Cecilia helps Other Information That Helps Us Care for You: No Feels Safe at Home: Yes Safety Concerns: Feels Safe At This Time Assistive Devices: None and Cane Allergies Allergies Allergy/AdvReac Type Severity Reaction Status Date / Time No Known Allergies Allergy Verified 05/07/23 19:51 Home Meds Home Medications Medication Instructions Recorded Confirmed aspirin 81 mg tablet,delayed 81 mg PO QAM 04/13/22 05/07/23 release atorvastatin 80 mg tablet 80 mg PO QPM 04/13/22 05/07/23 buspirone 10 mg tablet 10 mg PO AMHS 04/13/22 05/07/23 empagliflozin 25 mg tablet 25 mg PO QAM 04/13/22 05/07/23 (Jardiance) lisinopril 2.5 mg tablet 2.5 mg PO QAM 04/13/22 05/07/23 paroxetine HCl 30 mg tablet (Paxil) 30 mg PO BID 04/13/22 05/07/23 metformin 500 mg tablet,extended 1,000 mg PO BIDM 08/24/22 05/07/23 release 24 hr dulaglutide 0.75 mg/0.5 mL 1.5 mg subcut WK 12/01/22 05/07/23 subcutaneous pen injector acetaminophen 325 mg tablet 650 mg PO Q6H PRN Pain 01/24/23 05/07/23 (Tylenol) ipratropium 0.5 mg-albuterol 3 mg 3 ml inhalation Q2H PRN shortness 01/24/23 05/07/23 (2.5 mg base)/3 mL nebulization of breath or wheezing soln meloxicam 15 mg tablet 15 mg PO QAM Pain 01/24/23 05/07/23 fluticasone fur. 200 mcg-umeclid 1 inh inhalation QAM 05/07/23 05/07/23 62.5 mcg-vilant 25 mcg inhalat.powder (Trelegy Ellipta) gabapentin 300 mg capsule 300 mg PO TID 05/07/23 05/07/23 insulin lispro 100 unit/mL 8 unit subcut WM 05/07/23 05/07/23 subcutaneous pen risperidone 3 mg tablet 3 mg PO HS 05/07/23 05/07/23 tramadol 50 mg tablet 50 mg PO TID PRN Pain,moderate 05/07/23 05/07/23 Previous Rx's Medication Instructions Recorded albuterol sulfate 90 mcg/actuation 2 puff inhalation Q6H PRN 12/01/22 aerosol inhaler Shortness Of Breath Or Wheezing #18 grams pen needle, diabetic 32 gauge x #100 ea 01/26/23" (Pen Needle) Results & Data (ED) Vital Signs Vital Signs - 24 hr 05/07/23 18:45 05/07/23 18:45 05/07/23 19:00 Pulse Rate 89 93 H Pulse Rate from SpO2 Sensor 88 93 H Respiratory Rate 15 25 H Blood Pressure 132/67 129/65 Blood Pressure Mean 89 86 Pulse Oximetry 95 94 Oxygen Delivery Method Room Air Room Air 05/07/23 19:15 05/07/23 19:30 05/07/23 20:00 Pulse Rate 92 H 90 81 Pulse Rate from SpO2 Sensor 93 H 89 83 Respiratory Rate 23 20 17 Blood Pressure 118/73 131/71 129/69 Blood Pressure Mean 88 91 89 Pulse Oximetry 93 93 93 Oxygen Delivery Method Room Air Room Air Room Air 05/07/23 20:30 05/07/23 21:00 Pulse Rate 89 77 Pulse Rate from SpO2 Sensor 89 77 Respiratory Rate 21 22 Blood Pressure 128/72 124/65 Blood Pressure Mean 90 84 Pulse Oximetry 92 93 Oxygen Delivery Method Room Air Room Air Laboratory Data 05/07/23 17:03 05/07/23 21:19 Lab Results 05/07/23 05/07/23 05/07/23 Range/Units 17:03 17:09 17:10 WBC 20.33 H (4.8-10.8) K/ul RBC 4.14 L (4.70-6.10) M/uL Hgb 12.8 L (14.0-18.0) g/dl Hct 38.4 L (42.0-52.0) % MCV 92.8 (80.0-100.0) fL MCH 30.9 (25.0-34.0) pg MCHC 33.3 (32.0-36.0) g/dL RDW Std Deviation 48.2 H (36.4-46.3) fL RDW Coeff of Keila 14.1 (11.5-14.5) % Plt Count 332 (130-400) K/uL MPV 9.8 (9.4-12.4) fL Immature Gran % (Auto) 0.5 % Neut % (Auto) 88.5 % Lymph % (Auto) 5.0 % Hamlin % (Auto) 5.8 % Eos % (Auto) 0.1 % Baso % (Auto) 0.1 % Neut # (Auto) 17.96 H (1.40-6.50) K/uL Lymph # (Auto) 1.02 L (1.20-3.40) K/uL Hamlin # (Auto) 1.18 H (0.11-0.59) K/uL Eos # (Auto) 0.03 (0.00-0.50) K/uL Baso # (Auto) 0.03 (0.00-0.20) K/uL Immature Gran # (Auto) 0.11 (0.01-0.20) K/uL PT 10.3 (9.0-12.0) Seconds INR 0.9 (0.9-1.1) APTT 25 (21-31) Seconds PTT Ratio 0.9 VBG pH (7.36-7.41) VBG pCO2 (38-50) mmHg VBG pO2 mmHg VBG HCO3 mmol/L VBG O2 Saturation % VBG Base Excess mEq/L Sodium 128 L (136-145) mmol/L Potassium 5.2 H (3.5-5.1) mmol/L Chloride 99 (98-107) mmol/L Carbon Dioxide 22 (21-32) mmol/L Anion Gap 7 (3-11) BUN 31 H (6-23) mg/dl Creatinine 1.38 (0.6-1.4) mg/dl Est Cr Clr Drug Dosing Not Reportable Est GFR ( Amer) 61.3 ml/min Est GFR (Non-Af Amer) 52.9 ml/min BUN/Creatinine Ratio 22.5 H (10-20) Glucose 186 H (70-99(Fasting)) mg/dl Osmolality 282 (280-300) mOsm/kg Lactate 1.3 (0.4-2.0) mmol/L Calcium 9.5 (8.6-10.3) mg/dl Magnesium 1.8 (1.7-2.4) mg/dl Total Bilirubin 0.4 (0.2-1.0) mg/dl AST 32 (13-39) U/L ALT 50 (7-52) U/L Alkaline Phosphatase 112 H (34-104) U/L Troponin I High Sens 5.7 (0-20) pg/ml Total Protein 7.8 (6.0-8.3) gm/dl Albumin 4.2 (3.4-5.0) gm/dl Globulin 3.6 (2.5-4.0) gm/dl Albumin/Globulin Ratio 1.2 (0.9-2) Procalcitonin 0.13 (0-0.5) ng/ml TSH 0.484 (0.300-4.500) uIu/ml Urine Color Urine Appearance (Clear) Urine pH (4.5-7.5) Ur Specific Navarro (1.000-1.030) Urine Protein (Negative) Urine Glucose (UA) (Negative) Urine Ketones (Negative) Urine Blood (Negative) Urine Nitrite (Negative) Urine Bilirubin (Negative) Urine Urobilinogen (Negative) Ur Leukocyte Esterase (Negative) Adenovirus (PCR) Not Detected (NotDetected) B. pertussis DNA (PCR) Not Detected (NotDetected) B.parapertussis DNA PCR Not Detected (NotDetected) C. pneumoniae DNA (PCR) Not Detected (NotDetected) Coronavirus OC43 (PCR) Not Detected (NotDetected) Coronavirus HKU1 (PCR) Not Detected (NotDetected) Coronavirus 229E (PCR) Not Detected (NotDetected) SARS-CoV-2 (PCR) Not Detected (NotDetected) Coronavirus NL63 (PCR) Not Detected (NotDetected) Human Metapneumovir PCR Not Detected (NotDetected) Influenza Type A (PCR) Not Detected (NotDetected) Influenza Type B (PCR) Not Detected (NotDetected) M. pneumoniae (PCR) Not Detected (NotDetected) Parainfluenza 1 (PCR) Not Detected (NotDetected) Parainfluenza 2 (PCR) Not Detected (NotDetected) Parainfluenza 3 (PCR) Not Detected (NotDetected) Parainfluenza 4 (PCR) Not Detected (NotDetected) RSV (PCR) Not Detected (NotDetected) Entero/Rhino (PCR) Not Detected (NotDetected) 05/07/23 05/07/23 05/07/23 Range/Units 18:27 21:19 21:23 WBC (4.8-10.8) K/ul RBC (4.70-6.10) M/uL Hgb (14.0-18.0) g/dl Hct (42.0-52.0) % MCV (80.0-100.0) fL MCH (25.0-34.0) pg MCHC (32.0-36.0) g/dL RDW Std Deviation (36.4-46.3) fL RDW Coeff of Keila (11.5-14.5) % Plt Count (130-400) K/uL MPV (9.4-12.4) fL Immature Gran % (Auto) % Neut % (Auto) % Lymph % (Auto) % Hamlin % (Auto) % Eos % (Auto) % Baso % (Auto) % Neut # (Auto) (1.40-6.50) K/uL Lymph # (Auto) (1.20-3.40) K/uL Hamlin # (Auto) (0.11-0.59) K/uL Eos # (Auto) (0.00-0.50) K/uL Baso # (Auto) (0.00-0.20) K/uL Immature Gran # (Auto) (0.01-0.20) K/uL PT (9.0-12.0) Seconds INR (0.9-1.1) APTT (21-31) Seconds PTT Ratio VBG pH 7.35 L (7.36-7.41) VBG pCO2 35 L (38-50) mmHg VBG pO2 53 mmHg VBG HCO3 19 mmol/L VBG O2 Saturation 88.8 % VBG Base Excess -5.6 mEq/L Sodium 132 L (136-145) mmol/L Potassium 4.6 (3.5-5.1) mmol/L Chloride 107 (98-107) mmol/L Carbon Dioxide 18 L (21-32) mmol/L Anion Gap 7 (3-11) BUN 29 H (6-23) mg/dl Creatinine 1.13 (0.6-1.4) mg/dl Est Cr Clr Drug Dosing 68.5 Est GFR ( Amer) 78.1 ml/min Est GFR (Non-Af Amer) 67.4 ml/min BUN/Creatinine Ratio 25.7 H (10-20) Glucose 231 H (70-99(Fasting)) mg/dl Osmolality (280-300) mOsm/kg Lactate (0.4-2.0) mmol/L Calcium 8.5 L (8.6-10.3) mg/dl Magnesium (1.7-2.4) mg/dl Total Bilirubin (0.2-1.0) mg/dl AST (13-39) U/L ALT (7-52) U/L Alkaline Phosphatase (34-104) U/L Troponin I High Sens (0-20) pg/ml Total Protein (6.0-8.3) gm/dl Albumin (3.4-5.0) gm/dl Globulin (2.5-4.0) gm/dl Albumin/Globulin Ratio (0.9-2) Procalcitonin (0-0.5) ng/ml TSH (0.300-4.500) uIu/ml Urine Color Yellow Urine Appearance Clear (Clear) Urine pH 5.0 (4.5-7.5) Ur Specific Navarro 1.024 (1.000-1.030) Urine Protein Negative (Negative) Urine Glucose (UA) 3+ H (Negative) Urine Ketones Negative (Negative) Urine Blood Negative (Negative) Urine Nitrite Negative (Negative) Urine Bilirubin Negative (Negative) Urine Urobilinogen Negative (Negative) Ur Leukocyte Esterase Negative (Negative) Adenovirus (PCR) (NotDetected) B. pertussis DNA (PCR) (NotDetected) B.parapertussis DNA PCR (NotDetected) C. pneumoniae DNA (PCR) (NotDetected) Coronavirus OC43 (PCR) (NotDetected) Coronavirus HKU1 (PCR) (NotDetected) Coronavirus 229E (PCR) (NotDetected) SARS-CoV-2 (PCR) (NotDetected) Coronavirus NL63 (PCR) (NotDetected) Human Metapneumovir PCR (NotDetected) Influenza Type A (PCR) (NotDetected) Influenza Type B (PCR) (NotDetected) M. pneumoniae (PCR) (NotDetected) Parainfluenza 1 (PCR) (NotDetected) Parainfluenza 2 (PCR) (NotDetected) Parainfluenza 3 (PCR) (NotDetected) Parainfluenza 4 (PCR) (NotDetected) RSV (PCR) (NotDetected) Entero/Rhino (PCR) (NotDetected) Administered Medications Acetaminophen (Acetaminophen 325 Mg Tab) 650 mg PO Q6H PRN PRN Reason: Pain Stop: 06/06/23 23:26 Last Admin: 05/08/23 04:33 Dose: 650 mg Documented By: JOSE JUAN Aspirin (Aspirin 81 Mg Ectab) 81 mg PO QAM [facility] Stop: 06/07/23 08:59 Last Admin: 05/08/23 09:43 Dose: 81 mg Documented By: OANH Buspirone HCl (Buspirone 5 Mg Tab) 10 mg PO AMHS [facility] Stop: 06/06/23 23:26 Last Admin: 05/08/23 09:43 Dose: 10 mg Documented By: Admin: 05/08/23 01:00 Dose: 10 mg Documented By: GELY Doxycycline Hyclate (Doxycycline Hyclate 100 Mg Cap) 100 mg PO BID [facility] Stop: 05/15/23 08:59 Last Admin: 05/08/23 09:43 Dose: 100 mg Documented By: OANH Enoxaparin Sodium (Enoxaparin Inj 40 Mg/0.4 Ml Syr) 40 mg SQ QAM [facility] Stop: 06/07/23 08:59 Last Admin: 05/08/23 09:44 Dose: 40 mg Documented By: OANH Fluticasone Furoate (Fluticasone Furoate 200mcg 14 Puffs/Inhaler) 1 puffs INH DAILY [facility] Stop: 06/07/23 08:59 Last Admin: 05/08/23 09:44 Dose: 1 puffs Documented By: OANH Gabapentin (Gabapentin 300 Mg Cap) 300 mg PO TID [facility] Stop: 06/07/23 08:59 Last Admin: 05/08/23 13:44 Dose: 300 mg Documented By: Admin: 05/08/23 09:43 Dose: 300 mg Documented By: OANH Insulin Aspart (Insulin Aspart Per Unit Charge) 0 units SC ACHS [facility] Stop: 06/06/23 23:26 Last Admin: 05/08/23 17:56 Dose: 3 units Documented By: RAQUEL Co-signed By: ANISHA Admin: 05/08/23 13:43 Dose: 6 units Documented By: OANH Co-signed By: DMITRY Admin: 05/08/23 09:42 Dose: 1 units Documented By: OANH Co-signed By: DMITRY Admin: 05/08/23 01:01 Dose: 5 units Documented By: GELY Co-signed By: WILY Insulin Glargine (Lantus Per Unit Charge) 5 units SQ BID [facility] Stop: 06/06/23 23:26 Last Admin: 05/08/23 09:45 Dose: 5 units Documented By: OANH Co-signed By: DMITRY Admin: 05/08/23 01:01 Dose: 5 units Documented By: GELY Co-signed By: WILY Ipratropium Fontana (Ipratropium Fontana Neb Soln 0.02% 0.5mg/2.5ml Vial) 0.5 mg INH Q6R [facility] Stop: 06/07/23 00:59 Last Admin: 05/08/23 12:05 Dose: 0.5 mg Documented By: Admin: 05/08/23 06:53 Dose: 0.5 mg Documented By: Admin: 05/08/23 02:45 Dose: 0.5 mg Documented By: ARNAUD Levalbuterol HCl (Levalbuterol 1.25 Mg/3 Ml Neb) 1.25 mg NEB Q6R [facility] Stop: 06/07/23 00:59 Last Admin: 05/08/23 12:05 Dose: 1.25 mg Documented By: Admin: 05/08/23 06:53 Dose: 1.25 mg Documented By: Admin: 05/08/23 02:45 Dose: 1.25 mg Documented By: ARNAUD Paroxetine HCl (Paroxetine Hcl 20 Mg Tab) 30 mg PO BID [facility] Stop: 06/07/23 08:59 Last Admin: 05/08/23 09:45 Dose: 30 mg Documented By: OANH Risperidone (Risperidone 3 Mg Tablet) 3 mg PO HS [facility] Stop: 06/06/23 23:26 Last Admin: 05/08/23 01:00 Dose: 3 mg Documented By: GELY Umeclidinium/Vilanterol (Umeclidinium/Vilanterol 62.5/25mcg 7 Puffs/Inhaler) 1 puffs INH DAILY [facility] Stop: 06/07/23 08:59 Last Admin: 05/08/23 09:46 Dose: 1 puffs Documented By: OANH Discontinued Medications Acetaminophen (Acetaminophen 325 Mg Tab) 650 mg PO NOW STA Stop: 05/07/23 17:00 Last Admin: 05/08/23 00:32 Dose: Not Given Documented By: GELY Albuterol (Albut/Ipratrop 3mg/0.5mg Neb 3 Ml Vial) 3 ml NEB NOW STA; Protocol Stop: 05/07/23 17:41 Last Admin: 05/07/23 18:00 Dose: 3 ml Documented By: JUANPABLO Sodium Chloride (Nss) 500 mls @ 999 mls/hr IV .Q31M STA Stop: 05/07/23 17:29 Last Infusion: 05/07/23 18:00 Dose: Infused Documented By: Admin: 05/07/23 17:08 Dose: 999 mls/hr Documented By: JUANPABLO Cefepime HCl (Maxipime) 2,000 mg in 20 mls @ 5 mls/min IV NOW STA; Protocol Stop: 05/07/23 17:43 Last Admin: 05/07/23 18:00 Dose: 5 mls/min Documented By: JUANPABLO Sodium Chloride (Nss) 1,000 mls @ 125 mls/hr IV .Q8H [facility] Stop: 06/06/23 18:44 Last Admin: 05/07/23 20:53 Dose: Not Given Documented By: LULY Magnesium Sulfate/Dextrose (Magnesium Sulfate / D5w) 1 gm in 100 mls @ 50 mls/hr IV ONE ONE Stop: 05/07/23 21:52 Last Infusion: 05/07/23 23:11 Dose: Infused Documented By: Admin: 05/07/23 20:56 Dose: 50 mls/hr Documented By: LULY Doxycycline Hyclate 100 mg/ (Dextrose) 100 mls @ 50 mls/hr IV NOW STA Stop: 05/07/23 23:41 Last Infusion: 05/08/23 00:35 Dose: Infused Documented By: Admin: 05/07/23 22:32 Dose: 50 mls/hr Documented By: GELY Ceftriaxone Sodium (Rocephin) 50 mls @ 100 mls/hr IV ONE STA; Protocol Stop: 05/07/23 23:32 Last Infusion: 05/08/23 01:51 Dose: Infused Documented By: Admin: 05/08/23 01:00 Dose: 100 mls/hr Documented By: GELY Ioversol (Optiray 320 500ml) 88 ml IV ONCE ONE Stop: 05/07/23 22:11 Last Admin: 05/07/23 22:10 Dose: 88 ml Documented By: AUGUST Imaging Data Radiologist's Impression: Chest X-Ray 05/07/23 16:59 XR chest 1V portable CLINICAL HISTORY: Sepsis COMPARISON STUDY: Chest CT May 20, 2022. Chest radiograph January 24, 2023. FINDINGS: There is no pneumothorax or pleural effusion. Cardiomediastinal silhouette is stable. Left lower lung opacity is present. This is improved when compared to prior exam. There is bilateral lower lung interstitial thickening. IMPRESSION: Lower lung interstitial thickening and mild left basilar opacity, improved when compared to prior chest radiograph of January 24, 2023. A residual infectious process cannot be excluded. Continued radiographic follow-up to ensure resolution is recommended. ACT 112: Negative or not required by law. Electronically signed by: Mesfin Dutton M.D. 05/07/2023 5:42 PM Discharge Plan Visit Data Chief Complaint: Weakness Stated Complaint: WEAK,PALE,LOW O2,LOW HEART RATE,SHAKY ED Provider: Siobhan Graham Discharge Problem: Generalized weakness, COPD (chronic obstructive pulmonary disease), Pneumonia, Hyponatremia Patient Disposition: Admitted As Inpatient Discharge Instructions Interventions: ED Discharge Assessment Last Done: 05/08/23 15:07
[2023-05-07 18:45] LABS: Appearance Urine Clear (Clear); Bilirubin Urine Negative (Negative); Blood Urine Negative (Negative); Color Urine Yellow; Glucose Urine UA 3+ (Negative); Ketones Urine Negative (Negative); Leukocyte Esterase Urine Negative (Negative); Nitrite Urine Negative (Negative); Protein Urine Negative (Negative); Specific Gravity Urine 1.024 (1.000-1.030); Urobilinogen Urine Negative (Negative)
[2023-05-07 20:28] LABS: Thyroid Stimulating Hormone 0.484 uIu/ml (0.300-4.500)
[2023-05-07] MEDS: SODIUM CHLORIDE 0.9% 1,000 ML IV SCH (20:53)
[2023-05-07] MEDS: MAGNESIUM SULFATE / D5W 1 GM/100 ML BAG IV ONE (20:56)
[2023-05-07 21:37] LABS: Base Excess VBG -5.6 mEq/L; HCO3 VBG 19 mmol/L; Oxygen Saturation VBG 88.8 %; PCO2 VBG 35 mmHg (38-50); PO2 VBG 53 mmHg; pH VBG 7.35 (7.36-7.41)
--- NOTE | 2023-05-07 21:41 | History & Physical Report ---
Date of Service May 07, 2023 Assessment & Plan (1) Acute hypoxemic respiratory failure: Plan: Secondary to COPD exacerbation secondary to recurrent pneumonia left Recent Z-Johnathon Rx Hypoxemia resolved after initial intervention at the ER Sepsis secondary to above Acute on chronic hyponatremia, hyperkalemia secondary to illness Lisinopril and Home NSAID contributory hypertension, stable hyperlipidemia, on statin Rx DM 2 on oral medications, suboptimal control as of recent hemoglobin A1c of 11.28 January 2023 anxiety/mood disorder, at baseline chronic anemia, at baseline past tobacco abuse. Medical telemetry Supplemental O2 as needed CS, Ceftriaxone, Doxycycline Nebs RTC Prednisone course if with recurrent hypoxemia/respiratory distress Pulmonary consult if without improvement Careful correction of sodium, recheck serum sodium after initial fluid bolus given at the ER Stop meloxicam and lisinopril for now given worsening hyponatremia and hyperkalemia Nephrology consult if without improvement Basal bolus insulin, ISS BG goal 1 10-1 40, carb count coverage DVT prophylaxis. Lovenox subcu DNR as per patient's prior directives. Patient requests for family to be given periodic updates. Mr. Guero Gomez (son), contact number [phone]. Text document was generated using [employer] voice recognition software. It may contain grammatical or spelling errors. Kindly contact undersigned for clarification of any documentation item in question. History of Present Illness Chief Complaint: Low O2, shortness of breath Primary Care Provider: Cm Roberto MD History obtained from patient, family, and records. Medical history significant for hypertension, hyperlipidemia, COPD, DM 2 on oral medications, anxiety/mood disorder, chronic back pain status post surgery, chronic hyponatremia, chronic anemia (baseline hemoglobin of 12-13 ), past tobacco abuse. Last admission December 2022 for for L sided pneumonia and hyponatremia attributed by Nephrology to polydipsia and Jardiance. Last month, patient noted junky cough symptoms without chest pain or SOB. Patient seen at PCPs office 2 weeks ago. Outpatient chest x-ray showed left lower lobe pneumonia. Patient prescribed Z-Johnathon for COPD exacerbation. No steroids due to poorly controlled DM as per PCP note. Symptoms improved with medications as per patient. 3 days ago, patient started coughing junky yellow stuff. Denies aspiration. Not sure about COVID-19 contacts. He was at a [employer] today when he was noted to be increasingly weak and shaking. O2 sats noted to be 80s on room air. Cefepime and neb treatment administered at the ER. O2 sats currently 94 on room air. Patient currently feeling much better. Medical History as above Surgical History : Appendectomy, umbilical hernia repair, back surgery Family History : Heart disease Personal/Social history : Past tobacco abuse, occasional EtOH intake, lives alone with former girlfriend acting as caregiver Allergies Allergy/AdvReac Type Severity Reaction Status Date / Time No Known Allergies Allergy Verified 05/07/23 19:51 Home Medications Medication Instructions Recorded Confirmed Type aspirin 81 mg tablet,delayed 81 mg PO QAM 04/13/22 05/07/23 History release atorvastatin 80 mg tablet 80 mg PO QPM 04/13/22 05/07/23 History buspirone 10 mg tablet 10 mg PO AMHS 04/13/22 05/07/23 History empagliflozin 25 mg tablet 25 mg PO QAM 04/13/22 05/07/23 History (Jardiance) lisinopril 2.5 mg tablet 2.5 mg PO QAM 04/13/22 05/07/23 History paroxetine HCl 30 mg tablet (Paxil) 30 mg PO BID 04/13/22 05/07/23 History metformin 500 mg tablet,extended 1,000 mg PO BIDM 08/24/22 05/07/23 History release 24 hr albuterol sulfate 90 mcg/actuation 2 puff inhalation Q6H PRN 12/01/22 05/07/23 Rx aerosol inhaler Shortness Of Breath Or Wheezing #18 grams dulaglutide 0.75 mg/0.5 mL 1.5 mg subcut WK 12/01/22 05/07/23 History subcutaneous pen injector acetaminophen 325 mg tablet 650 mg PO Q6H PRN Pain 01/24/23 05/07/23 History (Tylenol) ipratropium 0.5 mg-albuterol 3 mg 3 ml inhalation Q2H PRN shortness 01/24/23 05/07/23 History (2.5 mg base)/3 mL nebulization of breath or wheezing soln meloxicam 15 mg tablet 15 mg PO QAM Pain 01/24/23 05/07/23 History pen needle, diabetic 32 gauge x #100 ea 01/26/23 05/07/23 Rx " (Pen Needle) fluticasone fur. 200 mcg-umeclid 1 inh inhalation QAM 05/07/23 05/07/23 History 62.5 mcg-vilant 25 mcg inhalat.powder (Trelegy Ellipta) gabapentin 300 mg capsule 300 mg PO TID 05/07/23 05/07/23 History insulin lispro 100 unit/mL 8 unit subcut WM 05/07/23 05/07/23 History subcutaneous pen risperidone 3 mg tablet 3 mg PO HS 05/07/23 05/07/23 History tramadol 50 mg tablet 50 mg PO TID PRN Pain,moderate 05/07/23 05/07/23 History Past Med/Surg History Medical History Anxiety Bipolar 1 disorder Chronic pain syndrome COPD, moderate Current tobacco use Depression Depression with anxiety Diabetes DM type 2, goal HbA1c < 7% Dyslipidemia, goal LDL below 70 Essential hypertension with goal blood pressure less than 150/90 Former smoker Paranoia Paronychia Primary osteoarthritis involving multiple joints Pulmonary nodule Surgical History History of appendectomy History of hemorrhoidectomy History of umbilical hernia repair Family History Other Family history non-contributory Social History Smoking Status: Former smoker Tobacco Type: Cigarettes Cigarettes Per Day: 20; Second Hand Exposure: No; Do You Dip or Chew Tobacco: No; Tobacco Cessation Education Requested by Patient: No Hx Alcohol Use: No Hx Substance Use: No Preferred Language: Lao Communication Ability: Effective Quality Control Coordinator Required: No Beliefs That Will Affect Care: None Current Living Situation: Alone Current Living Situation Comment: lives alone - friend Cecilia helps Other Information That Helps Us Care for You: No Feels Safe at Home: Yes Safety Concerns: Feels Safe At This Time Assistive Devices: Cane Review of Systems Review of Systems: As per HPI, all other systems reviewed and negative Physical Exam Physical Exam: GENERAL: comfortable, pleasant, no respiratory distress SKIN: Pallor, warm HEENT: Alopecia, pale palpebral conjunctivae, no ptosis, dry buccal mucosa NECK : Supple, no tenderness CHEST : Decreased breath sounds, no tenderness HEART : RRR, no obvious murmurs ABDOMEN: Some distention, nontender EXTREMITIES : No LE swelling/tenderness, no other conspicuous deformities noted NEUROLOGIC : Coherent, no facial asymmetry, no other gross focality Results & Data Results & Data Vital Signs (Past 12 Hours) Vital Signs Temp Pulse Resp BP Pulse Ox O2 Del Method O2 Flow Rate 05/07/23 21:00 77 22 124/65 93 Room Air 05/07/23 20:30 89 21 128/72 92 Room Air 05/07/23 20:00 81 17 129/69 93 Room Air 05/07/23 19:30 90 20 131/71 93 Room Air 05/07/23 19:15 92 H 23 118/73 93 Room Air 05/07/23 19:00 93 H 25 H 129/65 94 Room Air 05/07/23 18:45 132/67 05/07/23 18:45 89 15 95 Room Air 05/07/23 18:30 136/71 05/07/23 18:30 93 H 13 95 05/07/23 18:25 142/72 H 05/07/23 18:20 98 H 21 99 05/07/23 18:15 98 H 19 99 05/07/23 18:00 97 H 22 94 Room Air 05/07/23 17:45 98 H 23 96 05/07/23 17:34 94 H 05/07/23 17:30 94 H 26 H 96 05/07/23 17:18 36.8 C 05/07/23 17:16 93 H 12 92 05/07/23 17:16 138/73 05/07/23 17:15 98 H 21 93 05/07/23 17:14 94 H 17 85 L 05/07/23 16:59 94 Room Air 05/07/23 16:59 94 Room Air 0 05/07/23 16:48 38.6 C H 93 H 22 88/37 L 93 05/07/23 16:42 95 Room Air 0 Laboratory Results Laboratory Results WBC 20.33 K/ul (4.8-10.8) H 05/07/23 17:03 RBC 4.14 M/uL (4.70-6.10) L 05/07/23 17:03 Hgb 12.8 g/dl (14.0-18.0) L 05/07/23 17:03 Hct 38.4 % (42.0-52.0) L 05/07/23 17:03 MCV 92.8 fL (80.0-100.0) 05/07/23 17:03 MCH 30.9 pg (25.0-34.0) 05/07/23 17:03 MCHC 33.3 g/dL (32.0-36.0) 05/07/23 17:03 RDW Std Deviation 48.2 fL (36.4-46.3) H 05/07/23 17:03 RDW Coeff of Keila 14.1 % (11.5-14.5) 05/07/23 17:03 Plt Count 332 K/uL (130-400) 05/07/23 17:03 MPV 9.8 fL (9.4-12.4) 05/07/23 17:03 Immature Gran % (Auto) 0.5 % 05/07/23 17:03 Neut % (Auto) 88.5 % 05/07/23 17:03 Lymph % (Auto) 5.0 % 05/07/23 17:03 Holt % (Auto) 5.8 % 05/07/23 17:03 Eos % (Auto) 0.1 % 05/07/23 17:03 Baso % (Auto) 0.1 % 05/07/23 17:03 Neut # (Auto) 17.96 K/uL (1.40-6.50) H 05/07/23 17:03 Lymph # (Auto) 1.02 K/uL (1.20-3.40) L 05/07/23 17:03 Holt # (Auto) 1.18 K/uL (0.11-0.59) H 05/07/23 17:03 Eos # (Auto) 0.03 K/uL (0.00-0.50) 05/07/23 17:03 Baso # (Auto) 0.03 K/uL (0.00-0.20) 05/07/23 17:03 Immature Gran # (Auto) 0.11 K/uL (0.01-0.20) 05/07/23 17:03 PT 10.3 Seconds (9.0-12.0) 05/07/23 17:03 INR 0.9 (0.9-1.1) 05/07/23 17:03 APTT 25 Seconds (21-31) 05/07/23 17:03 PTT Ratio 0.9 05/07/23 17:03 VBG pH 7.35 (7.36-7.41) L 05/07/23 21: VBG pCO2 35 mmHg (38-50) L 05/07/23 21: VBG pO2 53 mmHg 05/07/23 21: VBG HCO3 19 mmol/L 05/07/23 21: VBG O2 Saturation 88.8 % 05/07/23 21: VBG Base Excess -5.6 mEq/L 05/07/23 21: Sodium 128 mmol/L (136-145) L 05/07/23 17:03 Potassium 5.2 mmol/L (3.5-5.1) H 05/07/23 17:03 Chloride 99 mmol/L (98-107) 05/07/23 17:03 Carbon Dioxide 22 mmol/L (21-32) 05/07/23 17:03 Anion Gap 7 (3-11) 05/07/23 17:03 BUN 31 mg/dl (6-23) H 05/07/23 17:03 Creatinine 1.38 mg/dl (0.6-1.4) 05/07/23 17:03 Est Cr Clr Drug Dosing Not Reportable 05/07/23 17:03 Est GFR ( Amer) 61.3 ml/min 05/07/23 17:03 Est GFR (Non-Af Amer) 52.9 ml/min 05/07/23 17:03 BUN/Creatinine Ratio 22.5 (10-20) H 05/07/23 17:03 Glucose 186 mg/dl (70-99(Fasting)) H 05/07/23 17:03 Osmolality 282 mOsm/kg (280-300) 05/07/23 17:03 Lactate 1.3 mmol/L (0.4-2.0) 05/07/23 17:09 Calcium 9.5 mg/dl (8.6-10.3) 05/07/23 17:03 Magnesium 1.8 mg/dl (1.7-2.4) 05/07/23 17:03 Total Bilirubin 0.4 mg/dl (0.2-1.0) 05/07/23 17:03 AST 32 U/L (13-39) 05/07/23 17:03 ALT 50 U/L (7-52) 05/07/23 17:03 Alkaline Phosphatase 112 U/L (34-104) H 05/07/23 17:03 Troponin I High Sens 5.7 pg/ml (0-20) 05/07/23 17:03 Total Protein 7.8 gm/dl (6.0-8.3) 05/07/23 17:03 Albumin 4.2 gm/dl (3.4-5.0) 05/07/23 17:03 Globulin 3.6 gm/dl (2.5-4.0) 05/07/23 17:03 Albumin/Globulin Ratio 1.2 (0.9-2) 05/07/23 17:03 Procalcitonin 0.13 ng/ml (0-0.5) 05/07/23 17:03 TSH 0.484 uIu/ml (0.300-4.500) 05/07/23 17:03 Urine Color Yellow 05/07/23 18:27 Urine Appearance Clear (Clear) 05/07/23 18:27 Urine pH 5.0 (4.5-7.5) 05/07/23 18:27 Ur Specific [place] 1.024 (1.000-1.030) 05/07/23 18:27 Urine Protein Negative (Negative) 05/07/23 18:27 Urine Glucose (UA) 3+ (Negative) H 05/07/23 18:27 Urine Ketones Negative (Negative) 05/07/23 18:27 Urine Blood Negative (Negative) 05/07/23 18:27 Urine Nitrite Negative (Negative) 05/07/23 18:27 Urine Bilirubin Negative (Negative) 05/07/23 18:27 Urine Urobilinogen Negative (Negative) 05/07/23 18:27 Ur Leukocyte Esterase Negative (Negative) 05/07/23 18:27 Adenovirus (PCR) Not Detected (NotDetected) 05/07/23 17:10 B. pertussis DNA (PCR) Not Detected (NotDetected) 05/07/23 17:10 B.parapertussis DNA PCR Not Detected (NotDetected) 05/07/23 17:10 C. pneumoniae DNA (PCR) Not Detected (NotDetected) 05/07/23 17:10 Coronavirus OC43 (PCR) Not Detected (NotDetected) 05/07/23 17:10 Coronavirus HKU1 (PCR) Not Detected (NotDetected) 05/07/23 17:10 Coronavirus 229E (PCR) Not Detected (NotDetected) 05/07/23 17:10 SARS-CoV-2 (PCR) Not Detected (NotDetected) 05/07/23 17:10 Coronavirus NL63 (PCR) Not Detected (NotDetected) 05/07/23 17:10 Human Metapneumovir PCR Not Detected (NotDetected) 05/07/23 17:10 Influenza Type A (PCR) Not Detected (NotDetected) 05/07/23 17:10 Influenza Type B (PCR) Not Detected (NotDetected) 05/07/23 17:10 M. pneumoniae (PCR) Not Detected (NotDetected) 05/07/23 17:10 Parainfluenza 1 (PCR) Not Detected (NotDetected) 05/07/23 17:10 Parainfluenza 2 (PCR) Not Detected (NotDetected) 05/07/23 17:10 Parainfluenza 3 (PCR) Not Detected (NotDetected) 05/07/23 17:10 Parainfluenza 4 (PCR) Not Detected (NotDetected) 05/07/23 17:10 RSV (PCR) Not Detected (NotDetected) 05/07/23 17:10 Entero/Rhino (PCR) Not Detected (NotDetected) 05/07/23 17:10 Impressions Chest X-Ray 05/07/23 16:59 XR chest 1V portable CLINICAL HISTORY: Sepsis COMPARISON STUDY: Chest CT May 20, 2022. Chest radiograph January 24, 2023. FINDINGS: There is no pneumothorax or pleural effusion. Cardiomediastinal silhouette is stable. Left lower lung opacity is present. This is improved when compared to prior exam. There is bilateral lower lung interstitial thickening. IMPRESSION: Lower lung interstitial thickening and mild left basilar opacity, improved when compared to prior chest radiograph of January 24, 2023. A residual infectious process cannot be excluded. Continued radiographic follow-up to ensure resolution is recommended. ACT 112: Negative or not required by law. Electronically signed by: Mesfin Dutton M.D. 05/07/2023 5:42 PM Diagnostic Findings EKG as per my interpretation : Rate 90, NSR, LAD, LAFB, septal infarct, no ischemia
[2023-05-07 21:58] LABS: BUN Creatinine Ratio 25.7 (10-20); Calcium 8.5 mg/dl (8.6-10.3); Creatinine Clr Calc Pharmacy 68.5 ml/min; Est GFR (African American) 78.1 ml/min; Est GFR (Non-African American) 67.4 ml/min; Potassium 4.6 mmol/L (3.5-5.1)
[2023-05-07] MEDS: OPTIRAY 320 500ml IV ONE (22:10)
--- NOTE | 2023-05-07 22:29 | CT Scan Report ---
Exam(s): CT CHEST With Contrast IV Amt: 88ml optiray 320 EXAM: CT Chest With Intravenous Contrast CLINICAL HISTORY: Reason for exam: recurrent pneumonia. TECHNIQUE: Axial computed tomography images of the chest with intravenous contrast. Automated exposure control was utilized for the study. A dose lowering technique was utilized adhering to the principles of ALARA. CONTRAST: Patient received 88ml optiray 320 of IV contrast COMPARISON: No relevant prior studies available. FINDINGS: Lungs: Mild patchy consolidation at the lung bases, correlate for mild pneumonia. No mass. Pleural space: Unremarkable. No pneumothorax. No significant effusion. Heart: Unremarkable. No cardiomegaly. No significant pericardial effusion. No significant coronary artery calcifications. Bones/joints: Degenerative changes of the spine. No acute fracture. No dislocation. Soft tissues: Unremarkable. Vasculature: Atherosclerotic changes of the aorta. No thoracic aortic aneurysm. Lymph nodes: Unremarkable. No enlarged lymph nodes. IMPRESSION: Mild patchy consolidation at the lung bases, correlate for mild pneumonia. Electronically signed by: Александр Ng MD 05/07/23 22:28 PM
[2023-05-07] MEDS: DOXYCYCLINE HYCLATE 100 MG in DEXTROSE 5% MINI-B 100 ML IV STA (22:32)
[2023-05-07] MEDS ORDERED: CARBOHYDRATES FOR HYPOGLYCEMIA PO PRN (23:27)
[2023-05-07] MEDS ORDERED: GLUCAGON FOR INJ 1 MG VIAL SQ PRN (23:27)
[2023-05-07] MEDS ORDERED: GLUCOSE 40% GEL 15 GM TUBE PO PRN (23:27)
[2023-05-07] MEDS ORDERED: GLUCOSE 10 TAB/TUBE PO PRN (23:27)
[2023-05-07] MEDS ORDERED: DEXTROSE 50% 50 ML SYRINGE IV PRN (23:27)
[2023-05-08] MEDS: ACETAMINOPHEN 325 MG TAB PO STA (00:32)
[2023-05-08] MEDS: busPIRone 5 MG TAB PO SCH (01:00)
[2023-05-08] MEDS: risperiDONE 3 MG TABLET PO SCH (01:00)
[2023-05-08] MEDS: LANTUS PER UNIT CHARGE SQ SCH (01:01)
[2023-05-08] MEDS: INSULIN ASPART PER UNIT CHARGE SC SCH (01:01)
[2023-05-08] MEDS: LEVALBUTEROL 1.25 MG/3 ML NEB NEB SCH (02:45)
[2023-05-08] MEDS: IPRATROPIUM BROMIDE NEB SOLN 0.02% 0.5MG/2.5ML VIAL INH SCH (02:45)
[2023-05-08] MEDS: ACETAMINOPHEN 325 MG TAB PO PRN (04:33)
[2023-05-08] MEDS ORDERED: NON-FORMULARY MEDICATION (Fluticasone-Umeclidin-Vilanter [Trelegy Ellipta] 200-62.5-25 mcg INH SCH (09:00)
[2023-05-08] MEDS: GABAPENTIN 300 MG CAP PO SCH (09:43)
[2023-05-08] MEDS: DOXYCYCLINE HYCLATE 100 MG CAP PO SCH (09:43)
[2023-05-08] MEDS: ASPIRIN 81 MG ECTAB PO SCH (09:43)
[2023-05-08] MEDS: FLUTICASONE FUROATE 200MCG 14 PUFFS/INHALER INH SCH (09:44)
[2023-05-08] MEDS: ENOXAPARIN INJ 40 MG/0.4 ML SYR SQ SCH (09:44)
[2023-05-08] MEDS: PARoxetine HCL 20 MG TAB PO SCH (09:45)
[2023-05-08] MEDS: UMECLIDINIUM/VILANTEROL 62.5/25MCG 7 PUFFS/INHALER INH SCH (09:46)
--- NOTE | 2023-05-08 14:01 | XRay Report ---
XR elbow RT min 3V routine CLINICAL HISTORY: Right elbow pain. COMPARISON STUDY: None. FINDINGS: No acute fracture or dislocation within the right elbow. Soft tissues are unremarkable. No radiopaque foreign bodies. No elbow effusion. Small enthesophyte at the olecranon. Minimal degenerati ve changes at the elbow joint. IMPRESSION: No fracture or dislocation within the right elbow. ACT 112: Negative or not required by law. Electronically signed by: Tna Martínez M.D. 05/08/2023 2:00 PM
--- NOTE | 2023-05-08 14:48 | Hospitalist Progress Note ---
Date of Service May 08, 2023 Assessment & Plan (1) Acute hypoxemic respiratory failure: Plan: Community-acquired pneumonia Sepsis, Hypoxia secondary to above H/O COPD Failed outpatient azithromycin treatment --CT Chest:Mild patchy consolidation at the lung bases, correlate for mild pneumonia. -- BioFire negative --Blood cultures pending Normal procalcitonin Continue Rocephin, doxycycline Supplemental oxygen as needed May 2 step prior to discharge PT OT as able Acute on Chronic Hyponatremia Sodium near baseline Previously thought to be due to excessive fluid intake Sodium 132 Monitor closely Hyperkalemia Hold lisinopril Potassium levels normalized Monitor Right elbow pain -Elbow X ray:No fracture or dislocation within the right elbow. -[facility] in Mar 2023: Right upper extremity venous duplex examination with no evidence of acute deep venous thrombosis.The right basilic and cephalic veins are patent with no evidence of superficial thrombophlebitis. -Continue gabapentin Pain control DM II Update HbA1c Hold metformin and Jardiance Continue insulin while hospitalized Monitor BGs Hypertension Hold lisinopril due to hyperkalemia Monitor BP Hyperlipidemia Continue statin Anxiety/mood disorder Chronic anemia Past tobacco use Continue home medications DVT Px: Lovenox SQ Code Status DNR/DNI Admission and Anticipated Discharge Date Admission Date: May 07, 2023 Subjective Patient is seen and examined at bedside States having intermittent cough Denies any chest pain, dyspnea, dizziness, nausea, vomiting, abdominal pain, dysuria Feels tired and reports generalized weakness Discussed with patient's son at bedside Also reports right elbow pain Review of Systems Review of Systems: All systems reviewed & are unremarkable except as noted in Subjective Physical Exam Physical Exam: Physical Exam: Vitals signs as noted above General Appearance:Moderately built and nourished, Chronic ill appearing, no apparent distress Head: normocephalic, Atraumatic Eyes: normal inspection, EOMI Neck: supple, Trachea midline Respiratory/Chest: Decreased breath sounds, CTA, No accessory muscle use Cardiovascular: S1, S2, No murmur Abdomen/GI:Soft, Non tender, Bowel sounds present Extremities/Musculoskeletal:normal inspection, no edema Neurologic/Psych:AAOX3, grossly no focal neurological deficits, +Chronic resting tremor Skin: normal color, warm Results & Data Results & Data Vital Signs (Past 12 Hours) Vital Signs Pulse Pulse Resp BP BP Pulse Ox O2 Del Method 05/08/23 12:05 72 18 96 Room Air 05/08/23 10:00 123/70 05/08/23 10:00 82 17 94 05/08/23 09:04 107/65 05/08/23 09:04 77 19 94 05/08/23 09:01 81 15 94 05/08/23 09:01 74/49 L 05/08/23 09:00 78 14 94 05/08/23 08:00 87 25 H 95 05/08/23 08:00 130/73 05/08/23 07:29 73 05/08/23 07:00 116/68 05/08/23 07:00 70 15 99 05/08/23 06:53 72 18 96 Room Air 05/08/23 06:40 118/67 05/08/23 06:40 70 18 95 05/08/23 06:00 85 13 93 05/08/23 05:00 122/65 05/08/23 05:00 84 15 93 05/08/23 04:01 81 24 125/68 93 Room Air 05/08/23 04:00 80 24 125/68 94 05/08/23 03:00 118/67 05/08/23 03:00 75 20 118/67 94 Room Air 05/08/23 02:46 74 16 94 Room Air Laboratory Results Short CBC 05/07/23 Range/Units 17:03 WBC 20.33 H (4.8-10.8) K/ul Hgb 12.8 L (14.0-18.0) g/dl Hct 38.4 L (42.0-52.0) % Plt Count 332 (130-400) K/uL BMP 05/07/23 05/07/23 17:03 21:19 Sodium 128 L 132 L Potassium 5.2 H 4.6 Chloride 99 107 Carbon Dioxide 22 18 L BUN 31 H 29 H Creatinine 1.38 1.13 Glucose 186 H 231 H Calcium 9.5 8.5 L Liver Function 05/07/23 Range/Units 17:03 Total Bilirubin 0.4 (0.2-1.0) mg/dl AST 32 (13-39) U/L ALT 50 (7-52) U/L Alkaline Phosphatase 112 H (34-104) U/L Albumin 4.2 (3.4-5.0) gm/dl Urine 05/07/23 Range/Units 18:27 Urine Color Yellow Urine Appearance Clear (Clear) Urine pH 5.0 (4.5-7.5) Ur Specific [place] 1.024 (1.000-1.030) Urine Protein Negative (Negative) Urine Glucose (UA) 3+ H (Negative)
--- NOTE | 2023-05-08 19:13 | Electrocardiogram Report ---
Test Reason : Blood Pressure : / mmHG Vent. Rate : 090 BPM Atrial Rate : 090 BPM P-R Int : 156 ms QRS Dur : 100 ms QT Int : 340 ms P-R-T Axes : 053 -39 055 degrees QTc Int : 415 ms Normal sinus rhythm Premature atrial complexes Left axis deviation Septal infarct Abnormal ECG When compared with ECG of 24-JAN-2023 21:10, QRS axis Shifted left Confirmed by Nato Cano ([id number]) on 05/08/2023 7:13:16 PM Referred By: REFERRED SELF Confirmed By:Nato Cano
[2023-05-08] MEDS: ATORVASTATIN 40 MG TAB PO SCH (21:02)
[2023-05-08] MEDS: cefTRIAXone SODIUM 2,000 MG in DEXTROSE 5 % MINI-B 50 ML IV SCH (21:57)
[2023-05-09 06:52] LABS: Estimated Average Glucose 272 mg/dl; Hemoglobin A1C 11.1 % (4.5-5.6)
[2023-05-09 06:57] LABS: Hematocrit (blood only) 36.3 % (42.0-52.0); Hemoglobin 11.8 g/dl (14.0-18.0); Mean Corpuscular Hemoglobin 30.6 pg (25.0-34.0); Mean Corpuscular Hgb Conc 32.5 g/dL (32.0-36.0); Mean Corpuscular Volume 94.3 fL (80.0-100.0); Mean Platelet Volume 9.9 fL (9.4-12.4); Platelet Count 286 K/uL (130-400); RDW Coefficient of Variation 14.7 % (11.5-14.5); RDW Standard Deviation 51.1 fL (36.4-46.3); Red Blood Count 3.85 M/uL (4.70-6.10)
[2023-05-09 07:20] LABS: BUN Creatinine Ratio 23.3 (10-20); Calcium 9.4 mg/dl (8.6-10.3); Creatinine Clr Calc Pharmacy 65.9 ml/min; Est GFR (African American) 75.6 ml/min; Est GFR (Non-African American) 65.3 ml/min; Potassium 4.7 mmol/L (3.5-5.1)
--- NOTE | 2023-05-09 15:56 | Hospitalist Progress Note ---
Date of Service May 09, 2023 Assessment & Plan (1) Acute hypoxemic respiratory failure: Plan: Community-acquired pneumonia Sepsis, Hypoxia secondary to above H/O COPD Failed outpatient azithromycin treatment --CT Chest:Mild patchy consolidation at the lung bases, correlate for mild pneumonia. -- BioFire negative --Blood cultures: Negative to date Procalcitonin 0.62 Continue Rocephin, doxycycline Supplemental oxygen as needed May 2 step prior to discharge PT OT as able Clinically improving Will likely be discharged in 1 to 2 days Acute on Chronic Hyponatremia Sodium near baseline Previously thought to be due to excessive fluid intake Sodium 132>135 Monitor closely Hyperkalemia Hold lisinopril Potassium levels normalized Monitor Right elbow pain -Elbow X ray:No fracture or dislocation within the right elbow. -[facility] Mar 2023: Right upper extremity venous duplex examination with no evidence of acute deep venous thrombosis.The right basilic and cephalic veins are patent with no evidence of superficial thrombophlebitis. -Continue gabapentin Pain control DM II HbA1c 11.1 Hold metformin and Jardiance Continue insulin while hospitalized Monitor BGs Hypertension Hold lisinopril due to hyperkalemia Monitor BP BP stable today Hyperlipidemia Continue statin Anxiety/mood disorder Chronic anemia Past tobacco use Continue home medications DVT Px: Lovenox SQ Code Status DNR/DNI Admission and Anticipated Discharge Date Admission Date: May 07, 2023 Subjective Patient is seen and examined at bedside States feeling a lot better today Denies any cough Also denies any chest pain, dyspnea, dizziness, nausea, vomiting, abdominal pain, dysuria Still has some right arm pain Leukocytosis resolved Afebrile today Review of Systems Review of Systems: All systems reviewed & are unremarkable except as noted in Subjective Physical Exam Physical Exam: Physical Exam: Vitals signs as noted above General Appearance:Moderately built and nourished, Chronic ill appearing, no apparent distress Head: normocephalic, Atraumatic Eyes: normal inspection, EOMI Neck: supple, Trachea midline Respiratory/Chest: Decreased breath sounds, CTA, No accessory muscle use Cardiovascular: S1, S2, No murmur Abdomen/GI:Soft, Non tender, Bowel sounds present Extremities/Musculoskeletal:normal inspection, no edema Neurologic/Psych:AAOX3, grossly no focal neurological deficits, +Chronic resting tremor Skin: normal color, warm Results & Data Results & Data Vital Signs (Past 12 Hours) Vital Signs Temp Pulse Pulse Pulse Resp BP Pulse Ox 05/09/23 15:10 37.0 C 85 20 121/69 93 05/09/23 14:07 05/09/23 14:02 91 05/09/23 13:59 80 05/09/23 12:43 80 16 93 05/09/23 11:36 36.6 C 73 16 130/77 93 05/09/23 07:54 36.7 C 80 16 112/63 96 05/09/23 07:18 05/09/23 07:15 84 17 94 05/09/23 06:00 73 Pulse Ox O2 Del Method O2 Flow Rate 05/09/23 15:10 Room Air 05/09/23 14:07 93 0 05/09/23 14:02 05/09/23 13:59 05/09/23 12:43 Room Air 05/09/23 11:36 Room Air 05/09/23 07:54 Room Air 05/09/23 07:18 Room Air 05/09/23 07:15 Room Air 05/09/23 06:00 Laboratory Results Short CBC 05/09/23 Range/Units 06:17 WBC 8.60 (4.8-10.8) K/ul Hgb 11.8 L (14.0-18.0) g/dl Hct 36.3 L (42.0-52.0) % Plt Count 286 (130-400) K/uL BMP 05/09/23 06:17 Sodium 135 L Potassium 4.7 Chloride 106 Carbon Dioxide 21 BUN 27 H Creatinine 1.16 Glucose 163 H Calcium 9.4
[2023-05-10 07:50] VITALS: BP 130/62; RESP 16; TEMP 97.7
[2023-05-10 08:09] LABS: Hematocrit (blood only) 37.2 % (42.0-52.0); Hemoglobin 11.9 g/dl (14.0-18.0); Mean Corpuscular Volume 96.9 fL (80.0-100.0); Mean Platelet Volume 9.8 fL (9.4-12.4); Platelet Count 280 K/uL (130-400); RDW Coefficient of Variation 14.6 % (11.5-14.5); RDW Standard Deviation 51.9 fL (36.4-46.3); Red Blood Count 3.84 M/uL (4.70-6.10); White Blood Count 5.86 K/ul (4.8-10.8)
[2023-05-10 09:33] LABS: Calcium 9.2 mg/dl (8.6-10.3); Potassium 4.5 mmol/L (3.5-5.1)
[2023-05-10 09:38] LABS: BUN Creatinine Ratio 28.3 (10-20); Creatinine Clr Calc Pharmacy 72.9 ml/min; Est GFR (African American) 84.3 ml/min; Est GFR (Non-African American) 72.8 ml/min
[2023-05-10] MEDS ORDERED: CEFDINIR 300 MG CAP PO SCH (10:00)
--- NOTE | 2023-05-10 11:08 | Hospitalist Progress Note ---
Date of Service May 10, 2023 Assessment & Plan (1) Acute hypoxemic respiratory failure: Plan: Community-acquired pneumonia Sepsis, Hypoxia secondary to above H/O COPD Failed outpatient azithromycin treatment --CT Chest:Mild patchy consolidation at the lung bases, correlate for mild pneumonia. -- BioFire negative --Blood cultures: Negative to date Procalcitonin 0.62 Has been on Rocephin, doxycycline Supplemental oxygen as needed-saturating normally on room air Has been ambulating in the hallway without any difficulties Has had PT evaluation and recommended home 2 steps O2 saturation test showed that he does not require any oxygen He will be discharged home this morning Acute on Chronic Hyponatremia Sodium near baseline Previously thought to be due to excessive fluid intake Sodium 132>135 Sodium level is corrected Hyperkalemia Hold lisinopril Potassium levels normalized Right elbow pain -Elbow X ray:No fracture or dislocation within the right elbow. -Outpatient [facility] in Mar 2023: Right upper extremity venous duplex examination with no evidence of acute deep venous thrombosis.The right basilic and cephalic veins are patent with no evidence of superficial thrombophlebitis. -Continue gabapentin Pain control -no more pain DM II HbA1c 11.1 Hold metformin and Jardiance Continue insulin while hospitalized Monitor BGs Hypertension Hold lisinopril due to hyperkalemia Monitor BP BP stable today Hyperlipidemia Continue statin Anxiety/mood disorder Chronic anemia Past tobacco use Continue home medications DVT Px: Lovenox SQ Code Status DNR/DNI Will be discharged home this morning Admission and Anticipated Discharge Date Admission Date: May 07, 2023 Subjective 05/10/2023 The patient was seen and examined in medical telemetry unit in presence of the He has been feeling much better and denies any symptoms No cough, shortness of breath with exertion, no fever and no chills He has been ambulating in the hallway without any difficulties He will be discharged home this morning Review of Systems Review of Systems: All systems reviewed and are unremarkable except as noted Physical Exam Physical Exam: Lying in bed without any distress Constitutional: average body habitus; not ill appearing Eyes: PERRL, conjunctivae normal, anicteric sclerae ENMT: external ear and nose normal, oropharynx normal Neck: trachea midline, no thyromegaly Respiratory: no respiratory distress Auscultation: lungs clear to auscultation bilaterally and + diminished lung sounds (Minimally) Cardiovascular: Rate/Rhythm: regular rate and regular rhythm; not tachycardic Heart Sounds: normal S1 and normal S2; no murmur Extremities: no edema Gastrointestinal (Abdomen): Inspection/Auscultation: normal bowel sounds; abdomen not distended Percussion/Palpation: abdomen soft; abdomen nontender Musculoskeletal: No acute arthritis involving any of the joint Neurologic: normal touch/pain/proprioception and moves all extremities; no focal motor deficits Psychiatric: A+Ox3, euthymic affect Lymphatic: no cervical or axillary lymphadenopathy Results & Data Results & Data Vital Signs (Past 12 Hours) Vital Signs Temp Pulse Pulse Pulse Pulse Pulse Resp 05/10/23 10:54 92 H 89 05/10/23 08:25 05/10/23 07:40 36.5 C 77 16 05/10/23 07:13 74 05/10/23 07:13 81 18 05/10/23 03:44 36.4 C L 65 18 05/10/23 00:13 71 18 05/09/23 23:41 93 H Resp Resp BP Pulse Ox Pulse Ox Pulse Ox O2 Del Method 05/10/23 10:54 17 16 92 93 05/10/23 08:25 Room Air 05/10/23 07:40 130/62 94 Room Air 05/10/23 07:13 05/10/23 07:13 96 Room Air 05/10/23 03:44 123/62 95 Room Air 05/10/23 00:13 93 Room Air 05/09/23 23:41 Laboratory Results Short CBC 05/10/23 Range/Units 07:12 WBC 5.86 (4.8-10.8) K/ul Hgb 11.9 L (14.0-18.0) g/dl Hct 37.2 L (42.0-52.0) % Plt Count 280 (130-400) K/uL BMP 05/10/23 07:12 Sodium 135 L Potassium 4.5 Chloride 108 H Carbon Dioxide 20 L BUN 30 H Creatinine 1.06 Glucose 182 H Calcium 9.2 Medications Administered Current Inpatient Medications Acetaminophen (Acetaminophen 325 Mg Tab) 650 mg PO Q6H PRN PRN Reason: Pain Stop: 06/06/23 23:26 Last Admin: 05/09/23 13:19 Dose: 650 mg Aspirin (Aspirin 81 Mg Ectab) 81 [facility] [place] Stop: 06/07/23 08:59 Last Admin: 05/10/23 08:43 Dose: 81 mg Atorvastatin Calcium (Atorvastatin 40 Mg Tab) 80 mg PO QPM [facility] Stop: 06/07/23 20:59 Last Admin: 05/09/23 20:01 Dose: 80 mg Buspirone HCl (Buspirone 5 Mg Tab) 10 mg PO AMHS [facility] Stop: 06/06/23 23:26 Last Admin: 05/10/23 08:43 Dose: 10 mg Cefdinir (Cefdinir 300 Mg Cap) 300 mg PO BID BOB; Protocol Stop: 05/17/23 09:59 Dextrose (Dextrose 50% 50 Ml Syringe) 25 - 50 ml IV UD PRN; Protocol PRN Reason: Hypoglycemia Protocol Stop: 06/06/23 23:26 Doxycycline Hyclate (Doxycycline Hyclate 100 Mg Cap) 100 mg PO BID [facility] Stop: 05/15/23 08:59 Last Admin: 05/10/23 08:43 Dose: 100 mg Enoxaparin Sodium (Enoxaparin Inj 40 Mg/0.4 Ml Syr) 40 mg SQ QAM [facility] Stop: 06/07/23 08:59 Last Admin: 05/10/23 08:43 Dose: 40 mg Fluticasone Furoate (Fluticasone Furoate 200mcg 14 Puffs/Inhaler) 1 puffs INH DAILY [facility] Stop: 06/07/23 08:59 Last Admin: 05/10/23 08:44 Dose: 1 puffs Gabapentin (Gabapentin 300 Mg Cap) 300 mg PO TID [facility] Stop: 06/07/23 08:59 Last Admin: 05/10/23 08:43 Dose: 300 mg Glucagon (Glucagon For Inj 1 Mg Vial) 1 mg SQ UD PRN; Protocol PRN Reason: Hypoglycemia Protocol Stop: 06/06/23 23:26 Glucose (Glucose 10 Tab/Tube) 4 - 8 tab PO UD PRN; Protocol PRN Reason: Hypoglycemia Treatment Stop: 06/06/23 23:26 Glucose (Glucose 40% Gel 15 Gm Tube) 15 - 30 gm PO UD PRN; Protocol PRN Reason: Hypoglycemia Protocol Stop: 06/06/23 23:26 Insulin Aspart (Insulin Aspart Per Unit Charge) 0 units SC ACHS [facility] Stop: 06/06/23 23:26 Last Admin: 05/10/23 09:33 Dose: 7 units Insulin Glargine (Lantus Per Unit Charge) 5 units SQ BID BOB Stop: 06/06/23 23:26 Last Admin: 05/10/23 09:34 Dose: 5 units Ipratropium [place] (Ipratropium [place] Neb Soln 0.02% 0.5mg/2.5ml Vial) 0.5 mg INH Q6R BOB Stop: 06/07/23 00:59 Last Admin: 05/10/23 07:13 Dose: 0.5 mg Levalbuterol HCl (Levalbuterol 1.25 Mg/3 Ml Neb) 1.25 mg NEB Q6R BOB Stop: 06/07/23 00:59 Last Admin: 05/10/23 07:13 Dose: 1.25 mg Miscellaneous (Carbohydrates For Hypoglycemia ) 15 - 30 gm PO UD PRN PRN Reason: Hypoglycemia Protocol Stop: 06/06/23 23:26 Paroxetine HCl (Paroxetine Hcl 20 Mg Tab) 30 mg PO BID BOB Stop: 06/07/23 08:59 Last Admin: 05/10/23 08:43 Dose: 30 mg Risperidone (Risperidone 3 Mg Tablet) 3 mg PO HS BOB Stop: 06/06/23 23:26 Last Admin: 05/09/23 20:01 Dose: 3 mg Umeclidinium/Vilanterol (Umeclidinium/Vilanterol 62.5/25mcg 7 Puffs/Inhaler) 1 puffs INH DAILY BOB Stop: 06/07/23 08:59 Last Admin: 05/10/23 08:44 Dose: 1 puffs
[2023-05-10 13:24] VITALS: PULSE 79; O2SAT 96
== END 2023-05-10 15:35 | disposition home or self-care (01) | DRG 871 ==
LOC: ED 16:42 → EDINP 21:46 → SUATTDRO 21:46 → EDINP 05-08 15:07 → 2N 05-08 16:08
DX: F41.9 Anxiety disorder, unspecified; Z79.82 Long term (current) use of aspirin; I10 Essential (primary) hypertension; J96.01 Acute respiratory failure with hypoxia; Z79.4 Long term (current) use of insulin; Z79.85 Long-term (current) use of injectable non-insulin antidiabetic drugs; M25.521 Pain in right elbow; Z66 Do not resuscitate; J44.9 Chronic obstructive pulmonary disease, unspecified; J18.9 Pneumonia, unspecified organism; F39 Unspecified mood [affective] disorder; Z87.891 Personal history of nicotine dependence; Z79.84 Long term (current) use of oral hypoglycemic drugs; E87.1 Hypo-osmolality and hyponatremia; E87.5 Hyperkalemia; A41.9 Sepsis, unspecified organism